=== PATIENT | male | born 1940 | race Caucasian/White ===

== ENCOUNTER 2017-01-19 21:08 | Inpatient (IN) | payer MEDICARE, BC ==
[~2017-01-19] VITALS: Ht 161.3 cm; Wt 76.7 kg
[~2017-01-19 21:08] MED LIST: ALLO300T PO; BISO1TAB4 PO; BUDE0.5A NEB; CLON0.1T PO; DOXA4TAB3 PO; FURO40TA4 PO; GLIM2TAB PO; METF500T4 PO; NIFE30TA17 PO; PANT40TA5 PO; PIOG15TA21 PO; POTA10TA12 PO; POTASSIUM CHLO10 MEQ PO; PROAIR HFA8.5 GM IH
[2017-01-19 21:44] LABS: BASO % 1 % (0-3); EOS % 2 % (0-3); HEMOGLOBIN 10.6 g/dL (13.0-17.5); LYMPH # 1.4 x10^3/uL (1.0-4.8); LYMPH % 16 % (24-48); MEAN CORPUSCULAR HEMOGLOBIN 26 pg (25-35); MEAN CORPUSCULAR HGB CONC 32 g/dL (31-37); MEAN CORPUSCULAR VOLUME 81 fL (79-100); MONO % 10 % (0-9); NEUT % 72 % (31-73); PLATELET COUNT 176 x10^3/uL (140-400); RED BLOOD COUNT 4.09 x10^6/uL (4.30-5.70); WHITE BLOOD COUNT 9.1 x10^3/uL (4.0-11.0)
[2017-01-19] MEDS ORDERED: ASPIRIN CHEWABLE 81 MG TABLET. PO ONE (21:45)
[2017-01-19] MEDS ORDERED: ACETAMINOPHEN 325 MG TABLET. PO ONE (21:45)
[2017-01-19] MEDS ORDERED: HEPARIN for IV BOLUS 10,000 UNIT/10 ML VIAL. IV ONE (21:45)
[2017-01-19] MEDS ORDERED: methylPREDNISolone SOD SUCC PF 125 MG/2 ML VIAL. IV ONE (21:45)
[2017-01-19] MEDS ORDERED: HEPARIN 25,000UTS/500ML PREMIX 500 ML IV PRN (21:45)
[2017-01-19] MEDS ORDERED: IPRATRPIUM/ALBUTEROL 0.5/2.5MG 3 ML NEBU. NEB ONE ×3 (21:45)
[2017-01-19] MEDS ORDERED: FUROSEMIDE 40 MG/4 ML VIAL. IVP ONE (21:45)
[2017-01-19] MEDS ORDERED: HEPARIN for IV BOLUS 10,000 UNIT/10 ML VIAL. IV PRN (21:45)
[2017-01-19 21:52] LABS: CALCIUM 8.6 mg/dL (8.5-10.1); CREATININE 1.4 mg/dL (0.7-1.3); GFR 49.1; POTASSIUM 3.9 mmol/L (3.5-5.1)
[2017-01-19 21:53] LABS: INR 1.2 (0.8-1.1); PROTHROMBIN TIME PATIENT 14.9 SEC (11.7-14.0)
[2017-01-19 22:07] LABS: ALBUMIN 2.7 g/dL (3.4-5.0); ALBUMIN/GLOBULIN RATIO 0.7 (1.0-1.7); TOTAL BILIRUBIN 0.8 mg/dL (0.2-1.0); TOTAL PROTEIN 6.6 g/dL (6.4-8.2)
[2017-01-19] MEDS ORDERED: MORPHINE SULFATE 2 MG/ML DISP.SYRIN. IV PRN (22:45)
[2017-01-19] MEDS ORDERED: ACETAMINOPHEN 325 MG TABLET. PO PRN (22:45)
[2017-01-19] MEDS ORDERED: ONDANSETRON PF 4 MG/2 ML VIAL. IV PRN (22:45)
[2017-01-19] MEDS ORDERED: NITROGLYCERIN SUBLINGUAL 0.4 MG BOTTLE OF 25. SL PRN (22:45)
[2017-01-19] MEDS ORDERED: AZITHRMYCN 500MG IVPB FOR OMNI 250 ML IV ONE (23:00)
[2017-01-19 23:24] LABS: BILIRUBIN,URINE NEGATIVE (NEG); GLUCOSE,URINE NEGATIVE (NEG); NITRITE,URINE NEGATIVE (NEG); PH,URINE 5.5; PROTEIN,URINE NEGATIVE (NEG-TRACE)
[2017-01-19 23:34] LABS: BACTERIA,URINE 0 /HPF (0-FEW); RBC,URINE 0 /HPF (0-2); SQUAMOUS EPITHELIAL CELL,UR OCC /LPF; WBC,URINE OCC /HPF (0-4)
[2017-01-20] VITALS (10 sets, daily range): BP systolic 114–154; BP diastolic 54–83
--- NOTE | 2017-01-20 01:40 | PHYS DOC ---
Past Medical History Past Medical History: Asthma, Diabetes-Type II Past Surgical History: No Surgical History Alcohol Use: None Drug Use: None Adult General Chief Complaint Chief Complaint: SHORTNESS OF BREATH HPI HPI Patient is a 76 year old gentleman with a history significant for hypertension diabetes and COPD presents to the ER today secondary to shortness of breath that started earlier this afternoon. Patient reports he uses oxygen as needed at home. When EMS arrived his pulse ox was 86% on room air. Patient reports he was extremity short of breath prior to EMS arrival. EMS gave him an albuterol in route and he reports that he feels somewhat improved after that. He reports he is now able cough up some sputum. Patient denies any history of atrial fibrillation or coronary artery disease in the past. Patient does not have any abdominal surgeries in the past. Patient is an ex-smoker no alcohol or drugs. Patient primary care physician is Dr. Coyle. Patient reports that he does not have a history of CHF although he has been treated with diuretics in the past for his lower extremity edema. Patient reports that he's had increased edema to his lower extremities over the last several days. Patient reports orthopnea and PND. Patient reports tactile fevers and a nonproductive cough as well. Patient reports sharp pleuritic chest pain. Patient's physical exam and the ER was significant for 1. Patient's heart rate was irregularly irregular and tachycardic to a heart rate of 115. Patient denies any history of atrial fibrillation on the monitor his rhythm appeared to be in rapid A. fib. 2. She had diffuse inspiratory and expiratory wheezing was tachypneic upon arrival to the ER. Patient's pulse ox upon arrival was 95% on 4 L nasal cannula. 3. Patient has 2-3+ bipedal edema. Patient has no JVD. No S3 or S4 was appreciable. 4. Patient was unable speak in full sentences. Patient appeared to be extremity dyspneic and hypoxic. Patient's ER hospital course was significant for an x-ray that revealed a right lower lobe pneumonia. Patient's BNP was elevated to 3000. Patient's troponin was normal. Patient's WBC count was normal. A/P 1 pneumonia with possible sepsis. Patient's lactic acid was normal. Patient's CBC Was unremarkable. Patient's chest x-ray did reveal right lower lobe infiltrate. Given the patient's recent cough patient had a fever 100.3 here in the ER we will go ahead and start the patient on Rocephin and Zithromax IV. 2. COPD exacerbation. Patient was given Solu-Medrol the ER as well as multiple Combivent's patient feels much improved prior to being sent to the floor. Patient be treated with IV steroids, albuterol/Atrovent and will be monitored in the hospital until he improves. 3. New onset A. fib. Etiology unclear. This is possibly related to his fever versus infection. Patient was started on heparin anticoagulates the patient. Patient was given aspirin. Patient is currently has a heart rate of 100 after Tylenol was given in the ER. Patient will be admitted to telemetry and cardiology will be consulted for further evaluation. 4. Pulmonary edema. Patient has a markedly elevated BNP with no exudate A. fib. Patient will be given Lasix IV. Critical care time of 35 minutes were utilizing a treatment and management of this patient's hypoxia, pulmonary edema, pneumonia, possible sepsis. This was exclusive of any procedures performed of the patient. Review of Systems Review of Systems Constitutional: Denies fever or chills [] Eyes: Denies change in visual acuity, redness, or eye pain [] HENT: Denies nasal congestion or sore throat [] All other review systems are negative except as documented in the history of present illness portion. Allergies Allergies Allergies Coded Allergies Type Severity Reaction Last Updated Verified No Known Drug Allergies 10/17/15 No Physical Exam Physical Exam Constitutional: Well developed, well nourished, no acute distress, non-toxic appearance. [] HENT: Normocephalic, atraumatic, bilateral external ears normal, oropharynx moist, no oral exudates, nose normal. [] Eyes: PERRLA, EOMI, conjunctiva normal, no discharge. [] Neck: Normal range of motion, no tenderness, supple, no stridor. [] Cardiovascular see above. Lungs & Thorax: See above. Abdomen: Bowel sounds normal, soft, no tenderness, no masses, no pulsatile masses. [] Skin: Warm, dry, no erythema, no rash. [] Back: No tenderness, no CVA tenderness. [] Extremities: 2+ edema Neurologic: Alert and oriented X 3, normal motor function, normal sensory function, no focal deficits noted. [] Psychologic: Affect normal, judgement normal, mood normal. [] Current Patient Data Vital Signs Vital Signs Date Time Temp Pulse Resp B/P (MAP) Pulse Ox O2 Delivery O2 Flow Rate FiO2 01/19/17 21:14 102 152/65 (94) 91 Nasal Cannula 2.0 01/19/17 21:13 99.0 26 99.0 Lab Values Laboratory Tests Test 01/19/17 21:30 White Blood Count 9.1 x10^3/uL (4.0-11.0) Red Blood Count 4.09 x10^6/uL (4.30-5.70) L Hemoglobin 10.6 g/dL (13.0-17.5) L Hematocrit 33.0 % (39.0-53.0) L Mean Corpuscular Volume 81 fL (79-100) Mean Corpuscular Hemoglobin 26 pg (25-35) Mean Corpuscular Hemoglobin Concent 32 g/dL (31-37) Red Cell Distribution Width 16.0 % (11.5-14.5) H Platelet Count 176 x10^3/uL (140-400) Neutrophils (%) (Auto) 72 % (31-73) Lymphocytes (%) (Auto) 16 % (24-48) L Monocytes (%) (Auto) 10 % (0-9) H Eosinophils (%) (Auto) 2 % (0-3) Basophils (%) (Auto) 1 % (0-3) Neutrophils # (Auto) 6.6 x10^3uL (1.8-7.7) Lymphocytes # (Auto) 1.4 x10^3/uL (1.0-4.8) Monocytes # (Auto) 0.9 x10^3/uL (0.0-1.1) Eosinophils # (Auto) 0.2 x10^3/uL (0.0-0.7) Basophils # (Auto) 0.0 x10^3/uL (0.0-0.2) Prothrombin Time 14.9 SEC (11.7-14.0) H Prothrombin Time INR 1.2 (0.8-1.1) H PTT 34 SEC (24-38) Sodium Level 143 mmol/L (136-145) Potassium Level 3.9 mmol/L (3.5-5.1) Chloride Level 104 mmol/L (98-107) Carbon Dioxide Level 29 mmol/L (21-32) Anion Gap 10 (6-14) Blood Urea Nitrogen 22 mg/dL (8-26) Creatinine 1.4 mg/dL (0.7-1.3) H Estimated GFR (Cockcroft-Gault) 49.1 BUN/Creatinine Ratio 16 (6-20) Glucose Level 89 mg/dL (70-99) Lactic Acid Level 1.5 mmol/L (0.4-2.0) Calcium Level 8.6 mg/dL (8.5-10.1) Total Bilirubin 0.8 mg/dL (0.2-1.0) Aspartate Amino Transferase (AST) 26 U/L (15-37) Alanine Aminotransferase (ALT) 23 U/L (16-63) Alkaline Phosphatase 75 U/L (46-116) Troponin I Quantitative 0.033 ng/mL (0.000-0.055) PQ-Jdt-S-Type Natriuretic Peptide 3920 pg/mL (0-449) H Total Protein 6.6 g/dL (6.4-8.2) Albumin 2.7 g/dL (3.4-5.0) L Albumin/Globulin Ratio 0.7 (1.0-1.7) L Laboratory Tests 01/19/17 21:30 Laboratory Tests 01/19/17 21:30 EKG EKG [] Radiology/Procedures Radiology/Procedures [] Course & Med Decision Making Course & Med Decision Making Pertinent Labs and Imaging studies reviewed. (See chart for details) [] Dragon Disclaimer Dragon Disclaimer This electronic medical record was generated, in whole or in part, using a voice recognition dictation system. Departure Departure Impression: Primary Impression: New onset atrial fibrillation Additional Impressions: Atrial fibrillation with RVR Pulmonary edema Pulmonary edema cardiac cause Pneumonia, community acquired Hypoxia Disposition: ADMITTED INPATIENT Admitting Physician: Gabriela Valera Condition: GUARDED Referrals: GABRIELA VALERA MD (PCP) Problem Qualifiers Additional Impressions: Pulmonary edema Chronicity: acute Qualified Codes: J81.0 - Acute pulmonary edema JULIA MORTON MD January 20, 2017 01:40
--- NOTE | 2017-01-20 02:08 | ACF ---
Admission Forms Criteria ATRIAL FIBRILLATION Clinical Indications for Admission to Inpatient Care (Place 'X' for any and all applicable criteria): Admission indicated for ANY ONE of the following(1)(2)(3)(4)(5) : [ ]I. Myocardial ischemia [X]II. Dyspnea or hypoxemia [ ]III. Hemodynamic instability [ ]IV. Heart failure (e.g., pulmonary edema) (7) [X]V. New-onset (less than 48 hours) atrial fibrillation with high risk for causing complications secondary to comorbidities (eg, symptomatic heart failure ) [ ]. Altered mental status [ ]VII. Syncope [ ]VIII. Patient has implantable cardioverter defibrillator that has fired more than once within past 24hr or needs immediate adjustment of settings that cannot be done other than in inpatient setting. (8) [ ]IX. Suspected accessory pathway (e.g., Wcytu-Mrvauremf-Ncssf syndrome) on ECG [ ]X. Recent systemic thromboembolism (eg, stroke) [ ]XI. Medication toxicity (e.g., digitalis) causing arrhythmia(9) [ ]XII. Underlying medical condition that necessitates inpatient care (e.g., thyrotoxicosis, pneumonia) (10) [ ]XIII. Continuous ECG monitoring is required for condition causing arrhythmia (e.g., severe hyperkalemia, hypokalemia, acid-base disturbance).(11)(12)(13) [ ]XIV. Initiation of antiarrhythmic drug therapy is needed in patient at high risk of adverse effects as indicated by ANY ONE of the following: [ ]a) Significant structural heart disease (e.g., reduced ejection fraction, congenital heart disease, valvular heart disease) [ ]b) Prolonged QT interval [ ]c) Underlying sinus node or atrioventricular conduction disturbances [ ]d) Need for treatment with antiarrhythmic drugs that have significant proarrhythmic potential (e.g., dofetilide, sotalol, procainamide) [ ]e) Patient whose sinus rhythm has never been observed on ECG [ ]XV. Intolerable symptoms despite optimal outpatient treatment [ ]XVI. Elective or urgent cardioversion that cannot be performed on outpatient basis or during observation care. [A] (Use also Atrial Fibrillation: Observation Care ) as appropriate.(14) [ ]XVII.Contraindications and/or Inappropriate clinical situations for Observational Care in patients with Atrial Fibrillation, when ANY ONE of the following is required: [ ]a) Patient with High risk of cardiac embolism (e.g, patients with previous cardiac embolism, LVEF < 40%, age >75 and patients with prosthetic valve) 18 [ ]b) Patient with Moderate risk including DM patient, CAD and patient aged 65-75 18 [ ]c) Patient with any change in cardiac biomarker especially troponin should be managed as high risk in an inpatient setting 19 [ ]d) Physician judgement irrespective of ECG and other diagnostic findings 20 [ ]XVIII.General contraindications and/or Inappropriate clinical situations for Observational Care in patients with Atrial Fibrillation, when ANY ONE of the following is required: [ ]a) Prediction of prolongation of LOS based on ANY ONE of the following may be considered as a contraindication for observational care 2, 3, 4, 5, 6, 7, 8, 9, 10, 11 [ ]i) Age > 65 yrs. [ ]ii) Patient arriving by ambulance [ ]iii) Patient with high acuity [ ]iv) Patient requiring vital sign monitoring [ ]v) Patient on IV medication [ ]b) Systolic blood pressures 180mmHg 3,12 [ ]c) Patient with altered mental status including delirium and other alteration of consciousness3 [ ]d) Patient whose discharge disposition will be to a snf home or rehabilitation home should not be managed in Emergency Department Observation Unit. CMS rule requires 3 days hospital stay before such placement.3,13 [ ]e) Patient with failure to thrive due to broad array of etiologies 3,16,17 [ ]f) Inability to ambulate 3,14 Extended stay beyond goal length of stay may be needed for (1)(25)(26): [ ]a) Unstable comorbidities [ ]b) Persistently uncontrolled atrial fibrillation or other arrhythmias [ ]c) Acute thromboembolic event (e.g., stroke, limb ischemia) [ ]d) Need for inpatient attainment of full anticoagulation The original [employer] content created by [employer] has been revised. The portions of the content which have been revised are identified through the use of italic text or in bold, and [employer] has neither reviewed nor approved the modified material. All other unmodified content is copyright [employer]. Please see references footnoted in the original [employer] edition 2016 Admission Criteria Met?: Yes JACLYN NAYLOR January 20, 2017 02:08
[2017-01-20 04:28] LABS: BASO % 0 % (0-3); EOS % 0 % (0-3); HEMATOCRIT 29.6 % (39.0-53.0); HEMOGLOBIN 9.8 g/dL (13.0-17.5); LYMPH # 0.2 x10^3/uL (1.0-4.8); LYMPH % 3 % (24-48); MEAN CORPUSCULAR HEMOGLOBIN 26 pg (25-35); MEAN CORPUSCULAR HGB CONC 33 g/dL (31-37); MEAN CORPUSCULAR VOLUME 79 fL (79-100); MONO % 2 % (0-9); NEUT % 95 % (31-73); PLATELET COUNT 160 x10^3/uL (140-400); RED BLOOD COUNT 3.73 x10^6/uL (4.30-5.70); RED CELL DISTRIBUTION WIDTH 15.7 % (11.5-14.5); WHITE BLOOD COUNT 6.9 x10^3/uL (4.0-11.0)
[2017-01-20 05:49] LABS: CALCIUM 8.4 mg/dL (8.5-10.1); CREATININE 1.5 mg/dL (0.7-1.3); GFR 45.4; POTASSIUM 3.5 mmol/L (3.5-5.1)
[2017-01-20 06:51] LABS: PLT ESTIMATE ADEQUATE (ADEQUATE)
--- NOTE | 2017-01-20 07:09 | RAD ---
Indication: Shortness of air. Time of exam 2138 hours. Comparison is made with prior chest from 10/19/2015. The heart size is stable. There has been development of patchy airspace infiltrate in the right lung base consistent with pneumonia. Left lung is fairly clear. No effusion or pneumothorax is seen. Impression: Right basilar pneumonia.
[2017-01-20] MEDS: IPRATRPIUM/ALBUTEROL 0.5/2.5MG 3 ML NEBU. NEB SCH ×4 (07:22→21:25)
--- NOTE | 2017-01-20 08:35 | PDOC ---
GENERAL General: ongoing avr with rvr. cardizem drip ordered. pulmonary and cardiology to see. see dictated H&P. Problems: VITAL SIGNS Vital Signs: Vital Signs Date Time Temp Pulse Resp B/P (MAP) Pulse Ox O2 Delivery O2 Flow Rate FiO2 01/20/17 07:57 97.7 92 25 142/83 (102) 94 Nasal Cannula 97.7 01/20/17 07:42 2.0 I & O I & O Intake and Output 01/20/17 07:00 Intake Total 475 ml Output Total 225 ml Balance 250 ml Intake Oral 50 ml IV Total 425 ml Output Urine Total 225 ml ALLERGIES Allergies: Allergies Coded Allergies Type Severity Reaction Last Updated Verified No Known Drug Allergies 10/17/15 No MEDS Medications: Current Medications Medications (Trade) Dose Ordered Sig/Lety Start Time Stop Time Status Last Admin Dose Admin Acetaminophen (Tylenol) 650 mg PRN Q4HRS PRN 01/19/17 22:45 01/20/17 22:44 Albuterol/ Ipratropium (Duoneb) 3 ml RTQID 01/20/17 08:00 01/21/17 07:59 01/20/17 07:22 3 ML Aspirin (Children'S Aspirin) 324 mg 1X ONCE 01/19/17 21:45 01/19/17 21:46 DC 01/19/17 22:00 324 MG Azithromycin 250 ml @ 250 mls/hr 1X ONCE 01/19/17 23:00 01/19/17 23:59 DC 01/19/17 23:12 250 MLS/HR Ceftriaxone Sodium 50 ml @ 100 mls/hr 1X ONCE 01/19/17 21:45 01/19/17 22:14 DC 01/19/17 22:01 100 MLS/HR Furosemide (Lasix) 40 mg 1X ONCE 01/19/17 21:45 01/19/17 21:46 DC 01/19/17 22:01 40 MG Heparin Sodium (Porcine) (Heparin Sodium) 1,900 unit PRN Q6HRS PRN 01/19/17 21:45 01/20/17 06:22 1,900 UNIT Heparin Sodium/ Dextrose 500 ml @ 0 mls/hr CONT PRN 01/19/17 21:45 01/19/17 22:16 0 MLS/HR Methylprednisolone Sodium Succinate (Solu-Medrol 125mg Vial) 125 mg 1X ONCE 01/19/17 21:45 01/19/17 21:46 DC 01/19/17 22:00 125 MG Morphine Sulfate 2 mg PRN Q2HR PRN 01/19/17 22:45 01/20/17 22:44 Nitroglycerin (Nitrostat) 0.4 mg PRN Q5MIN PRN 01/19/17 22:45 01/20/17 22:44 Ondansetron HCl (Zofran) 4 mg PRN Q8HRS PRN 01/19/17 22:45 01/20/17 22:44 LAB Lab: Laboratory Tests Test 01/19/17 21:30 01/19/17 23:10 01/20/17 04:15 01/20/17 04:30 White Blood Count 9.1 x10^3/uL (4.0-11.0) 6.9 x10^3/uL (4.0-11.0) Red Blood Count 4.09 x10^6/uL (4.30-5.70) 3.73 x10^6/uL (4.30-5.70) Hemoglobin 10.6 g/dL (13.0-17.5) 9.8 g/dL (13.0-17.5) Hematocrit 33.0 % (39.0-53.0) 29.6 % (39.0-53.0) Mean Corpuscular Volume 81 fL (79-100) 79 fL (79-100) Mean Corpuscular Hemoglobin 26 pg (25-35) 26 pg (25-35) Mean Corpuscular Hemoglobin Concent 32 g/dL (31-37) 33 g/dL (31-37) Red Cell Distribution Width 16.0 % (11.5-14.5) 15.7 % (11.5-14.5) Platelet Count 176 x10^3/uL (140-400) 160 x10^3/uL (140-400) Neutrophils (%) (Auto) 72 % (31-73) 95 % (31-73) Lymphocytes (%) (Auto) 16 % (24-48) 3 % (24-48) Monocytes (%) (Auto) 10 % (0-9) 2 % (0-9) Eosinophils (%) (Auto) 2 % (0-3) 0 % (0-3) Basophils (%) (Auto) 1 % (0-3) 0 % (0-3) Neutrophils # (Auto) 6.6 x10^3uL (1.8-7.7) 6.5 x10^3uL (1.8-7.7) Lymphocytes # (Auto) 1.4 x10^3/uL (1.0-4.8) 0.2 x10^3/uL (1.0-4.8) Monocytes # (Auto) 0.9 x10^3/uL (0.0-1.1) 0.1 x10^3/uL (0.0-1.1) Eosinophils # (Auto) 0.2 x10^3/uL (0.0-0.7) 0.0 x10^3/uL (0.0-0.7) Basophils # (Auto) 0.0 x10^3/uL (0.0-0.2) 0.0 x10^3/uL (0.0-0.2) Prothrombin Time 14.9 SEC (11.7-14.0) Prothromb Time International Ratio 1.2 (0.8-1.1) Activated Partial Thromboplast Time 34 SEC (24-38) Sodium Level 143 mmol/L (136-145) 141 mmol/L (136-145) Potassium Level 3.9 mmol/L (3.5-5.1) 3.5 mmol/L (3.5-5.1) Chloride Level 104 mmol/L (98-107) 103 mmol/L (98-107) Carbon Dioxide Level 29 mmol/L (21-32) 26 mmol/L (21-32) Anion Gap 10 (6-14) 12 (6-14) Blood Urea Nitrogen 22 mg/dL (8-26) 24 mg/dL (8-26) Creatinine 1.4 mg/dL (0.7-1.3) 1.5 mg/dL (0.7-1.3) Estimated GFR (Cockcroft-Gault) 49.1 45.4 BUN/Creatinine Ratio 16 (6-20) Glucose Level 89 mg/dL (70-99) 260 mg/dL (70-99) Lactic Acid Level 1.5 mmol/L (0.4-2.0) Calcium Level 8.6 mg/dL (8.5-10.1) 8.4 mg/dL (8.5-10.1) Total Bilirubin 0.8 mg/dL (0.2-1.0) Aspartate Amino Transf (AST/SGOT) 26 U/L (15-37) Alanine Aminotransferase (ALT/SGPT) 23 U/L (16-63) Alkaline Phosphatase 75 U/L (46-116) Troponin I Quantitative 0.033 ng/mL (0.000-0.055) < 0.017 ng/mL (0.000-0.055) PD-Hfu-S-Type Natriuretic Peptide 3920 pg/mL (0-449) Total Protein 6.6 g/dL (6.4-8.2) Albumin 2.7 g/dL (3.4-5.0) Albumin/Globulin Ratio 0.7 (1.0-1.7) Urine Collection Type Unknown Urine Color Yellow Urine Clarity Cloudy Urine pH 5.5 Urine Specific [place] 1.010 Urine Protein Negative mg/dL (NEG-TRACE) Urine Glucose (UA) Negative mg/dL (NEG) Urine Ketones (Stick) Negative mg/dL (NEG) Urine Blood Negative (NEG) Urine Nitrite Negative (NEG) Urine Bilirubin Negative (NEG) Urine Urobilinogen Dipstick 1.0 mg/dL (0.2 mg/dL) Urine Leukocyte Esterase Negative (NEG) Urine RBC 0 /HPF (0-2) Urine WBC Occ /HPF (0-4) Urine Squamous Epithelial Cells Occ /LPF Urine Bacteria 0 /HPF (0-FEW) Urine Mucus Mod /LPF Segmented Neutrophils % 97 % (35-66) Band Neutrophils % 1 % (0-9) Lymphocytes % 1 % (24-48) Monocytes % 1 % (0-10) Platelet Estimate Adequate (ADEQUATE) Heparin Anti-Xa Act, Unfractionated < 0.10 IU/mL (0.30-0.70) GABRIELA VALERA MD January 20, 2017 08:35
[2017-01-20] MEDS ORDERED: dilTIAZem IV PUSH 25 MG/5 ML VIAL IVP ONE (08:45)
--- NOTE | 2017-01-20 08:48 | EKG ---
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
[2017-01-20] MEDS ORDERED: POTASSIUM CHLORIDE 20 MEQ TABLET.ER. PO ONE (10:00)
--- NOTE | 2017-01-20 10:18 | PDOC2 ---
INDRIA DELATORRE RETAIL BUYER 01/20/17 1018: CARDIAC CONSULT DATE OF CONSULT Date of Consult DATE: 01/20/17 TIME: 10:18 REASON FOR CONSULT Reason for Consult: new onset atrial fibrillation, pulmonary edema, elevated BNP and pneumonia REFERRING PHYSICIAN Referring Physician: Dr. Cornelio Hayes SOURCE Source: Chart review, Patient HISTORY OF PRESENT ILLNESS HISTORY OF PRESENT ILLNESS 76 year old male admitted through the ER with dyspnea. Was found to be in atrial fibrillation with RVR and was started on diltiazem and heparin gtts. CXR demonstrates pneumonia and was febrile in the ER. Now admits to chest heaviness, dizziness and lightheadedness and possibly palpitations as well. EKG with atrial fib with RVR. Troponin levels not consistent with ACS and NT-proBNP ~ 3900. Reason for Visit: atrial fib RVR PAST MEDICAL HISTORY Cardiovascular: HTN Pulmonary: COPD (with nocturnal O2) CENTRAL NERVOUS SYSTEM: Other (denies) GI: No pertinent hx Heme/Onc: No pertinent hx Hepatobiliary: No pertinent hx Psych: No pertinent hx Musculoskeletal: Osteoarthritis Rheumatologic: No pertinent hx Infectious disease: No pertinent hx ENT: No pertinent hx Renal/: No pertinent hx Endocrine: No pertinent hx Dermatology: No pertinent hx PAST SURGICAL HISTORY Past Surgical History: Other (hydrocele repair) FAMILY HISTORY Family History: Family History Unknown SOCIAL HISTORY Social History chewing tobacco X 40+ years ALCOHOL: heavy (3 beers and 3 cocktails every ) Lives: with Family () CURRENT MEDICATIONS CURRENT MEDICATIONS Current Medications Medications (Trade) Dose Ordered Sig/Lety Route PRN Reason Start Time Stop Time Status Last Admin Dose Admin Albuterol/ Ipratropium (Duoneb) 3 ml 1X ONCE NEB 01/19/17 21:45 01/19/17 21:46 DC 01/19/17 21:45 Furosemide (Lasix) 40 mg 1X ONCE IVP 01/19/17 21:45 01/19/17 21:46 DC 01/19/17 22:01 Methylprednisolone Sodium Succinate (Solu-Medrol 125mg Vial) 125 mg 1X ONCE IV 01/19/17 21:45 01/19/17 21:46 DC 01/19/17 22:00 Aspirin (Children'S Aspirin) 324 mg 1X ONCE PO 01/19/17 21:45 01/19/17 21:46 DC 01/19/17 22:00 Heparin Sodium (Porcine) (Heparin Sodium) 4,000 unit 1X ONCE IV 01/19/17 21:45 01/19/17 21:46 DC 01/19/17 22:15 Heparin Sodium/ Dextrose 500 ml @ 0 mls/hr CONT PRN IV SEE I/O RECORD 01/19/17 21:45 01/19/17 22:16 Heparin Sodium (Porcine) (Heparin Sodium) 1,900 unit PRN Q6HRS PRN IV FOR UFH LEVEL LESS THAN 0.2 01/19/17 21:45 01/20/17 06:22 Ceftriaxone Sodium 50 ml @ 100 mls/hr 1X ONCE IV 01/19/17 21:45 01/19/17 22:14 DC 01/19/17 22:01 Azithromycin 250 ml @ 250 mls/hr 1X ONCE IV 01/19/17 23:00 01/19/17 23:59 DC 01/19/17 23:12 Albuterol/ Ipratropium (Duoneb) 3 ml 1X ONCE NEB 01/19/17 21:45 01/19/17 21:46 DC 01/19/17 21:45 Albuterol/ Ipratropium (Duoneb) 3 ml 1X ONCE NEB 01/19/17 21:45 01/19/17 21:46 DC 01/19/17 21:47 Albuterol/ Ipratropium (Duoneb) 3 ml RTQID NEB 01/20/17 08:00 01/21/17 07:59 01/20/17 07:22 Diltiazem HCl 125 mg/Dextrose 125 ml @ 0 mls/hr CONT PRN IV SEE I/O RECORD 01/20/17 09:00 01/20/17 09:02 Diltiazem HCl (Cardizem) 10 mg 1X ONCE IVP 01/20/17 08:45 01/20/17 08:46 DC 01/20/17 09:02 ALLERGIES ALLERGIES: Coded Allergies: No Known Drug Allergies (Unverified , 10/17/15) ROS General: No: Chills, Night Sweats, Fatigue, Malaise, Appetite, Other PSYCHOLOGICAL ROS: No: Anxiety, Behavioral Disorder, Concentration difficultie , Decreased libido, Depression, Disorientation, Hallucinations, Hostility, Irritablity, Memory difficulties, Mood Swings, Obsessive thoughts, Physical abuse, Sexual abuse, Sleep disturbances, Suicidal ideation, Other Eyes: No Blurry vision, No Decreased vision, No Double vision, No Dry eyes, No Excessive tearing, No Eye Pain, No Itchy Eyes, No Loss of vision, No Photophobia , No Scotomata, No Uses contacts, No Uses glasses, No Other HEENT: No: Heacaches, Visual Changes, Hearing change, Nasal congestion, Nasal discharge, Oral lesions, Sinus pain, Sore Throat, Epistaxis, Sneezing, Snoring, Tinnitus, Vertigo, Vocal changes, Other ALLERGY AND IMMUNOLOGY: No: Hives, Insect Bite Sensitivity, Itchy/Watery Eyes, Nasal Congestion, Post Nasal Drip, Seasonal Allergies, Other Hematological and Lymphatic: No: Bleeding Problems, Blood Clots, Blood Transfusions, Brusing, Night Sweats, Pallor, Swollen Lymph Nodes, Other Respiratory: YES: Cough, Shortness of breath, SOB with excertion, No: Hemoptysis, Orthopnea, Pleuritic Pain, Sputum Changes, Stridor, Tachypnea , Wheezing, Other Cardiovascular: yes Palpitations, No Chest Pain, No Orthopnea, No Paroxysmal Noc. Dyspnea, No Edema, No Lt Headedness, No Other Gastrointestinal: No Nausea, No Vomiting, No Abdominal Pain, No Diarrhea, No Constipation, No Melena, No Hematochezia, No Other Genitourinary: No Dysuria, No Frequency, No Incontinence, No Hematuria, No Retention, No Discharge, No Urgency, No Pain, No Flank Pain, No Other Musculoskeletal: Yes Gait Disturbance (walks with cane) Neurological: Yes Gait Disturbance, No Behavorial Changes, No Bowel/Bladder ControlChng, No Confusion, No Dizziness, No Headaches, No Impaired Coord/balance, No Memory Loss, No Numbness/ Tingling, No Seizures, No Speech Problems, No Tremors, No Visual Changes, No Weakness, No Other Skin: No Dry Skin, No Eczema, No Hair Changes, No Lumps, No Mole Changes, No Mottling, No Nail Changes, No Pruritus, No Rash, No Skin Lesion Changes, No Other, No Acne PHYSICAL EXAM General: Alert, Oriented X3, Cooperative, No acute distress HEENT: Atraumatic, PERRLA Lungs: Other (coarse with scattered wheezing & rhonchii) Heart: No murmurs, Other (IRRR; tele: atrial fib RVR) Abdomen: Normal bowel sounds, Soft Extremities: No edema Skin: No rashes Neuro: Normal speech Psych/Mental Status: Mental status NL, Mood NL MUSCULOSKELETAL: Osteoarthritic changes both hands VITALS VITALS Vital Signs Date Time Temp Pulse Resp B/P (MAP) Pulse Ox O2 Delivery O2 Flow Rate FiO2 01/20/17 09:02 122 142/83 01/20/17 07:57 97.7 25 94 Nasal Cannula 97.7 01/20/17 07:42 2.0 LABS Lab: Laboratory Tests Test 01/19/17 21:30 01/19/17 23:10 01/20/17 04:15 01/20/17 04:30 White Blood Count 9.1 x10^3/uL (4.0-11.0) 6.9 x10^3/uL (4.0-11.0) Red Blood Count 4.09 x10^6/uL (4.30-5.70) 3.73 x10^6/uL (4.30-5.70) Hemoglobin 10.6 g/dL (13.0-17.5) 9.8 g/dL (13.0-17.5) Hematocrit 33.0 % (39.0-53.0) 29.6 % (39.0-53.0) Mean Corpuscular Volume 81 fL (79-100) 79 fL (79-100) Mean Corpuscular Hemoglobin 26 pg (25-35) 26 pg (25-35) Mean Corpuscular Hemoglobin Concent 32 g/dL (31-37) 33 g/dL (31-37) Red Cell Distribution Width 16.0 % (11.5-14.5) 15.7 % (11.5-14.5) Platelet Count 176 x10^3/uL (140-400) 160 x10^3/uL (140-400) Neutrophils (%) (Auto) 72 % (31-73) 95 % (31-73) Lymphocytes (%) (Auto) 16 % (24-48) 3 % (24-48) Monocytes (%) (Auto) 10 % (0-9) 2 % (0-9) Eosinophils (%) (Auto) 2 % (0-3) 0 % (0-3) Basophils (%) (Auto) 1 % (0-3) 0 % (0-3) Neutrophils # (Auto) 6.6 x10^3uL (1.8-7.7) 6.5 x10^3uL (1.8-7.7) Lymphocytes # (Auto) 1.4 x10^3/uL (1.0-4.8) 0.2 x10^3/uL (1.0-4.8) Monocytes # (Auto) 0.9 x10^3/uL (0.0-1.1) 0.1 x10^3/uL (0.0-1.1) Eosinophils # (Auto) 0.2 x10^3/uL (0.0-0.7) 0.0 x10^3/uL (0.0-0.7) Basophils # (Auto) 0.0 x10^3/uL (0.0-0.2) 0.0 x10^3/uL (0.0-0.2) Prothrombin Time 14.9 SEC (11.7-14.0) Prothromb Time International Ratio 1.2 (0.8-1.1) Activated Partial Thromboplast Time 34 SEC (24-38) Sodium Level 143 mmol/L (136-145) 141 mmol/L (136-145) Potassium Level 3.9 mmol/L (3.5-5.1) 3.5 mmol/L (3.5-5.1) Chloride Level 104 mmol/L (98-107) 103 mmol/L (98-107) Carbon Dioxide Level 29 mmol/L (21-32) 26 mmol/L (21-32) Anion Gap 10 (6-14) 12 (6-14) Blood Urea Nitrogen 22 mg/dL (8-26) 24 mg/dL (8-26) Creatinine 1.4 mg/dL (0.7-1.3) 1.5 mg/dL (0.7-1.3) Estimated GFR (Cockcroft-Gault) 49.1 45.4 BUN/Creatinine Ratio 16 (6-20) Glucose Level 89 mg/dL (70-99) 260 mg/dL (70-99) Lactic Acid Level 1.5 mmol/L (0.4-2.0) Calcium Level 8.6 mg/dL (8.5-10.1) 8.4 mg/dL (8.5-10.1) Total Bilirubin 0.8 mg/dL (0.2-1.0) Aspartate Amino Transf (AST/SGOT) 26 U/L (15-37) Alanine Aminotransferase (ALT/SGPT) 23 U/L (16-63) Alkaline Phosphatase 75 U/L (46-116) Troponin I Quantitative 0.033 ng/mL (0.000-0.055) < 0.017 ng/mL (0.000-0.055) UQ-Bas-X-Type Natriuretic Peptide 3920 pg/mL (0-449) Total Protein 6.6 g/dL (6.4-8.2) Albumin 2.7 g/dL (3.4-5.0) Albumin/Globulin Ratio 0.7 (1.0-1.7) Urine Collection Type Unknown Urine Color Yellow Urine Clarity Cloudy Urine pH 5.5 Urine Specific [place] 1.010 Urine Protein Negative mg/dL (NEG-TRACE) Urine Glucose (UA) Negative mg/dL (NEG) Urine Ketones (Stick) Negative mg/dL (NEG) Urine Blood Negative (NEG) Urine Nitrite Negative (NEG) Urine Bilirubin Negative (NEG) Urine Urobilinogen Dipstick 1.0 mg/dL (0.2 mg/dL) Urine Leukocyte Esterase Negative (NEG) Urine RBC 0 /HPF (0-2) Urine WBC Occ /HPF (0-4) Urine Squamous Epithelial Cells Occ /LPF Urine Bacteria 0 /HPF (0-FEW) Urine Mucus Mod /LPF Segmented Neutrophils % 97 % (35-66) Band Neutrophils % 1 % (0-9) Lymphocytes % 1 % (24-48) Monocytes % 1 % (0-10) Platelet Estimate Adequate (ADEQUATE) Heparin Anti-Xa Act, Unfractionated < 0.10 IU/mL (0.30-0.70) IMAGES IMAGES CXR: Comparison is made with prior chest from 10/19/2015. The heart size is stable. There has been development of patchy airspace infiltrate in the right lung base consistent with pneumonia. Left lung is fairly clear. No effusion or pneumothorax is seen. Impression: Right basilar pneumonia. EKG EKG no acute changes; atrial fib RVR ASSESSMENT/PLAN ASSESSMENT/PLAN 1. atrial fib with RVR, new onset K = 4 on diltiazem gtt - increase to 7.5 mg /hr for rate control heparin gtt - currently subtherapeutic - for stroke prevention [id number] = 4 (CHF, age, sex, HTN) corresponding to about 4% risk per year of stroke consider use of DOAC (if non-valvular afib) rather than warfarin due to binge ETOH use; though concern with gait disturbance requiring cane echo to evaluate for valvular heart disease check Mg and replace if indicated check TSH chest heaviness - ? rate related vs potential ischemic disease; resolved - multiple risk factors - consider MPI as outpatient 2. acute CHF, presumed diastolic control BP echo to evaluate LV function and assess for LVH/DD dosed with IV furosemide late yesterday evening; hold for today and re- evaluate in a.m. 3. pneumonia/COPD abx per pulm 4. HTN currently controlled 5. hyperglycemia ? related to IV methylpred given in ER last night initial glucose level normal defer to primary service Problems: SEVERIANO MATTHEWS MD 01/20/17 1538: CARDIAC CONSULT ALLERGIES ALLERGIES: Coded Allergies: No Known Drug Allergies (Unverified , 10/17/15) ASSESSMENT/PLAN ASSESSMENT/PLAN Pt. seen and examined. Agree with above SLITTER SERVICE AND SETTER note. 76 y.o male with possible PNA and afib with RVR. Currently rate controlled. Will convert to oral regimen and start NOAC. Decreased breath sounds bilaterally Supportive care. Problems: INDIRA DELATORRE APRN January 20, 2017 10:18 SEVERIANO MATTHEWS MD January 20, 2017 15:38
--- NOTE | 2017-01-20 11:20 | PDOC ---
Provider Note Provider Note dictated MARÍA PATEL MD January 20, 2017 11:20
--- NOTE | 2017-01-20 11:43 | CONS ---
DATE OF CONSULTATION: 01/20/2017 ATTENDING PHYSICIAN: Dr. Ambrose. REASON FOR CONSULTATION: Cough and abnormal chest x-ray, pneumonia. HISTORY OF PRESENT ILLNESS: The patient is a 76-year-old male who has been chewing tobacco for 40 years. He was brought into the hospital after he was complaining of a persistent cough, which has been nonproductive. He had some shortness of breath which he attributes as chronic. He usually uses oxygen at night time and does not use it during the day. However, he was placed on 2 liters of oxygen on arrival. The patient denies any chest pains. No urinary symptoms. No headaches. His chest x-ray was reviewed by me, and it shows right lower lobe consolidation consistent with pneumonia. He was also noted to be tachycardic and was found to be in atrial fibrillation with rapid ventricular response. He is currently on Cardizem, and his heart rate is under control. Cardiology is also consulted. The patient received antibiotics in the ER. PAST MEDICAL HISTORY: Significant for history of suspected underlying COPD and history of diabetes type 2. PAST SURGICAL HISTORY: None. ALLERGIES: None. MEDICATIONS: Reviewed as listed in the [facility]. REVIEW OF SYSTEMS: Twelve-point systems obtained. Pertinent positives were discussed in my history of present illness, otherwise noncontributory. All systems that were negative were reviewed as well. SOCIAL HISTORY: Chewing tobacco for 40 years. PHYSICAL EXAMINATION: VITAL SIGNS: Blood pressure 152/65, T-max of 99, and pulse oximetry 93% on 2 liters. HEENT: Sclerae nonicteric. NECK: Supple. LUNGS: With diminished breath sounds bilaterally. CARDIOVASCULAR: Irregular rhythm. ABDOMEN: Soft, nontender. EXTREMITIES: With trace pitting edema. LABORATORY DATA: Reviewed. White cell count on admission 6.9, hemoglobin 10.9, platelets are 176, BUN 24, creatinine 1.5, and magnesium 1.5. IMPRESSION: 1. Dyspnea with acute hypoxic respiratory failure secondary to right lower lobe pneumonia and suspected chronic obstructive pulmonary disease exacerbation. 2. Atrial fibrillation with rapid ventricular response. 3. Ongoing history of chewing tobacco for 40 years. RECOMMENDATIONS: 1. Smoking cessation counseling provided, but he does not seem to be interested in quitting tobacco. 2. Continue DuoNebs. 3. Continue empiric antibiotics for community-acquired pneumonia. 4. Management of atrial fibrillation per Cardiology. 5. PFTs as an outpatient. 6. Repeat chest x-ray in 48 hours. 7. We will follow along with you. MARÍA PATEL MD DR: CARLEE/jewels JOB#: [id number] / [id number]
[2017-01-20] MEDS ORDERED: MAGNESIUM SULFATE 2GM 50 ML IV ONE (13:30)
--- NOTE | 2017-01-20 14:45 | CARD ---
APPROVED REPORT EXAM: Two-dimensional and M-mode echocardiogram with Doppler and color Doppler. Other Information Quality : Average Rhythm : Atrial Fibrillation INDICATION Atrial Fibrillation 2D DIMENSIONS RVDd3.1 (2.9-3.5cm)Left Atrium(2D)4.2 (1.6-4.0cm) IVSd1.2 (0.7-1.1cm)Aortic Root(2D)3.2 (2.0-3.7cm) LVDd4.8 (3.9-5.9cm)LVOT Diameter2.1 (1.8-2.4cm) PWd1.2 (0.7-1.1cm)LVDs3.8 (2.5-4.0cm) FS (%) 21.1 %SV46.0 ml LVEF(%)42.9 (>50%) Aortic Valve AoV Peak Cb.127.9cm/sAoV VTI24.5cm AO Peak GR.6.5mmHgLVOT VTI 22.54cm AO Mean GR.4mmHg Mitral Valve MV E Obhclbxn216.8cm/sMV E Peak Gr.6mmHg MV DECEL [id number] A Ddrzgopk951.2cm/s MV QEX32qeM/A Ratio1.1 MV A [id number] (PHT)5.00cm2 TDI Lateral E' P. V11.55cm/sMedial E' P. V7.70cm/s E/Lateral E'10.7E/Medial E'16.1 Tricuspid Valve TR P. Tmswrmut062gc/sRAP [id number] TR Peak Gr.02snAiYJOI48xhLc LEFT VENTRICLE The left ventricle is normal size. There is borderline concentric left ventricular hypertrophy. Left ventricle systolic function is mildly diminished. The Ejection Fraction is 45-50%. Mild mid to distal inferior wall and septal wall motion abnormality. The left ventricular diastolic function and fillin g is normal for age. RIGHT VENTRICLE The right ventricle is normal size. The right ventricular systolic function is normal. ATRIA The left atrium size is normal. The right atrium size is normal. The interatrial septum is intact wit h no evidence for an atrial septal defect or patent foramen ovale as noted on 2-D or Doppler imaging. AORTIC VALVE The aortic valve is not well visualized. Doppler and Color Flow revealed no significant aortic regurg itation. There is no significant aortic valvular stenosis. MITRAL VALVE Mitral annular calcification is mild. There is no mitral valve stenosis. Doppler and Color Flow revea led mild mitral regurgitation. TRICUSPID VALVE The tricuspid valve is normal in structure and function. Doppler and Color Flow revealed mild tricusp id regurgitation. The PA pressure was estimated at 45 mmHg. There is no tricuspid valve stenosis. PULMONIC VALVE The pulmonic valve is not well visualized. Doppler and Color Flow revealed no pulmonic valvular regur gitation. There is no pulmonic valvular stenosis. GREAT VESSELS The aortic root is normal in size. The IVC is normal in size and collapses <50% with inspiration. PERICARDIAL EFFUSION There is no evidence of significant pericardial effusion. Critical Notification Critical Value: No <Conclusion> Left ventricle systolic function is mildly diminished. The Ejection Fraction is 45-50%. Mild mid to distal inferior wall and septal wall motion abnormality. Doppler and Color Flow revealed mild tricuspid regurgitation. The PA pressure was estimated at 45 mmH g.
--- NOTE | 2017-01-20 16:09 | PDOC ---
Provider Note Provider Note see dictated H&P. APPL,GABRIELA Sarmiento MD January 20, 2017 16:09
[2017-01-20] MEDS ORDERED: ALBUTEROL SULFATE 2.5 MG/3 ML NEBU. NEB PRN (16:15)
[2017-01-20] MEDS: metFORMIN 500 MG TABLET PO SCH (18:05)
[2017-01-20] MEDS ORDERED: BUDESONIDE 0.5 MG/2 ML NEBU. NEB SCH (21:00)
[2017-01-20] MEDS: AZITHROMYCIN 250 MG in IV NORMAL SALINE 250ML 250 ML IV SCH (21:09)
[2017-01-20] MEDS: APIXABAN 5 MG TABLET. PO SCH (21:20)
[2017-01-20] MEDS ORDERED: DIGOXIN IV 500 MCG/2 ML AMPUL. IV ONE (23:00)
[2017-01-21] VITALS (9 sets, daily range): BP systolic 131–179; BP diastolic 45–80
[2017-01-21] MEDS ORDERED: DIGOXIN IV 500 MCG/2 ML AMPUL. IV ONE (01:00)
[2017-01-21] MEDS ORDERED: NITROGLYCERIN SUBLINGUAL 0.4 MG BOTTLE OF 25. SL ONE (01:43)
--- NOTE | 2017-01-21 04:56 | HP ---
ADMIT DATE: 01/19/2017 CHIEF COMPLAINT AND HISTORY OF PRESENT ILLNESS: This is a 76-year-old white male who is well known to me from followup in the office. The patient presented ____ shortness of breath the day prior. Got much worse on the day of admission, he was unable to find a comfortable position to sleep though. Because of it, presented to the Emergency Room where he was found to have a right lower lobe pneumonia as well as atrial fibrillation with rapid ventricular response, felt also had some acute congestive heart failure, likely diastolic with an elevated BNP and was admitted to the hospital for treatment of the same. PAST MEDICAL HISTORY: Remarkable for prior pneumonia. He has diabetes, hypertension, COPD, gout. [place] to have the asthmatic version of COPD, most likely. ALLERGIES: He has no known drug allergies. MEDICATIONS: At home include allopurinol 300 daily, budesonide and Brovana b.i.d., doxazosin 2 mg daily, Amaryl 3 mg daily, metformin 500 b.i.d., Protonix 40 daily, Actos 15 daily and potassium chloride 10 mEq daily. SOCIAL HISTORY: He is a long time chewer, rarely drinks, retired, lives at home with his . FAMILY HISTORY: Noncontributory. REVIEW OF SYSTEMS: As mentioned above. He specifically ____ a lot of cough associated with this, although the shortness of breath ____ as he is standing by the bed at the time of my examination, in atrial fibrillation with a rapid ventricular response. Last creatinine done in the office on the Lopez's was 1.06. PHYSICAL EXAMINATION: GENERAL: He is a well-developed, well-nourished white male, who appears uncomfortable. VITAL SIGNS: Remarkable for atrial fibrillation with a rapid ventricular response, anywhere from 120-160 while I am in the room, blood pressure is 140/80s, O2 sat is 93% on 2 liters. HEENT: Unremarkable. NECK: Supple without ____ thyromegaly. CHEST: Reveals decent breath sounds bilaterally. CARDIOVASCULAR: Irregularly irregular without S3, S4 or murmur. ABDOMEN: Soft, nontender, without hepatosplenomegaly or masses. EXTREMITIES: Without cyanosis, clubbing or significant edema. NEUROLOGICAL: He is intact. LABORATORY DATA: Chest x-ray shows right lower lobe pneumonia. White count is normal with a left shift, however, ____ confusing picture with the majority of his symptomatologies due to new onset atrial fibrillation with a rapid ventricular response and acute diastolic heart failure with possible superimposed right lower lobe pneumonia. PLAN: The patient has been admitted. I am starting a Cardizem drip currently. Cardiology and Pulmonary have been consulted and the patient will be monitored, managed and treated appropriately. GABRIELA VALERA MD DR: LEONARD/jewels JOB#: [id number] / [id number]
[2017-01-21 06:42] LABS: CHOLESTEROL/HDL RATIO 5.3
[2017-01-21] MEDS: ACETAMINOPHEN 325 MG TABLET. PO PRN ×2 (07:10→17:45)
[2017-01-21] MEDS ORDERED: ANTI-COAG MONITOR BY PHARMACY. MC PRN (07:30)
[2017-01-21] MEDS: PANTOPRAZOLE 40 MG TABLET.DR. PO SCH (08:12)
[2017-01-21] MEDS: PIOGLITAZONE 15 MG TABLET. PO SCH (08:13)
[2017-01-21] MEDS: APIXABAN 5 MG TABLET. PO SCH ×2 (08:14→21:35)
[2017-01-21] MEDS: metFORMIN 500 MG TABLET PO SCH ×2 (08:14→17:45)
[2017-01-21] MEDS: POTASSIUM CHLORIDE 10 MEQ TABLET.ER. PO SCH (08:15)
[2017-01-21] MEDS: DOXAZOSIN MESYLATE 4 MG TABLET. PO SCH (08:17)
[2017-01-21] MEDS: GLIMEPIRIDE 2 MG TABLET. PO SCH (08:20)
[2017-01-21] MEDS: ALLOPURINOL 300 MG TABLET. PO SCH (08:23)
--- NOTE | 2017-01-21 10:14 | PDOC ---
JUAN RAMONINDIRA Lilia HOOP ROLLS OPERATOR 01/21/17 1014: CARDIO Progress Notes Date and Time Date of Service 01/21/2017 Time of Evaluation 1014 Subjective Subjective: No Chest Pain, No Palpitations, No Dizziness Vitals Vitals Vital Signs Date Time Temp Pulse Resp B/P (MAP) Pulse Ox O2 Delivery O2 Flow Rate FiO2 01/21/17 08:17 81 133/63 01/21/17 07:42 98.0 20 95 Nasal Cannula 98.0 01/20/17 21:30 2.0 Weight Weight [ ] Input and Output Intake and Output Intake and Output 01/21/17 07:00 Intake Total 1000 ml Output Total 800 ml Balance 200 ml Intake Oral 1000 ml Output Urine Total 800 ml Laboratory Labs Laboratory Tests Test 01/20/17 11:50 01/21/17 06:00 Heparin Anti-Xa Act, Unfractionated 0.18 IU/mL (0.30-0.70) Triglycerides Level 117 mg/dL (0-150) Cholesterol Level 123 mg/dL (0-200) LDL Cholesterol, Calculated 77 mg/dL (0-100) VLDL Cholesterol, Calculated 23 mg/dL (0-40) Non-HDL Cholesterol Calculated 100 mg/dL (0-129) HDL Cholesterol 23 mg/dL (40-60) Cholesterol/HDL Ratio 5.3 Microbiology Micro Microbiology 01/19/17 Blood Culture - Preliminary, Resulted NO GROWTH AFTER 1 DAY Physical Exam HEENT: Neck Supple W Full Motion Chest: Symmetric LUNGS: Other (severely diminished posteriorly with scattered basilar crackles) Heart: S1S2, RRR, other (tele: SB with PACs) Abdomen: Soft N/T Extremities: Other (1+ bilateral lower extremity edema) Neurology: alert, oriented, follow commands Diagnostic Tests Echocardiogram: Other (LVEF 45-50% with mild mid to distal inferior wall and septal abnormalities; mild TR; PA = 45 mm Hg) Assessment Assessment 1. atrial fib with RVR, new onset rate fast during the night and dosed with IV digoxin converted to SR/SB\ stop diltiazem gtt and convert to oral diltiazem continue OAC with Eliquis plan event monitor at discharge to evaluate for atrial fib burden and then will determine duration of OAC 2. acute CHF, systolic and diastolic dose with IV furosemide 20 mg IV X 1 today control BP LVEF 45-50% with WMA mid to distal inferior wall and septal -- ? outpatient MPI when recovered from pneumonia recheck BMP and Mg in a.m. as has required supplementation 3. pneumonia/COPD abx per pulm 4. HTN currently controlled 5. DM, II continue meds SEVERIANO MATTHEWS MD 01/21/17 1346: CARDIO Progress Notes Plan Plan Pt. seen and examined. Agree with above HR RECEPTIONIST note. In SR on tele. Reports symptoms improved. Will plan for continued anticoagulation, reassess at 4 week outpt visit regarding intermediate manager therapy Continue oral diltiazem. Will plan for 2 week monitor to assess afib burden. Ok to dc in a.m. if stable. thanks INDIRA DELATORRE APRN January 21, 2017 10:14 SEVERIANO MATTHEWS MD January 21, 2017 13:46
--- NOTE | 2017-01-21 11:47 | PDOC ---
PULMONARY PROGRESS NOTES Subjective feels better Vitals Vital Signs Date Time Temp Pulse Resp B/P (MAP) Pulse Ox O2 Delivery O2 Flow Rate FiO2 01/21/17 10:57 97.8 74 22 179/72 (107) 91 Room Air 97.8 01/21/17 07:50 2.0 General: Alert, No acute distress Lungs: Clear Cardiovascular: S1 Abdomen: Soft Neuro Exam: Alert Extremities: No Edema Skin: Warm Labs Laboratory Tests Test 01/19/17 21:30 01/19/17 23:10 01/20/17 04:15 01/20/17 04:30 White Blood Count 9.1 x10^3/uL (4.0-11.0) 6.9 x10^3/uL (4.0-11.0) Red Blood Count 4.09 x10^6/uL (4.30-5.70) 3.73 x10^6/uL (4.30-5.70) Hemoglobin 10.6 g/dL (13.0-17.5) 9.8 g/dL (13.0-17.5) Hematocrit 33.0 % (39.0-53.0) 29.6 % (39.0-53.0) Mean Corpuscular Volume 81 fL (79-100) 79 fL (79-100) Mean Corpuscular Hemoglobin 26 pg (25-35) 26 pg (25-35) Mean Corpuscular Hemoglobin Concent 32 g/dL (31-37) 33 g/dL (31-37) Red Cell Distribution Width 16.0 % (11.5-14.5) 15.7 % (11.5-14.5) Platelet Count 176 x10^3/uL (140-400) 160 x10^3/uL (140-400) Neutrophils (%) (Auto) 72 % (31-73) 95 % (31-73) Lymphocytes (%) (Auto) 16 % (24-48) 3 % (24-48) Monocytes (%) (Auto) 10 % (0-9) 2 % (0-9) Eosinophils (%) (Auto) 2 % (0-3) 0 % (0-3) Basophils (%) (Auto) 1 % (0-3) 0 % (0-3) Neutrophils # (Auto) 6.6 x10^3uL (1.8-7.7) 6.5 x10^3uL (1.8-7.7) Lymphocytes # (Auto) 1.4 x10^3/uL (1.0-4.8) 0.2 x10^3/uL (1.0-4.8) Monocytes # (Auto) 0.9 x10^3/uL (0.0-1.1) 0.1 x10^3/uL (0.0-1.1) Eosinophils # (Auto) 0.2 x10^3/uL (0.0-0.7) 0.0 x10^3/uL (0.0-0.7) Basophils # (Auto) 0.0 x10^3/uL (0.0-0.2) 0.0 x10^3/uL (0.0-0.2) Prothrombin Time 14.9 SEC (11.7-14.0) Prothromb Time International Ratio 1.2 (0.8-1.1) Activated Partial Thromboplast Time 34 SEC (24-38) Sodium Level 143 mmol/L (136-145) 141 mmol/L (136-145) Potassium Level 3.9 mmol/L (3.5-5.1) 3.5 mmol/L (3.5-5.1) Chloride Level 104 mmol/L (98-107) 103 mmol/L (98-107) Carbon Dioxide Level 29 mmol/L (21-32) 26 mmol/L (21-32) Anion Gap 10 (6-14) 12 (6-14) Blood Urea Nitrogen 22 mg/dL (8-26) 24 mg/dL (8-26) Creatinine 1.4 mg/dL (0.7-1.3) 1.5 mg/dL (0.7-1.3) Estimated GFR (Cockcroft-Gault) 49.1 45.4 BUN/Creatinine Ratio 16 (6-20) Glucose Level 89 mg/dL (70-99) 260 mg/dL (70-99) Lactic Acid Level 1.5 mmol/L (0.4-2.0) Calcium Level 8.6 mg/dL (8.5-10.1) 8.4 mg/dL (8.5-10.1) Total Bilirubin 0.8 mg/dL (0.2-1.0) Aspartate Amino Transf (AST/SGOT) 26 U/L (15-37) Alanine Aminotransferase (ALT/SGPT) 23 U/L (16-63) Alkaline Phosphatase 75 U/L (46-116) Troponin I Quantitative 0.033 ng/mL (0.000-0.055) < 0.017 ng/mL (0.000-0.055) BJ-Njv-Y-Type Natriuretic Peptide 3920 pg/mL (0-449) Total Protein 6.6 g/dL (6.4-8.2) Albumin 2.7 g/dL (3.4-5.0) Albumin/Globulin Ratio 0.7 (1.0-1.7) Urine Collection Type Unknown Urine Color Yellow Urine Clarity Cloudy Urine pH 5.5 Urine Specific Gideon 1.010 Urine Protein Negative mg/dL (NEG-TRACE) Urine Glucose (UA) Negative mg/dL (NEG) Urine Ketones (Stick) Negative mg/dL (NEG) Urine Blood Negative (NEG) Urine Nitrite Negative (NEG) Urine Bilirubin Negative (NEG) Urine Urobilinogen Dipstick 1.0 mg/dL (0.2 mg/dL) Urine Leukocyte Esterase Negative (NEG) Urine RBC 0 /HPF (0-2) Urine WBC Occ /HPF (0-4) Urine Squamous Epithelial Cells Occ /LPF Urine Bacteria 0 /HPF (0-FEW) Urine Mucus Mod /LPF Segmented Neutrophils % 97 % (35-66) Band Neutrophils % 1 % (0-9) Lymphocytes % 1 % (24-48) Monocytes % 1 % (0-10) Platelet Estimate Adequate (ADEQUATE) Magnesium Level 1.5 mg/dL (1.8-2.4) Thyroid Stimulating Hormone (TSH) 0.326 uIU/mL (0.358-3.74) Heparin Anti-Xa Act, Unfractionated < 0.10 IU/mL (0.30-0.70) Test 01/20/17 10:05 01/20/17 11:50 01/21/17 06:00 Troponin I Quantitative < 0.017 ng/mL (0.000-0.055) Free Thyroxine 1.31 ng/dL (0.76-1.46) Total Triiodothyronine 81 ng/dL (71-180) Heparin Anti-Xa Act, Unfractionated 0.18 IU/mL (0.30-0.70) Triglycerides Level 117 mg/dL (0-150) Cholesterol Level 123 mg/dL (0-200) LDL Cholesterol, Calculated 77 mg/dL (0-100) VLDL Cholesterol, Calculated 23 mg/dL (0-40) Non-HDL Cholesterol Calculated 100 mg/dL (0-129) HDL Cholesterol 23 mg/dL (40-60) Cholesterol/HDL Ratio 5.3 Laboratory Tests Test 01/20/17 11:50 01/21/17 06:00 Heparin Anti-Xa Act, Unfractionated 0.18 IU/mL (0.30-0.70) Triglycerides Level 117 mg/dL (0-150) Cholesterol Level 123 mg/dL (0-200) LDL Cholesterol, Calculated 77 mg/dL (0-100) VLDL Cholesterol, Calculated 23 mg/dL (0-40) Non-HDL Cholesterol Calculated 100 mg/dL (0-129) HDL Cholesterol 23 mg/dL (40-60) Cholesterol/HDL Ratio 5.3 Medications Active Scripts Medications Dose Route/Sig Max Daily Dose Days Date Category Klor-Con M10 (Potassium Chloride) 10 Meq Tab.er.prt 10 Meq PO DAILYWBKFT 10/23/15 Rx Actos (Pioglitazone Hcl) 15 Mg Tablet 30 Mg PO DAILY 10/23/15 Rx Amaryl (Glimepiride) 2 Mg Tablet 3 Mg PO DAILY 30 10/23/15 Rx Budesonide 0.5 Mg/2 Ml Ampul.neb 1 Vial NEB QHS 10/17/15 Reported Proair Hfa Inhaler (Albuterol Sulfate) 8.5 Gm Hfa.aer.ad 2 Puff IH PRN Q4-6HRS PRN 10/17/15 Reported Metformin Hcl 500 Mg Tablet 1 Tab PO BID 10/17/15 Reported Pantoprazole Sodium 40 Mg Tablet.dr 1 Tab PO DAILY 10/17/15 Reported Doxazosin Mesylate 4 Mg Tablet 2 Mg PO DAILY 10/17/15 Reported Allopurinol 300 Mg Tablet 1 Tab PO DAILY 10/17/15 Reported Impression . 1. Dyspnea with acute hypoxic respiratory failure secondary to right lower lobe pneumonia and suspected chronic obstructive pulmonary disease exacerbation. 2. Atrial fibrillation with rapid ventricular response. 3. Ongoing history of chewing tobacco for 40 years. Plan . 1. Smoking cessation counseling provided, but he does not seem to be interested in quitting tobacco. 2. Continue DuoNebs. 3. Continue empiric antibiotics for community-acquired pneumonia. 4. Management of atrial fibrillation per Cardiology. 5. PFTs as an outpatient. 6. Repeat chest x-ray in am 7. We will follow along with you. MARÍA PATEL MD January 21, 2017 11:47
[2017-01-21] MEDS ORDERED: FUROSEMIDE 20 MG/2 ML VIAL. IVP ONE (13:45)
--- NOTE | 2017-01-21 16:19 | PDOC ---
GENERAL General: vss and afebrile. awake and alert. feeling much better. has converted to nsr this am. echo with lvef of 45-50%. ongoing antibiotics for pneumonia per pulmonary. chest essentially clear this am and heart regular. minimal edema. clinically chf is resolving. Problems: VITAL SIGNS Vital Signs: Vital Signs Date Time Temp Pulse Resp B/P (MAP) Pulse Ox O2 Delivery O2 Flow Rate FiO2 01/21/17 15:24 97.9 68 20 154/67 (96) 96 Nasal Cannula 97.9 01/21/17 07:50 2.0 I & O I & O Intake and Output 01/21/17 07:00 Intake Total 1000 ml Output Total 800 ml Balance 200 ml Intake Oral 1000 ml Output Urine Total 800 ml ALLERGIES Allergies: Allergies Coded Allergies Type Severity Reaction Last Updated Verified No Known Drug Allergies 10/17/15 No MEDS Medications: Current Medications Medications (Trade) Dose Ordered Sig/Lety Start Time Stop Time Status Last Admin Dose Admin Acetaminophen (Tylenol) 650 mg PRN Q4HRS PRN 01/21/17 07:15 01/21/17 07:10 650 MG Albuterol Sulfate (Ventolin Neb Soln) 2.5 mg PRN Q4HRS PRN 01/20/17 16:15 Albuterol/ Ipratropium (Duoneb) 3 ml RTQID 01/20/17 08:00 01/21/17 07:59 DC 01/20/17 21:25 3 ML Allopurinol (Zyloprim) 300 mg DAILY 01/21/17 09:00 Apixaban (Eliquis) 5 mg BID 01/20/17 21:00 01/21/17 08:14 5 MG Aspirin (Children'S Aspirin) 324 mg 1X ONCE 01/19/17 21:45 01/19/17 21:46 DC 01/19/17 22:00 324 MG Azithromycin 250 ml @ 250 mls/hr 1X ONCE 01/19/17 23:00 01/19/17 23:59 DC 01/19/17 23:12 250 MLS/HR Azithromycin 250 mg/Sodium Chloride 250 ml @ 250 mls/hr Q24H 01/20/17 21:00 01/20/17 21:09 250 MLS/HR Budesonide (Pulmicort) 0.25 mg QHS 01/20/17 21:00 01/21/17 13:33 DC 01/20/17 21:28 0.25 MG Ceftriaxone Sodium 1 gm/ Sodium Chloride 50 ml @ 100 mls/hr Q24H 01/20/17 21:00 01/20/17 21:10 100 MLS/HR Ceftriaxone Sodium 50 ml @ 100 mls/hr 1X ONCE 01/19/17 21:45 01/19/17 22:14 DC 01/19/17 22:01 100 MLS/HR Digoxin (Lanoxin) 250 mcg 1X ONCE 01/21/17 01:00 01/21/17 01:01 DC 01/21/17 01:07 250 MCG Diltiazem HCl (Cardizem 24hr Cd) 240 mg DAILY 01/21/17 10:30 01/21/17 10:27 240 MG Diltiazem HCl (Cardizem) 10 mg 1X ONCE 01/20/17 08:45 01/20/17 08:46 DC 01/20/17 09:02 10 MG Diltiazem HCl 125 mg/Dextrose 125 ml @ 0 mls/hr CONT PRN 01/20/17 09:00 01/21/17 12:00 DC 01/21/17 07:32 15 MLS/HR Doxazosin Mesylate (Cardura) 2 mg DAILY 01/21/17 09:00 01/21/17 08:17 2 MG Furosemide (Lasix) 20 mg 1X ONCE 01/21/17 13:45 01/21/17 13:46 DC 01/21/17 14:59 20 MG Glimepiride (Amaryl) 3 mg DAILY 01/21/17 09:00 01/21/17 08:20 3 MG Heparin Sodium (Porcine) (Heparin Sodium) 1,900 unit PRN Q6HRS PRN 01/19/17 21:45 01/20/17 14:13 DC 01/20/17 06:22 1,900 UNIT Heparin Sodium/ Dextrose 500 ml @ 0 mls/hr CONT PRN 01/19/17 21:45 01/20/17 14:13 DC 01/19/17 22:16 0 MLS/HR Info (Anti-Coagulation Monitoring By Pharmacy) 1 each PRN DAILY PRN 01/21/17 07:30 01/21/17 07:52 1 EACH Magnesium Sulfate/ Dextrose 50 ml @ 25 mls/hr 1X ONCE 01/20/17 13:30 01/20/17 15:29 DC 01/20/17 15:12 25 MLS/HR Metformin HCl (Glucophage) 500 mg BIDWMEALS 01/20/17 17:00 01/21/17 08:14 500 MG Methylprednisolone Sodium Succinate (Solu-Medrol 125mg Vial) 125 mg 1X ONCE 01/19/17 21:45 01/19/17 21:46 DC 01/19/17 22:00 125 MG Morphine Sulfate 2 mg PRN Q2HR PRN 01/19/17 22:45 01/20/17 22:44 DC Nitroglycerin (Nitrostat) 0.4 mg STK-MED ONCE 01/21/17 01:43 01/21/17 01:44 DC Ondansetron HCl (Zofran) 4 mg PRN Q8HRS PRN 01/19/17 22:45 01/20/17 22:44 DC Pantoprazole Sodium (Protonix) 40 mg DAILYAC 01/21/17 07:30 01/21/17 08:12 40 MG Pioglitazone HCl (Actos) 30 mg DAILY 01/21/17 09:00 01/21/17 08:13 30 MG Potassium Chloride (Klor-Con) 10 meq DAILYWBKFT 01/21/17 08:00 01/21/17 08:15 10 MEQ LAB Lab: Laboratory Tests Test 01/21/17 06:00 Triglycerides Level 117 mg/dL (0-150) Cholesterol Level 123 mg/dL (0-200) LDL Cholesterol, Calculated 77 mg/dL (0-100) VLDL Cholesterol, Calculated 23 mg/dL (0-40) Non-HDL Cholesterol Calculated 100 mg/dL (0-129) HDL Cholesterol 23 mg/dL (40-60) Cholesterol/HDL Ratio 5.3 Nutrition Consultation Dietary Evaluation: Comments: Continue nutrition care plan Rec. add the diabetic diet restriction Encourage diet compliance Pt declines any dietary education at this time Expected Outcomes/Goals: meet 75% estimated nutrition needs Malnutrition Findings: Malnutrition related to morbid: No Weight Status: Overweight Fluid Accumulation (N/A): N/A GABRIELA VALERA MD January 21, 2017 16:19
[2017-01-21] MEDS: AZITHROMYCIN 250 MG in IV NORMAL SALINE 250ML 250 ML IV SCH (22:47)
[2017-01-22 03:10] VITALS: BP 171/72
[2017-01-22] MEDS: BENZONATATE 100 MG CAPSULE. PO SCH ×5 (03:48→21:24)
[2017-01-22 07:45] VITALS: BP 160/69
[2017-01-22 08:18] LABS: CALCIUM 8.9 mg/dL (8.5-10.1); GFR 72.5; POTASSIUM 4.3 mmol/L (3.5-5.1)
--- NOTE | 2017-01-22 08:45 | PDOC ---
GENERAL General: vss and afebrile. awake and alert. very wheezy diffusely today. refusing breathing treatments as makes heart race. nsr with rate 70 this am. when up and around still feels like he gets palpitations. will add back steroids for wheezing and otherwise same. Problems: VITAL SIGNS Vital Signs: Vital Signs Date Time Temp Pulse Resp B/P (MAP) Pulse Ox O2 Delivery O2 Flow Rate FiO2 01/22/17 07:45 97.7 70 22 160/69 (99) 92 Room Air 97.7 01/22/17 03:10 2.0 I & O I & O Intake and Output 01/22/17 07:00 Intake Total 1200 ml Output Total 625 ml Balance 575 ml Intake Oral 1200 ml Output Urine Total 625 ml # Voids 3 ALLERGIES Allergies: Allergies Coded Allergies Type Severity Reaction Last Updated Verified No Known Drug Allergies 10/17/15 No MEDS Medications: Current Medications Medications (Trade) Dose Ordered Sig/Lety Start Time Stop Time Status Last Admin Dose Admin Acetaminophen (Tylenol) 650 mg PRN Q4HRS PRN 01/21/17 07:15 01/21/17 17:45 650 MG Albuterol Sulfate (Ventolin Neb Soln) 2.5 mg PRN Q4HRS PRN 01/20/17 16:15 Albuterol/ Ipratropium (Duoneb) 3 ml RTQID 01/20/17 08:00 01/21/17 07:59 DC 01/20/17 21:25 3 ML Allopurinol (Zyloprim) 300 mg DAILY 01/21/17 09:00 Apixaban (Eliquis) 5 mg BID 01/20/17 21:00 01/21/17 21:35 5 MG Aspirin (Children'S Aspirin) 324 mg 1X ONCE 01/19/17 21:45 01/19/17 21:46 DC 01/19/17 22:00 324 MG Azithromycin 250 ml @ 250 mls/hr 1X ONCE 01/19/17 23:00 01/19/17 23:59 DC 01/19/17 23:12 250 MLS/HR Azithromycin 250 mg/Sodium Chloride 250 ml @ 250 mls/hr Q24H 01/20/17 21:00 01/21/17 22:47 250 MLS/HR Benzonatate (Tessalon Perle) 100 mg [id number] 01/22/17 04:00 01/22/17 03:48 100 MG Budesonide (Pulmicort) 0.25 mg QHS 01/20/17 21:00 01/21/17 13:33 DC 01/20/17 21:28 0.25 MG Ceftriaxone Sodium 1 gm/ Sodium Chloride 50 ml @ 100 mls/hr Q24H 01/20/17 21:00 01/21/17 21:35 100 MLS/HR Ceftriaxone Sodium 50 ml @ 100 mls/hr 1X ONCE 01/19/17 21:45 01/19/17 22:14 DC 01/19/17 22:01 100 MLS/HR Digoxin (Lanoxin) 250 mcg 1X ONCE 01/21/17 01:00 01/21/17 01:01 DC 01/21/17 01:07 250 MCG Diltiazem HCl (Cardizem 24hr Cd) 240 mg DAILY 01/21/17 10:30 01/21/17 10:27 240 MG Diltiazem HCl (Cardizem) 10 mg 1X ONCE 01/20/17 08:45 01/20/17 08:46 DC 01/20/17 09:02 10 MG Diltiazem HCl 125 mg/Dextrose 125 ml @ 0 mls/hr CONT PRN 01/20/17 09:00 01/21/17 12:00 DC 01/21/17 07:32 15 MLS/HR Doxazosin Mesylate (Cardura) 2 mg DAILY 01/21/17 09:00 01/21/17 08:17 2 MG Furosemide (Lasix) 20 mg 1X ONCE 01/21/17 13:45 01/21/17 13:46 DC 01/21/17 14:59 20 MG Glimepiride (Amaryl) 3 mg DAILY 01/21/17 09:00 01/21/17 08:20 3 MG Heparin Sodium (Porcine) (Heparin Sodium) 1,900 unit PRN Q6HRS PRN 01/19/17 21:45 01/20/17 14:13 DC 01/20/17 06:22 1,900 UNIT Heparin Sodium/ Dextrose 500 ml @ 0 mls/hr CONT PRN 01/19/17 21:45 01/20/17 14:13 DC 01/19/17 22:16 0 MLS/HR Info (Anti-Coagulation Monitoring By Pharmacy) 1 each PRN DAILY PRN 01/21/17 07:30 01/21/17 07:52 1 EACH Magnesium Sulfate/ Dextrose 50 ml @ 25 mls/hr 1X ONCE 01/20/17 13:30 01/20/17 15:29 DC 01/20/17 15:12 25 MLS/HR Metformin HCl (Glucophage) 500 mg BIDWMEALS 01/20/17 17:00 01/21/17 17:45 500 MG Methylprednisolone Sodium Succinate (Solu-Medrol 125mg Vial) 125 mg 1X ONCE 01/19/17 21:45 01/19/17 21:46 DC 01/19/17 22:00 125 MG Morphine Sulfate 2 mg PRN Q2HR PRN 01/19/17 22:45 01/20/17 22:44 DC Nitroglycerin (Nitrostat) 0.4 mg STK-MED ONCE 01/21/17 01:43 01/21/17 01:44 DC Ondansetron HCl (Zofran) 4 mg PRN Q8HRS PRN 01/19/17 22:45 01/20/17 22:44 DC Pantoprazole Sodium (Protonix) 40 mg DAILYAC 01/21/17 07:30 01/21/17 08:12 40 MG Pioglitazone HCl (Actos) 30 mg DAILY 01/21/17 09:00 01/21/17 08:13 30 MG Potassium Chloride (Klor-Con) 10 meq DAILYWBKFT 01/21/17 08:00 01/21/17 08:15 10 MEQ LAB Lab: Laboratory Tests Test 01/22/17 07:50 Sodium Level 145 mmol/L (136-145) Potassium Level 4.3 mmol/L (3.5-5.1) Chloride Level 108 mmol/L (98-107) Carbon Dioxide Level 29 mmol/L (21-32) Anion Gap 8 (6-14) Blood Urea Nitrogen 21 mg/dL (8-26) Creatinine 1.0 mg/dL (0.7-1.3) Estimated GFR (Cockcroft-Gault) 72.5 Glucose Level 75 mg/dL (70-99) Calcium Level 8.9 mg/dL (8.5-10.1) Magnesium Level 2.0 mg/dL (1.8-2.4) Nutrition Consultation Dietary Evaluation: Comments: Continue nutrition care plan Rec. add the diabetic diet restriction Encourage diet compliance Pt declines any dietary education at this time Expected Outcomes/Goals: meet 75% estimated nutrition needs Malnutrition Findings: Malnutrition related to morbid: No Weight Status: Overweight Fluid Accumulation (N/A): N/A GABRIELA VALERA MD January 22, 2017 08:45
[2017-01-22] MEDS ORDERED: methylPREDNISolone SOD SUCC PF 40 MG/ML VIAL. IV SCH (09:00)
[2017-01-22] MEDS: ALLOPURINOL 300 MG TABLET. PO SCH (09:00)
[2017-01-22] MEDS: PIOGLITAZONE 15 MG TABLET. PO SCH (09:35)
[2017-01-22] MEDS: ACETAMINOPHEN 325 MG TABLET. PO PRN (09:35)
[2017-01-22] MEDS: POTASSIUM CHLORIDE 10 MEQ TABLET.ER. PO SCH (09:36)
[2017-01-22] MEDS: APIXABAN 5 MG TABLET. PO SCH ×2 (09:36→21:24)
[2017-01-22] MEDS: metFORMIN 500 MG TABLET PO SCH ×2 (09:36→17:45)
[2017-01-22] MEDS: GLIMEPIRIDE 2 MG TABLET. PO SCH (09:36)
[2017-01-22] MEDS: PANTOPRAZOLE 40 MG TABLET.DR. PO SCH (09:36)
[2017-01-22] MEDS: DOXAZOSIN MESYLATE 4 MG TABLET. PO SCH (09:37)
[2017-01-22] MEDS ORDERED: CLON0.1T PO ×2 (09:46→11:22)
--- NOTE | 2017-01-22 09:49 | RAD ---
Indication: Shortness of air. Time of exam 0657 hours. Correlation is made with prior study 01/19/2017. The heart is enlarged but stable. There is residual infiltrate or atelectasis in the right base. The left lung is clear. No effusion or pneumothorax is seen. Impression: Stable chest since exam 3 days earlier.
[2017-01-22] MEDS ORDERED: NIFE30TA17 PO (09:52)
[2017-01-22] MEDS ORDERED: BISO1TAB4 PO (09:52)
[2017-01-22] MEDS: LISINOPRIL 10 MG TABLET PO SCH (10:33)
[2017-01-22 11:24] VITALS: BP 179/78
--- NOTE | 2017-01-22 11:42 | PDOC ---
PULMONARY PROGRESS NOTES Subjective feels better Vitals Vital Signs Date Time Temp Pulse Resp B/P (MAP) Pulse Ox O2 Delivery O2 Flow Rate FiO2 01/22/17 11:24 98.0 81 20 179/78 (111) 95 Room Air 98.0 01/22/17 08:00 2.0 General: Alert, No acute distress Lungs: Clear Cardiovascular: S1 Abdomen: Soft Neuro Exam: Alert Extremities: No Edema Skin: Warm Labs Laboratory Tests Test 01/20/17 11:50 01/21/17 06:00 01/22/17 07:50 01/22/17 10:29 Heparin Anti-Xa Act, Unfractionated 0.18 IU/mL (0.30-0.70) Triglycerides Level 117 mg/dL (0-150) Cholesterol Level 123 mg/dL (0-200) LDL Cholesterol, Calculated 77 mg/dL (0-100) VLDL Cholesterol, Calculated 23 mg/dL (0-40) Non-HDL Cholesterol Calculated 100 mg/dL (0-129) HDL Cholesterol 23 mg/dL (40-60) Cholesterol/HDL Ratio 5.3 Sodium Level 145 mmol/L (136-145) Potassium Level 4.3 mmol/L (3.5-5.1) Chloride Level 108 mmol/L (98-107) Carbon Dioxide Level 29 mmol/L (21-32) Anion Gap 8 (6-14) Blood Urea Nitrogen 21 mg/dL (8-26) Creatinine 1.0 mg/dL (0.7-1.3) Estimated GFR (Cockcroft-Gault) 72.5 Glucose Level 75 mg/dL (70-99) Calcium Level 8.9 mg/dL (8.5-10.1) Magnesium Level 2.0 mg/dL (1.8-2.4) Glucose (Fingerstick) 107 mg/dL (70-99) Laboratory Tests Test 01/22/17 07:50 01/22/17 10:29 Sodium Level 145 mmol/L (136-145) Potassium Level 4.3 mmol/L (3.5-5.1) Chloride Level 108 mmol/L (98-107) Carbon Dioxide Level 29 mmol/L (21-32) Anion Gap 8 (6-14) Blood Urea Nitrogen 21 mg/dL (8-26) Creatinine 1.0 mg/dL (0.7-1.3) Estimated GFR (Cockcroft-Gault) 72.5 Glucose Level 75 mg/dL (70-99) Calcium Level 8.9 mg/dL (8.5-10.1) Magnesium Level 2.0 mg/dL (1.8-2.4) Glucose (Fingerstick) 107 mg/dL (70-99) Medications Active Scripts Medications Dose Route/Sig Max Daily Dose Days Date Category Klor-Con M10 (Potassium Chloride) 10 Meq Tab.er.prt 10 Meq PO DAILYWBKFT 10/23/15 Rx Actos (Pioglitazone Hcl) 15 Mg Tablet 30 Mg PO DAILY 10/23/15 Rx Amaryl (Glimepiride) 2 Mg Tablet 3 Mg PO DAILY 30 10/23/15 Rx Budesonide 0.5 Mg/2 Ml Ampul.neb 1 Vial NEB QHS 10/17/15 Reported Proair Hfa Inhaler (Albuterol Sulfate) 8.5 Gm Hfa.aer.ad 2 Puff IH PRN Q4-6HRS PRN 10/17/15 Reported Metformin Hcl 500 Mg Tablet 1 Tab PO BID 10/17/15 Reported Pantoprazole Sodium 40 Mg Tablet.dr 1 Tab PO DAILY 10/17/15 Reported Doxazosin Mesylate 4 Mg Tablet 2 Mg PO DAILY 10/17/15 Reported Allopurinol 300 Mg Tablet 1 Tab PO DAILY 10/17/15 Reported Impression . 1. Dyspnea with acute hypoxic respiratory failure secondary to right lower lobe pneumonia and suspected chronic obstructive pulmonary disease exacerbation. 2. Atrial fibrillation with rapid ventricular response. 3. Ongoing history of chewing tobacco for 40 years. 4. HTN Plan . 1. Smoking cessation counseling provided, but he does not seem to be interested in quitting tobacco. 2. Continue DuoNebs. 3. change to PO antibiotics 4. Management of atrial fibrillation per Cardiology. 5. PFTs as an outpatient. 6. Repeat chest x-ray with residual infiltrate 7. change to PO steroids MARÍA PATEL MD January 22, 2017 11:42
[2017-01-22] MEDS: cloNIDine HCL 0.1 MG TABLET PO SCH ×2 (13:03→21:26)
[2017-01-22] MEDS: ATENOLOL 50 MG TABLET. PO SCH (13:04)
[2017-01-22] MEDS: hydroCHLOROthiazide 25 MG TABLET PO SCH (13:04)
[2017-01-22 15:37] VITALS: BP 156/66
[2017-01-22] MEDS ORDERED: NON FORMULARY ITEM INH PRN (15:45)
[2017-01-22] MEDS: AZITHROMYCIN 250 MG TABLET. PO SCH (16:00)
[2017-01-22] MEDS: predniSONE 20 MG TABLET PO SCH (16:00)
[2017-01-22 19:51] VITALS: BP 139/61
[2017-01-22 22:59] VITALS: BP 148/59
[2017-01-23 03:30] VITALS: BP 139/55
[2017-01-23] MEDS: ACETAMINOPHEN 325 MG TABLET. PO PRN ×2 (07:14→12:23)
[2017-01-23] MEDS: PANTOPRAZOLE 40 MG TABLET.DR. PO SCH (07:14)
[2017-01-23 07:30] VITALS: BP 131/51
[2017-01-23] MEDS: cloNIDine HCL 0.1 MG TABLET PO SCH (08:55)
[2017-01-23] MEDS: ATENOLOL 50 MG TABLET. PO SCH (08:55)
[2017-01-23] MEDS: ALLOPURINOL 300 MG TABLET. PO SCH (08:56)
[2017-01-23] MEDS ORDERED: BISOPROLOL FUMARATE PO SCH (09:00)
[2017-01-23] MEDS: BENZONATATE 100 MG CAPSULE. PO SCH (09:00)
[2017-01-23] MEDS ORDERED: HCTZ PO SCH (09:00)
[2017-01-23] MEDS: metFORMIN 500 MG TABLET PO SCH (09:00)
[2017-01-23] MEDS: hydroCHLOROthiazide 25 MG TABLET PO SCH (09:01)
[2017-01-23] MEDS: PIOGLITAZONE 15 MG TABLET. PO SCH (09:01)
[2017-01-23] MEDS: LISINOPRIL 10 MG TABLET PO SCH (09:01)
[2017-01-23] MEDS: predniSONE 20 MG TABLET PO SCH (09:01)
[2017-01-23] MEDS: GLIMEPIRIDE 2 MG TABLET. PO SCH (09:01)
[2017-01-23] MEDS: AZITHROMYCIN 250 MG TABLET. PO SCH (09:01)
[2017-01-23] MEDS: APIXABAN 5 MG TABLET. PO SCH (09:01)
[2017-01-23] MEDS: POTASSIUM CHLORIDE 10 MEQ TABLET.ER. PO SCH (09:02)
--- NOTE | 2017-01-23 09:47 | PDOC ---
PULMONARY PROGRESS NOTES Subjective sob better, has cough, post nasal drip, no pain Vitals Vital Signs Date Time Temp Pulse Resp B/P (MAP) Pulse Ox O2 Delivery O2 Flow Rate FiO2 01/23/17 09:01 63 131/55 01/23/17 07:53 Room Air 01/23/17 07:30 97.9 20 97 97.9 01/22/17 22:59 3.0 ROS: No Nausea, No Chest Pain General: Alert, No acute distress HEENT: Other (nc at perrl, nose throat clear) Lungs: Clear Cardiovascular: S1, S2 Abdomen: Soft, Non-tender Neuro Exam: Alert, Oriented Extremities: No Edema Skin: Warm Labs Laboratory Tests Test 01/22/17 07:50 01/22/17 10:29 Sodium Level 145 mmol/L (136-145) Potassium Level 4.3 mmol/L (3.5-5.1) Chloride Level 108 mmol/L (98-107) Carbon Dioxide Level 29 mmol/L (21-32) Anion Gap 8 (6-14) Blood Urea Nitrogen 21 mg/dL (8-26) Creatinine 1.0 mg/dL (0.7-1.3) Estimated GFR (Cockcroft-Gault) 72.5 Glucose Level 75 mg/dL (70-99) Calcium Level 8.9 mg/dL (8.5-10.1) Magnesium Level 2.0 mg/dL (1.8-2.4) Glucose (Fingerstick) 107 mg/dL (70-99) Laboratory Tests Test 01/22/17 10:29 Glucose (Fingerstick) 107 mg/dL (70-99) Medications Active Scripts Medications Dose Route/Sig Max Daily Dose Days Date Category Klor-Con M10 (Potassium Chloride) 10 Meq Tab.er.prt 10 Meq PO DAILYWBKFT 10/23/15 Rx Actos (Pioglitazone Hcl) 15 Mg Tablet 30 Mg PO DAILY 10/23/15 Rx Amaryl (Glimepiride) 2 Mg Tablet 3 Mg PO DAILY 30 10/23/15 Rx Budesonide 0.5 Mg/2 Ml Ampul.neb 1 Vial NEB QHS 10/17/15 Reported Proair Hfa Inhaler (Albuterol Sulfate) 8.5 Gm Hfa.aer.ad 2 Puff IH PRN Q4-6HRS PRN 10/17/15 Reported Metformin Hcl 500 Mg Tablet 1 Tab PO BID 10/17/15 Reported Pantoprazole Sodium 40 Mg Tablet.dr 1 Tab PO DAILY 10/17/15 Reported Doxazosin Mesylate 4 Mg Tablet 2 Mg PO DAILY 10/17/15 Reported Allopurinol 300 Mg Tablet 1 Tab PO DAILY 10/17/15 Reported Impression . 1. Dyspnea with acute hypoxic respiratory failure secondary to right lower lobe pneumonia and suspected chronic obstructive pulmonary disease exacerbation. 2. Atrial fibrillation with rapid ventricular response. 3. Ongoing history of chewing tobacco for 40 years. 4. HTN 5. allergic rhinitis Plan . 1. Smoking cessation counseling provided, but he does not seem to be interested in quitting tobacco. 2. Continue DuoNebs. 3. antibiotics for total of 7 days 4. Management of atrial fibrillation per Cardiology. 5. PFTs as an outpatient. 6. Repeat chest x-ray with residual infiltrate 7. prednisone w taper by 10 mg q 3d 8. kumar coreas rn, pt BRYCE CORMIER MD January 23, 2017 09:47
[2017-01-23 10:51] VITALS: BP 153/70
[2017-01-23] MEDS ORDERED: DILT180C2 PO (11:19)
[2017-01-23] MEDS ORDERED: LISI10TA2 PO (11:19)
[2017-01-23] MEDS ORDERED: MONT10TA9 PO (11:19)
[2017-01-23] MEDS ORDERED: HYDR12.58 PO (11:20)
[2017-01-23] MEDS ORDERED: APIX5TAB PO (11:21)
--- NOTE | 2017-01-23 11:29 | PDOC ---
CARDIO Progress Notes Date and Time Date of Service 01/23/2017 Time of Evaluation 1128 Subjective Subjective: No Chest Pain, No Palpitations, No Dizziness, Other (cough) Vitals Vitals Vital Signs Date Time Temp Pulse Resp B/P (MAP) Pulse Ox O2 Delivery O2 Flow Rate FiO2 01/23/17 10:51 97.8 59 19 153/70 (97) 96 Room Air 97.8 01/22/17 22:59 3.0 Weight Weight [ ] Input and Output Intake and Output Intake and Output 01/23/17 06:59 Intake Total 1100 ml Output Total 900 ml Balance 200 ml Intake Oral 1100 ml Output Urine Total 900 ml # Voids 2 Microbiology Micro Microbiology 01/19/17 Blood Culture - Preliminary, Resulted NO GROWTH AFTER 3 DAYS Physical Exam HEENT: Neck Supple W Full Motion Chest: Symmetric LUNGS: Other (severely diminished posteriorly) Heart: S1S2, RRR, other (tele: SB with PACs) Abdomen: Soft N/T Extremities: Other (1+ bilateral lower extremity edema) Neurology: alert, oriented, follow commands Diagnostic Tests Echocardiogram: Other (LVEF 45-50% with mild mid to distal inferior wall and septal abnormalities; mild TR; PA = 45 mm Hg) Assessment Assessment 1. atrial fib with RVR, new onset bradycardic after resumption of BB and oral clonidine decrease diltiazem to 120 mg daily; stop BB and clonidine continue Eliquis BID for stroke prevention has home event monitor ordered 2. acute CHF, systolic and diastolic persistent basilar crackles LVEF 45-50% with WMA mid to distal inferior wall and septal -- ? outpatient MPI when recovered from pneumonia K and Mg normal 3. pneumonia/COPD abx per pulm oral steroids resumed yesterday 4. HTN currently controlled 5. DM, II continue meds agreeable with discharge [employer] [employer] January 23, 2017 11:29
--- NOTE | 2017-01-23 17:15 | PDOC ---
GENERAL General: see discharge summary. Problems: VITAL SIGNS Vital Signs: Vital Signs Date Time Temp Pulse Resp B/P (MAP) Pulse Ox O2 Delivery O2 Flow Rate FiO2 01/23/17 10:51 97.8 59 19 153/70 (97) 96 Room Air 97.8 01/22/17 22:59 3.0 I & O I & O Intake and Output 01/23/17 07:00 Intake Total 1100 ml Output Total 900 ml Balance 200 ml Intake Oral 1100 ml Output Urine Total 900 ml # Voids 2 ALLERGIES Allergies: Allergies Coded Allergies Type Severity Reaction Last Updated Verified No Known Drug Allergies 10/17/15 No MEDS Medications: Current Medications Medications (Trade) Dose Ordered Sig/Lety Start Time Stop Time Status Last Admin Dose Admin Acetaminophen (Tylenol) 650 mg PRN Q4HRS PRN 01/21/17 07:15 01/23/17 13:40 DC 01/23/17 12:23 650 MG Albuterol Sulfate (Ventolin Neb Soln) 2.5 mg PRN Q4HRS PRN 01/20/17 16:15 01/23/17 13:40 DC Albuterol/ Ipratropium (Duoneb) 3 ml RTQID 01/20/17 08:00 01/21/17 07:59 DC 01/20/17 21:25 3 ML Allopurinol (Zyloprim) 300 mg DAILY 01/21/17 09:00 01/23/17 13:40 DC Apixaban (Eliquis) 5 mg BID 01/20/17 21:00 01/23/17 13:40 DC 01/23/17 09:01 5 MG Aspirin (Children'S Aspirin) 324 mg 1X ONCE 01/19/17 21:45 01/19/17 21:46 DC 01/19/17 22:00 324 MG Atenolol (Tenormin) 50 mg DAILY 01/22/17 12:00 01/23/17 13:40 DC 01/22/17 13:04 50 MG Azithromycin (Zithromax) 250 mg DAILY 01/22/17 14:00 01/23/17 13:40 DC 01/23/17 09:01 250 MG Azithromycin 250 mg/Sodium Chloride 250 ml @ 250 mls/hr Q24H 01/20/17 21:00 01/22/17 12:50 DC 01/21/17 22:47 250 MLS/HR Benzonatate (Tessalon Perle) 100 mg [id number] 01/22/17 04:00 01/23/17 13:40 DC 01/23/17 09:00 100 MG Budesonide (Pulmicort) 0.25 mg QHS 01/20/17 21:00 01/21/17 13:33 DC 01/20/17 21:28 0.25 MG Ceftriaxone Sodium 1 gm/ Sodium Chloride 50 ml @ 100 mls/hr Q24H 01/20/17 21:00 01/22/17 12:50 DC 01/21/17 21:35 100 MLS/HR Ceftriaxone Sodium 50 ml @ 100 mls/hr 1X ONCE 01/19/17 21:45 01/19/17 22:14 DC 01/19/17 22:01 100 MLS/HR Clonidine HCl (Catapres) 0.1 mg BID 01/22/17 12:00 01/23/17 13:40 DC 01/22/17 21:26 0.1 MG Digoxin (Lanoxin) 250 mcg 1X ONCE 01/21/17 01:00 01/21/17 01:01 DC 01/21/17 01:07 250 MCG Diltiazem HCl (Cardizem 24hr Cd) 120 mg DAILY 01/23/17 10:00 01/23/17 13:40 DC 01/23/17 10:18 120 MG Diltiazem HCl (Cardizem) 10 mg 1X ONCE 01/20/17 08:45 01/20/17 08:46 DC 01/20/17 09:02 10 MG Diltiazem HCl 125 mg/Dextrose 125 ml @ 0 mls/hr CONT PRN 01/20/17 09:00 01/21/17 12:00 DC 01/21/17 07:32 15 MLS/HR Doxazosin Mesylate (Cardura) 2 mg HS 01/23/17 21:00 01/23/17 21:00 DC Furosemide (Lasix) 20 mg 1X ONCE 01/21/17 13:45 01/21/17 13:46 DC 01/21/17 14:59 20 MG Glimepiride (Amaryl) 3 mg DAILY 01/21/17 09:00 01/23/17 13:40 DC 01/23/17 09:01 3 MG Heparin Sodium (Porcine) (Heparin Sodium) 1,900 unit PRN Q6HRS PRN 01/19/17 21:45 01/20/17 14:13 DC 01/20/17 06:22 1,900 UNIT Heparin Sodium/ Dextrose 500 ml @ 0 mls/hr CONT PRN 01/19/17 21:45 01/20/17 14:13 DC 01/19/17 22:16 0 MLS/HR Hydrochlorothiazide (Hydrodiuril) 6.25 mg DAILY 01/22/17 12:00 01/23/17 13:40 DC 01/23/17 09:01 6.25 MG Info (Anti-Coagulation Monitoring By Pharmacy) 1 each PRN DAILY PRN 01/21/17 07:30 01/23/17 13:40 DC 01/21/17 07:52 1 EACH Lisinopril (Prinivil) 10 mg DAILY 01/22/17 10:30 01/23/17 13:40 DC 01/23/17 09:01 10 MG Magnesium Sulfate/ Dextrose 50 ml @ 25 mls/hr 1X ONCE 01/20/17 13:30 01/20/17 15:29 DC 01/20/17 15:12 25 MLS/HR Metformin HCl (Glucophage) 500 mg BIDWMEALS 01/20/17 17:00 01/23/17 13:40 DC 01/23/17 09:00 500 MG Methylprednisolone Sodium Succinate (Solu-Medrol 40mg Vial) 40 mg Q8HRS 01/22/17 09:00 01/22/17 12:50 DC 01/22/17 09:40 40 MG Methylprednisolone Sodium Succinate (Solu-Medrol 125mg Vial) 125 mg 1X ONCE 01/19/17 21:45 01/19/17 21:46 DC 01/19/17 22:00 125 MG Montelukast Sodium (Singulair) 10 mg QHS 01/23/17 21:00 01/23/17 21:00 DC Morphine Sulfate 2 mg PRN Q2HR PRN 01/19/17 22:45 01/20/17 22:44 DC Nitroglycerin (Nitrostat) 0.4 mg STK-MED ONCE 01/21/17 01:43 01/21/17 01:44 DC Non-Formulary Medication 1 ea PRN Q4HRS PRN 01/22/17 15:45 01/23/17 13:40 DC 01/22/17 15:59 1 EA Ondansetron HCl (Zofran) 4 mg PRN Q8HRS PRN 01/19/17 22:45 01/20/17 22:44 DC Pantoprazole Sodium (Protonix) 40 mg DAILYAC 01/21/17 07:30 01/23/17 13:40 DC 01/23/17 07:14 40 MG Pioglitazone HCl (Actos) 30 mg DAILY 01/21/17 09:00 01/23/17 13:40 DC 01/23/17 09:01 30 MG Potassium Chloride (Klor-Con) 10 meq [id number] 01/21/17 08:00 01/23/17 13:40 DC 01/23/17 09:02 10 MEQ Prednisone (Prednisone) 20 mg DAILY 01/22/17 14:00 01/23/17 13:40 DC 01/23/17 09:01 20 MG Nutrition Consultation Dietary Evaluation: Comments: Continue nutrition care plan Provided education handout on the cardiac diet and nutrition label reading. Discussed with pt and Expected Outcomes/Goals: meet 75% estimated nutrition needs identify two foods on the cardiac diet Malnutrition Findings: Malnutrition related to morbid: No Weight Status: Overweight Fluid Accumulation (N/A): N/A GABRIELA VALERA MD January 23, 2017 17:15
[2017-01-23] MEDS ORDERED: MONTELUKAST SODIUM 10 MG TABLET. PO SCH (21:00)
[2017-01-23] MEDS ORDERED: DOXAZOSIN MESYLATE 4 MG TABLET. PO SCH (21:00)
--- NOTE | 2017-01-24 04:48 | DS ---
DATE OF DISCHARGE: 01/23/2017 PRIMARY DIAGNOSES: Acute respiratory failure, likely multifactorial with atrial fibrillation with a rapid ventricular response and acute diastolic and systolic congestive heart failure and right lower lobe pneumonia. ADDITIONAL DIAGNOSES: Hypertension, diabetes, chronic obstructive pulmonary disease. CHIEF COMPLAINT AND HISTORY OF PRESENT ILLNESS: This is a 76-year-old white male presented to the Emergency Room with shortness of breath on the day of admission, was found to have a right lower lobe pneumonia as well as atrial fib with a rapid ventricular response and elevated BNP. SUMMARY OF STAY: The patient was admitted and placed on a Cardizem drip with eventual control of his heart rate. He became somewhat bradycardic when his home beta marty and clonidine were readded for blood pressure and the Cardizem was decreased to 120 daily at the time of discharge by Cardiology, was started on Eliquis 5 mg b.i.d. for stroke prevention and has a home event monitor ordered at the time of discharge. Pulmonary follow along for the pneumonia with steroids used for the wheezing and the shortness of breath as well as antibiotics and he will be dismissed on another 7 days of antibiotics if they are choosing at the time of discharge, he was felt ready for dismissal with close outpatient followup to ensue and this was accomplished. DISPOSITION: The patient is discharged home. DIET: ADA diet. ACTIVITY: As tolerated. FOLLOWUP: Office in 1 week. DISCHARGE MEDICATIONS: Listed on the med rec and have been addressed. GABRIELA VALERA MD DR: LEONARD/jewels JOB#: [id number] / [id number]
== END 2017-01-23 13:25 | disposition home or self-care (01) | DRG 291 ==
LOC: ER 21:08 → 2 NORTH 21:41
PROVIDERS: ADMIT Family Medicine; ATTEND Family Medicine
DX: I50.41 Acute combined systolic (congestive) and diastolic (congestive) heart failure (principal); J18.9 Pneumonia, unspecified organism; J96.01 Acute respiratory failure with hypoxia; J44.0 Chronic obstructive pulmonary disease with (acute) lower respiratory infection; J44.1 Chronic obstructive pulmonary disease with (acute) exacerbation; E11.65 Type 2 diabetes mellitus with hyperglycemia; I11.0 Hypertensive heart disease with heart failure; I48.91 Unspecified atrial fibrillation; M10.9 Gout, unspecified; Z87.01 Personal history of pneumonia (recurrent); Z87.891 Personal history of nicotine dependence; Z99.81 Dependence on supplemental oxygen; M19.90 Unspecified osteoarthritis, unspecified site
CPT/HCPCS: 36415; 71010; 80048; 80053; 80061; 81001; 82947; 83605; 83735; 83880; 84439; 84443; 84480; 84484; 85007; 85027; 85520; 85610; 85730; 87040; 93005; 93306; 94250; 94640; 94760; 96365; 96367; 96375; J0456; J0690; J0696; J1160; J1940; J2920; J2930; J3490; J7050; J7060; J7512; J7620; Q0144; 97530; 99291-25; J7030

== ENCOUNTER 2017-06-22 13:42 | Inpatient (IN) | payer MEDICARE, BC ==
[~2017-06-22] VITALS: Ht 160 cm; Wt 67.1 kg
[~2017-06-22 13:42] MED LIST changes: +APIX5TAB PO; +DILT180C2 PO; +HYDR12.58 PO; +LISI10TA2 PO; +MONT10TA9 PO; -PIOG15TA21 PO; +PIOG15TA42 PO
[2017-06-22] MEDS ORDERED: ASPIRIN 325 MG TABLET PO ONE (14:30)
[2017-06-22] MEDS ORDERED: methylPREDNISolone SOD SUCC PF 125 MG/2 ML VIAL. IV ONE (14:30)
[2017-06-22] MEDS ORDERED: IPRATRPIUM/ALBUTEROL 0.5/2.5MG 3 ML NEBU. NEB ONE (14:30)
--- NOTE | 2017-06-22 14:35 | EKG ---
[facility] [address] [place] [address] Test Date: 2017-06-22 Test Time: 14:31:17 Pat Name: CHAZ MCCLELLAND Department: Room: Gender: M Field Agent: : 1940 Requested By: SIMONE DIAL Order Number: [id number] Reading MD: Nahomy Freeman Measurements Intervals [place] Rate: 108 P: IA: QRS: -28 QRSD: 94 T: 65 QT: 348 QTc: 470 Interpretive Statements ATRIAL FIBRILLATION VENTRICULAR PREMATURE COMPLEX(ES) LEFTWARD AXIS ABNORMAL ECG Electronically Signed On 06-22-2017 19:09:26 CDT by Nahomy Freeman
[2017-06-22] MEDS ORDERED: dilTIAZem IV PUSH 25 MG/5 ML VIAL IVP ONE (14:45)
[2017-06-22 14:52] LABS: BASO % 1 % (0-3); EOS % 1 % (0-3); HEMATOCRIT 28.3 % (39.0-53.0); HEMOGLOBIN 8.9 g/dL (13.0-17.5); LYMPH # 0.7 x10^3/uL (1.0-4.8); LYMPH % 11 % (24-48); MEAN CORPUSCULAR HEMOGLOBIN 24 pg (25-35); MEAN CORPUSCULAR HGB CONC 31 g/dL (31-37); MEAN CORPUSCULAR VOLUME 76 fL (79-100); MONO % 8 % (0-9); NEUT % 80 % (31-73); PLATELET COUNT 143 x10^3/uL (140-400); RED BLOOD COUNT 3.71 x10^6/uL (4.30-5.70); RED CELL DISTRIBUTION WIDTH 16.2 % (11.5-14.5); WHITE BLOOD COUNT 6.1 x10^3/uL (4.0-11.0)
[2017-06-22 15:02] LABS: INR 3.7 (0.8-1.1); PROTHROMBIN TIME PATIENT 34.3 SEC (11.7-14.0)
--- NOTE | 2017-06-22 15:13 | RAD ---
Exam performed: Acute abdominal series. Clinical indication: Abdominal and chest pain with shortness of air for one week Date of Service: 06/22/17. Comparison: None available Findings: One view chest radiograph reveal a normal cardiomediastinal contour. Atheromatous calcification of the aortic knob Pulmonary vascularity is congested. There are patchy airspace opacities in both lung bases with small right pleural effusion The bowel pattern is unremarkable. No pathologic calcification or organomegaly is seen. Spondylotic changes Impression: 1. Central vascular congestion and by basilar airspace opacities and right pleural effusion. Findings may be related to CHF or infiltrates. Correlate clinically. 2. No acute abnormality seen in the KUB
[2017-06-22 15:15] LABS: CREATININE 1.4 mg/dL (0.7-1.3); GFR 49.1; POTASSIUM 4.8 mmol/L (3.5-5.1)
[2017-06-22 15:22] LABS: ALBUMIN/GLOBULIN RATIO 0.9 (1.0-1.7); MAGNESIUM 1.6 mg/dL (1.8-2.4); TOTAL BILIRUBIN 0.7 mg/dL (0.2-1.0); TOTAL PROTEIN 6.3 g/dL (6.4-8.2)
[2017-06-22] MEDS ORDERED: AZITHROMYCIN 500 MG in IV NORMAL SALINE 250ML 250 ML IV ONE (15:30)
[2017-06-22] MEDS ORDERED: AZITHRMYCN 500MG IVPB FOR OMNI 250 ML IV ONE (15:30)
[2017-06-22] MEDS ORDERED: FUROSEMIDE 40 MG/4 ML VIAL. IVP ONE ×3 (15:30→20:15)
[2017-06-22] MEDS ORDERED: ACETAMINOPHEN 325 MG TABLET. PO PRN (15:45)
[2017-06-22] MEDS ORDERED: MORPHINE SULFATE 2 MG/ML DISP.SYRIN. IV PRN (15:45)
[2017-06-22] MEDS ORDERED: NITROGLYCERIN SUBLINGUAL 0.4 MG BOTTLE OF 25. SL PRN (15:45)
[2017-06-22] MEDS ORDERED: ONDANSETRON PF 4 MG/2 ML VIAL. IV PRN (15:45)
--- NOTE | 2017-06-22 16:28 | PHYS DOC ---
Past Medical History Past Medical History: A-Fib, Asthma, CHF, Diabetes-Type II, Pneumonia, Other Additional Past Medical Histor: HOME O2 @ NIGHT Past Surgical History: No Surgical History Additional Information: CHEWS TOBACCO Alcohol Use: None Drug Use: None Adult General Chief Complaint Chief Complaint: SHORTNESS OF BREATH HPI HPI Patient is a 76 year old male who presents with shortness of breath. The patient reports 2-3 week history of progressive exertional dyspnea, dyspnea at rest, orthopnea. He reports increased bilateral lower extremity edema. Reports dry cough. Occasional abdominal pain after coughing. Denies fevers/ chills, chest pain, nausea, vomiting, diarrhea, extremity numbness/weakness, unilateral calf pain. He has history of CHF on lasix, afib on coumadin, asthma , type 2 diabetes, uses oxygen at night. PCP is Dr. Ambrose, newscast director is Dr. Oates. Review of Systems Review of Systems Constitutional: Denies fever or chills Eyes: Denies change in visual acuity HENT: Denies nasal congestion or sore throat Respiratory: Reports cough and shortness of breath Cardiovascular: Denies chest pain, reports edema GI: Denies abdominal pain, nausea, vomiting, bloody stools or diarrhea : Denies dysuria or hematuria Musculoskeletal: Denies back pain or joint pain Integument: Denies rash or skin lesions Neurologic: Denies headache, focal weakness or sensory changes Current Medications Current Medications Current Medications Medications (Trade) Dose Ordered Sig/Lety Start Time Stop Time Status Last Admin Dose Admin Albuterol/ Ipratropium (Duoneb) 3 ml 1X ONCE 06/22/17 14:30 06/22/17 14:31 DC 06/22/17 15:05 3 ML Aspirin (Sanjuana Aspirin) 325 mg 1X ONCE 06/22/17 14:30 06/22/17 14:31 DC 06/22/17 15:20 325 MG Diltiazem HCl (Cardizem) 10 mg 1X ONCE 06/22/17 14:45 06/22/17 14:46 DC 06/22/17 15:21 10 MG Methylprednisolone Sodium Succinate (SOLU-Medrol 125MG VIAL) 125 mg 1X ONCE 06/22/17 14:30 06/22/17 14:31 DC 06/22/17 15:20 125 MG Allergies Allergies Allergies Coded Allergies Type Severity Reaction Last Updated Verified No Known Drug Allergies 10/17/15 No Physical Exam Physical Exam Constitutional: Obese, no acute distress, non-toxic appearance. HENT: Normocephalic, atraumatic, bilateral external ears normal, oropharynx moist, nose normal. Eyes: conjunctiva normal, no discharge. Neck: supple, no stridor. Cardiovascular: Irregularly irregular, tachycardic, no murmurs, 2+ pitting edema to bilateral lower extremities. Lungs & Thorax: Crackles in bases bilaterally, no wheezing, breathing is slightly labored, able to speak in complete sentences, no respiratory distress. Abdomen: soft, nontender, nondistended. Skin: Warm, dry, no erythema, no rash. Back: No tenderness. Extremities: 2+ pitting edema to bilateral lower extremities without unilateral calf tenderness, distal pulses palpable Neurologic: Alert and oriented X 3, no focal deficits noted. Psychologic: Affect normal, judgement normal, mood normal. Current Patient Data Vital Signs Vital Signs Date Time Temp Pulse Resp B/P (MAP) Pulse Ox O2 Delivery O2 Flow Rate FiO2 06/22/17 15:21 110 126/67 06/22/17 15:05 92 Room Air 06/22/17 14:09 98.6 26 98.6 Lab Values Laboratory Tests Test 06/22/17 14:40 White Blood Count 6.1 x10^3/uL (4.0-11.0) Red Blood Count 3.71 x10^6/uL (4.30-5.70) L Hemoglobin 8.9 g/dL (13.0-17.5) L Hematocrit 28.3 % (39.0-53.0) L Mean Corpuscular Volume 76 fL (79-100) L Mean Corpuscular Hemoglobin 24 pg (25-35) L Mean Corpuscular Hemoglobin Concent 31 g/dL (31-37) Red Cell Distribution Width 16.2 % (11.5-14.5) H Platelet Count 143 x10^3/uL (140-400) Neutrophils (%) (Auto) 80 % (31-73) H Lymphocytes (%) (Auto) 11 % (24-48) L Monocytes (%) (Auto) 8 % (0-9) Eosinophils (%) (Auto) 1 % (0-3) Basophils (%) (Auto) 1 % (0-3) Neutrophils # (Auto) 4.9 x10^3uL (1.8-7.7) Lymphocytes # (Auto) 0.7 x10^3/uL (1.0-4.8) L Monocytes # (Auto) 0.5 x10^3/uL (0.0-1.1) Eosinophils # (Auto) 0.0 x10^3/uL (0.0-0.7) Basophils # (Auto) 0.0 x10^3/uL (0.0-0.2) Prothrombin Time 34.3 SEC (11.7-14.0) H Prothrombin Time INR 3.7 (0.8-1.1) H PTT 70 SEC (24-38) H Sodium Level 144 mmol/L (136-145) Potassium Level 4.8 mmol/L (3.5-5.1) Chloride Level 109 mmol/L (98-107) H Carbon Dioxide Level 28 mmol/L (21-32) Anion Gap 7 (6-14) Blood Urea Nitrogen 25 mg/dL (8-26) Creatinine 1.4 mg/dL (0.7-1.3) H Estimated GFR (Cockcroft-Gault) 49.1 BUN/Creatinine Ratio 18 (6-20) Glucose Level 154 mg/dL (70-99) H Calcium Level 9.0 mg/dL (8.5-10.1) Magnesium Level 1.6 mg/dL (1.8-2.4) L Total Bilirubin 0.7 mg/dL (0.2-1.0) Aspartate Amino Transferase (AST) 16 U/L (15-37) Alanine Aminotransferase (ALT) 20 U/L (16-63) Alkaline Phosphatase 83 U/L (46-116) Troponin I Quantitative 0.020 ng/mL (0.000-0.055) ML-Okp-F-Type Natriuretic Peptide 3595 pg/mL (0-449) H Total Protein 6.3 g/dL (6.4-8.2) L Albumin 3.0 g/dL (3.4-5.0) L Albumin/Globulin Ratio 0.9 (1.0-1.7) L Laboratory Tests 06/22/17 14:40 Laboratory Tests 06/22/17 14:40 EKG EKG []interpreted by me: Irregularly irregular afib tachycardic rate 108, no acute ST elevation, PVCs. Radiology/Procedures Radiology/Procedures PROCEDURE: ACUTE ABDOMEN SERIES Exam performed: Acute abdominal series. Clinical indication: Abdominal and chest pain with shortness of air for one week Date of Service: 06/22/17. Comparison: None available Findings: One view chest radiograph reveal a normal cardiomediastinal contour. Atheromatous calcification of the aortic knob Pulmonary vascularity is congested. There are patchy airspace opacities in both lung bases with small right pleural effusion The bowel pattern is unremarkable. No pathologic calcification or organomegaly is seen. Spondylotic changes Impression: 1. Central vascular congestion and by basilar airspace opacities and right pleural effusion. Findings may be related to CHF or infiltrates. Correlate clinically. 2. No acute abnormality seen in the KUB DICTATED and SIGNED BY: LORI CAM MD DATE: 06/22/17 1508[] Course & Med Decision Making Course & Med Decision Making Pertinent Labs and Imaging studies reviewed. (See chart for details) The patient presents with shortness of breath. he has crackles, pitting edema, pulmonary edema on CXR, elevated BNP. Administered duoneb. Gave cardizem bolus & drip for afib with rapid ventricular rate, INR is supratherapeutic so no need for additional anticoagulation at this time. Will give a dose of rocephin & azithromycin for possible concurrent pneumonia. Aspirin & lasix administered. Hemoglobin trending down from 9.8 in January to 8.9 today, will obtain hemoccult & repeat CBC in the AM. Recommend admission for further evaluation & treatment. Patient agrees with plan of care. Consulted with cardiology nurse practitioner & will place consult to Dr. Butler. Discussed with Dr. Ambrose who agrees to admit to inpatient status, to the ICU. The patient is admitted in stable condition. Critical care time: 35 minutes [] Dragon Disclaimer Dragon Disclaimer This electronic medical record was generated, in whole or in part, using a voice recognition dictation system. Departure Departure Impression: Primary Impression: Congestive heart failure Additional Impressions: Atrial fibrillation with RVR Community acquired pneumonia Chronic anemia Disposition: ADMITTED INPATIENT Admitting Physician: Charlie Ambrose Condition: STABLE Problem Qualifiers SIMONE DIAL MD Jun 22, 2017 16:28
[2017-06-22 17:44] VITALS: BP 105/57
[2017-06-22] MEDS: IPRATRPIUM/ALBUTEROL 0.5/2.5MG 3 ML NEBU. NEB SCH (19:25)
[2017-06-22 20:00] VITALS: BP 108/55
[2017-06-22] MEDS ORDERED: DEXTROSE 50% 25 GM / 50ML DISP.SYRIN. IV PRN ×2 (20:00→22:30)
[2017-06-22 21:00] VITALS: BP 125/50
[2017-06-22] MEDS: APIXABAN 5 MG TABLET. PO SCH (21:57)
[2017-06-22 22:00] VITALS: BP 105/44
[2017-06-22 23:00] VITALS: BP 98/51
[2017-06-22] MEDS: INSULIN ASPART 300 UNITS/3 ML INSULN.PEN SQ SCH (23:04)
[2017-06-23] VITALS (24 sets, daily range): BP systolic 89–136; BP diastolic 36–95
[2017-06-23 04:59] LABS: BASO % 0 % (0-3); EOS % 0 % (0-3); HEMATOCRIT 27.4 % (39.0-53.0); HEMOGLOBIN 8.7 g/dL (13.0-17.5); LYMPH # 0.3 x10^3/uL (1.0-4.8); LYMPH % 6 % (24-48); MEAN CORPUSCULAR HEMOGLOBIN 24 pg (25-35); MEAN CORPUSCULAR HGB CONC 32 g/dL (31-37); MEAN CORPUSCULAR VOLUME 76 fL (79-100); MONO % 2 % (0-9); NEUT % 93 % (31-73); PLATELET COUNT 132 x10^3/uL (140-400); RED BLOOD COUNT 3.61 x10^6/uL (4.30-5.70); RED CELL DISTRIBUTION WIDTH 16.4 % (11.5-14.5); WHITE BLOOD COUNT 4.6 x10^3/uL (4.0-11.0)
[2017-06-23 06:25] LABS: CALCIUM 8.4 mg/dL (8.5-10.1); CREATININE 1.9 mg/dL (0.7-1.3); GFR 34.5; POTASSIUM 4.7 mmol/L (3.5-5.1)
[2017-06-23] MEDS: INSULIN ASPART 300 UNITS/3 ML INSULN.PEN SQ SCH ×3 (08:00→17:41)
[2017-06-23] MEDS: IPRATRPIUM/ALBUTEROL 0.5/2.5MG 3 ML NEBU. NEB SCH ×3 (08:01→15:26)
--- NOTE | 2017-06-23 08:51 | PDOC ---
GENERAL General: see dictated H&P. Problems: VITAL SIGNS Vital Signs: Vital Signs Date Time Temp Pulse Resp B/P (MAP) Pulse Ox O2 Delivery O2 Flow Rate FiO2 06/23/17 08:02 98 Nasal Cannula 2.0 06/23/17 06:00 75 20 110/61 (77) 06/23/17 04:00 97.2 97.2 ALLERGIES Allergies: Allergies Coded Allergies Type Severity Reaction Last Updated Verified No Known Drug Allergies 10/17/15 No MEDS Medications: Current Medications Medications (Trade) Dose Ordered Sig/Lety Start Time Stop Time Status Last Admin Dose Admin Acetaminophen (Tylenol) 650 mg PRN Q4HRS PRN 06/22/17 15:45 06/23/17 15:44 Albuterol Sulfate (Ventolin Neb Soln) 2.5 mg PRN Q4HRS PRN 06/22/17 20:00 Albuterol/ Ipratropium (Duoneb) 3 ml RTQID 06/22/17 16:00 06/23/17 15:59 06/23/17 08:01 3 ML Apixaban (Eliquis) 5 mg BID 06/22/17 21:00 06/22/17 21:57 5 MG Aspirin (Sanjuana Aspirin) 325 mg 1X ONCE 06/22/17 14:30 06/22/17 14:31 DC 06/22/17 15:20 325 MG Azithromycin 250 ml @ 250 mls/hr 1X ONCE 06/22/17 15:30 06/22/17 16:29 DC 06/22/17 16:00 250 MLS/HR Azithromycin 500 mg/Sodium Chloride 250 ml @ 250 mls/hr 1X ONCE 06/22/17 15:30 06/22/17 16:29 UNV Ceftriaxone Sodium 50 ml @ 100 mls/hr 1X ONCE 06/22/17 16:00 06/22/17 16:29 DC 06/22/17 20:27 100 MLS/HR Dextrose (Dextrose 50%-Water Syringe) 12.5 gm PRN Q15MIN PRN 06/22/17 22:30 Diltiazem HCl (Cardizem) 10 mg 1X ONCE 06/22/17 14:45 06/22/17 14:46 DC 06/22/17 15:21 10 MG Diltiazem HCl 125 mg/Dextrose 125 ml @ 0 mls/hr CONT PRN 06/22/17 15:30 06/22/17 15:39 5 MLS/HR Furosemide (Lasix) 40 mg 1X ONCE 06/22/17 20:15 06/22/17 20:16 DC 06/22/17 21:57 40 MG Insulin Aspart (NovoLOG) 0-7 UNITS TIDWMEALS 06/22/17 21:00 06/23/17 08:00 6 UNITS Methylprednisolone Sodium Succinate (SOLU-Medrol 125MG VIAL) 125 mg 1X ONCE 06/22/17 14:30 06/22/17 14:31 DC 06/22/17 15:20 125 MG Morphine Sulfate 2 mg PRN Q2HR PRN 06/22/17 15:45 06/23/17 15:44 Nitroglycerin (Nitrostat) 0.4 mg PRN Q5MIN PRN 06/22/17 15:45 06/23/17 15:44 Ondansetron HCl (Zofran) 4 mg PRN Q8HRS PRN 06/22/17 15:45 06/23/17 15:44 LAB Lab: Laboratory Tests Test 06/22/17 14:40 06/22/17 21:30 06/22/17 21:56 06/23/17 03:20 White Blood Count 6.1 x10^3/uL (4.0-11.0) Red Blood Count 3.71 x10^6/uL (4.30-5.70) Hemoglobin 8.9 g/dL (13.0-17.5) Hematocrit 28.3 % (39.0-53.0) Mean Corpuscular Volume 76 fL (79-100) Mean Corpuscular Hemoglobin 24 pg (25-35) Mean Corpuscular Hemoglobin Concent 31 g/dL (31-37) Red Cell Distribution Width 16.2 % (11.5-14.5) Platelet Count 143 x10^3/uL (140-400) Neutrophils (%) (Auto) 80 % (31-73) Lymphocytes (%) (Auto) 11 % (24-48) Monocytes (%) (Auto) 8 % (0-9) Eosinophils (%) (Auto) 1 % (0-3) Basophils (%) (Auto) 1 % (0-3) Neutrophils # (Auto) 4.9 x10^3uL (1.8-7.7) Lymphocytes # (Auto) 0.7 x10^3/uL (1.0-4.8) Monocytes # (Auto) 0.5 x10^3/uL (0.0-1.1) Eosinophils # (Auto) 0.0 x10^3/uL (0.0-0.7) Basophils # (Auto) 0.0 x10^3/uL (0.0-0.2) Prothrombin Time 34.3 SEC (11.7-14.0) Prothromb Time International Ratio 3.7 (0.8-1.1) Activated Partial Thromboplast Time 70 SEC (24-38) Sodium Level 144 mmol/L (136-145) 142 mmol/L (136-145) Potassium Level 4.8 mmol/L (3.5-5.1) 4.7 mmol/L (3.5-5.1) Chloride Level 109 mmol/L (98-107) 107 mmol/L (98-107) Carbon Dioxide Level 28 mmol/L (21-32) 26 mmol/L (21-32) Anion Gap 7 (6-14) 9 (6-14) Blood Urea Nitrogen 25 mg/dL (8-26) 30 mg/dL (8-26) Creatinine 1.4 mg/dL (0.7-1.3) 1.9 mg/dL (0.7-1.3) Estimated GFR (Cockcroft-Gault) 49.1 34.5 BUN/Creatinine Ratio 18 (6-20) Glucose Level 154 mg/dL (70-99) 286 mg/dL (70-99) Calcium Level 9.0 mg/dL (8.5-10.1) 8.4 mg/dL (8.5-10.1) Magnesium Level 1.6 mg/dL (1.8-2.4) Total Bilirubin 0.7 mg/dL (0.2-1.0) Aspartate Amino Transf (AST/SGOT) 16 U/L (15-37) Alanine Aminotransferase (ALT/SGPT) 20 U/L (16-63) Alkaline Phosphatase 83 U/L (46-116) Troponin I Quantitative 0.020 ng/mL (0.000-0.055) 0.026 ng/mL (0.000-0.055) KU-Dex-P-Type Natriuretic Peptide 3595 pg/mL (0-449) Total Protein 6.3 g/dL (6.4-8.2) Albumin 3.0 g/dL (3.4-5.0) Albumin/Globulin Ratio 0.9 (1.0-1.7) Glucose (Fingerstick) 335 mg/dL (70-99) Test 06/23/17 03:40 06/23/17 07:28 White Blood Count 4.6 x10^3/uL (4.0-11.0) Red Blood Count 3.61 x10^6/uL (4.30-5.70) Hemoglobin 8.7 g/dL (13.0-17.5) Hematocrit 27.4 % (39.0-53.0) Mean Corpuscular Volume 76 fL (79-100) Mean Corpuscular Hemoglobin 24 pg (25-35) Mean Corpuscular Hemoglobin Concent 32 g/dL (31-37) Red Cell Distribution Width 16.4 % (11.5-14.5) Platelet Count 132 x10^3/uL (140-400) Neutrophils (%) (Auto) 93 % (31-73) Lymphocytes (%) (Auto) 6 % (24-48) Monocytes (%) (Auto) 2 % (0-9) Eosinophils (%) (Auto) 0 % (0-3) Basophils (%) (Auto) 0 % (0-3) Neutrophils # (Auto) 4.2 x10^3uL (1.8-7.7) Lymphocytes # (Auto) 0.3 x10^3/uL (1.0-4.8) Monocytes # (Auto) 0.1 x10^3/uL (0.0-1.1) Eosinophils # (Auto) 0.0 x10^3/uL (0.0-0.7) Basophils # (Auto) 0.0 x10^3/uL (0.0-0.2) Troponin I Quantitative 0.023 ng/mL (0.000-0.055) Thyroid Stimulating Hormone (TSH) 0.541 uIU/mL (0.358-3.74) Glucose (Fingerstick) 264 mg/dL (70-99) GABRIELA VALERA MD Jun 23, 2017 08:51
[2017-06-23] MEDS: APIXABAN 5 MG TABLET. PO SCH ×2 (09:22→20:31)
[2017-06-23 11:09] LABS: % EOS 1 % (0-5); PLT ESTIMATE DECREASED (ADEQUATE)
[2017-06-23 11:10] LABS: ANISOCYTOSIS PRESENT; MICROCYTOSIS PRESENT; POLYCHROMASIA PRESENT
[2017-06-23 11:11] LABS: OVALOCYTES PRESENT
--- NOTE | 2017-06-23 11:49 | PDOC2 ---
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 He has been HUSSEIN for 1.5 weeks now with increase leg swelling. Positive for nonproductive cough. Pt has been taking his cardizem and coumadin regularly. He has SIDNEY and he has been compliant every hs. Denies any CP nor sensation of palpitations. Denies any nausea or dizziness. Positive for orthopnea and PND. No fever or chills. PAST MEDICAL HISTORY Past Medical History Cardiovascular: HTN Pulmonary: COPD (with nocturnal O2), pneumonia CENTRAL NERVOUS SYSTEM: Other (denies) GI: No pertinent hx Heme/Onc: No pertinent hx Hepatobiliary: No pertinent hx Psych: No pertinent hx Musculoskeletal: Osteoarthritis Rheumatologic: No pertinent hx Infectious disease: No pertinent hx ENT: No pertinent hx Renal/: No pertinent hx Endocrine: No pertinent hx Dermatology: No pertinent hx PAST SURGICAL HISTORY Past Surgical History Other (hydrocele repair) FAMILY HISTORY Family History Family History Unknown SOCIAL HISTORY Social History Tobacco: chewing tobacco X 40+ years ALCOHOL: heavy (3 beers and 3 cocktails every ) Lives: with Family () CURRENT MEDICATIONS CURRENT MEDICATIONS Current Medications Medications (Trade) Dose Ordered Sig/Lety Route PRN Reason Start Time Stop Time Status Last Admin Dose Admin Aspirin (Sanjuana Aspirin) 325 mg 1X ONCE PO 06/22/17 14:30 06/22/17 14:31 DC 06/22/17 15:20 Albuterol/ Ipratropium (Duoneb) 3 ml 1X ONCE NEB 06/22/17 14:30 06/22/17 14:31 DC 06/22/17 15:05 Methylprednisolone Sodium Succinate (SOLU-Medrol 125MG VIAL) 125 mg 1X ONCE IV 06/22/17 14:30 06/22/17 14:31 DC 06/22/17 15:20 Diltiazem HCl (Cardizem) 10 mg 1X ONCE IVP 06/22/17 14:45 06/22/17 14:46 DC 06/22/17 15:21 Diltiazem HCl 125 mg/Dextrose 125 ml @ 0 mls/hr CONT PRN IV SEE I/O RECORD 06/22/17 15:30 06/22/17 15:39 Furosemide (Lasix) 40 mg 1X ONCE IVP 06/22/17 15:30 06/22/17 15:31 DC 06/22/17 15:58 Azithromycin 250 ml @ 250 mls/hr 1X ONCE IV 06/22/17 15:30 06/22/17 16:29 DC 06/22/17 16:00 Albuterol/ Ipratropium (Duoneb) 3 ml RTQID NEB 06/22/17 16:00 06/23/17 15:59 06/23/17 08:01 Ceftriaxone Sodium 50 ml @ 100 mls/hr 1X ONCE IV 06/22/17 16:00 06/22/17 16:29 DC 06/22/17 20:27 Apixaban (Eliquis) 5 mg BID PO 06/22/17 21:00 06/23/17 09:22 Furosemide (Lasix) 40 mg 1X ONCE IVP 06/22/17 20:15 06/22/17 20:16 DC 06/22/17 21:57 Insulin Aspart (NovoLOG) 0-7 UNITS TIDWMEALS SQ 06/22/17 21:00 06/23/17 08:00 ALLERGIES ALLERGIES: Coded Allergies: No Known Drug Allergies (Unverified , 10/17/15) ROS Review of System 14 point ROS evaluated with pertinent positives noted per HPI PHYSICAL EXAM General: Alert, Oriented X3, Cooperative, No acute distress HEENT: Atraumatic, Mucous membr. moist/pink Lungs: Other (diffuse wheeze, basilar crackles) Heart: Other (AFIB RVR) Abdomen: Soft, Other (abdominal distention) Extremities: No cyanosis, Other (2-3 + bilateral LE pitting edema) Skin: No breakdown, No significant lesion Neuro: Normal speech, Sensation intact Psych/Mental Status: Mental status NL, Mood NL MUSCULOSKELETAL: Osteoarthritic changes both hands VITALS VITALS Vital Signs Date Time Temp Pulse Resp B/P (MAP) Pulse Ox O2 Delivery O2 Flow Rate FiO2 06/23/17 11:00 98 26 110/56 (74) 94 Nasal Cannula 2.0 06/23/17 08:00 98.0 98.0 LABS Lab: Laboratory Tests Test 06/22/17 14:40 10/9/17 21:30 06/22/17 21:56 06/23/17 03:20 White Blood Count 6.1 x10^3/uL (4.0-11.0) Red Blood Count 3.71 x10^6/uL (4.30-5.70) Hemoglobin 8.9 g/dL (13.0-17.5) Hematocrit 28.3 % (39.0-53.0) Mean Corpuscular Volume 76 fL (79-100) Mean Corpuscular Hemoglobin 24 pg (25-35) Mean Corpuscular Hemoglobin Concent 31 g/dL (31-37) Red Cell Distribution Width 16.2 % (11.5-14.5) Platelet Count 143 x10^3/uL (140-400) Neutrophils (%) (Auto) 80 % (31-73) Lymphocytes (%) (Auto) 11 % (24-48) Monocytes (%) (Auto) 8 % (0-9) Eosinophils (%) (Auto) 1 % (0-3) Basophils (%) (Auto) 1 % (0-3) Neutrophils # (Auto) 4.9 x10^3uL (1.8-7.7) Lymphocytes # (Auto) 0.7 x10^3/uL (1.0-4.8) Monocytes # (Auto) 0.5 x10^3/uL (0.0-1.1) Eosinophils # (Auto) 0.0 x10^3/uL (0.0-0.7) Basophils # (Auto) 0.0 x10^3/uL (0.0-0.2) Prothrombin Time 34.3 SEC (11.7-14.0) Prothromb Time International Ratio 3.7 (0.8-1.1) Activated Partial Thromboplast Time 70 SEC (24-38) Sodium Level 144 mmol/L (136-145) 142 mmol/L (136-145) Potassium Level 4.8 mmol/L (3.5-5.1) 4.7 mmol/L (3.5-5.1) Chloride Level 109 mmol/L (98-107) 107 mmol/L (98-107) Carbon Dioxide Level 28 mmol/L (21-32) 26 mmol/L (21-32) Anion Gap 7 (6-14) 9 (6-14) Blood Urea Nitrogen 25 mg/dL (8-26) 30 mg/dL (8-26) Creatinine 1.4 mg/dL (0.7-1.3) 1.9 mg/dL (0.7-1.3) Estimated GFR (Cockcroft-Gault) 49.1 34.5 BUN/Creatinine Ratio 18 (6-20) Glucose Level 154 mg/dL (70-99) 286 mg/dL (70-99) Calcium Level 9.0 mg/dL (8.5-10.1) 8.4 mg/dL (8.5-10.1) Magnesium Level 1.6 mg/dL (1.8-2.4) Total Bilirubin 0.7 mg/dL (0.2-1.0) Aspartate Amino Transf (AST/SGOT) 16 U/L (15-37) Alanine Aminotransferase (ALT/SGPT) 20 U/L (16-63) Alkaline Phosphatase 83 U/L (46-116) Troponin I Quantitative 0.020 ng/mL (0.000-0.055) 0.026 ng/mL (0.000-0.055) DZ-Sww-T-Type Natriuretic Peptide 3595 pg/mL (0-449) Total Protein 6.3 g/dL (6.4-8.2) Albumin 3.0 g/dL (3.4-5.0) Albumin/Globulin Ratio 0.9 (1.0-1.7) Glucose (Fingerstick) 335 mg/dL (70-99) Test 06/23/17 03:40 06/23/17 07:28 White Blood Count 4.6 x10^3/uL (4.0-11.0) Red Blood Count 3.61 x10^6/uL (4.30-5.70) Hemoglobin 8.7 g/dL (13.0-17.5) Hematocrit 27.4 % (39.0-53.0) Mean Corpuscular Volume 76 fL (79-100) Mean Corpuscular Hemoglobin 24 pg (25-35) Mean Corpuscular Hemoglobin Concent 32 g/dL (31-37) Red Cell Distribution Width 16.4 % (11.5-14.5) Platelet Count 132 x10^3/uL (140-400) Neutrophils (%) (Auto) 93 % (31-73) Lymphocytes (%) (Auto) 6 % (24-48) Monocytes (%) (Auto) 2 % (0-9) Eosinophils (%) (Auto) 0 % (0-3) Basophils (%) (Auto) 0 % (0-3) Neutrophils # (Auto) 4.2 x10^3uL (1.8-7.7) Lymphocytes # (Auto) 0.3 x10^3/uL (1.0-4.8) Monocytes # (Auto) 0.1 x10^3/uL (0.0-1.1) Eosinophils # (Auto) 0.0 x10^3/uL (0.0-0.7) Basophils # (Auto) 0.0 x10^3/uL (0.0-0.2) Segmented Neutrophils % 89 % (35-66) Band Neutrophils % 5 % (0-9) Lymphocytes % 4 % (24-48) Monocytes % 1 % (0-10) Eosinophils % 1 % (0-5) Platelet Estimate Decreased (ADEQUATE) Polychromasia Present Anisocytosis Present Microcytosis Present Ovalocytes Present Troponin I Quantitative 0.023 ng/mL (0.000-0.055) Thyroid Stimulating Hormone (TSH) 0.541 uIU/mL (0.358-3.74) Glucose (Fingerstick) 264 mg/dL (70-99) ECHOCARDIOGRAM ECHOCARDIOGRAM <Conclusion> Left ventricle systolic function is mildly diminished. The Ejection Fraction is 45-50%. Mild mid to distal inferior wall and septal wall motion abnormality. Doppler and Color Flow revealed mild tricuspid regurgitation. The PA pressure was estimated at 45 mmHg. DATE: 01/20/17 1444 ASSESSMENT/PLAN ASSESSMENT/PLAN 1. Acute on chronic diastolic CHF 2. AECOPD: per PCP 3. AFIB RVR: possible inadequate med dose. Noncompliance. #2 contributing. 4. STERLING on CKD2: prerenal with above. 5. Microcytic hypochromic anemia: Hgb 8.7. INR 3.7 6. HTN 7. DM2 8. SIDNEY: CPAP compliant at home Recommendations 1. Hold actos and metformin. Cr 1.9 received 2 doses of IV lasix overnight. CXR today. 2. Cardizem bolus received in ED but no drip started. 3. Lopressor IV in increments of 2.5 mg given his pressure at low end. Dig IV x1 4. Will start cardizem CD at higher dose once HR is better and BP better. 5. Slow IV maintenance. Strict I & O. 6. INR, TTE. Will hold eliquis if INR is >2.0 Problems: SEVERIANO MATTHEWS MD 06/23/17 1447: CARDIAC CONSULT ALLERGIES ALLERGIES: Coded Allergies: No Known Drug Allergies (Unverified , 10/17/15) ASSESSMENT/PLAN ASSESSMENT/PLAN Pt. seen and examined. Agree with above [employer]GER note with following comments. Significant lower ext edema. Continue diuresis. Plan for metoprolol and dig for control if needed, avoid cardizem given his low BP. Will follow along. CC time 40 min Problems: PENNY PHILLIPS APRN Jun 23, 2017 11:49 SEVERIANO MATTHEWS MD Jun 23, 2017 14:47
[2017-06-23] MEDS ORDERED: IV NORMAL SALINE 1000ML BAG 1,000 ML IV ONE (12:30)
[2017-06-23] MEDS ORDERED: DIGOXIN IV 500 MCG/2 ML AMPUL. IV ONE (12:45)
[2017-06-23] MEDS ORDERED: METOPROLOL TARTRATE 5 MG/5 ML VIAL. IVP ONE (12:45)
[2017-06-23 13:10] LABS: INR 2.3 (0.8-1.1); PROTHROMBIN TIME PATIENT 23.9 SEC (11.7-14.0)
--- NOTE | 2017-06-23 13:17 | RAD ---
Indication difficulty breathing. A single view of the chest was obtained. Comparison is made to a study yesterday. Cardiomegaly is unchanged. Pulmonary vascular congestion seen previously has improved. Some right pleural fluid persists but it too appears improved. A new finding in the chest is not seen. IMPRESSION: Interval improvement. No new finding seen
--- NOTE | 2017-06-23 16:18 | CARD ---
APPROVED REPORT EXAM: Two-dimensional and M-mode echocardiogram with Doppler and color Doppler. Other Information Quality : Average Rhythm : Atrial Fibrillation INDICATION Atrial Fibrillation Pulmonary Hypertention Congestive Heart Failure 2D DIMENSIONS RVDd3.1 (2.9-3.5cm)Left Atrium(2D)3.8 (1.6-4.0cm) IVSd1.1 (0.7-1.1cm)Aortic Root(2D)2.6 (2.0-3.7cm) LVDd4.9 (3.9-5.9cm)LVOT Diameter2.1 (1.8-2.4cm) PWd1.1 (0.7-1.1cm)LVDs3.4 (2.5-4.0cm) FS (%) 23.5 %SV66.7 ml LVEF(%)50.7 (>50%) Aortic Valve AoV Peak Cb.123.4cm/sAoV VTI21.2cm AO Peak GR.6.1mmHgLVOT VTI 16.00cm AO Mean GR.4mmHgAVA (VTI)3.00cm2 Mitral Valve MV E Ucrcyvkw724.6cm/sMV E Peak Gr.72mmHg MV DECEL [id number] E Mean Gr.3mmHg TDI Lateral E' P. V3.75cm/sMedial E' P. V4.84cm/s E/Lateral E'41.0E/Medial E'31.7 Tricuspid Valve TR P. Mcvrsotw177mq/sRAP [id number] TR Peak Gr.15twCxZGKS97oeOj LEFT VENTRICLE The left ventricle is normal size. There is normal left ventricular wall thickness. Left ventricle sy stolic function is low normal. The Ejection Fraction is 45-50%. Mid to distal inferior hypokinesis. T issue Doppler imaging reveals moderate left ventricular diastolic dysfunction. RIGHT VENTRICLE The right ventricle is normal size. The right ventricular systolic function is normal. ATRIA The left atrium size is normal. The right atrium size is normal. The interatrial septum is intact wit h no evidence for an atrial septal defect or patent foramen ovale as noted on 2-D or Doppler imaging. AORTIC VALVE The aortic valve is not well visualized but appears to be trileaflet. Doppler and Color Flow revealed no significant aortic regurgitation. There is no significant aortic valvular stenosis. MITRAL VALVE The mitral valve is normal in structure and function. There is no mitral valve stenosis. Doppler and Color Flow revealed moderate to severe mitral regurgitation. TRICUSPID VALVE The tricuspid valve is normal in structure and function. Doppler and Color Flow revealed mild to mode rate tricuspid regurgitation. The PA pressure was estimated at 42 mmHg. There is no tricuspid valve s tenosis. PULMONIC VALVE The pulmonic valve is not well visualized. Doppler and Color Flow revealed no pulmonic valvular regur gitation. There is no pulmonic valvular stenosis. GREAT VESSELS The aortic root is normal in size. The ascending aorta is normal in size. Pulmonary veins not recorde d. The IVC is normal in size and collapses >50% with inspiration. PERICARDIAL EFFUSION There is no evidence of significant pericardial effusion. Critical Notification Critical Value: No <Conclusion> Left ventricle systolic function is low normal. The Ejection Fraction is 45-50%. Mid to distal inferior hypokinesis. Tissue Doppler imaging reveals moderate left ventricular diastolic dysfunction. Doppler and Color Flow revealed moderate to severe mitral regurgitation. Doppler and Color Flow revealed mild to moderate tricuspid regurgitation. The PA pressure was estimat ed at 42 mmHg.
[2017-06-23] MEDS: MORPHINE SULFATE 2 MG/ML DISP.SYRIN. IV PRN ×2 (16:35→16:39)
--- NOTE | 2017-06-23 17:06 | RAD ---
Exam performed: One view chest. History: Shortness of breath today. Date of service: 06/23/17 at 1556 hours. Comparison: Single view chest from earlier today at 1303. Single AP upright portable view chest findings: Stable Cardiomegaly. Slightly increased Central vascular congestion. Bibasilar hazy airspace opacities appear slightly increased. There is a a small right pleural effusion. No pneumothorax. Impression: Cardiomegaly with slight interval worsening CHF
--- NOTE | 2017-06-23 18:05 | HP ---
ADMIT DATE: 06/22/2017 CHIEF COMPLAINT AND HISTORY OF PRESENT ILLNESS: This 76-year-old white male is well known to me from followup in the office. The patient presented to the Emergency Room with a couple of weeks of increasing shortness of breath and edema, was found to be in atrial fibrillation with a faster response as well as congestive heart failure, and admitted for the same. PAST MEDICAL HISTORY: Remarkable for history of atrial fibrillation, he takes Eliquis for this, has a history of obstructive sleep apnea, congestive heart failure, chronic obstructive pulmonary disease, hypertension. PAST SURGICAL HISTORY: Remarkable for hydrocele repair. MEDICATIONS: Brought with the patient, listed on the computer and have been addressed. ALLERGIES: He has no known drug allergies. SOCIAL HISTORY: He is a chewer of tobacco for over 40 years, drinks on . Lives at home with his . He does not abuse drugs. He plays his video games. REVIEW OF SYSTEMS: As mentioned above. PHYSICAL EXAMINATION: GENERAL: He is a well-developed, well-nourished white male, in no acute distress at the time of my examination. VITAL SIGNS: Stable. He is afebrile. HEAD, EYES, EARS, NOSE, THROAT: Unremarkable. NECK: Supple, without any bruit or thyromegaly. CHEST: Reveals bibasilar crackles and diffuse wheezing. HEART: Atrial fibrillation with rapid ventricular response, and is irregular. ABDOMEN: Soft, nontender, without hepatosplenomegaly or masses. EXTREMITIES: Revealed 2+ edema. NEUROLOGIC: He is intact. LABORATORY DATA: Initial lab work is remarkable for an elevated brain natriuretic peptide. Creatinine is 1.4, which is slightly elevated, in looking back at his past records in the office a month or two ago it was 1.13 in the office. He had an echocardiogram done that showed an ejection fraction of 45-50%. IMPRESSION: 1. Acute on chronic diastolic congestive heart failure, atrial fibrillation with a rapid ventricular response, chronic kidney disease. 2. Anemia with hypochromia, hemoglobin of 8.7, hypertension, diabetes, obstructive sleep apnea. PLAN: The patient has been admitted. The Actos and metformin are on hold. He will be diuresed, rate will be controlled and the patient will be monitored, managed and treated appropriately. GABRIELA A. APPL, MD DR: LEONARD/jewels JOB#: [id number] / [id number]
[2017-06-24] VITALS (24 sets, daily range): BP systolic 14–155; BP diastolic 52–83
[2017-06-24] MEDS: ALBUTEROL SULFATE 2.5 MG/3 ML NEBU. NEB PRN ×3 (01:15→08:05)
[2017-06-24] MEDS: MORPHINE SULFATE 2 MG/ML DISP.SYRIN. IV PRN ×2 (04:44→08:41)
[2017-06-24] MEDS: INSULIN ASPART 300 UNITS/3 ML INSULN.PEN SQ SCH ×3 (08:00→17:54)
[2017-06-24] MEDS ORDERED: methylPREDNISolone SOD SUCC PF 125 MG/2 ML VIAL. IV ONE (08:15)
[2017-06-24] MEDS: APIXABAN 5 MG TABLET. PO SCH ×2 (08:47→21:27)
--- NOTE | 2017-06-24 08:48 | PDOC ---
GENERAL General: vss and afebrile. very sob this am. diffusely wheezy with decreased air movement. slightly tachycardic. will dose with solumedrol and ask for pulmonary opinion. edema without significant change. likely primary pulmonary source to sob. duonebs have fallen off and reordered. Problems: VITAL SIGNS Vital Signs: Vital Signs Date Time Temp Pulse Resp B/P (MAP) Pulse Ox O2 Delivery O2 Flow Rate FiO2 06/24/17 08:06 94 Nasal Cannula 3.0 06/24/17 06:00 92 15 117/55 (75) 06/24/17 04:00 97.9 97.9 ALLERGIES Allergies: Allergies Coded Allergies Type Severity Reaction Last Updated Verified No Known Drug Allergies 10/17/15 No MEDS Medications: Current Medications Medications (Trade) Dose Ordered Sig/Lety Start Time Stop Time Status Last Admin Dose Admin Acetaminophen (Tylenol) 650 mg PRN Q4HRS PRN 06/22/17 15:45 06/23/17 15:44 DC Albuterol Sulfate (Ventolin Neb Soln) 2.5 mg PRN Q4HRS PRN 06/22/17 20:00 06/24/17 08:05 2.5 MG Albuterol/ Ipratropium (Duoneb) 3 ml RTQID 06/22/17 16:00 06/23/17 15:59 DC 06/23/17 15:26 3 ML Apixaban (Eliquis) 5 mg BID 06/22/17 21:00 06/23/17 20:31 5 MG Aspirin (Sanjuana Aspirin) 325 mg 1X ONCE 06/22/17 14:30 06/22/17 14:31 DC 06/22/17 15:20 325 MG Azithromycin 250 ml @ 250 mls/hr 1X ONCE 06/22/17 15:30 06/22/17 16:29 DC 06/22/17 16:00 250 MLS/HR Azithromycin 500 mg/Sodium Chloride 250 ml @ 250 mls/hr 1X ONCE 06/22/17 15:30 06/22/17 16:29 UNV Ceftriaxone Sodium 50 ml @ 100 mls/hr 1X ONCE 06/22/17 16:00 06/22/17 16:29 DC 06/22/17 20:27 100 MLS/HR Dextrose (Dextrose 50%-Water Syringe) 12.5 gm PRN Q15MIN PRN 06/22/17 22:30 Digoxin (Lanoxin) 500 mcg 1X ONCE 06/23/17 12:45 06/23/17 12:46 DC 06/23/17 13:56 500 MCG Diltiazem HCl (Cardizem) 10 mg 1X ONCE 06/22/17 14:45 06/22/17 14:46 DC 06/22/17 15:21 10 MG Diltiazem HCl 125 mg/Dextrose 125 ml @ 0 mls/hr CONT PRN 06/23/17 16:15 06/24/17 01:07 10 MLS/HR Furosemide (Lasix) 40 mg 1X ONCE 06/22/17 20:15 06/22/17 20:16 DC 06/22/17 21:57 40 MG Insulin Aspart (NovoLOG) 0-7 UNITS TIDWMEALS 06/22/17 21:00 06/23/17 17:41 3 UNITS Methylprednisolone Sodium Succinate (SOLU-Medrol 125MG VIAL) 125 mg 1X ONCE 06/24/17 08:15 06/24/17 08:16 DC Metoprolol Tartrate (Lopressor) 5 mg 1X ONCE 06/23/17 12:45 06/23/17 12:46 DC 06/23/17 12:41 5 MG Morphine Sulfate 2 mg PRN Q4HRS PRN 06/23/17 16:30 06/24/17 04:44 2 MG Nitroglycerin (Nitrostat) 0.4 mg PRN Q5MIN PRN 06/22/17 15:45 06/23/17 15:44 DC Ondansetron HCl (Zofran) 4 mg PRN Q8HRS PRN 06/22/17 15:45 06/23/17 15:44 DC Sodium Chloride 1,000 ml @ 75 mls/hr 1X ONCE 06/23/17 12:30 06/24/17 01:49 DC 06/23/17 16:37 75 MLS/HR LAB Lab: Laboratory Tests Test 06/23/17 12:16 06/23/17 12:50 06/23/17 17:36 06/23/17 20:29 Glucose (Fingerstick) 225 mg/dL (70-99) 195 mg/dL (70-99) 94 mg/dL (70-99) Prothrombin Time 23.9 SEC (11.7-14.0) Prothromb Time International Ratio 2.3 (0.8-1.1) GABRIELA VALERA MD Jun 24, 2017 08:48
[2017-06-24] MEDS: IPRATRPIUM/ALBUTEROL 0.5/2.5MG 3 ML NEBU. NEB SCH ×4 (09:00→20:12)
--- NOTE | 2017-06-24 10:02 | PDOC ---
PULMONARY PROGRESS NOTES Vitals Vital Signs Date Time Temp Pulse Resp B/P (MAP) Pulse Ox O2 Delivery O2 Flow Rate FiO2 06/24/17 09:00 90 28 135/61 (85) 94 Nasal Cannula 2.0 06/24/17 08:00 97.9 97.9 HEENT: Other Lungs: Crackles Cardiovascular: S1, S2 Abdomen: Soft, Non-tender Neuro Exam: Alert Extremities: Other Skin: Warm, Dry Labs Laboratory Tests Test 06/22/17 14:40 06/22/17 19:00 06/22/17 21:30 06/22/17 21:56 White Blood Count 6.1 x10^3/uL (4.0-11.0) Red Blood Count 3.71 x10^6/uL (4.30-5.70) Hemoglobin 8.9 g/dL (13.0-17.5) Hematocrit 28.3 % (39.0-53.0) Mean Corpuscular Volume 76 fL (79-100) Mean Corpuscular Hemoglobin 24 pg (25-35) Mean Corpuscular Hemoglobin Concent 31 g/dL (31-37) Red Cell Distribution Width 16.2 % (11.5-14.5) Platelet Count 143 x10^3/uL (140-400) Neutrophils (%) (Auto) 80 % (31-73) Lymphocytes (%) (Auto) 11 % (24-48) Monocytes (%) (Auto) 8 % (0-9) Eosinophils (%) (Auto) 1 % (0-3) Basophils (%) (Auto) 1 % (0-3) Neutrophils # (Auto) 4.9 x10^3uL (1.8-7.7) Lymphocytes # (Auto) 0.7 x10^3/uL (1.0-4.8) Monocytes # (Auto) 0.5 x10^3/uL (0.0-1.1) Eosinophils # (Auto) 0.0 x10^3/uL (0.0-0.7) Basophils # (Auto) 0.0 x10^3/uL (0.0-0.2) Prothrombin Time 34.3 SEC (11.7-14.0) Prothromb Time International Ratio 3.7 (0.8-1.1) Activated Partial Thromboplast Time 70 SEC (24-38) Sodium Level 144 mmol/L (136-145) Potassium Level 4.8 mmol/L (3.5-5.1) Chloride Level 109 mmol/L (98-107) Carbon Dioxide Level 28 mmol/L (21-32) Anion Gap 7 (6-14) Blood Urea Nitrogen 25 mg/dL (8-26) Creatinine 1.4 mg/dL (0.7-1.3) Estimated GFR (Cockcroft-Gault) 49.1 BUN/Creatinine Ratio 18 (6-20) Glucose Level 154 mg/dL (70-99) Calcium Level 9.0 mg/dL (8.5-10.1) Magnesium Level 1.6 mg/dL (1.8-2.4) Total Bilirubin 0.7 mg/dL (0.2-1.0) Aspartate Amino Transf (AST/SGOT) 16 U/L (15-37) Alanine Aminotransferase (ALT/SGPT) 20 U/L (16-63) Alkaline Phosphatase 83 U/L (46-116) Troponin I Quantitative 0.020 ng/mL (0.000-0.055) 0.026 ng/mL (0.000-0.055) YL-Huf-Z-Type Natriuretic Peptide 3595 pg/mL (0-449) Total Protein 6.3 g/dL (6.4-8.2) Albumin 3.0 g/dL (3.4-5.0) Albumin/Globulin Ratio 0.9 (1.0-1.7) Nasal Screen MRSA (PCR) Negative (Negative) Glucose (Fingerstick) 335 mg/dL (70-99) Test 06/23/17 03:20 06/23/17 03:40 06/23/17 07:28 06/23/17 12:16 Sodium Level 142 mmol/L (136-145) Potassium Level 4.7 mmol/L (3.5-5.1) Chloride Level 107 mmol/L (98-107) Carbon Dioxide Level 26 mmol/L (21-32) Anion Gap 9 (6-14) Blood Urea Nitrogen 30 mg/dL (8-26) Creatinine 1.9 mg/dL (0.7-1.3) Estimated GFR (Cockcroft-Gault) 34.5 Glucose Level 286 mg/dL (70-99) Calcium Level 8.4 mg/dL (8.5-10.1) White Blood Count 4.6 x10^3/uL (4.0-11.0) Red Blood Count 3.61 x10^6/uL (4.30-5.70) Hemoglobin 8.7 g/dL (13.0-17.5) Hematocrit 27.4 % (39.0-53.0) Mean Corpuscular Volume 76 fL (79-100) Mean Corpuscular Hemoglobin 24 pg (25-35) Mean Corpuscular Hemoglobin Concent 32 g/dL (31-37) Red Cell Distribution Width 16.4 % (11.5-14.5) Platelet Count 132 x10^3/uL (140-400) Neutrophils (%) (Auto) 93 % (31-73) Lymphocytes (%) (Auto) 6 % (24-48) Monocytes (%) (Auto) 2 % (0-9) Eosinophils (%) (Auto) 0 % (0-3) Basophils (%) (Auto) 0 % (0-3) Neutrophils # (Auto) 4.2 x10^3uL (1.8-7.7) Lymphocytes # (Auto) 0.3 x10^3/uL (1.0-4.8) Monocytes # (Auto) 0.1 x10^3/uL (0.0-1.1) Eosinophils # (Auto) 0.0 x10^3/uL (0.0-0.7) Basophils # (Auto) 0.0 x10^3/uL (0.0-0.2) Segmented Neutrophils % 89 % (35-66) Band Neutrophils % 5 % (0-9) Lymphocytes % 4 % (24-48) Monocytes % 1 % (0-10) Eosinophils % 1 % (0-5) Platelet Estimate Decreased (ADEQUATE) Polychromasia Present Anisocytosis Present Microcytosis Present Ovalocytes Present Troponin I Quantitative 0.023 ng/mL (0.000-0.055) Thyroid Stimulating Hormone (TSH) 0.541 uIU/mL (0.358-3.74) Glucose (Fingerstick) 264 mg/dL (70-99) 225 mg/dL (70-99) Test 06/23/17 12:50 06/23/17 17:36 06/23/17 20:29 Prothrombin Time 23.9 SEC (11.7-14.0) Prothromb Time International Ratio 2.3 (0.8-1.1) Glucose (Fingerstick) 195 mg/dL (70-99) 94 mg/dL (70-99) Laboratory Tests Test 06/23/17 12:16 06/23/17 12:50 06/23/17 17:36 06/23/17 20:29 Glucose (Fingerstick) 225 mg/dL (70-99) 195 mg/dL (70-99) 94 mg/dL (70-99) Prothrombin Time 23.9 SEC (11.7-14.0) Prothromb Time International Ratio 2.3 (0.8-1.1) Medications Active Scripts Medications Dose Route/Sig Max Daily Dose Days Date Category Eliquis (Apixaban) 5 Mg Tablet 5 Mg PO BID 01/23/17 Reported Hydrochlorothiazide Tablet (Hydrochlorothiazide) 12.5 Mg Tablet 6.25 Mg PO DAILY 01/23/17 Reported Montelukast Sodium Tablet (Montelukast Sodium) 10 Mg Tablet 10 Mg PO HS 01/23/17 Reported Cardizem Cd (Diltiazem Hcl) 180 Mg Cap.er.24h 120 Mg PO DAILY 01/23/17 Reported Lisinopril 10 Mg Tablet 1 Tab PO DAILY 01/23/17 Reported Klor-Con M10 (Potassium Chloride) 10 Meq Tab.er.prt 10 Meq PO DAILYWBKFT 10/23/15 Rx Actos (Pioglitazone Hcl) 15 Mg Tablet 30 Mg PO DAILY 10/23/15 Rx Amaryl (Glimepiride) 2 Mg Tablet 3 Mg PO DAILY 30 10/23/15 Rx Budesonide 0.5 Mg/2 Ml Ampul.neb 1 Vial NEB QHS 10/17/15 Reported Proair Hfa Inhaler (Albuterol Sulfate) 8.5 Gm Hfa.aer.ad 2 Puff IH PRN Q4-6HRS PRN 10/17/15 Reported Metformin Hcl 500 Mg Tablet 1 Tab PO BID 10/17/15 Reported Pantoprazole Sodium 40 Mg Tablet.dr 1 Tab PO DAILY 10/17/15 Reported Doxazosin Mesylate 4 Mg Tablet 2 Mg PO DAILY 10/17/15 Reported Allopurinol 300 Mg Tablet 1 Tab PO DAILY 2/3/16 Reported Impression . FULL CONSULT DICTATED ACUTE RESP FAILURE ACUTE SYST HEART FAILURE AECOPD SIDNEY AGREE WITH CURRENT RX NO NEED FOR ANTIBX MARIELY GRANADO MD Jun 24, 2017 10:02
--- NOTE | 2017-06-24 12:03 | CONS ---
DATE OF CONSULTATION: 06/24/2017 ATTENDING PHYSICIAN: Charlie Ambrose MD. REASON FOR CONSULTATION: The patient is seen in pulmonary consultation at the request of Dr. Ambrose for acute respiratory failure. HISTORY OF PRESENT ILLNESS: The patient is a 76-year-old male with a history of chronic AFib, history of obstructive sleep apnea, congestive heart failure, presented with a 1 to 2 week history of increasing shortness of breath, "could not get his air," paroxysmal nocturnal dyspnea, pedal edema. Denies fever, chills. Cough, mostly nonproductive. He quit tobacco 30 years ago, has a strong history of tobacco at home and uses oxygen at bedtime, ProAir and nebulized treatments. Denies hemoptysis. He had a chest x-ray, which I personally reviewed, revealing bilateral pulmonary infiltrates compatible with CHF. In addition, he had an echocardiogram revealing an EF of 45, pulmonary artery pressure of 42. PAST MEDICAL HISTORY: Chronic AFib, COPD, obstructive sleep apnea, chronic nocturnal hypoxemia, congestive heart failure, hypertension. PAST SURGICAL HISTORY: Status post hydrocele repair. MEDICATIONS: List was reviewed. Please see the MRAD. ALLERGIES: No known drug allergies. SOCIAL HISTORY: He quit tobacco many years ago, mostly sits at home playing his video games. He states he was eating salty foods while playing the game without taking much notice. REVIEW OF SYSTEMS: As indicated above, otherwise a 10-point system was reviewed and negative. CURRENT MEDICATION: List was likewise reviewed. PHYSICAL EXAMINATION: VITAL SIGNS: Stable. O2 saturation was greater than 92%, currently on 2 liters of oxygen supplementation. HEENT: Eyes, the sclerae were nonicteric. NECK: Jugular venous distention was not elevated. No lymphadenopathy. CHEST: Full expansion. LUNGS: Crackles in the bases. No wheezes. CARDIOVASCULAR: Regular rate and rhythm, with S1, S2, no S3. ABDOMEN: Soft, obese. EXTREMITIES: 1+ edema. NEUROLOGIC: The patient was sitting up in the chair, awake, alert, following commands. A detailed neuro exam was not performed. LABORATORY DATA: White count was normal. Hemoglobin and hematocrit were noted chronically low. INR was 2.3. Electrolytes were noted. TSH was normal. BNP was elevated. Albumin was low. Creatinine initially was 1.4. IMPRESSION: 1. Acute respiratory failure. 2. Acute on chronic systolic heart failure. 3. Secondary pulmonary hypertension. 4. Obstructive sleep apnea. 5. Acute exacerbation of chronic obstructive pulmonary disease secondary to above. 6. Acute on chronic kidney disease. 7. Chronic anemia. 8. Hypertension. 9. Obstructive sleep apnea. 10. Morbid obesity. 11. Atrial fibrillation with rapid ventricular response. PLAN: 1. I agree with current Rx, continue to diurese. 2. Control heart rate with IV Cardizem. 3. No need for antibiotics. 4. The patient instructed on the importance of avoiding salty foods. 5. Oxygen supplementation. 6. A 6-minute walk. 7. Outpatient polysomnogram if one has not been performed. I do appreciate the privilege in sharing in the patient's care. Total cumulative critical care time 35 minutes. MARIELY SURESH MD DR: MARIEL/jewels JOB#: [id number] / [id number]
--- NOTE | 2017-06-24 13:28 | PDOC ---
PENNY PHILLIPS DIRECT CARE SPECIALIST 06/24/17 1328: CARDIO Progress Notes Date and Time Date of Service 06/24/2017 Time of Evaluation 1310 Subjective Subjective: No Chest Pain, No Palpitations, Other (mild SOA, beter while sitting up and presently eating lunch. ) Vitals Vitals Vital Signs Date Time Temp Pulse Resp B/P (MAP) Pulse Ox O2 Delivery O2 Flow Rate FiO2 06/24/17 12:00 97.7 92 28 130/52 (78) 94 Nasal Cannula 2.0 97.7 Weight Weight [ ] Input and Output Intake and Output Intake and Output 06/25/17 07:00 Intake Total 75 ml Output Total 200 ml Balance -125 ml Intake Oral 75 ml Output Urine Total 200 ml Laboratory Labs Laboratory Tests Test 06/23/17 17:36 06/23/17 20:29 06/24/17 11:26 Glucose (Fingerstick) 195 mg/dL (70-99) 94 mg/dL (70-99) 164 mg/dL (70-99) Physical Exam HEENT: Neck Supple W Full Motion Chest: Symmetric LUNGS: Other (basilar crackles with faint wheeze) Heart: S1S2, irregularly irregular (AFIB) Abdomen: Soft N/T Extremities: No Calf Tenderness, Other (2-3+ bilateral LE pitting edema) Neurology: alert, oriented, follow commands Assessment Assessment 1. Acute on chronic diastolic CHF 2. AECOPD 3. AFIB RVR: HR better 90-110 4. STERLING on CKD2 5. Microcytic hypochromic anemia 6. HTN: controlled 7. DM2 8. SIDNEY: CPAP compliant at home Recommendations 1. BMP/Mg today,replace K and Mg as warranted. 2. Will DC cardizem drip once IR PO is started. 3. Lasix IV. 4. Eliquis in place. 5. Pulmonary consult pending SEVERIANO MATTHEWS MD 06/24/17 2265: CARDIO Progress Notes Plan Plan Pt. seen and examined. Agree with above DIRECTOR DIGITAL CATALOGUE note. CXR unchanged. Sig rhonchi bilaterally. Will start lasix gtt. Monitor I/O's closely. Plan to start Metoprolol 25mg bid Will need MPI prior to DC when more stable from resp stand point. Will follow along. PENNY PHILLIPS DIRECT CARE SPECIALIST Jun 24, 2017 13:28 SEVERIANO MATTHEWS MD Jun 24, 2017 17:39
[2017-06-24] MEDS ORDERED: FUROSEMIDE 40 MG/4 ML VIAL. IVP SCH (14:00)
[2017-06-24 14:09] LABS: CALCIUM 8.4 mg/dL (8.5-10.1); CREATININE 1.5 mg/dL (0.7-1.3); GFR 45.4; MAGNESIUM 1.7 mg/dL (1.8-2.4); POTASSIUM 4.7 mmol/L (3.5-5.1)
--- NOTE | 2017-06-24 14:23 | RAD ---
Single view of the Chest 06/24/2017 3:25 PM Indication: Congestive heart failure Comparison: Chest radiograph, yesterday Findings: No pneumothorax is identified. There is central vascular congestion and interstitial thickening, similar to prior exam. Slight increase in bilateral basilar effusions in the interim, which remain small. The heart remains mildly enlarged. No acute osseous changes are seen. Impression: Persistent changes of congestive heart failure with interval increase in small bilateral pleural effusions
[2017-06-24] MEDS ORDERED: MAGNESIUM SULFATE 2GM 50 ML IV ONE (15:00)
[2017-06-24] MEDS: dilTIAZem HCL 30 MG TABLET PO SCH ×2 (15:06→21:27)
[2017-06-24] MEDS ORDERED: METOPROLOL TARTRATE 5 MG/5 ML VIAL. IVP PRN (17:00)
[2017-06-24] MEDS: FUROSEMIDE INJ 100 MG in IV NORMAL SALINE 100ML 100 ML IV PRN (18:11)
[2017-06-24] MEDS: METOPROLOL TART IMMED RELEASE 25 MG TABLET. PO SCH (18:30)
[2017-06-25] VITALS (15 sets, daily range): BP systolic 118–148; BP diastolic 50–77
[2017-06-25] MEDS: FUROSEMIDE INJ 100 MG in IV NORMAL SALINE 100ML 100 ML IV PRN (02:53)
[2017-06-25] MEDS: dilTIAZem HCL 30 MG TABLET PO SCH (06:17)
[2017-06-25] MEDS: IPRATRPIUM/ALBUTEROL 0.5/2.5MG 3 ML NEBU. NEB SCH ×4 (07:33→20:01)
[2017-06-25] MEDS: INSULIN ASPART 300 UNITS/3 ML INSULN.PEN SQ SCH ×3 (08:00→17:00)
[2017-06-25] MEDS: APIXABAN 5 MG TABLET. PO SCH ×2 (08:29→21:06)
[2017-06-25] MEDS: METOPROLOL TART IMMED RELEASE 25 MG TABLET. PO SCH (08:29)
--- NOTE | 2017-06-25 08:33 | PDOC ---
GENERAL General: vss and afebrile. awake and alert and breathing much better. chest essentially wheeze free this am and heart regular. edema some decreased. O>I. on lasix drip since yesterday pm but was already feeling some better before it started after steroids given in am. continue same. check lytes,renal function in am. Problems: VITAL SIGNS Vital Signs: Vital Signs Date Time Temp Pulse Resp B/P (MAP) Pulse Ox O2 Delivery O2 Flow Rate FiO2 06/25/17 07:00 97.8 94 25 145/73 (97) 99 Nasal Cannula 3.0 97.8 ALLERGIES Allergies: Allergies Coded Allergies Type Severity Reaction Last Updated Verified No Known Drug Allergies 10/17/15 No MEDS Medications: Current Medications Medications (Trade) Dose Ordered Sig/Lety Start Time Stop Time Status Last Admin Dose Admin Acetaminophen (Tylenol) 650 mg PRN Q4HRS PRN 06/22/17 15:45 06/23/17 15:44 DC Albuterol Sulfate (Ventolin Neb Soln) 2.5 mg PRN Q4HRS PRN 06/22/17 20:00 06/24/17 08:05 2.5 MG Albuterol/ Ipratropium (Duoneb) 3 ml RTQID 06/24/17 09:00 06/25/17 07:33 3 ML Apixaban (Eliquis) 5 mg BID 06/22/17 21:00 06/24/17 21:27 5 MG Aspirin (Sanjuana Aspirin) 325 mg 1X ONCE 06/22/17 14:30 06/22/17 14:31 DC 06/22/17 15:20 325 MG Azithromycin 250 ml @ 250 mls/hr 1X ONCE 06/22/17 15:30 06/22/17 16:29 DC 06/22/17 16:00 250 MLS/HR Azithromycin 500 mg/Sodium Chloride 250 ml @ 250 mls/hr 1X ONCE 06/22/17 15:30 06/22/17 16:29 UNV Ceftriaxone Sodium 50 ml @ 100 mls/hr 1X ONCE 06/22/17 16:00 06/22/17 16:29 DC 06/22/17 20:27 100 MLS/HR Dextrose (Dextrose 50%-Water Syringe) 12.5 gm PRN Q15MIN PRN 06/22/17 22:30 Digoxin (Lanoxin) 500 mcg 1X ONCE 06/23/17 12:45 06/23/17 12:46 DC 06/23/17 13:56 500 MCG Diltiazem HCl (Cardizem) 60 mg Q8HRS 06/24/17 14:00 06/25/17 06:17 60 MG Diltiazem HCl 125 mg/Dextrose 125 ml @ 0 mls/hr CONT PRN 06/23/17 16:15 06/24/17 01:07 10 MLS/HR Furosemide (Lasix) 40 mg DAILY 06/24/17 14:00 06/24/17 17:39 DC 06/24/17 15:05 40 MG Furosemide 100 mg/ Sodium Chloride 100 ml @ 0 mls/hr CONT PRN 06/24/17 17:45 06/25/17 02:53 10 MLS/HR Insulin Aspart (NovoLOG) 0-7 UNITS TIDWMEALS 06/22/17 21:00 06/24/17 17:54 6 UNITS Magnesium Sulfate/ Dextrose 50 ml @ 25 mls/hr 1X ONCE 06/24/17 15:00 06/24/17 16:59 DC 06/24/17 15:00 25 MLS/HR Methylprednisolone Sodium Succinate (SOLU-Medrol 125MG VIAL) 125 mg 1X ONCE 06/24/17 08:15 06/24/17 08:16 DC 06/24/17 08:41 125 MG Metoprolol Tartrate (Lopressor) 25 mg BID 06/24/17 18:30 Morphine Sulfate 2 mg PRN Q4HRS PRN 06/23/17 16:30 06/24/17 08:41 2 MG Nitroglycerin (Nitrostat) 0.4 mg PRN Q5MIN PRN 06/22/17 15:45 06/23/17 15:44 DC Ondansetron HCl (Zofran) 4 mg PRN Q8HRS PRN 06/22/17 15:45 06/23/17 15:44 DC Sodium Chloride 1,000 ml @ 75 mls/hr 1X ONCE 06/23/17 12:30 06/24/17 01:49 DC 06/23/17 16:37 75 MLS/HR LAB Lab: Laboratory Tests Test 06/24/17 11:26 06/24/17 13:30 06/24/17 17:51 Glucose (Fingerstick) 164 mg/dL (70-99) 267 mg/dL (70-99) Sodium Level 141 mmol/L (136-145) Potassium Level 4.7 mmol/L (3.5-5.1) Chloride Level 107 mmol/L (98-107) Carbon Dioxide Level 28 mmol/L (21-32) Anion Gap 6 (6-14) Blood Urea Nitrogen 29 mg/dL (8-26) Creatinine 1.5 mg/dL (0.7-1.3) Estimated GFR (Cockcroft-Gault) 45.4 Glucose Level 239 mg/dL (70-99) Calcium Level 8.4 mg/dL (8.5-10.1) Magnesium Level 1.7 mg/dL (1.8-2.4) GABRIELA VALERA MD Jun 25, 2017 08:33
--- NOTE | 2017-06-25 10:25 | PDOC ---
PENNY PHILLIPS VOICE NETWORK ENGINEER 06/25/17 1025: CARDIO Progress Notes Date and Time Date of Service 06/25/2017 Time of Evaluation 1010 Subjective Subjective: No Chest Pain, No Palpitations, Other (SOA much better, feels good today) Vitals Vitals Vital Signs Date Time Temp Pulse Resp B/P (MAP) Pulse Ox O2 Delivery O2 Flow Rate FiO2 06/25/17 10:00 72 35 95 Nasal Cannula 3.0 06/25/17 07:00 97.8 97.8 Weight Weight [ ] Input and Output Intake and Output Intake and Output 06/26/17 07:00 Intake Total 286.8 ml Output Total 600 ml Balance -313.2 ml Intake Oral 240 ml IV Total 46.8 ml Output Urine Total 600 ml Laboratory Labs Laboratory Tests Test 06/24/17 11:26 06/24/17 13:30 06/24/17 17:51 Glucose (Fingerstick) 164 mg/dL (70-99) 267 mg/dL (70-99) Sodium Level 141 mmol/L (136-145) Potassium Level 4.7 mmol/L (3.5-5.1) Chloride Level 107 mmol/L (98-107) Carbon Dioxide Level 28 mmol/L (21-32) Anion Gap 6 (6-14) Blood Urea Nitrogen 29 mg/dL (8-26) Creatinine 1.5 mg/dL (0.7-1.3) Estimated GFR (Cockcroft-Gault) 45.4 Glucose Level 239 mg/dL (70-99) Calcium Level 8.4 mg/dL (8.5-10.1) Magnesium Level 1.7 mg/dL (1.8-2.4) Physical Exam HEENT: Neck Supple W Full Motion Chest: Symmetric LUNGS: Other (absent wheeze, basilar crackles) Heart: S1S2, irregularly irregular (AFIB rate controlled) Abdomen: Soft N/T Extremities: No Calf Tenderness, Other (2-3+ bilateral LE pitting edema) Neurology: alert, oriented, follow commands Assessment Assessment 1. Acute on chronic diastolic CHF: much better today 2. AECOPD with SIDNEY 3. AFIB RVR: HR better controlled in the 70s 4. STERLING on CKD2 5. Microcytic hypochromic anemia 6. HTN: controlled 7. DM2 Recommendations 1. Switch to cardizem CD. Start on low dose toprol. Continue with eliquis 2. BMP,Mg. IV lasix. Will start on po tomorrow. 3. Follow pulmonary recommendations. SEVERIANO MATTHEWS MD 06/25/17 1330: CARDIO Progress Notes Plan Plan Pt. seen and examined. Agree with above CAN CLOSING MACHINE TENDER note. No acute events overnight. Diuresed nearly 2.5 liters. Feels better today. LE edema still present. Recs as noted above. Will follow. Cr stable today. PENNY PHILLIPS APRN Jun 25, 2017 10:25 SEVERIANO MATTHEWS MD Jun 25, 2017 13:30
[2017-06-25] MEDS ORDERED: FUROSEMIDE 40 MG/4 ML VIAL. IVP ONE (10:30)
[2017-06-25 10:36] LABS: CALCIUM 9.3 mg/dL (8.5-10.1); CREATININE 1.5 mg/dL (0.7-1.3); GFR 45.4
[2017-06-25] MEDS: METOPROLOL SUCC 24HR ER 25 MG TAB.ER.24H. PO SCH (11:00)
--- NOTE | 2017-06-25 14:22 | PDOC ---
PULMONARY PROGRESS NOTES Vitals Vital Signs Date Time Temp Pulse Resp B/P (MAP) Pulse Ox O2 Delivery O2 Flow Rate FiO2 06/25/17 12:00 97.6 90 20 127/65 (85) 93 Nasal Cannula 2.0 97.6 HEENT: Other Lungs: Crackles Cardiovascular: S1, S2 Abdomen: Soft, Non-tender Neuro Exam: Alert Extremities: Other Skin: Warm, Dry Labs Laboratory Tests Test 06/23/17 17:36 06/23/17 20:29 06/24/17 11:26 06/24/17 13:30 Glucose (Fingerstick) 195 mg/dL (70-99) 94 mg/dL (70-99) 164 mg/dL (70-99) Sodium Level 141 mmol/L (136-145) Potassium Level 4.7 mmol/L (3.5-5.1) Chloride Level 107 mmol/L (98-107) Carbon Dioxide Level 28 mmol/L (21-32) Anion Gap 6 (6-14) Blood Urea Nitrogen 29 mg/dL (8-26) Creatinine 1.5 mg/dL (0.7-1.3) Estimated GFR (Cockcroft-Gault) 45.4 Glucose Level 239 mg/dL (70-99) Calcium Level 8.4 mg/dL (8.5-10.1) Magnesium Level 1.7 mg/dL (1.8-2.4) Test 06/24/17 17:51 06/25/17 10:14 06/25/17 12:31 Glucose (Fingerstick) 267 mg/dL (70-99) 130 mg/dL (70-99) Sodium Level 142 mmol/L (136-145) Potassium Level 4.0 mmol/L (3.5-5.1) Chloride Level 102 mmol/L (98-107) Carbon Dioxide Level 34 mmol/L (21-32) Anion Gap 6 (6-14) Blood Urea Nitrogen 31 mg/dL (8-26) Creatinine 1.5 mg/dL (0.7-1.3) Estimated GFR (Cockcroft-Gault) 45.4 Glucose Level 217 mg/dL (70-99) Calcium Level 9.3 mg/dL (8.5-10.1) Magnesium Level 2.0 mg/dL (1.8-2.4) Laboratory Tests Test 06/24/17 17:51 06/25/17 10:14 06/25/17 12:31 Glucose (Fingerstick) 267 mg/dL (70-99) 130 mg/dL (70-99) Sodium Level 142 mmol/L (136-145) Potassium Level 4.0 mmol/L (3.5-5.1) Chloride Level 102 mmol/L (98-107) Carbon Dioxide Level 34 mmol/L (21-32) Anion Gap 6 (6-14) Blood Urea Nitrogen 31 mg/dL (8-26) Creatinine 1.5 mg/dL (0.7-1.3) Estimated GFR (Cockcroft-Gault) 45.4 Glucose Level 217 mg/dL (70-99) Calcium Level 9.3 mg/dL (8.5-10.1) Magnesium Level 2.0 mg/dL (1.8-2.4) Medications Active Scripts Medications Dose Route/Sig Max Daily Dose Days Date Category Eliquis (Apixaban) 5 Mg Tablet 5 Mg PO BID 01/23/17 Reported Hydrochlorothiazide Tablet (Hydrochlorothiazide) 12.5 Mg Tablet 6.25 Mg PO DAILY 01/23/17 Reported Montelukast Sodium Tablet (Montelukast Sodium) 10 Mg Tablet 10 Mg PO HS 01/23/17 Reported Cardizem Cd (Diltiazem Hcl) 180 Mg Cap.er.24h 120 Mg PO DAILY 01/23/17 Reported Lisinopril 10 Mg Tablet 1 Tab PO DAILY 01/23/17 Reported Klor-Con M10 (Potassium Chloride) 10 Meq Tab.er.prt 10 Meq PO DAILYWBKFT 10/23/15 Rx Actos (Pioglitazone Hcl) 15 Mg Tablet 30 Mg PO DAILY 10/23/15 Rx Amaryl (Glimepiride) 2 Mg Tablet 3 Mg PO DAILY 30 10/23/15 Rx Budesonide 0.5 Mg/2 Ml Ampul.neb 1 Vial NEB QHS 10/17/15 Reported Proair Hfa Inhaler (Albuterol Sulfate) 8.5 Gm Hfa.aer.ad 2 Puff IH PRN Q4-6HRS PRN 10/17/15 Reported Metformin Hcl 500 Mg Tablet 1 Tab PO BID 10/17/15 Reported Pantoprazole Sodium 40 Mg Tablet.dr 1 Tab PO DAILY 10/17/15 Reported Doxazosin Mesylate 4 Mg Tablet 2 Mg PO DAILY 10/17/15 Reported Allopurinol 300 Mg Tablet 1 Tab PO DAILY 10/17/15 Reported Impression . 1. Acute respiratory failure. 2. Acute on chronic systolic heart failure. 3. Secondary pulmonary hypertension. 4. Obstructive sleep apnea. 5. Acute exacerbation of chronic obstructive pulmonary disease secondary to above. 6. Acute on chronic kidney disease. 7. Chronic anemia. 8. Hypertension. 9. Obstructive sleep apnea. 10. Morbid obesity. 11. Atrial fibrillation with rapid ventricular response. Plan . PT DOING MUCH BETTER I THINK THIS IS RELATED TO INCREASE SALT INTAKE PT EATS PORK RINDS ALL DAY FOLLOW UP WITH ME AFTER D/C 6 MIN WALK 1. DIURESE 2. PO CARDIZEM 3. No need for antibiotics. 4. The patient instructed on the importance of avoiding salty foods. 5. Oxygen supplementation. 6. A 6-minute walk. 7. Outpatient polysomnogram if one has not been performed. MARIELY SURESH MD Jun 25, 2017 14:22
[2017-06-26 03:25] VITALS: BP 127/65
[2017-06-26 05:59] LABS: CALCIUM 8.5 mg/dL (8.5-10.1); CREATININE 1.4 mg/dL (0.7-1.3); GFR 49.1; POTASSIUM 3.7 mmol/L (3.5-5.1)
[2017-06-26 07:00] VITALS: BP 131/81
[2017-06-26] MEDS: INSULIN ASPART 300 UNITS/3 ML INSULN.PEN SQ SCH ×2 (08:00→12:00)
[2017-06-26] MEDS: IPRATRPIUM/ALBUTEROL 0.5/2.5MG 3 ML NEBU. NEB SCH ×2 (08:05→12:16)
[2017-06-26] MEDS: APIXABAN 5 MG TABLET. PO SCH (09:29)
[2017-06-26] MEDS: METOPROLOL SUCC 24HR ER 25 MG TAB.ER.24H. PO SCH (09:30)
--- NOTE | 2017-06-26 10:27 | PDOC ---
PENNY PHILLIPS COOKY MACHINE OPERATOR 06/26/17 1027: CARDIO Progress Notes Date and Time Date of Service 06/26/2017 Time of Evaluation 1010 Subjective Subjective: No Chest Pain, No shortness of breath, No Palpitations, No Dizziness Vitals Vitals Vital Signs Date Time Temp Pulse Resp B/P (MAP) Pulse Ox O2 Delivery O2 Flow Rate FiO2 06/26/17 09:30 86 131/81 06/26/17 08:08 91 Room Air 06/26/17 07:00 97.9 20 97.9 06/26/17 03:25 3.0 Weight Weight [ ] Input and Output Intake and Output Intake and Output 06/27/17 07:00 Intake Total 250 ml Balance 250 ml Intake Oral 250 ml Laboratory Labs Laboratory Tests Test 06/25/17 12:31 06/25/17 20:38 06/26/17 04:00 06/26/17 07:55 Glucose (Fingerstick) 130 mg/dL (70-99) 157 mg/dL (70-99) 121 mg/dL (70-99) Sodium Level 144 mmol/L (136-145) Potassium Level 3.7 mmol/L (3.5-5.1) Chloride Level 105 mmol/L (98-107) Carbon Dioxide Level 34 mmol/L (21-32) Anion Gap 5 (6-14) Blood Urea Nitrogen 33 mg/dL (8-26) Creatinine 1.4 mg/dL (0.7-1.3) Estimated GFR (Cockcroft-Gault) 49.1 Glucose Level 132 mg/dL (70-99) Calcium Level 8.5 mg/dL (8.5-10.1) Physical Exam HEENT: Neck Supple W Full Motion Chest: Symmetric LUNGS: Other (faint basilar crackles) Heart: S1S2, irregularly irregular (AFIB) Abdomen: Soft N/T Extremities: No Calf Tenderness, Other (2-3+ bilateral LE pitting edema) Neurology: alert, oriented, follow commands Assessment Assessment 1. Acute on chronic diastolic CHF: appears compensated but still with significant leg edema 2. AECOPD with SIDNEY: pulmonary following 3. Persistent AFIB RVR: HR in the 140-160s with activity otherwise HR 90s at rest 4. HTN: controlled Recommendations 1. Continue with Cardizem CD and eliquis. Increase toprol. 2. Continue with lasix. f/u CXR. 3. Compression stockings. lymphedema consult. 4. Anticipate DC this afternoon if HR is controlled. 5. Follow up in office in 4 weeks. SEVERIANO MATTHEWS MD 06/28/17 2323: CARDIO Progress Notes Plan Plan Pt. seen and examined. Late entry for 06/26 Agree with above FELT FINISHER note. Ok to DC with above med changes. Thanks for consult. PENNY PHILLIPS APRN Jun 26, 2017 10:27 SEVERIANO MATTHEWS MD Jun 28, 2017 23:23
[2017-06-26] MEDS ORDERED: METOPROLOL SUCC 24HR ER 25 MG TAB.ER.24H. PO ONE (10:30)
[2017-06-26] MEDS ORDERED: FUROSEMIDE 40 MG/4 ML VIAL. IVP ONE (10:30)
[2017-06-26 11:00] VITALS: BP 123/57
[2017-06-26] MEDS ORDERED: POTASSIUM CHLORIDE 10 MEQ TABLET.ER. PO SCH (11:00)
[2017-06-26] MEDS ORDERED: BUME1TAB PO ×2 (12:26→12:27)
[2017-06-26] MEDS ORDERED: METO-239 PO (12:28)
--- NOTE | 2017-06-26 14:35 | PDOC ---
PULMONARY PROGRESS NOTES Subjective has dry cough, no pain, no runny nose, feeling better. Vitals Vital Signs Date Time Temp Pulse Resp B/P (MAP) Pulse Ox O2 Delivery O2 Flow Rate FiO2 06/26/17 13:32 Nasal Cannula 3.0 06/26/17 12:21 94 06/26/17 11:00 86 131/81 06/26/17 11:00 97.8 20 97.8 ROS: No Nausea, No Chest Pain, No Abdominal Pain General: Alert, Oriented X4 (nc at perrl) HEENT: Other Lungs: Crackles Cardiovascular: S1, S2 Abdomen: Soft, Non-tender Neuro Exam: Alert Extremities: Other (edema) Skin: Warm, Dry Labs Laboratory Tests Test 06/24/17 17:51 06/25/17 07:33 06/25/17 10:14 06/25/17 12:31 Glucose (Fingerstick) 267 mg/dL (70-99) 150 mg/dL (70-99) 130 mg/dL (70-99) Sodium Level 142 mmol/L (136-145) Potassium Level 4.0 mmol/L (3.5-5.1) Chloride Level 102 mmol/L (98-107) Carbon Dioxide Level 34 mmol/L (21-32) Anion Gap 6 (6-14) Blood Urea Nitrogen 31 mg/dL (8-26) Creatinine 1.5 mg/dL (0.7-1.3) Estimated GFR (Cockcroft-Gault) 45.4 Glucose Level 217 mg/dL (70-99) Calcium Level 9.3 mg/dL (8.5-10.1) Magnesium Level 2.0 mg/dL (1.8-2.4) Test 06/25/17 20:38 06/26/17 04:00 06/26/17 07:55 06/26/17 10:14 Glucose (Fingerstick) 157 mg/dL (70-99) 121 mg/dL (70-99) 216 mg/dL (70-99) Sodium Level 144 mmol/L (136-145) Potassium Level 3.7 mmol/L (3.5-5.1) Chloride Level 105 mmol/L (98-107) Carbon Dioxide Level 34 mmol/L (21-32) Anion Gap 5 (6-14) Blood Urea Nitrogen 33 mg/dL (8-26) Creatinine 1.4 mg/dL (0.7-1.3) Estimated GFR (Cockcroft-Gault) 49.1 Glucose Level 132 mg/dL (70-99) Calcium Level 8.5 mg/dL (8.5-10.1) Laboratory Tests Test 06/25/17 20:38 06/26/17 04:00 06/26/17 07:55 06/26/17 10:14 Glucose (Fingerstick) 157 mg/dL (70-99) 121 mg/dL (70-99) 216 mg/dL (70-99) Sodium Level 144 mmol/L (136-145) Potassium Level 3.7 mmol/L (3.5-5.1) Chloride Level 105 mmol/L (98-107) Carbon Dioxide Level 34 mmol/L (21-32) Anion Gap 5 (6-14) Blood Urea Nitrogen 33 mg/dL (8-26) Creatinine 1.4 mg/dL (0.7-1.3) Estimated GFR (Cockcroft-Gault) 49.1 Glucose Level 132 mg/dL (70-99) Calcium Level 8.5 mg/dL (8.5-10.1) Medications Active Scripts Medications Dose Route/Sig Max Daily Dose Days Date Category Eliquis (Apixaban) 5 Mg Tablet 5 Mg PO BID 01/23/17 Reported Hydrochlorothiazide Tablet (Hydrochlorothiazide) 12.5 Mg Tablet 6.25 Mg PO DAILY 01/23/17 Reported Montelukast Sodium Tablet (Montelukast Sodium) 10 Mg Tablet 10 Mg PO HS 01/23/17 Reported Cardizem Cd (Diltiazem Hcl) 180 Mg Cap.er.24h 120 Mg PO DAILY 01/23/17 Reported Lisinopril 10 Mg Tablet 1 Tab PO DAILY 01/23/17 Reported Klor-Con M10 (Potassium Chloride) 10 Meq Tab.er.prt 10 Meq PO DAILYWBKFT 10/23/15 Rx Actos (Pioglitazone Hcl) 15 Mg Tablet 30 Mg PO DAILY 10/23/15 Rx Amaryl (Glimepiride) 2 Mg Tablet 3 Mg PO DAILY 30 10/23/15 Rx Budesonide 0.5 Mg/2 Ml Ampul.neb 1 Vial NEB QHS 10/17/15 Reported Proair Hfa Inhaler (Albuterol Sulfate) 8.5 Gm Hfa.aer.ad 2 Puff IH PRN Q4-6HRS PRN 10/17/15 Reported Metformin Hcl 500 Mg Tablet 1 Tab PO BID 10/17/15 Reported Pantoprazole Sodium 40 Mg Tablet.dr 1 Tab PO DAILY 10/17/15 Reported Doxazosin Mesylate 4 Mg Tablet 2 Mg PO DAILY 10/17/15 Reported Allopurinol 300 Mg Tablet 1 Tab PO DAILY 10/17/15 Reported Impression . 1. Acute respiratory failure. 2. Acute on chronic systolic heart failure. 3. Secondary pulmonary hypertension. 4. Obstructive sleep apnea. 5. Acute exacerbation of chronic obstructive pulmonary disease secondary to above. 6. Acute on chronic kidney disease. 7. Chronic anemia. 8. Hypertension. 9. Obstructive sleep apnea. 10. Morbid obesity. 11. Atrial fibrillation with rapid ventricular response. Plan . PT DOING MUCH BETTER I THINK THIS IS RELATED TO INCREASE SALT INTAKE PT EATS PORK RINDS ALL DAY FOLLOW UP WITH ME AFTER D/C 6 MIN WALK 1. DIURESE 2. PO CARDIZEM 3. No need for antibiotics. 4. The patient instructed on the importance of avoiding salty foods. 5. Oxygen supplementation. 6. A 6-minute walk. 7. Outpatient polysomnogram if one has not been performed. ok to BRYCE Lee MD Jun 26, 2017 14:35
[2017-06-26 15:00] VITALS: BP_SYST 117; BP_SYST 129; BP_DIAS 51; BP_DIAS 53
--- NOTE | 2017-06-26 15:55 | RAD ---
Portable chest, 06/26/2017: History: Congestive heart failure Comparison is made to a study from 06/24/2017. The patient positioning is lordotic. The heart is enlarged. The pulmonary vascularity is slightly better defined. Left basilar opacities have improved with better definition of the hemidiaphragm. There is an unchanged small right pleural effusion with mild underlying right basilar atelectasis/infiltrate. No new abnormality is detected. IMPRESSION: Slightly improved congestive heart failure.
--- NOTE | 2017-06-26 18:44 | DS ---
DATE OF DISCHARGE: 06/26/2017 PRIMARY DIAGNOSIS: Combined systolic and diastolic congestive heart failure. ADDITIONAL DIAGNOSES: Chronic obstructive pulmonary disease with exacerbation, respiratory failure, chronic kidney disease, edema, diabetes, moderate to severe mitral regurgitation, mild pulmonary hypertension, mild cardiomyopathy with an ejection fraction 45-50%. CHIEF COMPLAINT AND HISTORY OF PRESENT ILLNESS: This is a 76-year-old white male who was admitted through the Emergency Room with edema, shortness of breath and congestive heart failure. SUMMARY OF STAY: The patient was admitted, diuresed very little with IV push Lasix initially and then actually had some worsening of shortness of breath on the ICU in the first couple of days. He was then started on a Lasix drip and given Solu-Medrol with improvement and fairly brisk diuresis without any further impairment of renal function. His blood sugars were good throughout the stay. Echocardiogram showed that is mentioned above. Cardiology adjusted medicine throughout the stay and between Cardiology, Pulmonary myself felt he was ready for a home trial with decreased salt intake necessary at the time of discharge. He also had a 6-minute walk showing needs for 2 liters per nasal cannula at the time of discharge and this will be arranged. DISPOSITION: The patient is discharged to home. DIET: ADA, low sodium diet. ACTIVITY: As tolerated. DISCHARGE INSTRUCTIONS: Office myself in 1 week, O2 at 2 liters per nasal cannula. DISCHARGE MEDICATIONS: Listed on the med record and have been addressed. GABRIELA VALERA MD DR: LEONARD/jewels JOB#: [id number] / [id number]
[2017-06-27] MEDS ORDERED: METOPROLOL SUCC 24HR ER 25 MG TAB.ER.24H. PO SCH (09:00)
[2017-06-27] MEDS ORDERED: FUROSEMIDE 40 MG TABLET. PO SCH (09:00)
== END 2017-06-26 17:25 | disposition home or self-care (01) | DRG 682 ==
LOC: ER 13:42 → 1 WEST ICU 15:22 → 2 SOUTH 06-25 12:03
PROVIDERS: ADMIT Family Medicine; ATTEND Family Medicine
DX: N17.9 Acute kidney failure, unspecified (principal); I50.43 Acute on chronic combined systolic (congestive) and diastolic (congestive) heart failure; J96.00 Acute respiratory failure, unspecified whether with hypoxia or hypercapnia; J18.9 Pneumonia, unspecified organism; E11.22 Type 2 diabetes mellitus with diabetic chronic kidney disease; I27.29 Other secondary pulmonary hypertension; I48.1 Persistent atrial fibrillation; E66.01 Morbid (severe) obesity due to excess calories; I13.0 Hypertensive heart and chronic kidney disease with heart failure and stage 1 through stage 4 chronic kidney disease, or unspecified chronic kidney disease; J44.0 Chronic obstructive pulmonary disease with (acute) lower respiratory infection; J44.1 Chronic obstructive pulmonary disease with (acute) exacerbation; I48.2 Chronic atrial fibrillation; M19.90 Unspecified osteoarthritis, unspecified site; M79.89 Other specified soft tissue disorders; G47.33 Obstructive sleep apnea (adult) (pediatric); I48.91 Unspecified atrial fibrillation; N18.2 Chronic kidney disease, stage 2 (mild); D50.9 Iron deficiency anemia, unspecified; Z68.26 Body mass index [BMI] 26.0-26.9, adult; Z72.0 Tobacco use; Z79.01 Long term (current) use of anticoagulants; Z91.19 Patient's noncompliance with other medical treatment and regimen; Z99.81 Dependence on supplemental oxygen
CPT/HCPCS: 36415; 71010; 74022; 80048; 80053; 82962; 83735; 83880; 84443; 84484; 85007; 85025; 85610; 85730; 87641; 93005; 93306; 94250; 94620; 94640; 94760; 96365; 96366; 96368; 96375; J0456; J0690; J1160; J1815; J1940; J2270; J2930; J3490; J7030; J7060; J7613; J7620; 97530; 99285-25

== ENCOUNTER → 2017-09-25 | Day surgery (SDC) | payer MEDICARE, BC ==
[~2017-09-25] MED LIST changes: -ALLO300T PO; -APIX5TAB PO; -BISO1TAB4 PO; -BUDE0.5A NEB; -CLON0.1T PO; -DILT180C2 PO; -DOXA4TAB3 PO; -FURO40TA4 PO; -GLIM2TAB PO; -HYDR12.58 PO; +HYDROmorphone 2 MG/ML VIAL IV; +LIDOCAINE 1% PF 2 ML VIAL. ID; +LIDOCAINE 2% PF Vial for OR 5 ML VIAL.; -LISI10TA2 PO; -METF500T4 PO; -MONT10TA9 PO; +MORPHINE SULFATE 2 MG/ML DISP.SYRIN. IV; -NIFE30TA17 PO; +ONDANSETRON PF 4 MG/2 ML VIAL. IV; -PANT40TA5 PO; -PIOG15TA42 PO; -POTA10TA12 PO; -POTASSIUM CHLO10 MEQ PO; -PROAIR HFA8.5 GM IH; +PROCHLORPERAZINE 10 MG/2 ML VIAL. IV; +PROPOFOL 40 ML IV; +fentaNYL PF VIAL 100 MCG/2 ML VIAL IV
[2017-09-25] MEDS: IV RINGERS,LACTATED 1000ML 1,000 ML IV (09:34)
== END | disposition home or self-care (01) ==
LOC: ENDOS 08:47
DX: D12.5 Benign neoplasm of sigmoid colon (principal); K57.30 Diverticulosis of large intestine without perforation or abscess without bleeding; K64.0 First degree hemorrhoids; K29.50 Unspecified chronic gastritis without bleeding; I11.0 Hypertensive heart disease with heart failure; I50.9 Heart failure, unspecified; I48.91 Unspecified atrial fibrillation; J45.909 Unspecified asthma, uncomplicated; E66.9 Obesity, unspecified; F17.200 Nicotine dependence, unspecified, uncomplicated; E11.9 Type 2 diabetes mellitus without complications; Z86.39 Personal history of other endocrine, nutritional and metabolic disease; Z87.01 Personal history of pneumonia (recurrent); Z72.0 Tobacco use
CPT/HCPCS: 43235; 88305; J2704

== ENCOUNTER 2017-12-11 14:43 | Inpatient (IN) | payer MEDICARE, BC ==
[2017-12-11 15:33] LABS: ADD MAN DIFF? NO
[2017-12-11 15:39] LABS: BASO % 1 % (0-3); EOS # 0.1 x10^3/uL (0.0-0.7); EOS % 2 % (0-3); HEMATOCRIT 26.6 % (39.0-53.0); HEMOGLOBIN 8.2 g/dL (13.0-17.5); LYMPH # 0.7 x10^3/uL (1.0-4.8); LYMPH % 14 % (24-48); MEAN CORPUSCULAR HEMOGLOBIN 24 pg (25-35); MEAN CORPUSCULAR HGB CONC 31 g/dL (31-37); MEAN CORPUSCULAR VOLUME 76 fL (79-100); MONO # 0.4 x10^3/uL (0.0-1.1); MONO % 8 % (0-9); NEUT # 3.8 x10^3uL (1.8-7.7); NEUT % 75 % (31-73); PLATELET COUNT 134 x10^3/uL (140-400)
[2017-12-11 15:54] LABS: PARTIAL THROMBOPLASTIN TIME 43 SEC (24-38)
[2017-12-11 15:55] LABS: PROTHROMBIN TIME PATIENT 22.4 SEC (11.7-14.0)
[2017-12-11 15:56] LABS: ANION GAP 9 (6-14); BLOOD UREA NITROGEN 26 mg/dL (8-26); BUN/CREATININE RATIO 14 (6-20); CALCIUM 8.5 mg/dL (8.5-10.1); CARBON DIOXIDE 27 mmol/L (21-32); CHLORIDE 110 mmol/L (98-107); CREATININE 1.8 mg/dL (0.7-1.3); GFR 36.7; GLUCOSE 128 mg/dL (70-99); POTASSIUM 4.2 mmol/L (3.5-5.1); SODIUM 146 mmol/L (136-145)
[2017-12-11 16:00] LABS: TROPONINI < 0.017 ng/mL (0.000-0.055)
[2017-12-11 16:01] LABS: ALBUMIN 3.1 g/dL (3.4-5.0); ALK PHOS 76 U/L (46-116); ALT (SGPT) 19 U/L (16-63); AST (SGOT) 15 U/L (15-37); LIPASE 168 U/L (73-393); TOTAL BILIRUBIN 0.7 mg/dL (0.2-1.0); TOTAL PROTEIN 6.3 g/dL (6.4-8.2)
[2017-12-11 16:02] LABS: NT-PRO BNP 9393 pg/mL (0-449)
[2017-12-11] MEDS: FUROSEMIDE 100 MG/10 ML VIAL. IVP (17:05)
[2017-12-11] MEDS: IPRATRPIUM/ALBUTEROL 0.5/2.5MG 3 ML NEBU. NEB ×2 (17:40→23:29)
[2017-12-11] MEDS: DIGOXIN IV 500 MCG/2 ML AMPUL. IV (17:45)
[2017-12-11] MEDS ORDERED: ONDANSETRON PF 4 MG/2 ML VIAL. IV (18:00)
[2017-12-11] MEDS ORDERED: ACETAMINOPHEN 325 MG TABLET. PO (18:00)
[2017-12-11] MEDS ORDERED: NITROGLYCERIN SUBLINGUAL 0.4 MG BOTTLE OF 25. SL (18:00)
[2017-12-11 22:47] LABS: TROPONINI < 0.017 ng/mL (0.000-0.055)
[2017-12-12 00:13] LABS: TROPONINI < 0.017 ng/mL (0.000-0.055)
[2017-12-12 04:58] LABS: ADD MAN DIFF? NO
[2017-12-12 05:06] LABS: BASO % 1 % (0-3); EOS # 0.1 x10^3/uL (0.0-0.7); EOS % 2 % (0-3); HEMATOCRIT 27.6 % (39.0-53.0); HEMOGLOBIN 8.3 g/dL (13.0-17.5); LYMPH # 0.9 x10^3/uL (1.0-4.8); LYMPH % 17 % (24-48); MEAN CORPUSCULAR HEMOGLOBIN 23 pg (25-35); MEAN CORPUSCULAR HGB CONC 30 g/dL (31-37); MEAN CORPUSCULAR VOLUME 77 fL (79-100); MONO # 0.4 x10^3/uL (0.0-1.1); MONO % 6 % (0-9); NEUT # 4.2 x10^3uL (1.8-7.7); NEUT % 75 % (31-73); PLATELET COUNT 134 x10^3/uL (140-400); RED BLOOD COUNT 3.58 x10^6/uL (4.30-5.70); RED CELL DISTRIBUTION WIDTH 20.5 % (11.5-14.5); WHITE BLOOD COUNT 5.6 x10^3/uL (4.0-11.0)
[2017-12-12 05:32] LABS: ANION GAP 10 (6-14); BLOOD UREA NITROGEN 28 mg/dL (8-26); CARBON DIOXIDE 28 mmol/L (21-32); CHLORIDE 109 mmol/L (98-107); CREATININE 1.7 mg/dL (0.7-1.3); GFR 39.2; GLUCOSE 76 mg/dL (70-99); POTASSIUM 4.1 mmol/L (3.5-5.1); SODIUM 147 mmol/L (136-145)
[2017-12-12] MEDS: IPRATRPIUM/ALBUTEROL 0.5/2.5MG 3 ML NEBU. NEB ×3 (11:58→20:32)
[2017-12-12] MEDS: ALLOPURINOL 300 MG TABLET. PO ×2 (12:00→12:34)
[2017-12-12] MEDS: RIVAROXABAN 10 MG TABLET. PO (12:32)
[2017-12-12] MEDS: LISINOPRIL 10 MG TABLET PO (12:33)
[2017-12-12] MEDS: POTASSIUM CHLORIDE 10 MEQ TABLET.ER. PO (12:33)
[2017-12-12] MEDS: PANTOPRAZOLE 40 MG TABLET.DR. PO (12:33)
[2017-12-12] MEDS: DOXAZOSIN MESYLATE 4 MG TABLET. PO (12:34)
[2017-12-12] MEDS: GLIMEPIRIDE 2 MG TABLET. PO (12:34)
[2017-12-12] MEDS: FUROSEMIDE 40 MG/4 ML VIAL. IVP (14:16)
[2017-12-12] MEDS: ANTI-COAG MONITOR BY PHARMACY. MC (14:28)
[2017-12-12] MEDS: metFORMIN 500 MG TABLET PO (16:46)
[2017-12-12] MEDS: BUDESONIDE 0.5 MG/2 ML NEBU. NEB (20:34)
[2017-12-12] MEDS: MONTELUKAST SODIUM 10 MG TABLET. PO (20:48)
[2017-12-13 04:56] LABS: ANION GAP 10 (6-14); BLOOD UREA NITROGEN 25 mg/dL (8-26); CALCIUM 8.6 mg/dL (8.5-10.1); CARBON DIOXIDE 28 mmol/L (21-32); CHLORIDE 107 mmol/L (98-107); CREATININE 1.4 mg/dL (0.7-1.3); GLUCOSE 97 mg/dL (70-99); POTASSIUM 3.8 mmol/L (3.5-5.1); SODIUM 145 mmol/L (136-145)
[2017-12-13] MEDS: DOXAZOSIN MESYLATE 4 MG TABLET. PO (07:44)
[2017-12-13] MEDS: metFORMIN 500 MG TABLET PO ×2 (07:44→16:55)
[2017-12-13] MEDS: POTASSIUM CHLORIDE 10 MEQ TABLET.ER. PO (07:44)
[2017-12-13] MEDS: PANTOPRAZOLE 40 MG TABLET.DR. PO (07:44)
[2017-12-13] MEDS: GLIMEPIRIDE 2 MG TABLET. PO (07:45)
[2017-12-13] MEDS: FUROSEMIDE 40 MG/4 ML VIAL. IVP ×2 (07:45→13:55)
[2017-12-13] MEDS: LISINOPRIL 10 MG TABLET PO (07:45)
[2017-12-13] MEDS: RIVAROXABAN 10 MG TABLET. PO (07:45)
[2017-12-13] MEDS: ALLOPURINOL 300 MG TABLET. PO (07:45)
[2017-12-13] MEDS: ANTI-COAG MONITOR BY PHARMACY. MC (07:55)
[2017-12-13] MEDS: IPRATRPIUM/ALBUTEROL 0.5/2.5MG 3 ML NEBU. NEB ×4 (08:00→20:05)
[2017-12-13] MEDS: metOLazone 2.5 MG TABLET PO (11:26)
[2017-12-13] MEDS: BUDESONIDE 0.5 MG/2 ML NEBU. NEB (20:05)
[2017-12-13] MEDS: MONTELUKAST SODIUM 10 MG TABLET. PO (21:22)
[2017-12-14 05:03] LABS: ADD MAN DIFF? NO
[2017-12-14 05:19] LABS: BASO % 0 % (0-3); EOS # 0.1 x10^3/uL (0.0-0.7); EOS % 2 % (0-3); HEMATOCRIT 25.2 % (39.0-53.0); HEMOGLOBIN 7.9 g/dL (13.0-17.5); LYMPH # 0.6 x10^3/uL (1.0-4.8); LYMPH % 14 % (24-48); MEAN CORPUSCULAR HEMOGLOBIN 24 pg (25-35); MEAN CORPUSCULAR HGB CONC 31 g/dL (31-37); MEAN CORPUSCULAR VOLUME 75 fL (79-100); MONO # 0.4 x10^3/uL (0.0-1.1); MONO % 9 % (0-9); NEUT # 3.4 x10^3uL (1.8-7.7); NEUT % 76 % (31-73); PLATELET COUNT 107 x10^3/uL (140-400); RED BLOOD COUNT 3.34 x10^6/uL (4.30-5.70); WHITE BLOOD COUNT 4.5 x10^3/uL (4.0-11.0)
[2017-12-14 05:40] LABS: % SAT IRON 5 % (15-34); IRON,SERUM 15 ug/dL (65-175)
[2017-12-14 05:41] LABS: ANION GAP 7 (6-14); BLOOD UREA NITROGEN 28 mg/dL (8-26); CALCIUM 8.6 mg/dL (8.5-10.1); CARBON DIOXIDE 29 mmol/L (21-32); CHLORIDE 107 mmol/L (98-107); CREATININE 1.6 mg/dL (0.7-1.3); GLUCOSE 120 mg/dL (70-99); POTASSIUM 4.1 mmol/L (3.5-5.1); SODIUM 143 mmol/L (136-145)
[2017-12-14] MEDS: PANTOPRAZOLE 40 MG TABLET.DR. PO (05:49)
[2017-12-14] MEDS: IPRATRPIUM/ALBUTEROL 0.5/2.5MG 3 ML NEBU. NEB ×4 (07:21→20:25)
[2017-12-14] MEDS: ALLOPURINOL 300 MG TABLET. PO (08:21)
[2017-12-14] MEDS: DOXAZOSIN MESYLATE 4 MG TABLET. PO (08:22)
[2017-12-14] MEDS: metFORMIN 500 MG TABLET PO ×2 (08:22→17:17)
[2017-12-14] MEDS: LISINOPRIL 10 MG TABLET PO (08:22)
[2017-12-14] MEDS: RIVAROXABAN 10 MG TABLET. PO (08:22)
[2017-12-14] MEDS: POTASSIUM CHLORIDE 10 MEQ TABLET.ER. PO (08:23)
[2017-12-14] MEDS: FUROSEMIDE 40 MG/4 ML VIAL. IVP ×2 (08:23→14:17)
[2017-12-14] MEDS: GLIMEPIRIDE 2 MG TABLET. PO (08:23)
[2017-12-14] MEDS ORDERED: IRON SUCROSE COMPLEX 200 MG in IV NORMAL SALINE 100ML 100 ML IV (14:45)
[2017-12-14] MEDS: BUDESONIDE 0.5 MG/2 ML NEBU. NEB (16:58)
[2017-12-14] MEDS: metOLazone 2.5 MG TABLET PO (17:17)
[2017-12-14] MEDS: DIGOXIN 250 MCG TABLET. PO ×2 (17:17→22:22)
[2017-12-14] MEDS: IRON SUCROSE COMPLEX 200 MG in TOTAL VOLUME SYRINGE 0 ML IV (17:18)
[2017-12-14] MEDS: MONTELUKAST SODIUM 10 MG TABLET. PO (20:38)
[2017-12-15] MEDS: IPRATRPIUM/ALBUTEROL 0.5/2.5MG 3 ML NEBU. NEB ×6 (00:05→20:32)
[2017-12-15 04:03] LABS: ANION GAP 8 (6-14); BLOOD UREA NITROGEN 32 mg/dL (8-26); CALCIUM 8.6 mg/dL (8.5-10.1); CARBON DIOXIDE 29 mmol/L (21-32); CHLORIDE 107 mmol/L (98-107); CREATININE 1.6 mg/dL (0.7-1.3); GLUCOSE 113 mg/dL (70-99); POTASSIUM 4.2 mmol/L (3.5-5.1); SODIUM 144 mmol/L (136-145)
[2017-12-15] MEDS: PANTOPRAZOLE 40 MG TABLET.DR. PO ×2 (06:28→08:47)
[2017-12-15] MEDS: metFORMIN 500 MG TABLET PO ×2 (08:45→17:13)
[2017-12-15] MEDS: POTASSIUM CHLORIDE 10 MEQ TABLET.ER. PO (08:45)
[2017-12-15] MEDS: GLIMEPIRIDE 2 MG TABLET. PO (08:45)
[2017-12-15] MEDS: FUROSEMIDE 40 MG/4 ML VIAL. IVP ×2 (08:45→17:13)
[2017-12-15] MEDS: RIVAROXABAN 10 MG TABLET. PO (08:46)
[2017-12-15] MEDS: ALLOPURINOL 300 MG TABLET. PO (08:46)
[2017-12-15] MEDS: LISINOPRIL 10 MG TABLET PO (09:00)
[2017-12-15] MEDS: DOXAZOSIN MESYLATE 4 MG TABLET. PO (09:00)
[2017-12-15] MEDS: BUDESONIDE 0.5 MG/2 ML NEBU. NEB (20:32)
[2017-12-15] MEDS: MONTELUKAST SODIUM 10 MG TABLET. PO (22:14)
[2017-12-15] MEDS: valACYclovir 500 MG TABLET. PO (22:14)
[2017-12-15] MEDS: IRON SUCROSE COMPLEX 500 MG in IV NORMAL SALINE 250ML 250 ML IV (22:15)
[2017-12-16] MEDS: IPRATRPIUM/ALBUTEROL 0.5/2.5MG 3 ML NEBU. NEB ×6 (00:35→20:20)
[2017-12-16 04:33] LABS: ADD MAN DIFF? NO
[2017-12-16 04:42] LABS: BASO % 1 % (0-3); EOS # 0.1 x10^3/uL (0.0-0.7); EOS % 2 % (0-3); HEMATOCRIT 24.2 % (39.0-53.0); HEMOGLOBIN 7.7 g/dL (13.0-17.5); LYMPH # 0.9 x10^3/uL (1.0-4.8); LYMPH % 16 % (24-48); MEAN CORPUSCULAR HEMOGLOBIN 24 pg (25-35); MEAN CORPUSCULAR HGB CONC 32 g/dL (31-37); MEAN CORPUSCULAR VOLUME 75 fL (79-100); MONO # 0.5 x10^3/uL (0.0-1.1); MONO % 9 % (0-9); NEUT # 4.4 x10^3uL (1.8-7.7); NEUT % 73 % (31-73); PLATELET COUNT 118 x10^3/uL (140-400); RED BLOOD COUNT 3.24 x10^6/uL (4.30-5.70); RED CELL DISTRIBUTION WIDTH 18.8 % (11.5-14.5); WHITE BLOOD COUNT 6.1 x10^3/uL (4.0-11.0)
[2017-12-16 05:05] LABS: ANION GAP 9 (6-14); BLOOD UREA NITROGEN 32 mg/dL (8-26); CALCIUM 8.2 mg/dL (8.5-10.1); CARBON DIOXIDE 29 mmol/L (21-32); CHLORIDE 106 mmol/L (98-107); CREATININE 1.6 mg/dL (0.7-1.3); GLUCOSE 44 mg/dL (70-99); POTASSIUM 4.1 mmol/L (3.5-5.1); SODIUM 144 mmol/L (136-145)
[2017-12-16] MEDS: GLIMEPIRIDE 2 MG TABLET. PO (08:00)
[2017-12-16] MEDS: metFORMIN 500 MG TABLET PO ×2 (08:00→17:00)
[2017-12-16 08:46] LABS: POC GLUCOSE 58 mg/dL (70-99)
[2017-12-16] MEDS: ALLOPURINOL 300 MG TABLET. PO (09:00)
[2017-12-16] MEDS: FUROSEMIDE 40 MG/4 ML VIAL. IVP ×2 (09:12→14:06)
[2017-12-16] MEDS: RIVAROXABAN 10 MG TABLET. PO (09:12)
[2017-12-16] MEDS: valACYclovir 500 MG TABLET. PO ×3 (09:13→21:33)
[2017-12-16] MEDS: TERBINAFINE 250 MG TABLET. PO (09:14)
[2017-12-16] MEDS: LISINOPRIL 10 MG TABLET PO (09:14)
[2017-12-16] MEDS: DOXAZOSIN MESYLATE 4 MG TABLET. PO (09:15)
[2017-12-16] MEDS: DIGOXIN 125 MCG TABLET. PO (09:15)
[2017-12-16] MEDS: POTASSIUM CHLORIDE 10 MEQ TABLET.ER. PO (09:15)
[2017-12-16] MEDS: ANTI-COAG MONITOR BY PHARMACY. MC (10:11)
[2017-12-16] MEDS ORDERED: METOPROLOL TARTRATE 5 MG/5 ML VIAL. IVP (13:30)
[2017-12-16] MEDS: LISINOPRIL 5 MG TABLET. PO (13:51)
[2017-12-16 15:13] LABS: INR 2.6 (0.8-1.1)
[2017-12-16] MEDS: ONDANSETRON PF 4 MG/2 ML VIAL. IV (18:27)
[2017-12-16] MEDS: MENTHOL/CAMPHOR 0.5%/0.5% LOTION 222ML BOTTLE. TP (18:27)
[2017-12-16] MEDS: BUDESONIDE 0.5 MG/2 ML NEBU. NEB (20:22)
[2017-12-16 20:57] LABS: POC GLUCOSE 131 mg/dL (70-99)
[2017-12-16] MEDS: MONTELUKAST SODIUM 10 MG TABLET. PO (21:33)
[2017-12-16] MEDS: LOPERAMIDE 2 MG CAPSULE PO (21:33)
[2017-12-17] MEDS: IPRATRPIUM/ALBUTEROL 0.5/2.5MG 3 ML NEBU. NEB ×6 (00:18→19:37)
[2017-12-17] MEDS: metFORMIN 500 MG TABLET PO ×2 (08:00→17:00)
[2017-12-17] MEDS: GLIMEPIRIDE 2 MG TABLET. PO (08:00)
[2017-12-17 08:14] LABS: POC GLUCOSE 81 mg/dL (70-99)
[2017-12-17] MEDS: LISINOPRIL 5 MG TABLET. PO (09:00)
[2017-12-17] MEDS: valACYclovir 500 MG TABLET. PO ×3 (09:21→21:14)
[2017-12-17] MEDS: POTASSIUM CHLORIDE 10 MEQ TABLET.ER. PO (09:21)
[2017-12-17] MEDS: FUROSEMIDE 40 MG/4 ML VIAL. IVP ×2 (09:21→14:29)
[2017-12-17] MEDS: TERBINAFINE 250 MG TABLET. PO (09:22)
[2017-12-17] MEDS: DOXAZOSIN MESYLATE 4 MG TABLET. PO (09:22)
[2017-12-17] MEDS: RIVAROXABAN 10 MG TABLET. PO (09:22)
[2017-12-17] MEDS: DIGOXIN 125 MCG TABLET. PO (09:23)
[2017-12-17] MEDS: PANTOPRAZOLE 40 MG TABLET.DR. PO (09:23)
[2017-12-17 11:46] LABS: POC GLUCOSE 144 mg/dL (70-99)
[2017-12-17 17:32] LABS: POC GLUCOSE 126 mg/dL (70-99)
[2017-12-17] MEDS: metOLazone 2.5 MG TABLET PO (18:00)
[2017-12-17] MEDS: BUMETANIDE 1 MG/4 ML VIAL. IV ×2 (18:46→21:14)
[2017-12-17] MEDS: BUDESONIDE 0.5 MG/2 ML NEBU. NEB (19:37)
[2017-12-17 20:21] LABS: POC GLUCOSE 123 mg/dL (70-99)
[2017-12-17] MEDS: MONTELUKAST SODIUM 10 MG TABLET. PO (21:14)
[2017-12-18] MEDS: IPRATRPIUM/ALBUTEROL 0.5/2.5MG 3 ML NEBU. NEB ×6 (04:00→20:01)
[2017-12-18 04:58] LABS: ADD MAN DIFF? NO
[2017-12-18 05:37] LABS: ALBUMIN 2.9 g/dL (3.4-5.0); ALK PHOS 87 U/L (46-116); ALT (SGPT) 28 U/L (16-63); ANION GAP 9 (6-14); AST (SGOT) 18 U/L (15-37); BASO % 1 % (0-3); BLOOD UREA NITROGEN 46 mg/dL (8-26); BUN/CREATININE RATIO 21 (6-20); CALCIUM 8.2 mg/dL (8.5-10.1); CARBON DIOXIDE 28 mmol/L (21-32); CHLORIDE 103 mmol/L (98-107); CREATININE 2.2 mg/dL (0.7-1.3); EOS # 0.1 x10^3/uL (0.0-0.7); EOS % 2 % (0-3); GFR 29.1; GLUCOSE 144 mg/dL (70-99); HEMATOCRIT 24.2 % (39.0-53.0); HEMOGLOBIN 7.6 g/dL (13.0-17.5); LYMPH # 0.8 x10^3/uL (1.0-4.8); LYMPH % 15 % (24-48); MEAN CORPUSCULAR HEMOGLOBIN 24 pg (25-35); MEAN CORPUSCULAR HGB CONC 31 g/dL (31-37); MEAN CORPUSCULAR VOLUME 76 fL (79-100); MONO # 0.5 x10^3/uL (0.0-1.1); MONO % 9 % (0-9); NEUT % 73 % (31-73); PLATELET COUNT 114 x10^3/uL (140-400); POTASSIUM 4.2 mmol/L (3.5-5.1); RED BLOOD COUNT 3.21 x10^6/uL (4.30-5.70); RED CELL DISTRIBUTION WIDTH 18.7 % (11.5-14.5); SODIUM 140 mmol/L (136-145); TOTAL BILIRUBIN 0.6 mg/dL (0.2-1.0); TOTAL PROTEIN 5.9 g/dL (6.4-8.2); WHITE BLOOD COUNT 5.5 x10^3/uL (4.0-11.0)
[2017-12-18 08:38] LABS: POC GLUCOSE 144 mg/dL (70-99)
[2017-12-18] MEDS: GLIMEPIRIDE 2 MG TABLET. PO (09:07)
[2017-12-18] MEDS: FUROSEMIDE 40 MG/4 ML VIAL. IVP (09:07)
[2017-12-18] MEDS: LISINOPRIL 5 MG TABLET. PO (09:08)
[2017-12-18] MEDS: PANTOPRAZOLE 40 MG TABLET.DR. PO (09:09)
[2017-12-18] MEDS: metFORMIN 500 MG TABLET PO (09:09)
[2017-12-18] MEDS: POTASSIUM CHLORIDE 10 MEQ TABLET.ER. PO (09:09)
[2017-12-18] MEDS: TERBINAFINE 250 MG TABLET. PO (09:10)
[2017-12-18] MEDS: DIGOXIN 125 MCG TABLET. PO (09:10)
[2017-12-18] MEDS: DOXAZOSIN MESYLATE 4 MG TABLET. PO (09:10)
[2017-12-18] MEDS: RIVAROXABAN 10 MG TABLET. PO (09:11)
[2017-12-18] MEDS: valACYclovir 500 MG TABLET. PO ×3 (09:11→22:04)
[2017-12-18 11:58] LABS: POC GLUCOSE 140 mg/dL (70-99)
[2017-12-18] MEDS: BUMETANIDE 1 MG/4 ML VIAL. IV ×2 (17:32→20:12)
[2017-12-18 17:33] LABS: POC GLUCOSE 90 mg/dL (70-99)
[2017-12-18] MEDS: BUDESONIDE 0.5 MG/2 ML NEBU. NEB (20:01)
[2017-12-18 20:21] LABS: POC GLUCOSE 75 mg/dL (70-99)
[2017-12-18] MEDS: MONTELUKAST SODIUM 10 MG TABLET. PO (22:03)
[2017-12-19] MEDS: IPRATRPIUM/ALBUTEROL 0.5/2.5MG 3 ML NEBU. NEB ×7 (00:06→23:33)
[2017-12-19] MEDS: PANTOPRAZOLE 40 MG TABLET.DR. PO (05:49)
[2017-12-19 08:17] LABS: POC GLUCOSE 85 mg/dL (70-99)
[2017-12-19] MEDS: DOXAZOSIN MESYLATE 4 MG TABLET. PO (09:04)
[2017-12-19] MEDS: TERBINAFINE 250 MG TABLET. PO (09:04)
[2017-12-19] MEDS: RIVAROXABAN 10 MG TABLET. PO (09:04)
[2017-12-19] MEDS: GLIMEPIRIDE 2 MG TABLET. PO (09:05)
[2017-12-19] MEDS: POTASSIUM CHLORIDE 10 MEQ TABLET.ER. PO (09:05)
[2017-12-19] MEDS: valACYclovir 500 MG TABLET. PO ×3 (09:05→20:17)
[2017-12-19] MEDS: DIGOXIN 125 MCG TABLET. PO (09:06)
[2017-12-19] MEDS: BUMETANIDE 1 MG TABLET. PO ×2 (14:06→16:00)
[2017-12-19 16:46] LABS: POC GLUCOSE 144 mg/dL (70-99)
[2017-12-19] MEDS ORDERED: BUMETANIDE 1 MG/4 ML VIAL. IV (19:00)
[2017-12-19] MEDS: BUDESONIDE 0.5 MG/2 ML NEBU. NEB (19:14)
[2017-12-19] MEDS: MONTELUKAST SODIUM 10 MG TABLET. PO (20:17)
[2017-12-19 20:53] LABS: POC GLUCOSE 125 mg/dL (70-99)
[2017-12-20] MEDS: IPRATRPIUM/ALBUTEROL 0.5/2.5MG 3 ML NEBU. NEB ×4 (03:37→14:52)
[2017-12-20 07:49] LABS: POC GLUCOSE 80 mg/dL (70-99)
[2017-12-20] MEDS: BUMETANIDE 1 MG TABLET. PO (08:55)
[2017-12-20] MEDS: GLIMEPIRIDE 2 MG TABLET. PO (08:55)
[2017-12-20] MEDS: valACYclovir 500 MG TABLET. PO (08:56)
[2017-12-20] MEDS: TERBINAFINE 250 MG TABLET. PO (08:56)
[2017-12-20] MEDS: PANTOPRAZOLE 40 MG TABLET.DR. PO (08:56)
[2017-12-20] MEDS: DIGOXIN 125 MCG TABLET. PO (08:56)
[2017-12-20] MEDS: RIVAROXABAN 10 MG TABLET. PO (08:56)
[2017-12-20] MEDS: DOXAZOSIN MESYLATE 4 MG TABLET. PO (08:57)
[2017-12-20 10:38] LABS: HEMATOCRIT 26.2 % (39.0-53.0); HEMOGLOBIN 8.1 g/dL (13.0-17.5); MEAN CORPUSCULAR HEMOGLOBIN 24 pg (25-35); MEAN CORPUSCULAR HGB CONC 31 g/dL (31-37); MEAN CORPUSCULAR VOLUME 76 fL (79-100); PLATELET COUNT 138 x10^3/uL (140-400); RED BLOOD COUNT 3.43 x10^6/uL (4.30-5.70); RED CELL DISTRIBUTION WIDTH 18.3 % (11.5-14.5); WHITE BLOOD COUNT 5.4 x10^3/uL (4.0-11.0)
[2017-12-20 10:51] LABS: MAGNESIUM 1.9 mg/dL (1.8-2.4)
[2017-12-20 10:57] LABS: DIG 1.9 ng/mL (0.9-2.0)
[2017-12-20 11:00] LABS: ALBUMIN 3.1 g/dL (3.4-5.0); ALK PHOS 88 U/L (46-116); ALT (SGPT) 26 U/L (16-63); ANION GAP 7 (6-14); AST (SGOT) 20 U/L (15-37); BLOOD UREA NITROGEN 31 mg/dL (8-26); BUN/CREATININE RATIO 19 (6-20); CALCIUM 8.7 mg/dL (8.5-10.1); CARBON DIOXIDE 33 mmol/L (21-32); CHLORIDE 104 mmol/L (98-107); CREATININE 1.6 mg/dL (0.7-1.3); GLUCOSE 119 mg/dL (70-99); SODIUM 144 mmol/L (136-145); TOTAL BILIRUBIN 0.6 mg/dL (0.2-1.0); TOTAL PROTEIN 6.1 g/dL (6.4-8.2)
[2017-12-20 11:30] LABS: POC GLUCOSE 139 mg/dL (70-99)
[2017-12-23 13:41] LABS: MISC TEST LC SEE SEPARATE REPORT
== END 2017-12-20 15:44 | disposition home or self-care (01) | DRG 291 ==
LOC: 2 SOUTH 12-19 14:48 → ER 14:43 → 2 NORTH 16:29
DX: I13.0 Hypertensive heart and chronic kidney disease with heart failure and stage 1 through stage 4 chronic kidney disease, or unspecified chronic kidney disease (principal); I50.43 Acute on chronic combined systolic (congestive) and diastolic (congestive) heart failure; N17.9 Acute kidney failure, unspecified; I48.1 Persistent atrial fibrillation; E11.22 Type 2 diabetes mellitus with diabetic chronic kidney disease; B02.9 Zoster without complications; Z99.81 Dependence on supplemental oxygen; B35.4 Tinea corporis; D63.1 Anemia in chronic kidney disease; N18.3 Chronic kidney disease, stage 3 (moderate); D50.9 Iron deficiency anemia, unspecified; J44.9 Chronic obstructive pulmonary disease, unspecified; E78.5 Hyperlipidemia, unspecified; M19.90 Unspecified osteoarthritis, unspecified site; T50.2X5A Adverse effect of carbonic-anhydrase inhibitors, benzothiadiazides and other diuretics, initial encounter; Z87.01 Personal history of pneumonia (recurrent); Y92.89 Other specified places as the place of occurrence of the external cause; Z91.11 Patient's noncompliance with dietary regimen
CPT/HCPCS: 36415; 71045; 71046; 80048; 80053; 80162; 82962; 83540; 83550; 83690; 83735; 83880; 84484; 85025; 85027; 85610; 85730; 87101; 93005; 94640; 94760; 96374; 96375; 97161-GP; 99285; 99285-25; J1160; J1756; J1940; J2405; J3490; J7050; J7620; J7626

== ENCOUNTER 2018-07-05 11:05 | Emergency (ER) | payer MEDICARE, BC ==
[~2018-07-05] VITALS: Ht 162.6 cm; Wt 68.0 kg
[~2018-07-05 11:05] MED LIST changes: +ALLO300T PO; +APIX5TAB PO; +BISO1TAB4 PO; +BUDE0.25 NEB; +BUDE0.5A NEB; +BUME1TAB PO; +CLON0.1T PO; +DIGO125T PO; +DILT120C71 PO; +DILT180C2 PO; +DOXA4TAB3 PO; +FURO-68 PO; +FURO40TA4 PO; +GARL10002 PO; +GLIM2TAB PO; +GLIM4TAB2 PO; +HYDR12.58 PO; -HYDROmorphone 2 MG/ML VIAL IV; +IPRA3AMP29 NEB; -LIDOCAINE 1% PF 2 ML VIAL. ID; -LIDOCAINE 2% PF Vial for OR 5 ML VIAL.; +LISI10TA2 PO; +LOPE2TAB56 PO; +METF500T16 PO; +METO-239 PO; +MONT10TA9 PO; -MORPHINE SULFATE 2 MG/ML DISP.SYRIN. IV; +NIFE30TA17 PO; +OMEG1CAP6 PO; -ONDANSETRON PF 4 MG/2 ML VIAL. IV; +PANT40TA5 PO; +PIOG15TA42 PO; +POTA10TA12 PO; +PROAIR HFA8.5 GM IH; -PROCHLORPERAZINE 10 MG/2 ML VIAL. IV; -PROPOFOL 40 ML IV; +RIVA10TA PO; -fentaNYL PF VIAL 100 MCG/2 ML VIAL IV
[2018-07-05] MEDS ORDERED: HYDROcodone/APAP 5/325MG 1 TAB TABLET PO ONE (11:45)
[2018-07-05 12:25] LABS: BASO # 0.1 x10^3/uL (0.0-0.2); BASO % 2 % (0-3); EOS # 0.1 x10^3/uL (0.0-0.7); EOS % 2 % (0-3); HEMATOCRIT 30.6 % (39.0-53.0); LYMPH # 0.9 x10^3/uL (1.0-4.8); LYMPH % 15 % (24-48); MEAN CORPUSCULAR HEMOGLOBIN 26 pg (25-35); MEAN CORPUSCULAR HGB CONC 33 g/dL (31-37); MEAN CORPUSCULAR VOLUME 81 fL (79-100); MONO # 0.3 x10^3/uL (0.0-1.1); MONO % 5 % (0-9); NEUT # 4.7 x10^3uL (1.8-7.7); NEUT % 77 % (31-73); PLATELET COUNT 179 x10^3/uL (140-400); RED BLOOD COUNT 3.78 x10^6/uL (4.30-5.70); RED CELL DISTRIBUTION WIDTH 18.2 % (11.5-14.5); WHITE BLOOD COUNT 6.1 x10^3/uL (4.0-11.0)
[2018-07-05 12:46] LABS: ALBUMIN 3.3 g/dL (3.4-5.0); ALBUMIN/GLOBULIN RATIO 0.8 (1.0-1.7); CALCIUM 9.4 mg/dL (8.5-10.1); CREATININE 1.7 mg/dL (0.7-1.3); GFR 39.2; POTASSIUM 3.6 mmol/L (3.5-5.1); TOTAL BILIRUBIN 0.5 mg/dL (0.2-1.0); TOTAL PROTEIN 7.2 g/dL (6.4-8.2)
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
[2018-07-05 14:15] VITALS: BP 121/69
[2018-07-14] MEDS ORDERED: ATOR20TA58 PO (08:30)
[2018-07-14] MEDS ORDERED: DILT180C29 PO (08:30)
[2018-07-14] MEDS ORDERED: HYDR-2758 PO (08:30)
[2018-07-14] MEDS ORDERED: ASPI-612 PO (08:30)
== END 2018-07-05 15:12 | disposition home or self-care (01) ==
LOC: ER 11:05
DX: S80.02XA Contusion of left knee, initial encounter (principal); S80.01XA Contusion of right knee, initial encounter; M79.604 Pain in right leg; M79.605 Pain in left leg; I48.91 Unspecified atrial fibrillation; J45.909 Unspecified asthma, uncomplicated; I50.9 Heart failure, unspecified; E11.9 Type 2 diabetes mellitus without complications; V47.9XXA Unspecified car occupant injured in collision with fixed or stationary object in traffic accident, initial encounter; Y93.89 Activity, other specified; Y92.410 Unspecified street and highway as the place of occurrence of the external cause; Y99.8 Other external cause status
CPT/HCPCS: 36415; 73562; 73590; 73630; 80053; 82962; 85025; 99285

== ENCOUNTER 2018-07-06 21:24 | Inpatient (IN) | payer MEDICARE, BC ==
[~2018-07-06] VITALS: Ht 160 cm; Wt 73.1 kg
[2018-07-06] MEDS ORDERED: IV NORMAL SALINE 500ML BAG 500 ML IV ONE (22:00)
[2018-07-06 22:09] LABS: BASO # 0.1 x10^3/uL (0.0-0.2); BASO % 1 % (0-3); EOS # 0.1 x10^3/uL (0.0-0.7); EOS % 2 % (0-3); HEMATOCRIT 30.9 % (39.0-53.0); HEMOGLOBIN 10.1 g/dL (13.0-17.5); LYMPH # 0.6 x10^3/uL (1.0-4.8); LYMPH % 10 % (24-48); MEAN CORPUSCULAR HEMOGLOBIN 27 pg (25-35); MEAN CORPUSCULAR HGB CONC 33 g/dL (31-37); MEAN CORPUSCULAR VOLUME 81 fL (79-100); MONO # 0.2 x10^3/uL (0.0-1.1); MONO % 4 % (0-9); NEUT # 5.4 x10^3uL (1.8-7.7); NEUT % 84 % (31-73); PLATELET COUNT 163 x10^3/uL (140-400); RED CELL DISTRIBUTION WIDTH 18.5 % (11.5-14.5); WHITE BLOOD COUNT 6.4 x10^3/uL (4.0-11.0)
[2018-07-06 22:16] LABS: PROTHROMBIN TIME PATIENT 19.9 SEC (11.7-14.0)
[2018-07-06 22:19] LABS: CALCIUM 9.3 mg/dL (8.5-10.1); CREATININE 1.8 mg/dL (0.7-1.3); GFR 36.7; POTASSIUM 3.7 mmol/L (3.5-5.1)
[2018-07-06 22:25] LABS: ALBUMIN 3.4 g/dL (3.4-5.0); ALBUMIN/GLOBULIN RATIO 0.9 (1.0-1.7); MAGNESIUM 1.9 mg/dL (1.8-2.4); TOTAL BILIRUBIN 0.5 mg/dL (0.2-1.0); TOTAL PROTEIN 7.3 g/dL (6.4-8.2)
[2018-07-06] MEDS ORDERED: fentaNYL PF VIAL 100 MCG/2 ML VIAL IV ONE (22:45)
[2018-07-06] MEDS ORDERED: IOHEXOL 300 MG/ML 100ML VIAL. IV ONE (22:45)
[2018-07-06] MEDS ORDERED: CONTRAST GIVEN. MC PRN (22:45)
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
[2018-07-07] VITALS (7 sets, daily range): BP systolic 117–147; BP diastolic 53–71
--- NOTE | 2018-07-07 00:02 | RAD ---
Indication: Bilateral leg swelling. TECHNIQUE: Grayscale, color Doppler and spectral waveform images of the bilateral lower extremity arteries COMPARISON: None FINDINGS: Right side: Triphasic waveforms seen in the TEXTILE MACHINE OPERATOR with velocity of 124 cm/s. Triphasic waveform seen in the profunda femoris artery with velocity 100 cm/s. Triphasic waveform is seen in the proximal SFA with velocity of 102 cm/s. Biphasic waveform is seen in the mid SFA with velocity of 83 cm/s. Biphasic waveforms seen in the distal SFA with velocity of 124 cm/s. Biphasic waveforms seen in the popliteal artery with velocity of 52 cm/s. Biphasic waveforms seen in the anterior tibial artery with velocity of 43 cm/s. Biphasic waveforms seen in the proximal posterior tibial artery with velocity of 39 cm/s. Biphasic waveforms seen in the distal posterior tibial artery with velocity of 26 cm/s. Triphasic waveform seen in the peroneal artery with velocity of 65 cm/s. Triphasic waveform seen in the dorsalis pedis artery with velocity of 54 cm/s. Left side: Biphasic waveforms seen in the TEXTILE MACHINE OPERATOR with velocity of 102 cm/s. Biphasic waveform seen in the profunda femoris artery with velocity 56 cm/s. Biphasic waveform is seen in the proximal SFA with velocity of 76 cm/s. Biphasic waveform is seen in the mid SFA with velocity of 83 cm/s. Biphasic waveforms seen in the distal SFA with velocity of 134 cm/s. Biphasic waveforms seen in the popliteal artery with velocity of 46 cm/s. Biphasic waveforms seen in the anterior tibial artery with velocity of 86 cm/s. Monophasic waveforms seen in the proximal posterior tibial artery with velocity of 40 cm/s. Biphasic waveform seen in the peroneal artery with velocity of 77 cm/s. Biphasic waveform seen in the dorsalis pedis artery with velocity of 45 cm/s. IMPRESSION: Diffuse moderate bilateral lower extremity arterial disease with patency preserved. Electronically signed by: Angus Willis DO (07/06/2018 11:59 PM) [facility]
--- NOTE | 2018-07-07 00:05 | RAD ---
Indication:Short of breath, swollen legs TECHNIQUE:Portable AP chest X-ray COMPARISON:12/18/2017 FINDINGS: Heart is moderately enlarged in size. Diffuse interstitial opacities are seen. No focal consolidation. No pneumothorax or pleural effusion. Visualized bony thorax within normal limits. IMPRESSION: Acute CHF with interstitial pulmonary edema. Electronically signed by: Angus Willis DO (07/07/2018 12:02 AM) [facility]
[2018-07-07] MEDS ORDERED: BUME1TAB PO (00:43)
--- NOTE | 2018-07-07 01:54 | RAD ---
INDICATION: chest/abd pain; ;Omni 300, 75ml COMPARISON: CT chest January 2005 TECHNIQUE: Axial CT images obtained through the chest, abdomen and pelvis with contrast. One or more of the following individualized dose reduction techniques were utilized for this examination: 1. Automated exposure control; 2. Adjustment of the mA and/or kV according to patient size; 3. Use of iterative reconstruction technique. FINDINGS: Mild interstitial thickening. Cystic changes within the bilateral lungs. Suspected subpleural nodule left upper lung anteriorly measuring about 5 mm. There are additional sub-5 mm left lung nodules. Small right greater than left pleural effusion. Mild right basilar airspace consolidation. Sub-4 mm right lung nodule. Linear opacity right lung base anteriorly. The heart is enlarged. Severe calcific atherosclerosis of coronary arteries. Scattered prominent lymph nodes within the mediastinum. For example in the pretracheal region measuring up to about 11 mm short axis. Degenerative changes right shoulder. Degenerative changes of spine with osteophyte formation. Abdomen and pelvis: Severe calcific atherosclerosis. Fat-containing right greater than left inguinal hernia. Gallstone. Gallbladder is partially distended at time of exam. Mild periportal edema is suspected. Small amount of subcapsular fluid at the liver measuring up to about 12 mm in thickness. Haziness of the fat adjacent to the pancreas without drainable fluid collection. Fat-containing anterior abdominal wall hernia to the right midline. Splenic calcified granulomas. Spleen mildly prominent in size. No left-sided hydronephrosis. Urinary bladder has minimal urine within it at time of exam. Prostate is enlarged. No right-sided hydronephrosis. Colonic diverticulosis. No definite periappendiceal inflammation. No dilated loops of bowel to suggest obstruction. There is some edema and small fluid in the abdomen. Degenerative changes the spine with osteophyte formation and multilevel central canal and neural foraminal stenosis. IMPRESSION: 1. Mild interstitial thickening within the lungs with right greater and left pleural effusion. Would correlate for possible causes such as volume overload. 2. Mild indistinctness the fat adjacent to the pancreas. Would correlate with symptoms to ensure that this is not from a pathologic cause such as pancreatitis. There is edema seen elsewhere within the soft tissues therefore it is also possible that this is secondary to a diffuse edematous process. 3. Small amount of subcapsular fluid at right lobe of liver. 4. Mild periportal edema. Can be seen with causes such as volume overload but hepatic inflammation is not excluded. 5. Gallstones. 6. sclerotic region at the T11 vertebral body .. Could be from causes such as bone island but if the patient has any history or risk factors for neoplasm a follow-up MRI or bone scan could BE obtained to ensure there is not a neoplastic cause. 7. The prostate is enlarged. Electronically signed by: Jose Gracia MD (07/07/2018 1:51 AM) [facility]
[2018-07-07 04:43] LABS: BASO # 0.1 x10^3/uL (0.0-0.2); BASO % 1 % (0-3); EOS # 0.1 x10^3/uL (0.0-0.7); EOS % 1 % (0-3); HEMATOCRIT 29.6 % (39.0-53.0); HEMOGLOBIN 9.6 g/dL (13.0-17.5); LYMPH # 0.6 x10^3/uL (1.0-4.8); LYMPH % 11 % (24-48); MEAN CORPUSCULAR HEMOGLOBIN 27 pg (25-35); MEAN CORPUSCULAR HGB CONC 33 g/dL (31-37); MEAN CORPUSCULAR VOLUME 82 fL (79-100); MONO # 0.2 x10^3/uL (0.0-1.1); MONO % 4 % (0-9); NEUT # 4.3 x10^3uL (1.8-7.7); NEUT % 82 % (31-73); PLATELET COUNT 165 x10^3/uL (140-400); RED BLOOD COUNT 3.64 x10^6/uL (4.30-5.70); RED CELL DISTRIBUTION WIDTH 18.3 % (11.5-14.5); WHITE BLOOD COUNT 5.3 x10^3/uL (4.0-11.0)
[2018-07-07 05:00] LABS: CALCIUM 9.2 mg/dL (8.5-10.1); CREATININE 1.7 mg/dL (0.7-1.3); GFR 39.2
[2018-07-07 05:14] LABS: POTASSIUM 4.6 mmol/L (3.5-5.1)
[2018-07-07] MEDS: fentaNYL PF VIAL 100 MCG/2 ML VIAL IV PRN ×4 (05:37→19:07)
--- NOTE | 2018-07-07 06:17 | EKG ---
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
[2018-07-07] MEDS ORDERED: FUROSEMIDE 40 MG/4 ML VIAL. IVP ONE (07:45)
[2018-07-07 08:16] LABS: CHOLESTEROL/HDL RATIO 3.3
[2018-07-07] MEDS ORDERED: LOPERAMIDE 2 MG CAPSULE PO PRN (08:30)
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
[2018-07-07] MEDS: FUROSEMIDE 40 MG/4 ML VIAL. IVP SCH ×2 (09:00→16:17)
[2018-07-07] MEDS: IPRATRPIUM/ALBUTEROL 0.5/2.5MG 3 ML NEBU. NEB SCH ×5 (09:00→19:39)
[2018-07-07] MEDS: GLIMEPIRIDE 2 MG TABLET. PO SCH ×2 (09:00→16:17)
[2018-07-07] MEDS ORDERED: BUMETANIDE 1 MG TABLET. PO SCH (09:00)
[2018-07-07] MEDS: DIGOXIN 125 MCG TABLET. PO SCH (10:04)
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
[2018-07-07] MEDS ORDERED: METOPROLOL TARTRATE 5 MG/5 ML VIAL. IVP ONE (10:30)
--- NOTE | 2018-07-07 10:34 | EKG ---
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
[2018-07-07] MEDS: ANTI-COAG MONITOR BY PHARMACY. MC PRN (10:40)
[2018-07-07 10:43] LABS: DIG 1.4 ng/mL (0.9-2.0)
[2018-07-07] MEDS: dilTIAZem HCL 30 MG TABLET PO SCH ×2 (16:17→19:51)
[2018-07-07] MEDS: PANTOPRAZOLE 40 MG TABLET.DR. PO SCH (16:17)
[2018-07-07] MEDS: ALLOPURINOL 300 MG TABLET. PO SCH (16:17)
--- NOTE | 2018-07-07 16:37 | CARD ---
MR#: [id number] Date of Study: 07/07/2018 Ordering Physician: PENNY PHILLIPS, Referring Physician: GABRIELA VALERA, Tech: Dasia Sin APPROVED REPORT EXAM: Two-dimensional and M-mode echocardiogram with Doppler and color Doppler. Other Information Quality : AverageHR: 98bpm INDICATION Congestive Heart Failure 2D DIMENSIONS RVDd3.3 (2.9-3.5cm)Left Atrium(2D)4.4 (1.6-4.0cm) IVSd1.3 (0.7-1.1cm)Aortic Root(2D)3.1 (2.0-3.7cm) LVDd5.4 (3.9-5.9cm)LVOT Diameter2.1 (1.8-2.4cm) PWd1.0 (0.7-1.1cm)LVDs4.4 (2.5-4.0cm) FS (%) 19.6 %SV57.1 ml LVEF(%)39.9 (>50%) Aortic Valve AoV Peak Cb.133.6cm/sAoV VTI23.5cm AO Peak GR.7.1mmHgLVOT Peak Cb.84.2cm/s AO Mean GR.4mmHgAVA (VMAX)2.21cm2 Pulmonary Valve PV Peak Ynemzrva37.5cm/s Tricuspid Valve TR P. Dhgxyloj081um/sRAP NFSOPNNH60zxMu TR Peak Gr.01rcRwLVYF67rqWc LEFT VENTRICLE The left ventricle is normal size. There is borderline to mild concentric left ventricular hypertroph y. Left ventricular systolic function is moderately diminished. Base to mid inferior wall severely hy pokinetic. The Ejection Fraction is 35-40%. Tissue Doppler imaging reveals moderate left ventricular diastolic dysfunction. RIGHT VENTRICLE The right ventricle is borderline dilated. There is normal right ventricular wall thickness. Systolic function is mildly reduced. ATRIA The left atrium is mildly dilated. The right atrium is mildly dilated. The interatrial septum is inta ct with no evidence for an atrial septal defect or patent foramen ovale as noted on 2-D or Doppler im aging. AORTIC VALVE The aortic valve is calcified but opens well. Doppler and Color Flow revealed trace aortic regurgitat ion. There is no significant aortic valvular stenosis. MITRAL VALVE The mitral valve is thickened but opens well. Doppler and Color-flow revealed moderate mitral regurgi tation. TRICUSPID VALVE The tricuspid valve is normal in structure and function. Doppler and Color Flow revealed mild to mode rate tricuspid regurgitation. There is no tricuspid valve stenosis. PULMONIC VALVE The pulmonic valve is not well visualized. Doppler and Color Flow revealed trace pulmonic valvular re gurgitation. GREAT VESSELS The aortic root is normal in size. The IVC is dilated and collapses <50% with inspiration. PERICARDIAL EFFUSION There is no evidence of significant pericardial effusion. Critical Notification Critical Value: No <Conclusion> Left ventricular systolic function is moderately diminished. Base to mid inferior wall severely hypokinetic. The Ejection Fraction is 35-40%. The left atrium is mildly dilated. Tissue Doppler imaging reveals moderate left ventricular diastolic dysfunction. Moderate mitral regurgitation. Mild to moderate tricuspid regurgitation. There is no evidence of significant pericardial effusion. Signed by : Ab Armstrong, Electronically Approved : 07/07/2018 16:37:04
[2018-07-07] MEDS ORDERED: HYDROcodone/APAP 5/325MG 1 TAB TABLET PO PRN (18:15)
[2018-07-07] MEDS: RIVAROXABAN 15 MG TABLET. PO SCH (19:06)
[2018-07-07] MEDS: ASPIRIN ENTERIC COATED 81 MG TABLET.DR. PO SCH (19:07)
[2018-07-07] MEDS: HYDROcodone/APAP 5/325MG 1 TAB TABLET PO PRN (19:08)
[2018-07-07] MEDS: MONTELUKAST SODIUM 10 MG TABLET. PO SCH (19:50)
[2018-07-07] MEDS: DOXAZOSIN MESYLATE 4 MG TABLET. PO SCH (19:51)
[2018-07-08 03:22] VITALS: BP 133/60
[2018-07-08] MEDS: HYDROcodone/APAP 5/325MG 1 TAB TABLET PO PRN ×3 (03:26→17:57)
[2018-07-08] MEDS: IPRATRPIUM/ALBUTEROL 0.5/2.5MG 3 ML NEBU. NEB SCH ×7 (04:00→23:46)
[2018-07-08 06:53] LABS: CALCIUM 9.1 mg/dL (8.5-10.1); CREATININE 2.1 mg/dL (0.7-1.3); GFR 30.7; POTASSIUM 4.1 mmol/L (3.5-5.1)
[2018-07-08 07:00] VITALS: BP 124/62
[2018-07-08] MEDS: dilTIAZem HCL 30 MG TABLET PO SCH (07:09)
[2018-07-08] MEDS ORDERED: DEXTROSE 50% 25 GM / 50ML DISP.SYRIN. IV PRN (08:30)
[2018-07-08] MEDS: ALLOPURINOL 300 MG TABLET. PO SCH (08:31)
[2018-07-08] MEDS: ASPIRIN ENTERIC COATED 81 MG TABLET.DR. PO SCH (08:31)
[2018-07-08] MEDS: POTASSIUM CHLORIDE 10 MEQ TABLET.ER. PO SCH (08:31)
[2018-07-08] MEDS: FUROSEMIDE 40 MG/4 ML VIAL. IVP SCH ×2 (08:32→13:59)
[2018-07-08] MEDS: PANTOPRAZOLE 40 MG TABLET.DR. PO SCH (08:32)
[2018-07-08] MEDS: DIGOXIN 125 MCG TABLET. PO SCH (08:32)
[2018-07-08 11:00] VITALS: BP 121/58
--- NOTE | 2018-07-08 11:08 | RAD ---
Portable chest, 07/08/2018: HISTORY: Congestive heart failure Comparison is made to a study from 07/06/2018. The heart is enlarged. There are mildly prominent interstitial markings in the lungs again suggesting low-grade interstitial edema. A small to moderate amount of right-sided pleural fluid is now evident. A density in the medial right lower chest may be due to extension of pleural fluid or underlying atelectasis. The left pleural effusion seen on the recent CT study is not visible radiographically. IMPRESSION: 1. Persistent interstitial prominence suggesting low-grade interstitial edema due to congestive heart failure. 2. Increasing small to moderate sized right pleural effusion. Electronically signed by: Willie Perkins MD (07/08/2018 11:05 AM) [facility]
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
[2018-07-08] MEDS ORDERED: methylPREDNISolone SOD SUCC PF 125 MG/2 ML VIAL. IV ONE (13:15)
[2018-07-08 15:00] VITALS: BP 116/56
[2018-07-08] MEDS: RIVAROXABAN 15 MG TABLET. PO SCH (17:55)
[2018-07-08] MEDS: diphenhydrAMINE HCL 25 MG CAPSULE PO PRN (17:56)
[2018-07-08 19:50] VITALS: BP 114/56
[2018-07-08] MEDS: MONTELUKAST SODIUM 10 MG TABLET. PO SCH (20:54)
[2018-07-08] MEDS: DOXAZOSIN MESYLATE 4 MG TABLET. PO SCH (20:54)
[2018-07-08] MEDS: ATORVASTATIN CALCIUM 20 MG TABLET PO SCH (20:55)
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
[2018-07-08 22:47] VITALS: BP 119/62
[2018-07-09 03:31] VITALS: BP 128/63
[2018-07-09] MEDS: IPRATRPIUM/ALBUTEROL 0.5/2.5MG 3 ML NEBU. NEB SCH ×6 (03:47→23:55)
[2018-07-09] MEDS: HYDROcodone/APAP 5/325MG 1 TAB TABLET PO PRN ×3 (05:10→18:13)
[2018-07-09 07:00] VITALS: BP 126/58
[2018-07-09 07:22] LABS: CALCIUM 8.7 mg/dL (8.5-10.1); CREATININE 2.6 mg/dL (0.7-1.3); POTASSIUM 4.9 mmol/L (3.5-5.1)
[2018-07-09] MEDS: ANTI-COAG MONITOR BY PHARMACY. MC PRN (08:28)
[2018-07-09] MEDS ORDERED: metOLazone 2.5 MG TABLET PO ONE (08:30)
[2018-07-09 08:45] LABS: BILIRUBIN,URINE MODERATE (NEG); CLARITY,URINE CLEAR; COLOR,URINE AMBER; NITRITE,URINE NEGATIVE (NEG); PROTEIN,URINE NEGATIVE (NEG-TRACE)
[2018-07-09 08:53] LABS: BACTERIA,URINE 0 /HPF (0-FEW); HYALINE CASTS, URINE FEW /HPF; RBC,URINE 0 /HPF (0-2); SQUAMOUS EPITHELIAL CELL,UR FEW /LPF; WBC,URINE 0 /HPF (0-4)
[2018-07-09] MEDS: PANTOPRAZOLE 40 MG TABLET.DR. PO SCH (09:46)
[2018-07-09] MEDS: DIGOXIN 125 MCG TABLET. PO SCH (09:46)
[2018-07-09] MEDS: ASPIRIN ENTERIC COATED 81 MG TABLET.DR. PO SCH (09:46)
[2018-07-09] MEDS: FUROSEMIDE 40 MG/4 ML VIAL. IVP SCH (09:47)
[2018-07-09] MEDS: POTASSIUM CHLORIDE 10 MEQ TABLET.ER. PO SCH (09:47)
[2018-07-09] MEDS: GLIMEPIRIDE 2 MG TABLET. PO SCH (09:47)
[2018-07-09] MEDS: ALLOPURINOL 300 MG TABLET. PO SCH (09:47)
[2018-07-09 11:00] VITALS: BP 114/54
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
[2018-07-09 15:17] VITALS: BP 131/59
--- NOTE | 2018-07-09 15:36 | RAD ---
Portable chest, 07/09/2018: HISTORY: Congestive heart failure Comparison is made to a study from 07/08/2018. The heart is enlarged. The pulmonary vascularity is within normal limits. The small right pleural effusion has increased slightly while a small amount of left-sided pleural fluid is now evident. Interstitial opacities in the lung bases have improved. There is slight residual prominence of the minor fissure. No new pulmonary abnormality is seen. IMPRESSION: 1. Resolving mild interstitial edema. 2. Small bilateral pleural effusions have increased slightly. Electronically signed by: Willie Perkins MD (07/09/2018 3:33 PM) [facility]
[2018-07-09] MEDS: RIVAROXABAN 15 MG TABLET. PO SCH (18:12)
[2018-07-09 19:41] VITALS: BP 106/55
[2018-07-09] MEDS: DOXAZOSIN MESYLATE 4 MG TABLET. PO SCH (20:37)
[2018-07-09] MEDS: MONTELUKAST SODIUM 10 MG TABLET. PO SCH (20:37)
[2018-07-09] MEDS: ATORVASTATIN CALCIUM 20 MG TABLET PO SCH (20:37)
[2018-07-09] MEDS: diphenhydrAMINE HCL 25 MG CAPSULE PO PRN (21:59)
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
[2018-07-09 23:27] VITALS: BP 117/71
[2018-07-10 03:00] VITALS: BP 143/59
[2018-07-10] MEDS: IPRATRPIUM/ALBUTEROL 0.5/2.5MG 3 ML NEBU. NEB SCH ×6 (04:12→23:43)
[2018-07-10 07:00] VITALS: BP 107/66
[2018-07-10 07:20] LABS: CREATININE 2.9 mg/dL (0.7-1.3); GFR 21.2; POTASSIUM 4.6 mmol/L (3.5-5.1)
[2018-07-10] MEDS: GLIMEPIRIDE 2 MG TABLET. PO SCH (07:42)
[2018-07-10] MEDS: PANTOPRAZOLE 40 MG TABLET.DR. PO SCH (07:42)
[2018-07-10] MEDS: ASPIRIN ENTERIC COATED 81 MG TABLET.DR. PO SCH (07:42)
[2018-07-10] MEDS: ALLOPURINOL 300 MG TABLET. PO SCH (07:42)
[2018-07-10] MEDS: DIGOXIN 125 MCG TABLET. PO SCH (07:43)
[2018-07-10] MEDS: POTASSIUM CHLORIDE 10 MEQ TABLET.ER. PO SCH (07:43)
[2018-07-10] MEDS: FUROSEMIDE 40 MG TABLET. PO SCH (08:01)
[2018-07-10] MEDS: HYDROcodone/APAP 5/325MG 1 TAB TABLET PO PRN ×2 (08:02→14:32)
[2018-07-10] MEDS ORDERED: FUROSEMIDE 40 MG/4 ML VIAL. IVP SCH (09:00)
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
--- NOTE | 2018-07-10 10:48 | PDOC ---
Provider Note Provider Note [id number] RHODA CURIEL MD Jul 10, 2018 10:48
[2018-07-10 11:00] VITALS: BP 132/63
[2018-07-10 11:00] LABS: HEMATOCRIT 28.7 % (39.0-53.0); HEMOGLOBIN 9.2 g/dL (13.0-17.5); RED BLOOD COUNT 3.51 x10^6/uL (4.30-5.70); RED CELL DISTRIBUTION WIDTH 18.5 % (11.5-14.5); WHITE BLOOD COUNT 11.2 x10^3/uL (4.0-11.0)
[2018-07-10] MEDS: diphenhydrAMINE HCL 25 MG CAPSULE PO PRN ×2 (14:31→22:58)
[2018-07-10] MEDS: ANTI-COAG MONITOR BY PHARMACY. MC PRN (14:41)
[2018-07-10 15:00] VITALS: BP 110/56
[2018-07-10] MEDS: RIVAROXABAN 15 MG TABLET. PO SCH (17:35)
[2018-07-10 19:56] VITALS: BP 132/59
[2018-07-10] MEDS: BUDESONIDE 0.5 MG/2 ML NEBU. NEB SCH (20:29)
[2018-07-10] MEDS: ATORVASTATIN CALCIUM 20 MG TABLET PO SCH (20:45)
[2018-07-10] MEDS: MONTELUKAST SODIUM 10 MG TABLET. PO SCH (20:45)
[2018-07-10] MEDS: DOXAZOSIN MESYLATE 4 MG TABLET. PO SCH (20:45)
[2018-07-10 23:02] VITALS: BP 119/58
[2018-07-11] VITALS (7 sets, daily range): BP systolic 110–136; BP diastolic 54–65
--- NOTE | 2018-07-11 02:02 | PN ---
DATE: 07/10/2018 SUBJECTIVE: The patient is lying supine with gurgling expiratory wheezing, but in no real distress. His heart rate is mildly irregular, consistent with known atrial fibrillation. He does have 2+-3+ pretibial edema despite diuresis efforts. He appears very cyanotic, but his oxygen saturations are actually good and he is mildly anemic. Chest x-ray just shows significant cardiomegaly, but the echo shows an EF of 35% and no pericardial effusion. It sounds like he would benefit from steroids for what appears to be COPD component, but we will hold on that given his cardiomyopathy and we will add Pulmicort per nebulizer and check his TSH. Renal function is declining with diuresis as noted. RHODA CURIEL MD DR: AMANDA/jewels JOB#: [id number] / [id number]
[2018-07-11] MEDS: IPRATRPIUM/ALBUTEROL 0.5/2.5MG 3 ML NEBU. NEB SCH ×6 (03:46→23:18)
[2018-07-11] MEDS: BUDESONIDE 0.5 MG/2 ML NEBU. NEB SCH ×2 (07:33→19:32)
[2018-07-11] MEDS: ALLOPURINOL 300 MG TABLET. PO SCH (08:25)
[2018-07-11] MEDS: DIGOXIN 125 MCG TABLET. PO SCH (08:25)
[2018-07-11] MEDS: PANTOPRAZOLE 40 MG TABLET.DR. PO SCH (08:26)
[2018-07-11] MEDS: GLIMEPIRIDE 2 MG TABLET. PO SCH (08:26)
[2018-07-11] MEDS: POTASSIUM CHLORIDE 10 MEQ TABLET.ER. PO SCH (08:26)
[2018-07-11] MEDS: ASPIRIN ENTERIC COATED 81 MG TABLET.DR. PO SCH (08:26)
[2018-07-11] MEDS: FUROSEMIDE 40 MG TABLET. PO SCH (08:26)
--- NOTE | 2018-07-11 10:55 | PDOC ---
Provider Note Provider Note [id number] RHODA CURIEL MD Jul 11, 2018 10:55
[2018-07-11] MEDS: diphenhydrAMINE HCL 25 MG CAPSULE PO PRN (13:23)
[2018-07-11] MEDS: HYDROcodone/APAP 5/325MG 1 TAB TABLET PO PRN ×2 (13:24→18:13)
[2018-07-11] MEDS: ANTI-COAG MONITOR BY PHARMACY. MC PRN (14:52)
--- NOTE | 2018-07-11 15:13 | RAD ---
Examination: PORTABLE CHEST 1V History: CHF Comparison/Correlation: 06/29/2018 AP view of the chest Findings: Portable upright frontal view chest was obtained. Cardiomegaly is present. Pulmonary vasculature is slightly congested. Small bilateral pleural effusions are present. Left basilar opacification which may represent underlying consolidation or atelectasis is noted. Impression: Left basilar consolidation/atelectasis and pleural effusions are new in the interval. Slight CHF. Electronically signed by: Marty Sanchez MD (07/11/2018 3:10 PM) [facility]
[2018-07-11] MEDS: RIVAROXABAN 15 MG TABLET. PO SCH (17:28)
[2018-07-11] MEDS: MONTELUKAST SODIUM 10 MG TABLET. PO SCH (20:59)
[2018-07-11] MEDS: ATORVASTATIN CALCIUM 20 MG TABLET PO SCH (20:59)
[2018-07-11] MEDS: DOXAZOSIN MESYLATE 4 MG TABLET. PO SCH (21:00)
--- NOTE | 2018-07-11 22:23 | PN ---
DATE: 07/11/2018 The patient remains clinically about the same, still wheezing and mildly dyspneic with no change in physical exam. Hemoglobin is a little lower today at 9.2 with ferritin normal at 112. The patient notably is on aspirin and now Xarelto and certainly if he has an ongoing GI blood loss, so this will progress to further worsening anemia. We will order a daily hemogram and rest of the meds remain the same and follow clinically. He is now on Pulmicort for his respiratory wheezing, but we will hold off on oral steroids for now. RHODA CURIEL MD DR: AMANDA/jewels JOB#: [id number] / [id number]
[2018-07-12 03:20] VITALS: BP 126/61
[2018-07-12] MEDS: IPRATRPIUM/ALBUTEROL 0.5/2.5MG 3 ML NEBU. NEB SCH ×6 (04:00→23:45)
[2018-07-12 04:04] LABS: HEMATOCRIT 25.9 % (39.0-53.0); HEMOGLOBIN 8.7 g/dL (13.0-17.5); RED BLOOD COUNT 3.22 x10^6/uL (4.30-5.70); RED CELL DISTRIBUTION WIDTH 18.2 % (11.5-14.5); WHITE BLOOD COUNT 6.3 x10^3/uL (4.0-11.0)
[2018-07-12 04:17] LABS: CALCIUM 8.8 mg/dL (8.5-10.1); CREATININE 2.2 mg/dL (0.7-1.3); GFR 29.1; POTASSIUM 4.2 mmol/L (3.5-5.1)
[2018-07-12] MEDS: BUDESONIDE 0.5 MG/2 ML NEBU. NEB SCH ×2 (07:32→19:15)
[2018-07-12 07:40] VITALS: BP 126/55
[2018-07-12] MEDS: ASPIRIN ENTERIC COATED 81 MG TABLET.DR. PO SCH (09:54)
[2018-07-12] MEDS: GLIMEPIRIDE 2 MG TABLET. PO SCH (09:54)
[2018-07-12] MEDS: FUROSEMIDE 40 MG TABLET. PO SCH (09:54)
[2018-07-12] MEDS: ALLOPURINOL 300 MG TABLET. PO SCH (09:54)
[2018-07-12] MEDS: PANTOPRAZOLE 40 MG TABLET.DR. PO SCH (09:55)
[2018-07-12] MEDS: POTASSIUM CHLORIDE 10 MEQ TABLET.ER. PO SCH (09:55)
[2018-07-12] MEDS: DIGOXIN 125 MCG TABLET. PO SCH (09:55)
[2018-07-12] MEDS: ANTI-COAG MONITOR BY PHARMACY. MC PRN (10:21)
[2018-07-12 11:22] VITALS: BP 123/59
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
[2018-07-12] MEDS: HYDROcodone/APAP 5/325MG 1 TAB TABLET PO PRN ×2 (13:59→18:21)
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
[2018-07-12 14:59] VITALS: BP 136/93
--- NOTE | 2018-07-12 16:32 | PDOC ---
ROBERT ARNOLD OPERATIONAL INTELLIGENCE ANALYST 07/12/18 1631: CARDIO Progress Notes Date and Time Date of Service 07/12/18 Time of Evaluation 1345 Subjective Subjective: No Chest Pain, No Palpitations, Other (breathing improved. c/o pain in bilateral LE- tenderness upon palpation) Vitals Vitals Vital Signs Date Time Temp Pulse Resp B/P (MAP) Pulse Ox O2 Delivery O2 Flow Rate FiO2 07/12/18 15:41 94 Nasal Cannula 2.0 07/12/18 14:59 97.9 86 16 136/93 (107) 97.9 Weight Weight [ ] Input and Output Intake and Output Intake and Output 07/12/18 07:00 Intake Total 1234 ml Output Total 850 ml Balance 384 ml Intake Oral 1234 ml Output Urine Total 850 ml # Voids 8 # Bowel Movements 1 Laboratory Labs Laboratory Tests Test 07/11/18 16:32 07/11/18 20:36 07/12/18 03:15 07/12/18 04:40 Glucose (Fingerstick) 72 mg/dL (70-99) 73 mg/dL (70-99) 177 mg/dL (70-99) White Blood Count 6.3 x10^3/uL (4.0-11.0) Red Blood Count 3.22 x10^6/uL (4.30-5.70) Hemoglobin 8.7 g/dL (13.0-17.5) Hematocrit 25.9 % (39.0-53.0) Mean Corpuscular Volume 80 fL (79-100) Mean Corpuscular Hemoglobin 27 pg (25-35) Mean Corpuscular Hemoglobin Concent 34 g/dL (31-37) Red Cell Distribution Width 18.2 % (11.5-14.5) Platelet Count 145 x10^3/uL (140-400) Sodium Level 141 mmol/L (136-145) Potassium Level 4.2 mmol/L (3.5-5.1) Chloride Level 104 mmol/L (98-107) Carbon Dioxide Level 31 mmol/L (21-32) Anion Gap 6 (6-14) Blood Urea Nitrogen 53 mg/dL (8-26) Creatinine 2.2 mg/dL (0.7-1.3) Estimated GFR (Cockcroft-Gault) 29.1 Glucose Level 37 mg/dL (70-99) Calcium Level 8.8 mg/dL (8.5-10.1) Test 07/12/18 07:54 07/12/18 11:48 Glucose (Fingerstick) 170 mg/dL (70-99) 154 mg/dL (70-99) Physical Exam HEENT: Neck Supple W Full Motion Chest: Symmetric LUNGS: Other (diminished; coarse uppper) Heart: irregularly irregular (AFIB rate controlled) Abdomen: Soft N/T Extremities: Other (2+ bilateral LE pitting edema) Neurology: alert, oriented, follow commands Assessment Assessment 1. Acute on chronic diastolic/systolic CHF with cardiomyopathy; better compensated. CXR 07/11 with mild vascular congestion 2. Chronic AFIB: rate controlled 3. 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 stable 4. Hypertension 5. Dyslipidemia 6. Diabetes;II with significant hypoglycemia this am 7. Chronic kidney disease 8. PAD 9. Anemia; hgb 8.7 Recommendations Cardizem for rate control Xarelto for stroke prevention; monitor hgb Will give extra dose of lasix this afternoon Supportive care SEVERIANO MATTHEWS MD 07/12/18 1837: CARDIO Progress Notes Plan Plan Patient seen and examined. Agree with above nurse practitioner note. [place] to have 3+ pitting edema of the lower extremities but refuses to wear compression socks, ultimately he agree on Gee wrap therapy. Agree with Dr. Hudson regarding increase in diuretic therapy with close monitoring of renal function. Should he have any worsening renal sufficiency could then at that time consider a right heart catheter. Ok to discharge to [facility] from CV standpoint. Continue dilt/dig/lasix. He is on diltiazem due to need to avoid b-blockers due to COPD. ROBERT ARNOLD APRN Jul 12, 2018 16:31 SEVERIANO MATTHEWS MD Jul 12, 2018 18:37
[2018-07-12] MEDS ORDERED: FUROSEMIDE 40 MG TABLET. PO ONE (16:45)
[2018-07-12] MEDS: RIVAROXABAN 15 MG TABLET. PO SCH (17:30)
[2018-07-12 19:00] VITALS: BP 137/63
[2018-07-12] MEDS: ATORVASTATIN CALCIUM 20 MG TABLET PO SCH (21:06)
[2018-07-12] MEDS: DOXAZOSIN MESYLATE 4 MG TABLET. PO SCH (21:06)
[2018-07-12] MEDS: MONTELUKAST SODIUM 10 MG TABLET. PO SCH (21:06)
[2018-07-12 23:05] VITALS: BP 106/48
[2018-07-13 03:10] VITALS: BP 130/61
[2018-07-13] MEDS: IPRATRPIUM/ALBUTEROL 0.5/2.5MG 3 ML NEBU. NEB SCH ×6 (03:55→23:15)
[2018-07-13] MEDS: HYDROcodone/APAP 5/325MG 1 TAB TABLET PO PRN ×4 (04:09→18:03)
[2018-07-13 05:58] LABS: HEMATOCRIT 26.8 % (39.0-53.0); HEMOGLOBIN 8.7 g/dL (13.0-17.5); RED BLOOD COUNT 3.34 x10^6/uL (4.30-5.70); RED CELL DISTRIBUTION WIDTH 18.2 % (11.5-14.5); WHITE BLOOD COUNT 5.8 x10^3/uL (4.0-11.0)
[2018-07-13 07:00] VITALS: BP 127/56
[2018-07-13] MEDS: BUDESONIDE 0.5 MG/2 ML NEBU. NEB SCH ×2 (07:22→20:28)
[2018-07-13] MEDS: ALLOPURINOL 300 MG TABLET. PO SCH (08:39)
[2018-07-13] MEDS: GLIMEPIRIDE 2 MG TABLET. PO SCH (08:39)
[2018-07-13] MEDS: ASPIRIN ENTERIC COATED 81 MG TABLET.DR. PO SCH (08:39)
[2018-07-13] MEDS: PANTOPRAZOLE 40 MG TABLET.DR. PO SCH (08:39)
[2018-07-13] MEDS: FUROSEMIDE 40 MG TABLET. PO SCH (08:39)
[2018-07-13] MEDS: DIGOXIN 125 MCG TABLET. PO SCH (08:39)
[2018-07-13] MEDS: POTASSIUM CHLORIDE 10 MEQ TABLET.ER. PO SCH (08:43)
--- NOTE | 2018-07-13 10:43 | DISCH ---
DISCHARGE DISCHARGE INFORMATION: FINAL DIAGNOSIS Problems Medical Problems: (1) Bilateral leg pain Status: Acute (2) Elevated troponin Status: Acute (3) Generalized weakness Status: Acute (4) Shortness of breath Status: Acute CONDITION ON DISCHARGE: Stable CODE STATUS: Code Status: Full GROUP HOME: SNF STAY <30 DAYS: Yes POST DISCHARGE ORDERS: ACTIVITY ORDERS: Activity as tolerated, Progressive ambulation WEIGHT BEARING STATUS: No restrictions DIET AFTER DISCHARGE: Low Sodium 2 gm CHECKS AFTER DISCHARGE: CHECKS AFTER DISCHARGE: Check blood press - daily, Check blood sugar, ac/hs, Weigh Yourself Daily TREATMENT/EQUIPMENT ORDERS: RESPIRATORY EQUIPMENT NEEDED: Oxygen Physical Therapy For: Evalulation/Treatment Occupational Therapy For: Evaluation/Treatment DISCHARGE MEDICATIONS: Home Meds Active Scripts Diltiazem Hcl (DILTIAZEM 24HR CD) 180 Mg Cap.er.24h, 180 MG PO DAILY for 90 Days , #90 CAP.SR Prov:GABRIELA VALERA MD 07/14/18 Hydrocodone Bit/Acetaminophen (HYDROCODONE-APAP 5-325 ) 1 Each Tablet, 2 TAB PO PRN Q4HRS PRN for SEVERE PAIN for 60 Days, TAB Prov:GABRIELA VALERA MD 07/14/18 Hydrocodone Bit/Acetaminophen (HYDROCODONE-APAP 5-325 ) 1 Each Tablet, 1 TAB PO PRN Q4HRS PRN for MODERATE PAIN for 60 Days, TAB Prov:GABRIELA VALERA MD 07/14/18 Atorvastatin Calcium (ATORVASTATIN CALCIUM) 20 Mg Tablet, 20 MG PO QHS for 90 Days, #90 TAB Prov:GABRIELA VALERA MD 07/14/18 Aspirin (ASPIRIN EC) 81 Mg Tablet.dr, 81 MG PO DAILYWBKFT, #90 TAB.SR Prov:GABRIELA VALERA MD 07/14/18 Digoxin (DIGOXIN) 125 Mcg Tablet, 125 MCG PO DAILY for 30 Days, #30 TAB 1 Refill Prov:MIMI OLSON MD 12/20/17 Ipratropium/Albuterol Sulfate (DUONEB 0.5-3(2.5) MG/3 ML) 3 Ml Ampul.neb, 3 ML NEB Q4HRS for 30 Days, #180 EACH 3 Refills Prov:MIMI OLSON MD 12/20/17 Budesonide (BUDESONIDE) 0.5 Mg/2 Ml Ampul.neb, 1 VIAL NEB QHS for 30 Days, #120 ML 3 Refills Prov:MIMI OLSON MD 12/20/17 Potassium Chloride (KLOR-CON M10) 10 Meq Tab.er.prt, 10 MEQ PO DAILYWBKFT, #30 / 2 Refills Prov:GABRIELA VALERA MD 10/23/15 Reported Medications Garlic (GARLIC) 1,000 Mg Capsule, 1000 MG PO DAILY, CAP 09/25/17 Montelukast Sodium (MONTELUKAST SODIUM TABLET) 10 Mg Tablet, 1 TAB PO HS, #30 TAB 5 Refills 09/25/17 Doxazosin Mesylate (DOXAZOSIN MESYLATE) 4 Mg Tablet, 1 TAB PO HS, #30 TAB 5 Refills 09/25/17 Diltiazem Hcl (CARTIA XT) 120 Mg Cap.er.24h, 120 MG PO DAILY, CAP.SR 09/25/17 Loperamide Hcl (ANTI-DIARRHEA) 2 Mg Tablet, 2 MG PO DAILY, TAB 09/25/17 Rivaroxaban (XARELTO) 10 Mg Tablet, 1 TAB PO DAILY, #10 TAB 09/25/17 Diltiazem Hcl (CARDIZEM CD) 180 Mg Cap.er.24h, 120 MG PO DAILY for FOR HYPERTENSION, #30 CAP 0 Refills 01/23/17 Albuterol Sulfate (PROAIR HFA INHALER) 8.5 Gm Hfa.aer.ad, 2 PUFF IH PRN Q4-6HRS PRN for SHORTNESS OF BREATH, #1 INHALER 10/17/15 Pantoprazole Sodium (PANTOPRAZOLE SODIUM) 40 Mg Tablet.dr, 1 TAB PO DAILY, #30 TAB 3 Refills 10/17/15 Allopurinol (ALLOPURINOL) 300 Mg Tablet, 1 TAB PO DAILY, #30 TAB 5 Refills 10/17/15 Discontinued Reported Medications Bumetanide (BUMETANIDE) 1 Mg Tablet, 1 TAB PO DAILY, #90 TAB 1 Refill 07/07/18 [place]-3 Fatty Acids/Fish Oil (FISH OIL 1,000 MG CAPSULE) 1 Each Capsule, 1 EACH PO DAILY, CAP 09/25/17 Glimepiride (GLIMEPIRIDE) 4 Mg Tablet, 4 MG PO DAILY, TAB 09/25/17 GABRIELA VALERA MD Jul 13, 2018 10:43
[2018-07-13 11:22] VITALS: BP 129/57
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
[2018-07-13 15:00] VITALS: BP 125/63
[2018-07-13] MEDS: ANTI-COAG MONITOR BY PHARMACY. MC PRN (16:24)
[2018-07-13] MEDS: RIVAROXABAN 15 MG TABLET. PO SCH (17:59)
--- NOTE | 2018-07-13 18:27 | PDOC ---
CARDIO Progress Notes Date and Time Date of Service 07/13/2018 Time of Evaluation 1650 Subjective Subjective: No Chest Pain, No shortness of breath, No Palpitations, Other ( eating ice cream doing better, waiting to e transferred to SNU) Vitals Vitals Vital Signs Date Time Temp Pulse Resp B/P (MAP) Pulse Ox O2 Delivery O2 Flow Rate FiO2 07/13/18 18:03 18 Nasal Cannula 2.0 07/13/18 15:00 97.5 83 125/63 (83) 95 97.5 Weight Weight [ ] Input and Output Intake and Output Intake and Output 07/13/18 07:00 Intake Total 1180 ml Output Total 1500 ml Balance -320 ml Intake Oral 1180 ml Output Urine Total 1500 ml Laboratory Labs Laboratory Tests Test 07/12/18 21:29 07/13/18 05:20 07/13/18 07:33 07/13/18 11:36 Glucose (Fingerstick) 120 mg/dL (70-99) 131 mg/dL (70-99) 170 mg/dL (70-99) White Blood Count 5.8 x10^3/uL (4.0-11.0) Red Blood Count 3.34 x10^6/uL (4.30-5.70) Hemoglobin 8.7 g/dL (13.0-17.5) Hematocrit 26.8 % (39.0-53.0) Mean Corpuscular Volume 80 fL (79-100) Mean Corpuscular Hemoglobin 26 pg (25-35) Mean Corpuscular Hemoglobin Concent 32 g/dL (31-37) Red Cell Distribution Width 18.2 % (11.5-14.5) Platelet Count 137 x10^3/uL (140-400) Test 07/13/18 17:44 Glucose (Fingerstick) 181 mg/dL (70-99) Physical Exam HEENT: Neck Supple W Full Motion Chest: Symmetric LUNGS: Other (basilar crackles) Heart: irregularly irregular (AFIB rate controlled) Abdomen: Soft N/T Extremities: Other (2-3+ bilateral LE pitting edema) Neurology: alert, oriented, follow commands Assessment Assessment 1. 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 Chronic AFIB: rate controlled 3. 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 stable 4. Hypertension: controlled 5. Dyslipidemia 6. Diabetes;II with significant hypoglycemia this am 7. Chronic kidney disease 8. PAD 9. Anemia; hgb 8.7 Recommendations 1. Lasix therapy. Cardizem for rate control. Dig in place. Unable to place on BB due to significant COPD/bronchospasm. Xarelto for stroke prevention 2. Anticipating DC to SNU PP. Follow up in office as scheduled in 3-4 weeks. 3. Continue with secondary prevention measures. 4. If remains inpt tomorrow then will obtain dig level. Continue with lasix therapy and leg wraps. 5. Will consider outpt stress test for further risk stratification. PENNY PHILLIPS [employer] Jul 13, 2018 18:27
[2018-07-13 19:36] VITALS: BP 132/61
[2018-07-13] MEDS: ATORVASTATIN CALCIUM 20 MG TABLET PO SCH (21:46)
[2018-07-13] MEDS: MONTELUKAST SODIUM 10 MG TABLET. PO SCH (21:46)
[2018-07-13] MEDS: DOXAZOSIN MESYLATE 4 MG TABLET. PO SCH (21:46)
[2018-07-13 22:45] VITALS: BP 107/53
[2018-07-14] MEDS: IPRATRPIUM/ALBUTEROL 0.5/2.5MG 3 ML NEBU. NEB SCH ×3 (03:28→11:54)
[2018-07-14 03:31] VITALS: BP 120/64
[2018-07-14] MEDS: HYDROcodone/APAP 5/325MG 1 TAB TABLET PO PRN ×3 (03:33→13:26)
[2018-07-14 05:46] LABS: HEMATOCRIT 27.6 % (39.0-53.0); HEMOGLOBIN 8.9 g/dL (13.0-17.5); RED BLOOD COUNT 3.4 x10^6/uL (4.30-5.70); RED CELL DISTRIBUTION WIDTH 18.6 % (11.5-14.5); WHITE BLOOD COUNT 5.6 x10^3/uL (4.0-11.0)
[2018-07-14 07:20] VITALS: BP 132/60
[2018-07-14] MEDS: BUDESONIDE 0.5 MG/2 ML NEBU. NEB SCH (07:51)
[2018-07-14 08:03] LABS: DIG 1.3 ng/mL (0.9-2.0)
[2018-07-14] MEDS: ASPIRIN ENTERIC COATED 81 MG TABLET.DR. PO SCH (08:03)
[2018-07-14] MEDS: PANTOPRAZOLE 40 MG TABLET.DR. PO SCH (08:03)
[2018-07-14] MEDS: POTASSIUM CHLORIDE 10 MEQ TABLET.ER. PO SCH (08:03)
[2018-07-14] MEDS ORDERED: HYDR-2758 PO (08:30)
[2018-07-14] MEDS: GLIMEPIRIDE 2 MG TABLET. PO SCH (08:30)
[2018-07-14] MEDS: DIGOXIN 125 MCG TABLET. PO SCH (08:30)
[2018-07-14] MEDS: FUROSEMIDE 40 MG TABLET. PO SCH (08:30)
[2018-07-14] MEDS ORDERED: ATOR20TA58 PO (08:30)
[2018-07-14] MEDS ORDERED: DILT180C29 PO (08:30)
[2018-07-14] MEDS ORDERED: ASPI-612 PO (08:30)
[2018-07-14] MEDS: ALLOPURINOL 300 MG TABLET. PO SCH (08:30)
--- NOTE | 2018-07-14 08:46 | PDOC ---
GENERAL General: yesterday's discharge summary accurate for today. exam stable. anticipate dc today. VITAL SIGNS Vital Signs: Vital Signs Date Time Temp Pulse Resp B/P (MAP) Pulse Ox O2 Delivery O2 Flow Rate FiO2 07/14/18 08:30 76 132/60 07/14/18 08:07 92 Nasal Cannula 2.0 07/14/18 07:20 97.5 18 97.5 I & O I & O Intake and Output 07/14/18 07:00 Intake Total 480 ml Output Total 1850 ml Balance -1370 ml Intake Oral 480 ml Output Urine Total 1850 ml ALLERGIES Allergies: Allergies Coded Allergies Type Severity Reaction Last Updated Verified No Known Drug Allergies 10/17/15 No MEDS Medications: Current Medications Medications (Trade) Dose Ordered Sig/Lety Start Time Stop Time Status Last Admin Dose Admin Acetaminophen/ Hydrocodone Bitart (Lortab 5/325) 2 tab PRN Q4HRS PRN 07/07/18 18:15 07/14/18 08:07 2 TAB Albuterol/ Ipratropium (Duoneb) 3 ml Q4HRS 07/07/18 09:00 07/14/18 07:51 3 ML Allopurinol (Zyloprim) 300 mg DAILY 07/07/18 09:00 07/14/18 08:30 300 MG Aspirin (Ecotrin) 81 mg DAILYWBKFT 07/07/18 11:00 07/14/18 08:03 81 MG Atorvastatin Calcium (Lipitor) 20 mg QHS 07/08/18 21:00 07/13/18 21:46 20 MG Budesonide (Pulmicort) 0.5 mg RTBID 07/10/18 20:00 07/14/18 07:51 0.5 MG Bumetanide (Bumex) 1 mg DAILY 07/07/18 09:00 UNV Dextrose (Dextrose 50%-Water Syringe) 12.5 gm PRN Q15MIN PRN 07/08/18 08:30 07/12/18 04:26 25 GM Digoxin (Lanoxin) 125 mcg DAILY 07/07/18 09:00 07/14/18 08:30 125 MCG Diltiazem HCl (Cardizem 24hr Cd) 180 mg 1X ONCE 07/08/18 13:15 07/08/18 13:16 DC 07/08/18 13:58 180 MG Diltiazem HCl (Cardizem) 60 mg Q8HRS 07/07/18 14:00 07/08/18 12:08 DC 07/08/18 07:09 60 MG Diphenhydramine HCl (Benadryl) 25 mg PRN Q6HRS PRN 07/08/18 16:45 07/11/18 13:23 25 MG Doxazosin Mesylate (Cardura) 4 mg HS 07/07/18 21:00 07/13/18 21:46 4 MG Fentanyl Citrate (Fentanyl 2ml Vial) 50 mcg PRN Q3HRS PRN 07/06/18 23:30 07/07/18 23:29 DC 07/07/18 19:07 50 MCG Furosemide (Lasix) 40 mg 1X ONCE 07/12/18 16:45 07/12/18 16:46 DC 07/12/18 17:30 40 MG Glimepiride (Amaryl) 2 mg DAILY 07/12/18 09:00 07/14/18 08:30 2 MG Info (Anti-Coagulation Monitoring By Pharmacy) 1 each PRN DAILY PRN 07/07/18 08:45 07/13/18 16:24 1 EACH Info (CONTRAST GIVEN -- Rx MONITORING) 1 each PRN DAILY PRN 07/06/18 22:45 07/08/18 22:44 DC Iohexol (Omnipaque 300 Mg/ml) 60 ml 1X ONCE 07/06/18 22:45 07/06/18 22:46 DC 07/06/18 22:45 60 ML Loperamide HCl (Imodium) 2 mg PRN Q15MIN PRN 07/07/18 08:30 Methylprednisolone Sodium Succinate (SOLU-Medrol 125MG VIAL) 125 mg 1X ONCE 07/08/18 13:15 07/08/18 13:19 DC 07/08/18 13:55 125 MG Metolazone (Zaroxolyn) 5 mg 1X ONCE 07/09/18 08:30 07/09/18 08:31 DC 07/09/18 10:05 5 MG Metoprolol Tartrate (Lopressor Vial) 5 mg 1X ONCE 07/07/18 10:30 07/07/18 10:30 DC Montelukast Sodium (Singulair) 10 mg QHS 07/07/18 21:00 07/13/18 21:46 10 MG Pantoprazole Sodium (Protonix) 40 mg DAILYAC 07/07/18 09:00 07/14/18 08:03 40 MG Potassium Chloride (Klor-Con) 10 meq DAILYWBKFT 07/08/18 08:00 07/14/18 08:03 10 MEQ Rivaroxaban (Xarelto) 15 mg DAILYWSUP 07/07/18 17:00 07/13/18 17:59 15 MG Sodium Chloride 500 ml @ 500 mls/hr 1X ONCE 07/06/18 22:00 07/06/18 22:59 DC 07/06/18 22:12 500 MLS/HR LAB Lab: Laboratory Tests Test 07/13/18 11:36 07/13/18 17:44 07/13/18 20:37 07/14/18 05:00 Glucose (Fingerstick) 170 mg/dL (70-99) 181 mg/dL (70-99) 114 mg/dL (70-99) White Blood Count 5.6 x10^3/uL (4.0-11.0) Red Blood Count 3.40 x10^6/uL (4.30-5.70) Hemoglobin 8.9 g/dL (13.0-17.5) Hematocrit 27.6 % (39.0-53.0) Mean Corpuscular Volume 81 fL (79-100) Mean Corpuscular Hemoglobin 26 pg (25-35) Mean Corpuscular Hemoglobin Concent 32 g/dL (31-37) Red Cell Distribution Width 18.6 % (11.5-14.5) Platelet Count 176 x10^3/uL (140-400) Digoxin Level 1.3 ng/mL (0.9-2.0) Digoxin Last Dose Date 07/13/18 Digoxin Last Dose Time 0839 GABRIELA VALERA MD Jul 14, 2018 08:46
[2018-07-14 11:06] VITALS: BP 131/55
== END 2018-07-14 13:30 | DRG 280 ==
LOC: ER 21:24 → 2 NORTH 22:40
PROVIDERS: ADMIT Family Medicine; ATTEND Family Medicine
DX: I21.4 Non-ST elevation (NSTEMI) myocardial infarction (principal); I50.43 Acute on chronic combined systolic (congestive) and diastolic (congestive) heart failure; J44.1 Chronic obstructive pulmonary disease with (acute) exacerbation; I13.0 Hypertensive heart and chronic kidney disease with heart failure and stage 1 through stage 4 chronic kidney disease, or unspecified chronic kidney disease; I42.9 Cardiomyopathy, unspecified; I48.2 Chronic atrial fibrillation; E11.649 Type 2 diabetes mellitus with hypoglycemia without coma; E78.5 Hyperlipidemia, unspecified; M19.90 Unspecified osteoarthritis, unspecified site; N18.3 Chronic kidney disease, stage 3 (moderate); I48.0 Paroxysmal atrial fibrillation; D64.9 Anemia, unspecified; E11.51 Type 2 diabetes mellitus with diabetic peripheral angiopathy without gangrene; E11.22 Type 2 diabetes mellitus with diabetic chronic kidney disease; S80.01XA Contusion of right knee, initial encounter; S80.02XA Contusion of left knee, initial encounter; I49.3 Ventricular premature depolarization; S80.12XA Contusion of left lower leg, initial encounter; Z99.81 Dependence on supplemental oxygen; V49.88XA Car occupant (driver) (passenger) injured in other specified transport accidents, initial encounter; Y93.89 Activity, other specified; Y92.89 Other specified places as the place of occurrence of the external cause; Y99.8 Other external cause status; Z87.01 Personal history of pneumonia (recurrent)
CPT/HCPCS: 36415; 71045; 71260; 73562; 73590; 73630; 74177; 80048; 80053; 80061; 80162; 81001; 82728; 82962; 83690; 83735; 83880; 84443; 84484; 84550; 85025; 85027; 85610; 85730; 93005; 93306; 93925; 93970; 94640; 94760; 96361; 96374; J1940; J2930; J3010; J7040; J7042; J7620; J7626; Q0163; Q9967; 97116; 97530; 97535; 99285-25

== ENCOUNTER 2019-06-14 14:16 | Inpatient (IN) | payer MEDICARE, BC ==
[~2019-06-14] VITALS: Ht 160 cm; Wt 76.4 kg
[~2019-06-14 14:16] MED LIST changes: +ALBU2.5V8 IH; +ASPI-612 PO; +ATOR20TA58 PO; -BUME1TAB PO; +BUME1TAB3 PO; +DILT180C29 PO; -GLIM4TAB2 PO; +GLIM4TAB4 PO; +HYDR-2761 PO; +MONT10TA49 PO; -MONT10TA9 PO; -PANT40TA5 PO; +PANT40TA77 PO; +PIOG30TA41 PO; -PROAIR HFA8.5 GM IH; +RIVA15TA PO
[2019-06-14] MEDS ORDERED: IPRATRPIUM/ALBUTEROL 0.5/2.5MG 3 ML NEBU. NEB ONE (15:00)
[2019-06-14] MEDS ORDERED: methylPREDNISolone SOD SUCC PF 125 MG/2 ML VIAL. IV ONE (15:00)
--- NOTE | 2019-06-14 15:17 | RAD ---
EXAM: Chest, single view. HISTORY: Shortness of breath. COMPARISON: 05/30/2019 FINDINGS: A frontal view of the chest obtained. There has been no significant change in a moderate right pleural effusion with lower lobe and middle lobe atelectasis or infiltrate. There has been minimal interval decrease in diffuse interstitial infiltrate suggesting resolving congestion. There is stable cardiomegaly. There is no pneumothorax. IMPRESSION: 1. Stable moderate right pleural effusion with right middle and lower lobe atelectasis or infiltrate. 2. Slight interval decrease in suspected pulmonary congestion. 3. Stable cardiomegaly. Electronically signed by: Lily Walker MD (06/14/2019 3:15 PM) [id number]
[2019-06-14 15:30] LABS: BASO # 0.1 x10^3/uL (0.0-0.2); BASO % 1 % (0-3); EOS % 1 % (0-3); HEMATOCRIT 32.1 % (39.0-53.0); HEMOGLOBIN 10.4 g/dL (13.0-17.5); LYMPH # 0.6 x10^3/uL (1.0-4.8); LYMPH % 9 % (24-48); MEAN CORPUSCULAR HEMOGLOBIN 27 pg (25-35); MEAN CORPUSCULAR HGB CONC 32 g/dL (31-37); MEAN CORPUSCULAR VOLUME 83 fL (79-100); MONO # 0.4 x10^3/uL (0.0-1.1); MONO % 6 % (0-9); NEUT # 6.2 x10^3/uL (1.8-7.7); NEUT % 84 % (31-73); PLATELET COUNT 94 x10^3/uL (140-400); RED BLOOD COUNT 3.85 x10^6/uL (4.30-5.70); RED CELL DISTRIBUTION WIDTH 18.3 % (11.5-14.5); WHITE BLOOD COUNT 7.3 x10^3/uL (4.0-11.0)
--- NOTE | 2019-06-14 15:43 | PHYS DOC ---
Past Medical History Past Medical History: A-Fib, Asthma, CHF, Diabetes-Type II, Pneumonia, Other Additional Past Medical Histor: HOME O2 @ NIGHT Past Surgical History: Other Additional Past Surgical Histo: hydrocele surgery Alcohol Use: None Drug Use: None Adult General Chief Complaint Chief Complaint: SHORTNESS OF BREATH [facility] HPI Patient is a 78 year old male patient with history of asthma and CHF on home oxygen who presents with feeling of shortness of breath. Patient states he has had shortness of breath for a long time that gradually getting worse today. Patient obtaining of increasing of chronic bilateral lower extremity edema and dry coughs without chest pain, fever and chills, nausea and vomiting, urinary symptoms, diarrhea and constipation. Patient complaining of generalized weakness. Patient had recent hospitalization with the same problem. Review of Systems Review of Systems Constitutional: Denies fever or chills [] Eyes: Denies change in visual acuity, redness, or eye pain [] HENT: Denies nasal congestion or sore throat [] Respiratory: Reports cough and shortness of breath Cardiovascular: No additional information not addressed in HPI [] GI: Denies abdominal pain, nausea, vomiting, bloody stools or diarrhea [] : Denies dysuria or hematuria [] Musculoskeletal: Denies back pain or joint pain [] Integument: Denies rash or skin lesions [] Neurologic: Denies headache, focal weakness or sensory changes [] Endocrine: Denies polyuria or polydipsia [] All other systems were reviewed and found to be within normal limits, except as documented in this note. Current Medications Current Medications Current Medications Medications (Trade) Dose Ordered Sig/Lety Start Time Stop Time Status Last Admin Dose Admin Albuterol/ Ipratropium (Duoneb) 3 ml 1X ONCE 06/14/19 15:00 06/14/19 15:01 DC 06/14/19 15:01 3 ML Methylprednisolone Sodium Succinate (SOLU-Medrol 125MG VIAL) 125 mg 1X ONCE 06/14/19 15:00 06/14/19 15:01 DC 06/14/19 15:00 125 MG Allergies Allergies Allergies Coded Allergies Type Severity Reaction Last Updated Verified No Known Drug Allergies 10/17/15 No Physical Exam Physical Exam Constitutional: Well developed, well nourished, mild distress, non-toxic appearance. [] HENT: Normocephalic, atraumatic. Eyes: PERRLA, EOMI, conjunctiva normal, no discharge. [] Neck: Normal range of motion, no tenderness, supple, no stridor. [] Cardiovascular: Irregularly regular rhythm, no murmur [] Lungs & Thorax: Marked respiratory distress with decrease of air movement bilat erally Abdomen: Bowel sounds normal, soft, distended abdomen, no tenderness, no masses, no pulsatile masses. [] Skin: Warm, dry, no erythema, no rash. [] Back: No tenderness, no CVA tenderness. [] Extremities: No tenderness, no cyanosis, no clubbing, ROM intact, bilateral lower extremity 3+ edema edema. [] Neurologic: Alert and oriented X 3, no focal deficits noted. [] Psychologic: Affect normal, judgement normal, mood normal. [] Current Patient Data Vital Signs Vital Signs Date Time Temp Pulse Resp B/P (MAP) Pulse Ox O2 Delivery O2 Flow Rate FiO2 06/14/19 15:02 94 Nasal Cannula 06/14/19 14:33 98.2 93 16 112/57 (75) 2.0 98.2 Lab Values Laboratory Tests Test 06/14/19 15:21 White Blood Count 7.3 x10^3/uL (4.0-11.0) Red Blood Count 3.85 x10^6/uL (4.30-5.70) L Hemoglobin 10.4 g/dL (13.0-17.5) L Hematocrit 32.1 % (39.0-53.0) L Mean Corpuscular Volume 83 fL (79-100) Mean Corpuscular Hemoglobin 27 pg (25-35) Mean Corpuscular Hemoglobin Concent 32 g/dL (31-37) Red Cell Distribution Width 18.3 % (11.5-14.5) H Platelet Count 94 x10^3/uL (140-400) L Neutrophils (%) (Auto) 84 % (31-73) H Lymphocytes (%) (Auto) 9 % (24-48) L Monocytes (%) (Auto) 6 % (0-9) Eosinophils (%) (Auto) 1 % (0-3) Basophils (%) (Auto) 1 % (0-3) Neutrophils # (Auto) 6.2 x10^3/uL (1.8-7.7) Lymphocytes # (Auto) 0.6 x10^3/uL (1.0-4.8) L Monocytes # (Auto) 0.4 x10^3/uL (0.0-1.1) Eosinophils # (Auto) 0.0 x10^3/uL (0.0-0.7) Basophils # (Auto) 0.1 x10^3/uL (0.0-0.2) D-Dimer (Holly) 3.80 ug/mlFEU (0.00-0.50) H Sodium Level 144 mmol/L (136-145) Potassium Level 4.1 mmol/L (3.5-5.1) Chloride Level 104 mmol/L (98-107) Carbon Dioxide Level 32 mmol/L (21-32) Anion Gap 8 (6-14) Blood Urea Nitrogen 30 mg/dL (8-26) H Creatinine 1.7 mg/dL (0.7-1.3) H Estimated GFR (Cockcroft-Gault) 39.1 BUN/Creatinine Ratio 18 (6-20) Glucose Level 116 mg/dL (70-99) H Lactic Acid Level 1.2 mmol/L (0.4-2.0) Calcium Level 8.7 mg/dL (8.5-10.1) Total Bilirubin 1.6 mg/dL (0.2-1.0) H Aspartate Amino Transferase (AST) 18 U/L (15-37) Alanine Aminotransferase (ALT) 27 U/L (16-63) Alkaline Phosphatase 102 U/L (46-116) Creatine Kinase 72 U/L (39-308) Troponin I Quantitative 0.071 ng/mL (0.000-0.055) PG-Nnh-A-Type Natriuretic Peptide 62501 pg/mL (0-449) H Total Protein 5.6 g/dL (6.4-8.2) L Albumin 3.0 g/dL (3.4-5.0) L Albumin/Globulin Ratio 1.2 (1.0-1.7) Laboratory Tests 06/14/19 15:21 Laboratory Tests 06/14/19 15:21 EKG EKG EKG interpreted by me. EKG at 1714 showed atrial fibrillation at rate of 82, abnormal left axis deviation, LVH, poor R-wave progress in anterior leads, no acute ST and T-wave elevation. Radiology/Procedures Radiology/Procedures [][facility] [address] [place] [address] IMAGING REPORT Signed PATIENT: CHAZ MCCLELLAND ACCOUNT: [id number] : 1940 LOCATION: ER AGE: 78 SEX: M EXAM STATUS: REG ER ORD. PHYSICIAN: SIMBA THURSTON MD REASON: shortness of breath PROCEDURE: PORTABLE CHEST 1V EXAM: Chest, single view. HISTORY: Shortness of breath. COMPARISON: 05/30/2019 FINDINGS: A frontal view of the chest obtained. There has been no significant change in a moderate right pleural effusion with lower lobe and middle lobe atelectasis or infiltrate. There has been minimal interval decrease in diffuse interstitial infiltrate suggesting resolving congestion. There is stable cardiomegaly. There is no pneumothorax. IMPRESSION: 1. Stable moderate right pleural effusion with right middle and lower lobe atelectasis or infiltrate. 2. Slight interval decrease in suspected pulmonary congestion. 3. Stable cardiomegaly. Electronically signed by: Lily Cutler MD (06/14/2019 3:15 PM) [facility] DICTATED and SIGNED BY: LILY CUTLER MD DATE: 06/14/19 1515 Course & Med Decision Making Course & Med Decision Making Pertinent Labs and Imaging studies reviewed. (See chart for details) Evaluation of patient in ER showed 78-year-old male patient with history of CHF and chronic lung disease on home oxygen and frequent hospitalization presented to ER with increasing lower extremity edema shortness of breath and cough. Patient had blood pressure of 120s and Lasix was not given. Labs showed BNP of 19,000. The same as previous hospitalization. [facility]. Patient had also had mild elevation of troponin as a chronic problem. Dragon Disclaimer Dragon Disclaimer This electronic medical record was generated, in whole or in part, using a voice recognition dictation system. Departure Departure Impression: Primary Impression: Acute exacerbation of CHF (congestive heart failure) Additional Impressions: Elevated troponin Generalized weakness Shortness of breath CKD (chronic kidney disease) Elevated d-dimer Disposition: ADMITTED INPATIENT Admitting Physician: Sundar Gracia (at 1803) Condition: IMPROVED Referrals: GABRIELA VALERA MD (PCP) Problem Qualifiers Primary Impression: Acute exacerbation of CHF (congestive heart failure) Heart failure type: unspecified Qualified Codes: I50.9 - Heart failure, unspecified Additional Impressions: CKD (chronic kidney disease) Chronic kidney disease stage: unspecified stage Qualified Codes: N18.9 - Chronic kidney disease, unspecified SIMBA THURSTON MD Jun 14, 2019 15:43
[2019-06-14 15:55] LABS: CALCIUM 8.7 mg/dL (8.5-10.1); CREATININE 1.7 mg/dL (0.7-1.3); GFR 39.1; POTASSIUM 4.1 mmol/L (3.5-5.1)
[2019-06-14 16:09] LABS: ALBUMIN/GLOBULIN RATIO 1.2 (1.0-1.7); TOTAL BILIRUBIN 1.6 mg/dL (0.2-1.0); TOTAL PROTEIN 5.6 g/dL (6.4-8.2)
[2019-06-14 17:25] VITALS: BP 102/57
--- NOTE | 2019-06-14 18:10 | EKG ---
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
[2019-06-14 19:50] VITALS: BP 117/66
[2019-06-14] MEDS ORDERED: FUROSEMIDE 40 MG/4 ML VIAL. IVP ONE (20:00)
[2019-06-14] MEDS ORDERED: OMEG1CAP6 PO (20:06)
[2019-06-14] MEDS ORDERED: FERR325T14 PO (20:06)
[2019-06-14] MEDS ORDERED: ARFO15VI NEB (20:06)
[2019-06-14] MEDS: FUROSEMIDE INJ 100 MG in IV NORMAL SALINE 100ML 100 ML IV PRN (20:22)
[2019-06-14] MEDS: DOXAZOSIN MESYLATE 4 MG TABLET. PO SCH (20:23)
[2019-06-14 21:00] VITALS: BP 111/49
[2019-06-14] MEDS ORDERED: BUDESONIDE 0.5 MG/2 ML NEBU. NEB SCH (21:00)
[2019-06-14 22:00] VITALS: BP 117/72
--- NOTE | 2019-06-14 22:15 | NUR ---
New orders to insert a marshall catheter and patient refusing placement of marshall catheter and educated patient on the reasons for the marshall catheter and continues to refuse.
[2019-06-14] MEDS: BUDESONIDE 0.5 MG/2 ML NEBU. NEB SCH (22:41)
[2019-06-14 23:05] VITALS: BP 117/72
[2019-06-15 03:05] VITALS: BP 125/64
[2019-06-15] MEDS: ALBUTEROL SULFATE 2.5 MG/3 ML NEBU. NEB PRN (05:05)
[2019-06-15] MEDS: FUROSEMIDE INJ 100 MG in IV NORMAL SALINE 100ML 100 ML IV PRN ×2 (05:20→17:25)
[2019-06-15 07:00] VITALS: BP 111/58
[2019-06-15] MEDS ORDERED: POTASSIUM CHLORIDE 10 MEQ TABLET.ER. PO SCH (08:00)
--- NOTE | 2019-06-15 08:27 | RAD ---
Lung scan 06/15/2019 CLINICAL HISTORY: Shortness of breath. Elevated d-dimer. TECHNIQUE: After the administration of 9 mCi of xenon-133 gas, ventilation images of both lungs were obtained using the gamma camera. After the intravenous administration of 5.5 mCi of Technetium 99m MAA, perfusion images of both lungs were obtained using the gamma camera. FINDINGS: Comparison is made to a portable chest radiograph dated 06/14/2019. This demonstrates mild to moderate cardiomegaly with small to moderate-sized right pleural effusion and right lower lobe atelectasis and/or infiltrate. Slightly heterogeneous ventilation and perfusion of both lungs is seen. No unmatched perfusion defect is noted. These findings are consistent with a low probability study for pulmonary embolism. IMPRESSION: Low probability study. Electronically signed by: Nirav Courtney MD (06/15/2019 8:24 AM) [facility]
[2019-06-15] MEDS ORDERED: NON FORMULARY ITEM (Garlic 1,000 MG) PO SCH (09:00)
[2019-06-15] MEDS ORDERED: FLU VAX QS 2019-20 (36MOS+)/PF 0.5 ML SYRINGE. VAX IM ONE (09:00)
[2019-06-15] MEDS: FERROUS SULFATE 325 MG TABLET. PO SCH (09:17)
[2019-06-15] MEDS: ALLOPURINOL 300 MG TABLET. PO SCH (09:17)
[2019-06-15] MEDS: PANTOPRAZOLE 40 MG TABLET.DR. PO SCH (09:17)
[2019-06-15] MEDS: DIGOXIN 125 MCG TABLET. PO SCH (09:18)
[2019-06-15] MEDS: ASPIRIN ENTERIC COATED 81 MG TABLET.DR. PO SCH (09:19)
--- NOTE | 2019-06-15 09:21 | PDOC ---
Provider Note Provider Note [id number] RHODA CURIEL MD Jun 15, 2019 09:20
[2019-06-15] MEDS: POTASSIUM CHLORIDE 10 MEQ TABLET.ER. PO SCH ×3 (09:22→17:30)
[2019-06-15] MEDS: LISINOPRIL 5 MG TABLET. PO SCH (09:26)
--- NOTE | 2019-06-15 09:41 | HP ---
ADMIT DATE: CHIEF COMPLAINT: Shortness of breath. HISTORY OF PRESENT ILLNESS: A 78-year-old white male, a patient of Dr. Arango, with a history of systolic cardiomyopathy, ejection fraction about 35% per echo about 2 weeks ago. He is not known to have any valvular disease and is not sure if he has any coronary artery disease, but has chronic atrial fibrillation of unknown etiology. TSH done a year ago was normal and he is not known to be a drinker. He has been on Lasix infusion in my direction overnight and is feeling better with good diuresis so far and no anginal type symptoms. PAST MEDICAL HISTORY: Meds listed per the chart. He takes Actos and glimepiride for diabetes. A1c is not available. He has never had any cardiovascular surgery that he is aware of or any significant surgery. No drug allergies. He denies using lisinopril or beta-blockers, but does take Xarelto for chronic atrial fibrillation. SOCIAL HISTORY: . Denies alcohol and tobacco use. FAMILY HISTORY: Unremarkable. REVIEW OF SYSTEMS: No other complaints. OBJECTIVE: ENT: Aside from poor dentition all within normal limits. NECK: No masses, nodes or thyroid enlargement. LUNGS: Decreased breath sounds in the right chest consistent with known pleural effusion. No wheezing. CARDIOVASCULAR: Irregular rate consistent with atrial fibrillation, reasonably good rate control. ABDOMEN: Soft, benign and nontender. EXTREMITIES: He has 3+ pitting pretibial edema all the way up to the knees bilaterally, cannot really palpate pedal pulses. NEUROLOGIC: Physiologic, alert, appropriate, responsive. ASSESSMENT: Agfwv-kq-hbqqcvk systolic congestive heart failure, ejection fraction 35%. Also, is noted to have mildly decreased platelet count, raising the question of prior alcohol abuse. Type 2 diabetes, control unknown, but pioglitazone could be contributing to his fluid retention. PLAN: Continue Lasix infusion. We will add oral potassium and low-dose lisinopril. Check his TSH and hemoglobin A1c. Cardiovascular consultation to consider heart catheterization if it has not been done in the past in regards to possibility of coronary artery disease. RHODA CURIEL MD DR: AMANDA/jewels JOB#: [id number] / [id number]
[2019-06-15 11:00] VITALS: BP 110/51
[2019-06-15 11:36] LABS: CALCIUM 8.6 mg/dL (8.5-10.1); CREATININE 1.9 mg/dL (0.7-1.3); GFR 34.4; POTASSIUM 3.6 mmol/L (3.5-5.1)
--- NOTE | 2019-06-15 11:38 | PDOC2 ---
PENNY PHILLIPS EQUAL OPPORTUNITY DIRECTOR 06/15/19 1138: CARDIAC CONSULT DATE OF CONSULT Date of Consult DATE: 06/15/19 TIME: 0840 REASON FOR CONSULT Reason for Consult: CHF REFERRING PHYSICIAN Referring Physician: Basil SOURCE Source: Chart review, Patient HISTORY OF PRESENT ILLNESS HISTORY OF PRESENT ILLNESS This is a pleasant 78 yo male admitted for complains of shortness of breath and leg swelling. Reported that he has been SOA for a while now. In the last week his symptoms have been getting worse and yesterday he had a hard time breathing despite his oxygen supplement. Positive for PND, orthopnea and significant leg swelling. Also has been having insomnia, feeling bloating. No chest pain or palpitations. No frequent dizziness or passing out. No recent fever or chills. He has been compliant with his medications. PAST MEDICAL HISTORY Past Medical History Cardiovascular: AFIB, CHF, HTN Pulmonary: Asthma, COPD, Pneumonia, SIDNEY but CPAP intolerant CENTRAL NERVOUS SYSTEM: Other GI: No pertinent hx Heme/Onc: No pertinent hx Hepatobiliary: No pertinent hx Psych: No pertinent hx Rheumatologic: No pertinent hx Infectious disease: Herpes zoster Renal/: Chronic renal insuff Endocrine: No pertinent hx, Diabetes PAST SURGICAL HISTORY Past Surgical History Cataract Removal, Tonsillectomy, Other (hydrocele repair) FAMILY HISTORY Family History noncontributory SOCIAL HISTORY Social History Smoke: Quit, chews tobacco ALCOHOL: occasional, used to be a heavy drinker Drugs: None Lives: with Family CURRENT MEDICATIONS CURRENT MEDICATIONS Current Medications Medications (Trade) Dose Ordered Sig/Lety Route PRN Reason Start Time Stop Time Status Last Admin Dose Admin Albuterol/ Ipratropium (Duoneb) 3 ml 1X ONCE NEB 06/14/19 15:00 06/14/19 15:01 DC 06/14/19 15:01 Methylprednisolone Sodium Succinate (SOLU-Medrol 125MG VIAL) 125 mg 1X ONCE IV 06/14/19 15:00 06/14/19 15:01 DC 06/14/19 15:00 Furosemide (Lasix) 40 mg 1X ONCE IVP 06/14/19 20:00 06/14/19 20:01 DC 06/14/19 20:22 Furosemide 100 mg/ Sodium Chloride 100 ml @ 10 mls/hr CONT PRN IV SEE I/O RECORD 06/14/19 19:30 06/15/19 05:20 Allopurinol (Zyloprim) 300 mg DAILY PO 06/15/19 09:00 06/15/19 09:17 Digoxin (Lanoxin) 125 mcg DAILY PO 06/15/19 09:00 06/15/19 09:18 Doxazosin Mesylate (Cardura) 2 mg HS PO 06/14/19 21:00 06/14/19 20:23 Pantoprazole Sodium (Protonix) 40 mg DAILYAC PO 06/15/19 07:30 06/15/19 09:17 Potassium Chloride (Klor-Con) 10 meq DAILYWBKFT PO 06/15/19 08:00 06/15/19 09:17 Budesonide (Pulmicort) 0.5 mg QHS NEB 06/14/19 23:00 06/14/19 22:41 Albuterol Sulfate (Ventolin Neb Soln) 2.5 mg PRN Q4HRS PRN NEB SHORTNESS OF BREATH 06/15/19 05:15 06/15/19 05:05 Aspirin (Ecotrin) 81 mg DAILYWBKFT PO 06/15/19 10:00 06/15/19 09:19 Ferrous Sulfate (Feosol) 325 mg DAILY10 PO 06/15/19 10:00 06/15/19 09:17 Lisinopril (Prinivil) 5 mg DAILY PO 06/15/19 09:30 06/15/19 09:26 Potassium Chloride (Klor-Con) 10 meq TIDWMEALS PO 06/15/19 09:20 06/15/19 09:22 ALLERGIES ALLERGIES: Coded Allergies: No Known Drug Allergies (Unverified , 10/17/15) ROS Review of System 14 point ROS evaluated with pertinent positives noted per HPI PHYSICAL EXAM General: Alert, Oriented X3, Cooperative, mild distress HEENT: Atraumatic, Mucous membr. moist/pink Lungs: Other (basialr crackles) Heart: Other (AFIB rate controlled) Abdomen: Soft, No tenderness Extremities: No cyanosis, Other (3-4+ bilateral LE pitting edema) Skin: No breakdown, No significant lesion Neuro: Normal speech, Sensation intact Psych/Mental Status: Mental status NL, Mood NL MUSCULOSKELETAL: Osteoarthritic changes both hands VITALS/I&O VITALS/I&O: Vital Signs Date Time Temp Pulse Resp B/P (MAP) Pulse Ox O2 Delivery O2 Flow Rate FiO2 06/15/19 09:26 91 111/58 06/15/19 07:00 97.4 8 96 Room Air 2.0 97.4 I & O 06/14/19 06/14/19 06/15/19 14:59 22:59 06:59 Intake Total 300 ml Output Total 300 ml 700 ml Balance -300 ml -400 ml LABS Lab: Laboratory Tests Test 06/14/19 15:21 06/15/19 09:40 White Blood Count 7.3 x10^3/uL (4.0-11.0) Red Blood Count 3.85 x10^6/uL (4.30-5.70) L Hemoglobin 10.4 g/dL (13.0-17.5) L Hematocrit 32.1 % (39.0-53.0) L Mean Corpuscular Volume 83 fL (79-100) Mean Corpuscular Hemoglobin 27 pg (25-35) Mean Corpuscular Hemoglobin Concent 32 g/dL (31-37) Red Cell Distribution Width 18.3 % (11.5-14.5) H Platelet Count 94 x10^3/uL (140-400) L Neutrophils (%) (Auto) 84 % (31-73) H Lymphocytes (%) (Auto) 9 % (24-48) L Monocytes (%) (Auto) 6 % (0-9) Eosinophils (%) (Auto) 1 % (0-3) Basophils (%) (Auto) 1 % (0-3) Neutrophils # (Auto) 6.2 x10^3/uL (1.8-7.7) Lymphocytes # (Auto) 0.6 x10^3/uL (1.0-4.8) L Monocytes # (Auto) 0.4 x10^3/uL (0.0-1.1) Eosinophils # (Auto) 0.0 x10^3/uL (0.0-0.7) Basophils # (Auto) 0.1 x10^3/uL (0.0-0.2) D-Dimer (Holly) 3.80 ug/mlFEU (0.00-0.50) H Sodium Level 144 mmol/L (136-145) Potassium Level 4.1 mmol/L (3.5-5.1) Chloride Level 104 mmol/L (98-107) Carbon Dioxide Level 32 mmol/L (21-32) Anion Gap 8 (6-14) Blood Urea Nitrogen 30 mg/dL (8-26) H Creatinine 1.7 mg/dL (0.7-1.3) H Estimated GFR (Cockcroft-Gault) 39.1 BUN/Creatinine Ratio 18 (6-20) Glucose Level 116 mg/dL (70-99) H Lactic Acid Level 1.2 mmol/L (0.4-2.0) Calcium Level 8.7 mg/dL (8.5-10.1) Total Bilirubin 1.6 mg/dL (0.2-1.0) H Aspartate Amino Transferase (AST) 18 U/L (15-37) Alanine Aminotransferase (ALT) 27 U/L (16-63) Alkaline Phosphatase 102 U/L (46-116) Creatine Kinase 72 U/L (39-308) Troponin I Quantitative 0.071 ng/mL (0.000-0.055) TL-Eth-U-Type Natriuretic Peptide 47523 pg/mL (0-449) H Total Protein 5.6 g/dL (6.4-8.2) L Albumin 3.0 g/dL (3.4-5.0) L Albumin/Globulin Ratio 1.2 (1.0-1.7) Iron Level 21 ug/dL (65-175) L Total Iron Binding Capacity 290 ug/dL (250-450) Iron Saturation 7 % (15-34) L Ferritin 131 ng/mL (26-388) Vitamin B12 Level 357 pg/mL (247-911) Thyroid Stimulating Hormone (TSH) 0.668 uIU/mL (0.358-3.74) Laboratory Tests 06/14/19 15:21 Laboratory Tests 06/14/19 15:21 ECHOCARDIOGRAM ECHOCARDIOGRAM <Conclusion> The left ventricular systolic function is moderately impaired. The Ejection Fraction is 30%. Tissue Doppler imaging reveals moderate left ventricular diastolic dysfunction. Trace mitral regurgitation. Trace tricuspid regurgitation with an estimated PAP of 48 mmHg. There is a trace pericardial effusion. DATE: 05/27/19 8116 ASSESSMENT/PLAN ASSESSMENT/PLAN 1. 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 Chronic AFIB: rate controlled 3. 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 HTN: controlled 5. HLP 6. DM2: per PCP 7. CKD3: baseline appears to be Cr at 1.7 to 1.9 8. Hx of LE PAD: no wounds but has been complaining of leg pain, neuropathic vs significant arterial insufficiency. 9. Anemia of chronic disease: Hgb 10.4 stable Recommendations 1. Continue lasix drip. Hold xarelto for cath tomorrow. 2. CHF is refractory with no prior ischemia workup, mainly due to failed follow ups. R/LHC in AM, risks and benefits discussed and agreeable to proceed. 3. 2Gm Na dietary restriction and daily weights. 4. DC home actos. Continue with digoxin. Will start on low dose toprol. Continue with lisinopril. 5. ASA, statin 6. Will also obtain arterial duplex tomorrow once edema is improved. 7. lipids, INR, BMP and Mg today. Check Dig level. 8. Pt does not check his BG, encourage to do daily checks. SEVERIANO MATTHEWS MD 06/15/19 9851: CARDIAC CONSULT ASSESSMENT/PLAN ASSESSMENT/PLAN Pt. seen and examined. 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 He has had recurrent HF. Needs evaluation of hemodynamics and LHC etc. Will plan for this in the morning. Discussed with him and his . Supportive care and continue lasix gtt. Thanks PENNY PHILLIPS APRN Jun 15, 2019 11:38 SEVERIANO MATTHEWS MD Jun 15, 2019 17:52
[2019-06-15 11:40] LABS: PROTHROMBIN TIME PATIENT 14.7 SEC (11.7-14.0)
[2019-06-15 11:58] LABS: CHOLESTEROL/HDL RATIO 2.4
[2019-06-15] MEDS ORDERED: POTASSIUM CHLORIDE 20 MEQ TABLET.ER. PO ONE (12:00)
[2019-06-15] MEDS: ANTI-COAG MONITOR BY PHARMACY. MC PRN (13:44)
--- NOTE | 2019-06-15 13:46 | NUR ---
SS following for discharge planning. SS reviewed pt chart. Pt is from home with spouse and is currently requiring oxygen. No discharge needs noted at this time. SS will continue to follow for discharge planning.
[2019-06-15] MEDS: METOPROLOL SUCC 24HR ER 25 MG TAB.ER.24H. PO SCH (14:19)
[2019-06-15 15:00] VITALS: BP 103/54
[2019-06-15] MEDS: IPRATRPIUM/ALBUTEROL 0.5/2.5MG 3 ML NEBU. NEB SCH ×3 (15:07→20:01)
[2019-06-15 16:33] LABS: DIG 0.9 ng/mL (0.9-2.0)
[2019-06-15] MEDS ORDERED: RIVAROXABAN 15 MG TABLET. PO SCH (17:00)
[2019-06-15 19:00] VITALS: BP 90/49
[2019-06-15] MEDS: BUDESONIDE 0.5 MG/2 ML NEBU. NEB SCH (20:01)
[2019-06-15] MEDS: DOXAZOSIN MESYLATE 4 MG TABLET. PO SCH (21:00)
[2019-06-15 23:00] VITALS: BP 94/44
[2019-06-15 23:07] LABS: HEMOGLOBIN A1C 5.8 % (4.8-5.6)
[2019-06-16] VITALS (17 sets, daily range): BP systolic 79–98; BP diastolic 37–57
[2019-06-16] MEDS: IPRATRPIUM/ALBUTEROL 0.5/2.5MG 3 ML NEBU. NEB SCH ×6 (03:47→19:39)
[2019-06-16 06:09] LABS: CALCIUM 8.8 mg/dL (8.5-10.1); CREATININE 1.9 mg/dL (0.7-1.3); GFR 34.4; POTASSIUM 4.1 mmol/L (3.5-5.1)
[2019-06-16] MEDS: FUROSEMIDE INJ 100 MG in IV NORMAL SALINE 100ML 100 ML IV PRN ×2 (06:57→15:19)
[2019-06-16] MEDS ORDERED: LIDOCAINE 1% Multi-Dose 20 ML VIAL. ONE (08:58)
[2019-06-16] MEDS: METOPROLOL SUCC 24HR ER 25 MG TAB.ER.24H. PO SCH (09:00)
[2019-06-16] MEDS: LISINOPRIL 5 MG TABLET. PO SCH (09:00)
--- NOTE | 2019-06-16 09:07 | PDOC ---
Provider Note Provider Note good diuresis on drip- bmp same, a1c low 5.8 on actos/glimep, both stopped- for cath today- sleeping now- will follow lower platelets re ? etiology, poss etoh RHODA CURIEL MD Jun 16, 2019 09:07
[2019-06-16] MEDS ORDERED: fentaNYL PF VIAL 100 MCG/2 ML VIAL ONE (09:18)
[2019-06-16] MEDS ORDERED: NITROGLYCERIN 200 MCG/2 ML SYRINGE FOR CATH/VASC LAB. ONE (09:19)
[2019-06-16] MEDS ORDERED: MIDAZOLAM HCL/PF 2 MG/2 ML VIAL. ONE (09:19)
[2019-06-16] MEDS ORDERED: HEPARIN for IV BOLUS 10,000 UNIT/10 ML VIAL. ONE (09:19)
[2019-06-16] MEDS ORDERED: VERAPAMIL 5 MG/2 ML VIAL. ONE (09:19)
[2019-06-16] MEDS ORDERED: IODIXANOL 320 MG/ML 100 ML VIAL. ONE (09:26)
[2019-06-16] MEDS ORDERED: fentaNYL PF VIAL 100 MCG/2 ML VIAL IV ONE (10:00)
[2019-06-16] MEDS ORDERED: NITROGLYCERIN 200 MCG/2 ML SYRINGE FOR CATH/VASC LAB. IART ONE (10:00)
[2019-06-16] MEDS ORDERED: MIDAZOLAM HCL/PF 2 MG/2 ML VIAL. IV ONE (10:00)
[2019-06-16] MEDS ORDERED: IODIXANOL 320 MG/ML 100 ML VIAL. IART ONE (10:00)
[2019-06-16] MEDS ORDERED: VERAPAMIL 5 MG/2 ML VIAL. IART ONE (10:00)
[2019-06-16] MEDS ORDERED: LIDOCAINE 1% Multi-Dose 20 ML VIAL. INJ ONE (10:00)
[2019-06-16] MEDS ORDERED: HEPARIN for IV BOLUS 10,000 UNIT/10 ML VIAL. IART ONE (10:00)
[2019-06-16] MEDS: ALLOPURINOL 300 MG TABLET. PO SCH (10:55)
[2019-06-16] MEDS: FERROUS SULFATE 325 MG TABLET. PO SCH (10:55)
[2019-06-16] MEDS: ASPIRIN ENTERIC COATED 81 MG TABLET.DR. PO SCH (10:55)
[2019-06-16] MEDS: PANTOPRAZOLE 40 MG TABLET.DR. PO SCH (10:55)
[2019-06-16] MEDS: DIGOXIN 125 MCG TABLET. PO SCH (10:56)
[2019-06-16] MEDS: POTASSIUM CHLORIDE 10 MEQ TABLET.ER. PO SCH ×3 (10:56→18:10)
--- NOTE | 2019-06-16 12:07 | CARD ---
MR#: [id number] Date of Study: 06/16/2019 Ordering Physician: PENNY PHILLIPS, Referring Physician: PENNY PHILLIPS, Tech: RT Paige (R) APPROVED REPORT Technologist: Margy Correa RT (R) Nurse: Lisa Spivey R.N. Procedure(s) performed: Fluoro time: 4.8 min Dose: 62 gy/cm2 Contrast: 67cc Moderate sedation: 45 mins RHC, LHC, Coronary angiography, Abdominal aortography. HISTORY The patient is a 78 year-old male with a history of : coronary artery disease, hypertension, dyslipid emia. INDICATION The indication(s) include : non-STEMI , CKD. [facility] Clinical Frailty Scale [facility] Clinical Frailty Scale: Severely Frail Heart Failure Heart Failure: Yes If Yes, Newly Diagnosed: No If Yes, HF Type: Diastolic Systolic If Yes, NYHA Class: Class III PROCEDURE NARRATIVE The patient was brought electively to the cardiac catheterization lab. A timeout was performed confi rming the patient's name, date of , procedure, and site of procedure. All necessary personnel w ere wearing the appropriate protective equipment and radiation monitor devices. After explaining the risks and benefits of the procedure and alternatives, informed consent was obtained. (See nursing no karina for medications administered). ACCESS: The right neck was sterilely prepped and draped in the usual fashion. The right neck was infiltrated with 10 mL of 2% lidocaine for subcutaneous anesthesia. A 5F sheath was inserted into the right IJ without difficulty under ultrasound guidance. Next, a 6Fr sheath was inserted in the right radial art paul under 2% lidocaine local anesthesia. PROCEDURE DETAILS: A PA catheter was then advanced through the right heart chambers, pressures and saturations were obta ined. Subsequently, right and left coronary angiography was performed using a TIG catheter. Left camilo tricular end diastolic pressure was obtained with a pigtail catheter and pullback was performed. HEMODYNAMICS: LVEDP 25 mm Hg AO: 130/80 *No gradient on LV to aortic pullback. PCWP:29 PA: 54/26/38 RV: 57/10/16 RA: 15 mm Hg Ernesto: 5.4 L/min PA saturation: 65% Radial artery saturation: 95% LEFT VENTRICULOGRAM: Deferred due to known EF of 30%. CORONARY ANGIOGRAPHY: LM is a large caliber vessel with mild luminal irregularities LAD is a has a diffuse proximal to mid calcified 70% stenosis. D1/D2 are small caliber vessels with normal angiographic apeparance. LCx is a moderate caliber non-dominant vessel with mild luminal irregularities. OM1 is a small caliber vessel with normal angiographic appearance. OM2 is a moderate caliber branching vessel with a subtotal occlusion of the larger superior branch. RCA is a moderate caliber heavily diseased vessel with a long proximal to distal 90% stenosis. RPDA is a small caliber vessel with mild luminal irregularities. RPL is ostially occluded small caliber vessels that is seen to fill via left to right collaterals. ABDOMINAL AORTOGRAPHY: Performed to evaluate for access vessels in the event LV support would be needed for PCI of the multi vessel disease. The bilateral iliac vessels and RCFA are grossly unremarkable. LCFA likely has a distal 70% stenosis. Conclusion 1. Biventricular pressure overload. 2. Mild pulmonary HTN due to left sided heart disease. 3. Normal cardiac output. 4. Severe three vessel coronary disease. Recommendations Plan for aggressive diuresis. Consider high risk Impella supported PCI for severe LV dysfunction and recurrent HF after evaluation of viability. Signed by : Grant Butler, Electronically Approved : 06/16/2019 12:07:34
[2019-06-16] MEDS: ACETAMINOPHEN 325 MG TABLET. PO PRN (12:48)
[2019-06-16] MEDS: RIVAROXABAN 15 MG TABLET. PO SCH (18:10)
[2019-06-16] MEDS: BUDESONIDE 0.5 MG/2 ML NEBU. NEB SCH (19:39)
[2019-06-16] MEDS: DOXAZOSIN MESYLATE 4 MG TABLET. PO SCH (21:00)
[2019-06-17] MEDS: IPRATRPIUM/ALBUTEROL 0.5/2.5MG 3 ML NEBU. NEB SCH ×8 (00:17→19:25)
[2019-06-17 03:10] VITALS: BP 109/50
[2019-06-17] MEDS: FUROSEMIDE INJ 100 MG in IV NORMAL SALINE 100ML 100 ML IV PRN (04:56)
[2019-06-17 06:00] LABS: BASO % 1 % (0-3); EOS % 1 % (0-3); HEMATOCRIT 30.3 % (39.0-53.0); HEMOGLOBIN 9.8 g/dL (13.0-17.5); LYMPH # 0.5 x10^3/uL (1.0-4.8); LYMPH % 8 % (24-48); MEAN CORPUSCULAR HEMOGLOBIN 27 pg (25-35); MEAN CORPUSCULAR HGB CONC 32 g/dL (31-37); MEAN CORPUSCULAR VOLUME 84 fL (79-100); MONO # 0.4 x10^3/uL (0.0-1.1); MONO % 5 % (0-9); NEUT # 5.7 x10^3/uL (1.8-7.7); NEUT % 85 % (31-73); PLATELET COUNT 82 x10^3/uL (140-400); RED BLOOD COUNT 3.63 x10^6/uL (4.30-5.70); RED CELL DISTRIBUTION WIDTH 18.9 % (11.5-14.5); WHITE BLOOD COUNT 6.7 x10^3/uL (4.0-11.0)
[2019-06-17 07:00] VITALS: BP 102/55
[2019-06-17 07:19] LABS: % EOS 1 % (0-5); % LYMPHS 4 % (24-48); % MONOS 6 % (0-10); % SEGS 89 % (35-66); PLT ESTIMATE DECREASED (ADEQUATE)
[2019-06-17 07:20] LABS: ANISOCYTOSIS SLIGHT; OVALOCYTES PRESENT; POIKILOCYTOSIS PRESENT; SCHISTOCYTES OCC
[2019-06-17 07:53] LABS: CALCIUM 8.3 mg/dL (8.5-10.1); GFR 32.4; MAGNESIUM 2.1 mg/dL (1.8-2.4); POTASSIUM 4.2 mmol/L (3.5-5.1)
[2019-06-17] MEDS: ALLOPURINOL 300 MG TABLET. PO SCH (08:55)
[2019-06-17] MEDS: METOPROLOL SUCC 24HR ER 25 MG TAB.ER.24H. PO SCH (08:55)
[2019-06-17] MEDS: ASPIRIN ENTERIC COATED 81 MG TABLET.DR. PO SCH (08:55)
[2019-06-17] MEDS: POTASSIUM CHLORIDE 10 MEQ TABLET.ER. PO SCH ×3 (08:56→17:53)
[2019-06-17] MEDS: DIGOXIN 125 MCG TABLET. PO SCH (08:56)
[2019-06-17] MEDS: FERROUS SULFATE 325 MG TABLET. PO SCH (08:57)
[2019-06-17] MEDS: PANTOPRAZOLE 40 MG TABLET.DR. PO SCH (08:57)
--- NOTE | 2019-06-17 09:25 | PDOC ---
Provider Note Provider Note good diuresis, bp low, will go to iv lasix bid in plce of drip- follow shawn, RHODA Thrasher MD Jun 17, 2019 09:25
[2019-06-17 11:00] VITALS: BP 98/49
[2019-06-17] MEDS: LISINOPRIL 5 MG TABLET. PO SCH (11:59)
[2019-06-17] MEDS: FUROSEMIDE 40 MG/4 ML VIAL. IVP SCH ×2 (11:59→15:53)
[2019-06-17] MEDS: ANTI-COAG MONITOR BY PHARMACY. MC PRN (13:31)
--- NOTE | 2019-06-17 14:47 | PDOC ---
PENNY PHILLIPS [employer] 06/17/19 1447: CARDIO Progress Notes Date and Time Date of Service 06/17/2019 Time of Evaluation 1400 Subjective Subjective: No Chest Pain, No Palpitations, Other (SOA better) Vitals Vitals Vital Signs Date Time Temp Pulse Resp B/P (MAP) Pulse Ox O2 Delivery O2 Flow Rate FiO2 06/17/19 11:59 110 102/55 06/17/19 11:48 Nasal Cannula 2.0 06/17/19 11:00 97.9 22 98 97.9 Weight Weight [ ] Input and Output Intake and Output Intake and Output 06/17/19 07:00 Intake Total 1398.74 ml Output Total 2725 ml Balance -1326.26 ml Intake Oral 880 ml IV Total 518.74 ml Output Urine Total 2725 ml # Voids 1 # Bowel Movements 1 Laboratory Labs Laboratory Tests Test 06/17/19 04:24 White Blood Count 6.7 x10^3/uL (4.0-11.0) Red Blood Count 3.63 x10^6/uL (4.30-5.70) Hemoglobin 9.8 g/dL (13.0-17.5) Hematocrit 30.3 % (39.0-53.0) Mean Corpuscular Volume 84 fL (79-100) Mean Corpuscular Hemoglobin 27 pg (25-35) Mean Corpuscular Hemoglobin Concent 32 g/dL (31-37) Red Cell Distribution Width 18.9 % (11.5-14.5) Platelet Count 82 x10^3/uL (140-400) Neutrophils (%) (Auto) 85 % (31-73) Lymphocytes (%) (Auto) 8 % (24-48) Monocytes (%) (Auto) 5 % (0-9) Eosinophils (%) (Auto) 1 % (0-3) Basophils (%) (Auto) 1 % (0-3) Neutrophils # (Auto) 5.7 x10^3/uL (1.8-7.7) Lymphocytes # (Auto) 0.5 x10^3/uL (1.0-4.8) Monocytes # (Auto) 0.4 x10^3/uL (0.0-1.1) Eosinophils # (Auto) 0.0 x10^3/uL (0.0-0.7) Basophils # (Auto) 0.0 x10^3/uL (0.0-0.2) Segmented Neutrophils % 89 % (35-66) Lymphocytes % 4 % (24-48) Monocytes % 6 % (0-10) Eosinophils % 1 % (0-5) Platelet Estimate Decreased (ADEQUATE) Poikilocytosis Present Anisocytosis Slight Ovalocytes Present Schistocytes Occ Sodium Level 142 mmol/L (136-145) Potassium Level 4.2 mmol/L (3.5-5.1) Chloride Level 105 mmol/L (98-107) Carbon Dioxide Level 30 mmol/L (21-32) Anion Gap 7 (6-14) Blood Urea Nitrogen 48 mg/dL (8-26) Creatinine 2.0 mg/dL (0.7-1.3) Estimated GFR (Cockcroft-Gault) 32.4 Glucose Level 90 mg/dL (70-99) Calcium Level 8.3 mg/dL (8.5-10.1) Magnesium Level 2.1 mg/dL (1.8-2.4) Physical Exam HEENT: Neck Supple W Full Motion Chest: Symmetric LUNGS: Other (basilar crackles with diffuse faint expiratory wheeze) Heart: irregularly irregular (AFIB rate controlled) Abdomen: Soft N/T Extremities: Other (3+ bilateral Le pitting edema) Neurology: alert, oriented, follow commands Assessment Assessment 1. 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 Chronic AFIB: rate controlled 3. 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 HTN: controlled 5. HLP 6. DM2: per PCP 7. CKD3: baseline appears to be Cr at 1.7 to 1.9 8. Hx of LE PAD: no wounds but has been complaining of leg pain, neuropathic vs significant arterial insufficiency. 9. Anemia of chronic disease: Hgb 10.4 stable 10. Severe 3V CAD: per [facility] Recommendations 1. Improving. good UOP, Continue lasix therapy, decrease dosing. Continue xarelto. Monitor renal function 2. CHF is refractory with no prior ischemia workup, mainly due to failed follow ups. R/LHC in AM, risks and benefits discussed and agreeable to proceed. 3. 2Gm Na dietary restriction and daily weights. 4. Continue toprol, lisinopril, ASA, statin, digoxin 5. Will also obtain arterial duplex tomorrow once edema is improved. 6. Pt does not check his BG, encourage to do daily checks. 7. High risk Impella supported PCI for severe LV dysfunction and recurrent CHF after evaluation of viability (Thursday) SEVERIANO MATTHEWS MD 06/17/19 1514: CARDIO Progress Notes Plan Plan Patient seen and examined. Agree with above nurse practitioner note. He has been doing well after diuresis. Heart catheterization with multivessel coronary disease. Await viability assessment on Thursday and consider high risk PCI versus transfer for coronary artery bypass grafting in the near future. Supportive care PENNY PHILLIPS APRN Jun 17, 2019 14:47 SEVERIANO MATTHEWS MD Jun 17, 2019 15:14
[2019-06-17 15:00] VITALS: BP 93/42
[2019-06-17] MEDS: RIVAROXABAN 15 MG TABLET. PO SCH (17:53)
[2019-06-17] MEDS: BUDESONIDE 0.5 MG/2 ML NEBU. NEB SCH (19:25)
[2019-06-17 19:37] VITALS: BP 95/48
[2019-06-17] MEDS: ATORVASTATIN CALCIUM 20 MG TABLET PO SCH (20:26)
[2019-06-17 22:50] VITALS: BP 100/52
[2019-06-18] MEDS: IPRATRPIUM/ALBUTEROL 0.5/2.5MG 3 ML NEBU. NEB SCH ×5 (00:38→20:25)
[2019-06-18 03:00] VITALS: BP 91/47
[2019-06-18 04:59] LABS: CALCIUM 8.6 mg/dL (8.5-10.1); CREATININE 1.9 mg/dL (0.7-1.3); GFR 34.4; POTASSIUM 4.2 mmol/L (3.5-5.1)
[2019-06-18 07:26] VITALS: BP 93/44
[2019-06-18] MEDS: FUROSEMIDE 40 MG/4 ML VIAL. IVP SCH ×2 (09:11→15:24)
[2019-06-18] MEDS: FERROUS SULFATE 325 MG TABLET. PO SCH (09:12)
[2019-06-18] MEDS: PANTOPRAZOLE 40 MG TABLET.DR. PO SCH (09:12)
[2019-06-18] MEDS: METOPROLOL SUCC 24HR ER 25 MG TAB.ER.24H. PO SCH (09:12)
[2019-06-18] MEDS: ASPIRIN ENTERIC COATED 81 MG TABLET.DR. PO SCH (09:12)
[2019-06-18] MEDS: POTASSIUM CHLORIDE 10 MEQ TABLET.ER. PO SCH ×3 (09:12→17:05)
[2019-06-18] MEDS: LISINOPRIL 5 MG TABLET. PO SCH ×2 (09:13→12:00)
[2019-06-18] MEDS: DIGOXIN 125 MCG TABLET. PO SCH (09:13)
[2019-06-18] MEDS: ALLOPURINOL 300 MG TABLET. PO SCH (09:19)
[2019-06-18] MEDS: ACETAMINOPHEN 325 MG TABLET. PO PRN (09:25)
[2019-06-18] MEDS: ANTI-COAG MONITOR BY PHARMACY. MC PRN (10:14)
[2019-06-18 11:00] VITALS: BP 93/42
--- NOTE | 2019-06-18 11:44 | PDOC ---
Provider Note Provider Note bp still low, good diuresis, renal slightly better- will reduce lisin dose re bp, rest same- note low platelts- plan same re cad, glucose fine off meds RHODA CURIEL MD Jun 18, 2019 11:44
[2019-06-18 15:00] VITALS: BP 94/46
--- NOTE | 2019-06-18 15:11 | PDOC ---
PROGRESS NOTES Subjective Subjective Patient seen and examined Objective Objective Vital Signs Date Time Temp Pulse Resp B/P (MAP) Pulse Ox O2 Delivery O2 Flow Rate FiO2 06/18/19 11:38 95 Nasal Cannula 2.0 06/18/19 11:00 98.1 85 18 93/42 (59) 98.1 Intake and Output 06/18/19 07:00 Intake Total 1530 ml Output Total 1600 ml Balance -70 ml Intake Oral 1530 ml Output Urine Total 1600 ml Physical Exam Abdomen: Normal bowel sounds Heart: Regular rate General: No acute distress Lungs: Other (mildly decreased breath sounds) Assessment Assessment Problems Medical Problems: (1) Acute exacerbation of CHF (congestive heart failure) Status: Acute (2) CKD (chronic kidney disease) Status: Chronic (3) Elevated d-dimer Status: Acute (4) Elevated troponin Status: Acute (5) Generalized weakness Status: Acute (6) Shortness of breath Status: Acute Assessment 1. Acute on diastolic/systolic CHF with cardiomyopathy: EF 30%. Reasonably c ompensated. 2. Chronic AFIB: rate controlled 3. 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 HTN: controlled 5. HLP 6. DM2: per PCP 7. CKD3: baseline appears to be Cr at 1.7 to 1.9 8. Hx of LE PAD: no wounds but has been complaining of leg pain, neuropathic vs significant arterial insufficiency. 9. Anemia of chronic disease: Hgb 10.4 stable 10. Severe 3V CAD: per [facility]. Continue present medications. Viability study Thursday. Comment Review of Relevant I have reviewed the following items pepper (where applicable) has been applied. Labs Laboratory Tests Test 06/17/19 04:24 06/18/19 03:50 White Blood Count 6.7 x10^3/uL (4.0-11.0) Red Blood Count 3.63 x10^6/uL (4.30-5.70) Hemoglobin 9.8 g/dL (13.0-17.5) Hematocrit 30.3 % (39.0-53.0) Mean Corpuscular Volume 84 fL (79-100) Mean Corpuscular Hemoglobin 27 pg (25-35) Mean Corpuscular Hemoglobin Concent 32 g/dL (31-37) Red Cell Distribution Width 18.9 % (11.5-14.5) Platelet Count 82 x10^3/uL (140-400) 78 x10^3/uL (140-400) Neutrophils (%) (Auto) 85 % (31-73) Lymphocytes (%) (Auto) 8 % (24-48) Monocytes (%) (Auto) 5 % (0-9) Eosinophils (%) (Auto) 1 % (0-3) Basophils (%) (Auto) 1 % (0-3) Neutrophils # (Auto) 5.7 x10^3/uL (1.8-7.7) Lymphocytes # (Auto) 0.5 x10^3/uL (1.0-4.8) Monocytes # (Auto) 0.4 x10^3/uL (0.0-1.1) Eosinophils # (Auto) 0.0 x10^3/uL (0.0-0.7) Basophils # (Auto) 0.0 x10^3/uL (0.0-0.2) Segmented Neutrophils % 89 % (35-66) Lymphocytes % 4 % (24-48) Monocytes % 6 % (0-10) Eosinophils % 1 % (0-5) Platelet Estimate Decreased (ADEQUATE) Poikilocytosis Present Anisocytosis Slight Ovalocytes Present Schistocytes Occ Sodium Level 142 mmol/L (136-145) 143 mmol/L (136-145) Potassium Level 4.2 mmol/L (3.5-5.1) 4.2 mmol/L (3.5-5.1) Chloride Level 105 mmol/L (98-107) 104 mmol/L (98-107) Carbon Dioxide Level 30 mmol/L (21-32) 32 mmol/L (21-32) Anion Gap 7 (6-14) 7 (6-14) Blood Urea Nitrogen 48 mg/dL (8-26) 46 mg/dL (8-26) Creatinine 2.0 mg/dL (0.7-1.3) 1.9 mg/dL (0.7-1.3) Estimated GFR (Cockcroft-Gault) 32.4 34.4 Glucose Level 90 mg/dL (70-99) 101 mg/dL (70-99) Calcium Level 8.3 mg/dL (8.5-10.1) 8.6 mg/dL (8.5-10.1) Magnesium Level 2.1 mg/dL (1.8-2.4) Laboratory Tests Test 06/18/19 03:50 Platelet Count 78 x10^3/uL (140-400) Sodium Level 143 mmol/L (136-145) Potassium Level 4.2 mmol/L (3.5-5.1) Chloride Level 104 mmol/L (98-107) Carbon Dioxide Level 32 mmol/L (21-32) Anion Gap 7 (6-14) Blood Urea Nitrogen 46 mg/dL (8-26) Creatinine 1.9 mg/dL (0.7-1.3) Estimated GFR (Cockcroft-Gault) 34.4 Glucose Level 101 mg/dL (70-99) Calcium Level 8.6 mg/dL (8.5-10.1) Medications Current Medications Albuterol/ Ipratropium (Duoneb) 3 ml 1X ONCE NEB Last administered on 06/14/19at 15:01; Start 06/14/19 at 15:00; Stop 06/14/19 at 15:01; Status DC Methylprednisolone Sodium Succinate (SOLU-Medrol 125MG VIAL) 125 mg 1X ONCE IV Last administered on 06/14/19at 15:00; Start 06/14/19 at 15:00; Stop 06/14/19 at 15:01; Status DC Furosemide (Lasix) 40 mg 1X ONCE IVP Last administered on 06/14/19at 20:22; Start 06/14/19 at 20:00; Stop 06/14/19 at 20:01; Status DC Furosemide 100 mg/ Sodium Chloride 100 ml @ 10 mls/hr CONT PRN IV SEE I/O RECORD Last administered on 06/17/19at 04:56; Start 06/14/19 at 19:30; Stop 06/17/19 at 09:24; Status DC Influenza Virus Vaccine Quadrival (Afluria Quad 2019-20 (3yr Up) Syringe) 0.5 ml ONCE ONCE VAX IM Last administered on 06/15/19at 17:30; Start 06/15/19 at 09:00; Stop 06/15/19 at 09:01; Status DC Allopurinol (Zyloprim) 300 mg DAILY PO Last administered on 06/18/19at 09:19; Start 06/15/19 at 09:00 Budesonide (Pulmicort) 0.25 mg QHS NEB ; Start 06/14/19 at 21:00; Stop 06/14/19 at 22:31; Status DC Digoxin (Lanoxin) 125 mcg DAILY PO Last administered on 06/18/19 09:13; Start 06/15/19 at 09:00 Doxazosin Mesylate (Cardura) 2 mg HS PO Last administered on 06/14/19 20:23; Start 06/14/19 at 21:00; Stop 06/17/19 at 09:24; Status DC Pantoprazole Sodium (Protonix) 40 mg DAILYAC PO Last administered on 06/18/19 09:12; Start 06/15/19 at 07:30 Potassium Chloride (Klor-Con) 10 meq DAILYWBKFT PO Last administered on 06/15/19 09:17; Start 06/15/19 at 08:00; Stop 06/15/19 at 12:00; Status DC Rivaroxaban (Xarelto) 15 mg DAILYWSUP PO ; Start 06/15/19 at 17:00; Stop 06/15 at 11:18; Status DC Non-Formulary Medication (Garlic ) 1,000 mg DAILY PO ; Start 06/15/19 at 09:00; Status UNV Budesonide (Pulmicort) 0.5 mg QHS NEB Last administered on 06/17/19 19:25; Start 06/14/19 at 23:00 Albuterol Sulfate (Ventolin Neb Soln) 2.5 mg PRN Q4HRS PRN NEB SHORTNESS OF BREATH Last administered on 06/15/19 05:05; Start 06/15/19 at 05:15 Info (Anti-Coagulation Monitoring By Pharmacy) 1 each PRN DAILY PRN MC SEE COMMENTS Last administered on 06/18/19 10:14; Start 06/15/19 at 08:00 Aspirin (Ecotrin) 81 mg DAILYWBKFT PO Last administered on 06/18/19 09:12; Start 06/15/19 at 10:00 Ferrous Sulfate (Feosol) 325 mg DAILY10 PO Last administered on 06/18/19 09:12; Start 06/15/19 at 10:00 Albuterol/ Ipratropium (Duoneb) 3 ml Q4HRS NEB Last administered on 06/17/19 08:06; Start 06/15/19 at 09:15; Stop 06/17/19 at 09:24; Status DC Lisinopril (Prinivil) 5 mg DAILY PO Last administered on 06/18/19at 09:13; Start 06/15/19 at 09:30; Stop 06/18/19 at 11:42; Status DC Potassium Chloride (Klor-Con) 10 meq TIDWMEALS PO Last administered on 06/18/19at 12:37; Start 06/15/19 at 09:20 Rivaroxaban (Xarelto) 15 mg DAILYWSUP PO Last administered on 06/17/19at 17:53; Start 06/16/19 at 17:00 Metoprolol Succinate (Toprol Xl) 25 mg DAILY PO Last administered on 06/18/19at 09:12; Start 06/15/19 at 13:00 Potassium Chloride (Klor-Con) 20 meq 1X ONCE PO Last administered on 06/15/19at 14:15; Start 06/15/19 at 12:00; Stop 06/15/19 at 12:01; Status DC Heparin Sodium/ Sodium Chloride 500 ml @ As Directed STK-MED ONCE .ROUTE ; Start 06/16/19 at 08:57; Stop 06/16/19 at 08:57; Status DC Lidocaine HCl (Lidocaine 1% 20ml Vial) 20 ml STK-MED ONCE .ROUTE ; Start 06/16/19 at 08:58; Stop 06/16/19 at 08:59; Status DC Fentanyl Citrate (Fentanyl 2ml Vial) 100 mcg STK-MED ONCE .ROUTE ; Start 06/16/19 at 09:18; Stop 06/16/19 at 09:18; Status DC Midazolam HCl (Versed) 2 mg STK-MED ONCE .ROUTE ; Start 06/16/19 at 09:19; Stop 06/16/19 at 09:19; Status DC Heparin Sodium (Porcine) (Heparin Sodium) 10,000 unit STK-MED ONCE .ROUTE ; Start 06/16/19 at 09:19; Stop 06/16/19 at 09:19; Status DC Verapamil HCl (Verapamil) 5 mg STK-MED ONCE .ROUTE ; Start 06/16/19 at 09:19; Stop 06/16/19 at 09:19; Status DC Nitroglycerin (Nitroglycerin) 200 mcg STK-MED ONCE .ROUTE ; Start 06/16/19 at 09 :19; Stop 06/16/19 at 09:20; Status DC Iodixanol (Visipaque 320) 100 ml STK-MED ONCE .ROUTE ; Start 06/16/19 at 09:26; Stop 06/16/19 at 09:27; Status DC Heparin Sodium/ Sodium Chloride 500 ml @ As Directed STK-MED ONCE .ROUTE ; Start 06/16/19 at 09:31; Stop 06/16/19 at 09:31; Status DC Nitroglycerin (Nitroglycerin) 200 mcg 1X ONCE IART Last administered on 06/16/19at 10:14; Start 06/16/19 at 10:00; Stop 06/16/19 at 10:07; Status DC Verapamil HCl (Verapamil) 2.5 mg 1X ONCE IART Last administered on 06/16/19at 10:15; Start 06/16/19 at 10:00; Stop 06/16/19 at 10:07; Status DC Heparin Sodium (Porcine) (Heparin Sodium) 2,500 unit 1X ONCE IART Last administered on 06/16/19at 10:17; Start 06/16/19 at 10:00; Stop 06/16/19 at 10:07; Status DC Heparin Sodium/ Sodium Chloride (HEPARIN for ARTERIAL LINE FLUSH) 1,000 unit 1X ONCE IART Last administered on 06/16/19at 10:13; Start 06/16/19 at 10:00; Stop 06/16/19 at 10:07; Status DC Heparin Sodium/ Sodium Chloride (HEPARIN for ARTERIAL LINE FLUSH) 1,000 unit 1X ONCE IART Last administered on 06/16/19at 10:13; Start 06/16/19 at 10:00; Stop 06/16/19 at 10:07; Status DC Midazolam HCl (Versed) 1 mg 1X ONCE IV Last administered on 06/16/19at 10:15; Start 06/16/19 at 10:00; Stop 06/16/19 at 10:07; Status DC Fentanyl Citrate (Fentanyl 2ml Vial) 50 mcg 1X ONCE IV Last administered on 06/16/19at 10:15; Start 06/16/19 at 10:00; Stop 06/16/19 at 10:07; Status DC Iodixanol (Visipaque 320) 100 ml 1X ONCE IART Last administered on 06/16/19at 10:13; Start 06/16/19 at 10:00; Stop 06/16/19 at 10:07; Status DC Lidocaine HCl (Lidocaine 1% 20ml Vial) 7 ml 1X ONCE INJ Last administered on 06/16/19at 10:14; Start 06/16/19 at 10:00; Stop 06/16/19 at 10:07; Status DC Acetaminophen (Tylenol) 325 mg PRN TID PRN PO MILD PAIN / TEMP Last administered on 06/18/19at 09:25; Start 06/16/19 at 12:45 Albuterol/ Ipratropium (Duoneb) 3 ml RTQID NEB Last administered on 06/18/19at 11:37; Start 06/17/19 at 09:30 Furosemide (Lasix) 40 mg BID92 IVP Last administered on 06/18/19at 09:11; Start 06/17/19 at 12:00 Alprazolam (Xanax) 0.25 mg PRN Q8HRS PRN PO ANXIETY / AGITATION; Start 06/17/19 at 09:30 Atorvastatin Calcium (Lipitor) 20 mg QHS PO Last administered on 06/17/19at 20:26; Start 06/17/19 at 21:00 Lisinopril (Prinivil) 2.5 mg DAILY PO ; Start 06/18/19 at 12:00 Active Scripts Active Aspirin Ec (Aspirin) 81 Mg Tablet.dr 81 Mg PO DAILYWBKFT Digoxin 125 Mcg Tablet 125 Mcg PO DAILY 30 Days Duoneb 0.5-3(2.5) Mg/3 Ml (Albuterol/Ipratropium) 3 Ml Ampul.neb 3 Ml NEB Q4HRS 30 Days Budesonide 0.5 Mg/2 Ml Ampul.neb 1 Vial NEB QHS 30 Days Klor-Con M10 (Potassium Chloride) 10 Meq Tab.er.prt 10 Meq PO DAILYWBKFT Reported Brovana (Arformoterol Tartrate) 15 Mcg/2 Ml Vial.neb 1 Vial NEB BID PRN Ferrous Sulfate 325 Mg Tablet 65 Mg PO DAILY10 Fish Oil 1,000 Mg Capsule ([place]-3 Fatty Acids/Fish Oil) 1 Each Capsule 1 Each PO DAILY16 Xarelto (Rivaroxaban) 10 Mg Tablet 1 Tab PO DAILY Furosemide 40 Mg Tablet 1 Tab PO DAILY Actos (Pioglitazone Hcl) 30 Mg Tablet 1 Tab PO DAILY Glimepiride 4 Mg Tablet 2 Mg PO DAILY Garlic 1,000 Mg Capsule 1,000 Mg PO DAILY Doxazosin Mesylate 4 Mg Tablet 1 Tab PO HS Anti-Diarrhea (Loperamide Hcl) 2 Mg Tablet 2 Mg PO DAILY Proair Hfa Inhaler (Albuterol Sulfate) 8.5 Gm Hfa.aer.ad 2 Puff IH PRN Q4-6HRS PRN Pantoprazole Sodium (Pantoprazole Sodium) 40 Mg Tablet.dr 1 Tab PO DAILY Allopurinol 300 Mg Tablet 1 Tab PO DAILY Vitals/I & O Vital Sign - Last 24 Hours 06/17/19 06/17/19 06/17/19 06/17/19 15:33 19:27 19:37 20:00 Temp 97.8 97.8 Pulse 91 Resp 16 B/P (MAP) 95/48 (64) Pulse Ox 95 98 O2 Delivery Nasal Cannula Nasal Cannula Nasal Cannula Nasal Cannula O2 Flow Rate 2.0 2.0 2.0 2.0 06/17/19 06/18/19 06/18/19 06/18/19 22:50 00:38 03:00 07:26 Temp 97.8 98.3 98.2 97.8 98.3 98.2 Pulse 87 90 84 Resp 16 18 20 B/P (MAP) 100/52 (68) 91/47 (62) 93/44 (60) Pulse Ox 92 96 97 O2 Delivery Nasal Cannula Nasal Cannula Nasal Cannula Nasal Cannula O2 Flow Rate 2.0 2.0 2.0 2.0 06/18/19 06/18/19 06/18/19 06/18/19 08:00 08:11 09:12 09:13 Pulse 84 84 B/P (MAP) 93/44 93/44 Pulse Ox 96 O2 Delivery Nasal Cannula Nasal Cannula O2 Flow Rate 2.0 2.0 06/18/19 06/18/19 06/18/19 09:13 11:00 11:38 Temp 98.1 98.1 Pulse 84 85 Resp 18 B/P (MAP) 93/44 93/42 (59) Pulse Ox 96 95 O2 Delivery Nasal Cannula Nasal Cannula O2 Flow Rate 2.0 2.0 Intake and Output 06/17/19 06/17/19 06/18/19 15:00 23:00 07:00 Intake Total 300 ml 180 ml 1050 ml Output Total 450 ml 550 ml 600 ml Balance -150 ml -370 ml 450 ml JOEL BISHOP MD Jun 18, 2019 15:11
[2019-06-18] MEDS ORDERED: NYST100054 PO (16:07)
[2019-06-18] MEDS ORDERED: [UNRECOGNIZED DRUG - OTHER] (16:07)
[2019-06-18] MEDS: RIVAROXABAN 15 MG TABLET. PO SCH (17:06)
[2019-06-18] MEDS: NYSTATIN 100,000 UNITS/ML 5 ML ORAL.SUSP. PO PRN (17:07)
[2019-06-18 19:00] VITALS: BP 97/52
[2019-06-18] MEDS: BUDESONIDE 0.5 MG/2 ML NEBU. NEB SCH (20:25)
[2019-06-18] MEDS: ATORVASTATIN CALCIUM 20 MG TABLET PO SCH (20:30)
[2019-06-18 23:00] VITALS: BP 102/56
[2019-06-19] MEDS: ALBUTEROL SULFATE 2.5 MG/3 ML NEBU. NEB PRN (00:35)
[2019-06-19 03:00] VITALS: BP 96/47
[2019-06-19] MEDS: ACETAMINOPHEN 325 MG TABLET. PO PRN (04:39)
[2019-06-19 07:00] VITALS: BP 106/40
[2019-06-19] MEDS: IPRATRPIUM/ALBUTEROL 0.5/2.5MG 3 ML NEBU. NEB SCH ×4 (08:26→19:57)
[2019-06-19] MEDS: BUDESONIDE 0.5 MG/2 ML NEBU. NEB SCH ×2 (08:26→19:57)
[2019-06-19] MEDS: LISINOPRIL 5 MG TABLET. PO SCH (08:46)
[2019-06-19] MEDS: FERROUS SULFATE 325 MG TABLET. PO SCH (08:46)
[2019-06-19] MEDS: PANTOPRAZOLE 40 MG TABLET.DR. PO SCH (08:46)
[2019-06-19] MEDS: ALLOPURINOL 300 MG TABLET. PO SCH (08:46)
[2019-06-19] MEDS: ASPIRIN ENTERIC COATED 81 MG TABLET.DR. PO SCH (08:46)
[2019-06-19] MEDS: POTASSIUM CHLORIDE 10 MEQ TABLET.ER. PO SCH ×3 (08:46→17:10)
[2019-06-19] MEDS: NYSTATIN 100,000 UNITS/ML 5 ML ORAL.SUSP. PO PRN (08:47)
[2019-06-19] MEDS: DIGOXIN 125 MCG TABLET. PO SCH (08:47)
[2019-06-19] MEDS: METOPROLOL SUCC 24HR ER 25 MG TAB.ER.24H. PO SCH (08:47)
[2019-06-19] MEDS: FUROSEMIDE 40 MG/4 ML VIAL. IVP SCH ×2 (08:47→13:34)
--- NOTE | 2019-06-19 10:06 | PDOC ---
GENERAL General: vss and afebrile. blood pressures on low side. awake and alert and ready for an ything to feel better. still sob. chest with decreased breath sounds, heart irregular, abdomen benign, 3+ edema. O>I. creatinine 1.9. platelet 78K. VQ negative. heart cath with severe 3 vessel CAD and EF of 30%. plans for viability study tomorrow with possible high risk intervention. VITAL SIGNS/I&O Vital Signs/I&O: Vital Signs Date Time Temp Pulse Resp B/P (MAP) Pulse Ox O2 Delivery O2 Flow Rate FiO2 06/19/19 08:47 87 96/47 06/19/19 08:28 Nasal Cannula 2.0 06/19/19 07:00 97.8 20 97 97.8 I & O 06/18/19 06/18/19 06/19/19 15:00 23:00 07:00 Intake Total 660 ml 800 ml 0 ml Output Total 400 ml 900 ml 400 ml Balance 260 ml -100 ml -400 ml ALLERGIES Allergies: Allergies Coded Allergies Type Severity Reaction Last Updated Verified No Known Drug Allergies 10/17/15 No MEDS Medications: Current Medications Medications (Trade) Dose Ordered Sig/Lety Route PRN Reason Start Time Stop Time Status Last Admin Dose Admin Lisinopril (Prinivil) 2.5 mg DAILY PO 06/18/19 12:00 06/19/19 08:46 Nystatin (Nystatin Oral Susp) 5 ml PRN QID PRN PO TONGUE PAIN 06/18/19 16:15 06/19/19 08:47 GABRIELA VALERA MD Jun 19, 2019 10:06
[2019-06-19 11:00] VITALS: BP 99/46
[2019-06-19] MEDS: ANTI-COAG MONITOR BY PHARMACY. MC PRN (12:26)
[2019-06-19 15:00] VITALS: BP 105/41
[2019-06-19] MEDS: RIVAROXABAN 15 MG TABLET. PO SCH (17:10)
[2019-06-19 19:30] VITALS: BP 101/51
[2019-06-19] MEDS: ATORVASTATIN CALCIUM 20 MG TABLET PO SCH (20:03)
[2019-06-19 22:18] VITALS: BP 134/50
[2019-06-20] MEDS: ALPRAZolam 0.25 MG TABLET PO PRN (02:17)
[2019-06-20 02:44] VITALS: BP 103/50
--- NOTE | 2019-06-20 05:34 | NUR ---
Pt refused morning labs.
[2019-06-20 07:00] VITALS: BP 104/49
[2019-06-20] MEDS: IPRATRPIUM/ALBUTEROL 0.5/2.5MG 3 ML NEBU. NEB SCH ×4 (07:11→20:02)
--- NOTE | 2019-06-20 08:10 | PDOC ---
GENERAL General: vss and afebrile. awake and alert and not happy about breathing and way he is f eeling overall. rest MPI for this am with cardiology plans to follow. chest little less wheezy, heart same, abdomen benign, 3+ edema persists despite O>I. recheck labs am. otherwise same. VITAL SIGNS/I&O Vital Signs/I&O: Vital Signs Date Time Temp Pulse Resp B/P (MAP) Pulse Ox O2 Delivery O2 Flow Rate FiO2 06/20/19 07:11 96 Nasal Cannula 2.0 06/20/19 07:00 98.2 80 20 104/49 (67) 98.2 I & O 06/19/19 06/19/19 06/20/19 15:00 23:00 07:00 Intake Total 200 ml 300 ml 0 ml Output Total 550 ml 400 ml 200 ml Balance -350 ml -100 ml -200 ml ALLERGIES Allergies: Allergies Coded Allergies Type Severity Reaction Last Updated Verified No Known Drug Allergies 10/17/15 No GABRIELA VALERA MD Jun 20, 2019 08:10
[2019-06-20] MEDS: NYSTATIN 100,000 UNITS/ML 5 ML ORAL.SUSP. PO SCH ×4 (09:24→20:58)
[2019-06-20] MEDS: FERROUS SULFATE 325 MG TABLET. PO SCH (09:24)
[2019-06-20] MEDS: ALLOPURINOL 300 MG TABLET. PO SCH (09:24)
[2019-06-20] MEDS: ASPIRIN ENTERIC COATED 81 MG TABLET.DR. PO SCH (09:24)
[2019-06-20] MEDS: LISINOPRIL 5 MG TABLET. PO SCH (09:25)
[2019-06-20] MEDS: PANTOPRAZOLE 40 MG TABLET.DR. PO SCH (09:26)
[2019-06-20] MEDS: POTASSIUM CHLORIDE 10 MEQ TABLET.ER. PO SCH ×3 (09:26→17:49)
[2019-06-20] MEDS: METOPROLOL SUCC 24HR ER 25 MG TAB.ER.24H. PO SCH (09:27)
[2019-06-20] MEDS: FUROSEMIDE 40 MG/4 ML VIAL. IVP SCH ×2 (09:28→14:20)
[2019-06-20] MEDS: DIGOXIN 125 MCG TABLET. PO SCH (09:28)
[2019-06-20 11:00] VITALS: BP 96/45
--- NOTE | 2019-06-20 14:25 | RAD ---
MR#: [id number] Date of Study: 06/20/2019 Ordering Physician: SEVERIANO MATTHEWS, Referring Physician: CHATO GARG Tech: CAMELIA Chacon, ARRT (R) (N) APPROVED REPORT Imaging Protocol IMAGE PROTOCOL: Viability only Rest: Stress: Viability: Radiopharm.Thallium [id number] Img Date 06/20/2019 Rest Admin Site:IV - Right WristAdministrator:CAMELIA Chacon ARRT (R)(N) Viability without Stress The patient was injected with 3mCi of Thallium 201 in the IV - Right Wrist by PHILLIP Chacon at 06/20/2019, 0800 Date/Time. Initial Imaging was performed by PHILLIP Chacon at 06/20/2019, 0845 Date/Time. The patient was injected with 1mCi of Thallium 201 in the IV - Right Wrist by PHILLIP Chacon at 06/20/2019, 0915 Date/Time. Delayed Images were acquired by PHILLIP Chacon at 06/20/2019, 1315 Date/Time. LV Perfusion Myocardial viability study performed at immediate and 4 hour delayed imaging reveals no evidence of h ibernating or infarcted cardiac muscle with near normal viability in all segments of the heart. LV Perf. Quant 17 Seg. SSS1.00 17 Seg. SRS0.00 17 Seg. SDS1.00 Stress Defect Extent (% LAD)0.00Rest Defect Extent (% LAD)0.00Rev. Defect Extent (% LAD)0.00 Stress Defect Extent (% LCX) 0.00Rest Defect Extent (% LCX)0.00Rev. Defect Extent (% LCX)0.00 Stress Defect Extent (% RCA)0.00Rest Defect Extent (% RCA)0.00Rev. Defect Extent (% RCA)0.00 Stress Defect Extent (% LAEX)0.00Rest Defect Extent (% ALEX)0.00Rev. Defect Extent (% ALEX)0.00 Other Information Quality:Good Conclusion 1. Normal myocardial viability at 4 hour delayed images. 2. No clear evidence of previous infarct. Signed by : Severiano Matthews, Electronically Approved : 06/20/2019 14:25:26
[2019-06-20] MEDS: ANTI-COAG MONITOR BY PHARMACY. MC PRN (14:52)
[2019-06-20] MEDS: RIVAROXABAN 15 MG TABLET. PO SCH (17:49)
[2019-06-20] MEDS: ACETAMINOPHEN 325 MG TABLET. PO PRN (17:52)
[2019-06-20 19:55] VITALS: BP 101/51
[2019-06-20] MEDS: BUDESONIDE 0.5 MG/2 ML NEBU. NEB SCH (20:02)
[2019-06-20] MEDS: ATORVASTATIN CALCIUM 20 MG TABLET PO SCH (20:58)
[2019-06-20 22:43] VITALS: BP 92/47
[2019-06-21] MEDS: ALPRAZolam 0.25 MG TABLET PO PRN (01:47)
[2019-06-21 02:21] VITALS: BP 101/52
[2019-06-21 07:00] VITALS: BP 94/47
[2019-06-21] MEDS: IPRATRPIUM/ALBUTEROL 0.5/2.5MG 3 ML NEBU. NEB SCH ×4 (07:54→20:25)
[2019-06-21] MEDS: ALLOPURINOL 300 MG TABLET. PO SCH (09:08)
[2019-06-21] MEDS: NYSTATIN 100,000 UNITS/ML 5 ML ORAL.SUSP. PO SCH ×4 (09:08→21:26)
[2019-06-21] MEDS: POTASSIUM CHLORIDE 10 MEQ TABLET.ER. PO SCH ×3 (09:10→17:42)
[2019-06-21] MEDS: PANTOPRAZOLE 40 MG TABLET.DR. PO SCH (09:10)
[2019-06-21] MEDS: FERROUS SULFATE 325 MG TABLET. PO SCH (09:10)
[2019-06-21] MEDS: ASPIRIN ENTERIC COATED 81 MG TABLET.DR. PO SCH (09:10)
[2019-06-21] MEDS: FUROSEMIDE 40 MG/4 ML VIAL. IVP SCH ×2 (09:11→13:59)
[2019-06-21] MEDS: DIGOXIN 125 MCG TABLET. PO SCH (09:12)
[2019-06-21] MEDS: LISINOPRIL 5 MG TABLET. PO SCH (09:12)
[2019-06-21] MEDS: ACETAMINOPHEN 325 MG TABLET. PO PRN (09:16)
[2019-06-21] MEDS: METOPROLOL SUCC 24HR ER 25 MG TAB.ER.24H. PO SCH (10:53)
[2019-06-21 11:00] VITALS: BP 100/45
--- NOTE | 2019-06-21 11:40 | PN ---
DATE: 06/21/2019 LOCATION: Room 254. SUBJECTIVE: The patient is awake, alert, sitting in chair. States like he is having some problems with breathing off and on, but overall albeit he is little bit better. OBJECTIVE: VITAL SIGNS: Stable. He is afebrile. Output continues greater than intake. Myocardial viability study yesterday shows viable myocardium throughout the heart. CHEST: Reveals less wheezing. HEART: Irregular. ABDOMEN: Benign. EXTREMITIES: Still reveal 2.5-3+ edema and are tender to touch. IMPRESSION: 1. Congestive heart failure. 2. Chronic obstructive pulmonary disease. 3. Edema. 4. Diabetes. 5. Three-vessel coronary artery disease, likely causing a lot of his symptomatology. PLAN: Await Cardiology plans with intervention as they seem necessary. Otherwise, we will continue diuresis at this point. GABRIELA VALERA MD DR: LEONARD/jewels JOB#: [id number] / [id number]
--- NOTE | 2019-06-21 14:25 | NUR ---
SS following up with discharge planning. Pt is currently requiring oxygen. No discharge needs noted at this time. Pt scheduled for cardiac intervention on 06/23/2019. SS will continue to follow for discharge planning.
[2019-06-21 15:20] VITALS: BP 94/50
--- NOTE | 2019-06-21 18:01 | PDOC ---
Provider Note Provider Note No acute events overnight. Continue diuresis as tolerated. We will plan for PCI on (needs to be off anticoagulation for 2 days). Xarelto held today and tomorrow and will plan for PCI on . I discussed with high risk nature of the procedure again with the patient and he understands and wishes to proceed. Thanks SEVERIANO MATTHEWS MD Jun 21, 2019 18:01
[2019-06-21 19:00] VITALS: BP 94/41
[2019-06-21] MEDS: BUDESONIDE 0.5 MG/2 ML NEBU. NEB SCH (20:25)
[2019-06-21] MEDS: ATORVASTATIN CALCIUM 20 MG TABLET PO SCH (21:25)
[2019-06-21 23:00] VITALS: BP 125/46
[2019-06-22 03:00] VITALS: BP 102/34
[2019-06-22] MEDS: PANTOPRAZOLE 40 MG TABLET.DR. PO SCH (06:08)
[2019-06-22 07:00] VITALS: BP 98/46
[2019-06-22] MEDS: IPRATRPIUM/ALBUTEROL 0.5/2.5MG 3 ML NEBU. NEB SCH ×4 (07:29→20:11)
[2019-06-22] MEDS: POTASSIUM CHLORIDE 10 MEQ TABLET.ER. PO SCH ×3 (08:54→17:00)
[2019-06-22] MEDS: ALLOPURINOL 300 MG TABLET. PO SCH (08:55)
[2019-06-22] MEDS: FERROUS SULFATE 325 MG TABLET. PO SCH (08:56)
[2019-06-22] MEDS: ASPIRIN ENTERIC COATED 81 MG TABLET.DR. PO SCH (08:56)
[2019-06-22] MEDS: METOPROLOL SUCC 24HR ER 25 MG TAB.ER.24H. PO SCH (08:57)
[2019-06-22] MEDS: DIGOXIN 125 MCG TABLET. PO SCH (08:57)
[2019-06-22] MEDS: LISINOPRIL 5 MG TABLET. PO SCH (08:58)
[2019-06-22] MEDS: FUROSEMIDE 40 MG/4 ML VIAL. IVP SCH ×2 (08:59→15:17)
[2019-06-22] MEDS: NYSTATIN 100,000 UNITS/ML 5 ML ORAL.SUSP. PO SCH ×4 (10:05→20:31)
[2019-06-22 10:39] VITALS: BP 94/55
--- NOTE | 2019-06-22 10:52 | PN ---
DATE: 06/22/2019 LOCATION: He is in room 254. SUBJECTIVE: The patient is awake, alert. Feels bad all over and very frustrated about having to wait to get the stenting done as every day in the room feels like a year to him at least. He is not particularly short of breath this morning, but with movement becomes more so. OBJECTIVE: VITAL SIGNS: Stable. He is afebrile. CHEST: Clear. HEART: Irregular. ABDOMEN: Benign. Output remains greater than intake. Cardiology is planning for a high-risk PCI on with his triple-vessel disease found on heart cath. IMPRESSION: 1. Congestive heart failure. 2. Chronic obstructive pulmonary disease. 3. ____. 4. Diabetes. 5. Triple-vessel coronary artery disease. PLAN: Continue to hold blood thinners with complex PCI to happen tomorrow; otherwise same. We will recheck labs in the morning. GABRIELA VALERA MD DR: LEONARD/jewels JOB#: [id number] / [id number]
--- NOTE | 2019-06-22 13:33 | PDOC ---
CARDIO Progress Notes Date and Time Date of Service 06/22/2019 Time of Evaluation 1320 Subjective Subjective: No Chest Pain, No shortness of breath, No Palpitations Vitals Vitals Vital Signs Date Time Temp Pulse Resp B/P (MAP) Pulse Ox O2 Delivery O2 Flow Rate FiO2 06/22/19 11:15 Nasal Cannula 2.0 06/22/19 10:39 98.0 84 20 94/55 (68) 94 98.0 Weight Weight [ ] Input and Output Intake and Output Intake and Output 06/22/19 06:59 Intake Total 240 ml Output Total 650 ml Balance -410 ml Intake Oral 240 ml Output Urine Total 650 ml # Voids 3 Physical Exam HEENT: Neck Supple W Full Motion Chest: Symmetric LUNGS: Other (basilar crackles with diffuse faint expiratory wheeze) Heart: irregularly irregular (AFIB rate controlled) Abdomen: Soft N/T Extremities: Other (3+ bilateral Le pitting edema) Neurology: alert, oriented, follow commands Assessment Assessment 1. 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 Chronic AFIB: rate controlled 3. 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 HTN: controlled 5. HLP 6. DM2: per PCP 7. CKD3: baseline appears to be Cr at 1.7 to 1.9 8. Hx of LE PAD: no wounds but has been complaining of leg pain, neuropathic vs significant arterial insufficiency. 9. Anemia of chronic disease: Hgb 10.4 stable 10. Severe 3V CAD: per [facility] 11. Thrombocytopenia: PLT 80 Recommendations 1. Lasix therapy. Holding xarelto for complex PCI tomorrow. Viability study reviewed 2. 2Gm Na dietary restriction and daily weights 4. Continue toprol, lisinopril, ASA, statin, digoxin 5. Will also obtain arterial duplex once edema is improved. 6. Obtain CBC, BMP, Mg PENNY PHILLIPS GERIATRIC ASSISTANT Jun 22, 2019 13:33
[2019-06-22 13:58] LABS: HEMATOCRIT 31.5 % (39.0-53.0); HEMOGLOBIN 9.9 g/dL (13.0-17.5); RED BLOOD COUNT 3.72 x10^6/uL (4.30-5.70); RED CELL DISTRIBUTION WIDTH 18.8 % (11.5-14.5); WHITE BLOOD COUNT 4.3 x10^3/uL (4.0-11.0)
[2019-06-22 14:05] LABS: CALCIUM 8.7 mg/dL (8.5-10.1); CREATININE 1.8 mg/dL (0.7-1.3); GFR 36.6; POTASSIUM 5.1 mmol/L (3.5-5.1)
[2019-06-22 15:00] VITALS: BP 102/45
[2019-06-22 19:47] VITALS: BP 97/51
[2019-06-22] MEDS: BUDESONIDE 0.5 MG/2 ML NEBU. NEB SCH (20:09)
[2019-06-22] MEDS: ATORVASTATIN CALCIUM 20 MG TABLET PO SCH (20:31)
[2019-06-22 22:25] VITALS: BP 109/57
[2019-06-23] VITALS (27 sets, daily range): BP systolic 85–119; BP diastolic 45–63
[2019-06-23 06:06] LABS: BASO % 1 % (0-3); EOS # 0.1 x10^3/uL (0.0-0.7); EOS % 2 % (0-3); HEMATOCRIT 31.9 % (39.0-53.0); LYMPH # 0.6 x10^3/uL (1.0-4.8); LYMPH % 14 % (24-48); MEAN CORPUSCULAR HEMOGLOBIN 27 pg (25-35); MEAN CORPUSCULAR HGB CONC 31 g/dL (31-37); MEAN CORPUSCULAR VOLUME 86 fL (79-100); MONO # 0.3 x10^3/uL (0.0-1.1); MONO % 6 % (0-9); NEUT # 3.6 x10^3/uL (1.8-7.7); NEUT % 77 % (31-73); PLATELET COUNT 72 x10^3/uL (140-400); RED BLOOD COUNT 3.73 x10^6/uL (4.30-5.70); RED CELL DISTRIBUTION WIDTH 19.2 % (11.5-14.5); WHITE BLOOD COUNT 4.7 x10^3/uL (4.0-11.0)
[2019-06-23 06:22] LABS: ALBUMIN 2.9 g/dL (3.4-5.0); ALBUMIN/GLOBULIN RATIO 1.1 (1.0-1.7); CALCIUM 8.9 mg/dL (8.5-10.1); CREATININE 1.6 mg/dL (0.7-1.3); GFR 41.9; POTASSIUM 5.3 mmol/L (3.5-5.1); TOTAL BILIRUBIN 0.9 mg/dL (0.2-1.0); TOTAL PROTEIN 5.5 g/dL (6.4-8.2)
[2019-06-23] MEDS: PANTOPRAZOLE 40 MG TABLET.DR. PO SCH (07:30)
[2019-06-23] MEDS: IPRATRPIUM/ALBUTEROL 0.5/2.5MG 3 ML NEBU. NEB SCH ×4 (08:00→19:27)
[2019-06-23] MEDS: BUDESONIDE 0.5 MG/2 ML NEBU. NEB SCH (08:36)
[2019-06-23] MEDS: FUROSEMIDE 40 MG/4 ML VIAL. IVP SCH ×2 (09:00→14:00)
[2019-06-23] MEDS: ALLOPURINOL 300 MG TABLET. PO SCH (09:00)
[2019-06-23] MEDS: ALPRAZolam 0.25 MG TABLET PO PRN ×2 (09:02→16:46)
[2019-06-23] MEDS: ASPIRIN ENTERIC COATED 81 MG TABLET.DR. PO SCH (09:02)
[2019-06-23] MEDS: DIGOXIN 125 MCG TABLET. PO SCH (09:02)
[2019-06-23] MEDS: METOPROLOL SUCC 24HR ER 25 MG TAB.ER.24H. PO SCH (09:02)
[2019-06-23] MEDS: LISINOPRIL 5 MG TABLET. PO SCH (09:05)
[2019-06-23] MEDS: POTASSIUM CHLORIDE 10 MEQ TABLET.ER. PO SCH ×3 (09:06→16:52)
[2019-06-23] MEDS: NYSTATIN 100,000 UNITS/ML 5 ML ORAL.SUSP. PO SCH ×4 (09:06→21:19)
--- NOTE | 2019-06-23 09:33 | PN ---
DATE: 06/23/2019 DAILY PROGRESS NOTE LOCATION: He is in room 254. SUBJECTIVE: The patient is awake, alert, taking breathing treatments for today's cardiac intervention with hopefully feeling better on the other and ready to get home at some point. Symptoms are stable. OBJECTIVE: VITAL SIGNS: Stable. He is afebrile. Output is greater than intake. LABORATORY DATA: Hemoglobin is 10. Chemistry shows stable renal function with BUN of 36, creatinine of 1.6, which is actually slightly improved. Potassium is 5.3 this morning. IMPRESSION: 1. Acute systolic heart failure, clinically with mild improvement. 2. Three-vessel coronary artery disease with intervention today planned for the circumflex and right coronary artery per Dr. Butler. 3. Chronic obstructive pulmonary disease. 4. Diabetes. PLAN: Agree with a complex intervention today. Hopefully, this will improve things on the other hand. GABRIELA VALERA MD DR: LEONARD/jewels JOB#: [id number] / [id number]
[2019-06-23] MEDS: FERROUS SULFATE 325 MG TABLET. PO SCH (10:00)
[2019-06-23] MEDS ORDERED: CLOPIDOGREL BISULFATE 75 MG TABLET PO ONE (10:30)
[2019-06-23] MEDS ORDERED: IODIXANOL 320 MG/ML 100 ML VIAL. ONE ×2 (12:02→13:07)
[2019-06-23] MEDS ORDERED: LIDOCAINE 1% Multi-Dose 20 ML VIAL. ONE (12:02)
[2019-06-23] MEDS ORDERED: fentaNYL PF VIAL 250 MCG/5 ML VIAL ONE (12:19)
[2019-06-23] MEDS ORDERED: MIDAZOLAM HCL/PF 5 MG/5 ML VIAL. ONE (12:20)
[2019-06-23] MEDS ORDERED: TIROFIBAN 12.5MG -0.9% NS 0 ML IV ONE (12:20)
[2019-06-23] MEDS ORDERED: HEPARIN for IV BOLUS 10,000 UNIT/10 ML VIAL. ONE (12:45)
[2019-06-23] MEDS ORDERED: ONDANSETRON PF 4 MG/2 ML VIAL. ONE (13:07)
[2019-06-23] MEDS ORDERED: METOPROLOL TARTRATE 5 MG/5 ML VIAL. IVP ONE ×2 (13:37→14:00)
[2019-06-23] MEDS ORDERED: LIDOCAINE 1% Multi-Dose 20 ML VIAL. INJ ONE (14:00)
[2019-06-23] MEDS ORDERED: fentaNYL PF VIAL 250 MCG/5 ML VIAL IV ONE (14:00)
[2019-06-23] MEDS ORDERED: HEPARIN for IV BOLUS 10,000 UNIT/10 ML VIAL. IV ONE (14:00)
[2019-06-23] MEDS ORDERED: MIDAZOLAM HCL/PF 5 MG/5 ML VIAL. IV ONE (14:00)
[2019-06-23] MEDS ORDERED: NITROGLYCERIN 200 MCG/2 ML SYRINGE FOR CATH/VASC LAB. IART ONE (14:00)
[2019-06-23] MEDS ORDERED: IODIXANOL 320 MG/ML 100 ML VIAL. IART ONE (14:00)
[2019-06-23] MEDS ORDERED: fentaNYL PF VIAL 100 MCG/2 ML VIAL IVP ONE (15:45)
[2019-06-23] MEDS: ACETAMINOPHEN 325 MG TABLET. PO PRN (16:46)
[2019-06-23] MEDS: ATORVASTATIN CALCIUM 20 MG TABLET PO SCH (21:00)
[2019-06-23] MEDS ORDERED: HYDROcodone/APAP 5/325MG 1 TAB TABLET PO PRN ×2 (22:45)
[2019-06-23] MEDS: CYCLOBENZAPRINE 10 MG TABLET. PO PRN (22:49)
[2019-06-24] VITALS (11 sets, daily range): BP systolic 82–119; BP diastolic 43–69
[2019-06-24] MEDS: ALPRAZolam 0.25 MG TABLET PO PRN (00:34)
[2019-06-24] MEDS: ALBUTEROL SULFATE 2.5 MG/3 ML NEBU. NEB PRN (03:22)
--- NOTE | 2019-06-24 03:29 | NUR ---
Patient increasingly agitated, complaining of pain. Received orders for Ativan, family refusing all pain Meds and Ativan at this time. Patient heart rate elevated. Will continue to monitor patient.
--- NOTE | 2019-06-24 04:40 | NUR ---
Pt SPO2 in the 80s on 4L n/c. RT paged. Received call back from RT Jodi. Jodi stated to place pt on 50% venti mask at this time. Pt placed on venti mask, tolerating well so far. SPO2 currently 96% on 50% (15L). Pts family at bedside and call light within reach.
[2019-06-24 05:22] LABS: DIG 1.5 ng/mL (0.9-2.0)
[2019-06-24] MEDS: POTASSIUM CHLORIDE 10 MEQ TABLET.ER. PO SCH (08:00)
[2019-06-24] MEDS: IPRATRPIUM/ALBUTEROL 0.5/2.5MG 3 ML NEBU. NEB SCH ×4 (08:00→20:07)
--- NOTE | 2019-06-24 08:30 | PN ---
DATE: 06/24/2019 LOCATION: Room 254. SUBJECTIVE: The patient is awake, alert, not quite at his usual status after a rough night with a lot of agitation and confusion. Grandson is present. OBJECTIVE: VITAL SIGNS: Stable. He is afebrile. He has been somewhat tachycardic during the night and he has the underlying AFib. Clotting studies are within normal limits. The patient has had some oozing from the right groin at the site of the heart cath and intervention yesterday that has oozed all night, but has finally stopped. He is wanting to move around in bed at this point in time and hopefully we can get him up this morning and help improve. CHEST: Reveals some scattered bilateral wheezes. HEART: Irregularly irregular consistent with his AFib. ABDOMEN: Benign. Edema has decreased at least 50% from yesterday and is likely from lying down overnight after the heart cath. Output is greater than intake the last 24 hours. IMPRESSION: 1. Acute systolic heart failure clinically with some mild improvement. 2. Three-vessel coronary artery disease with intervention yesterday. 3. Diabetes. 4. Chronic obstructive pulmonary disease. 5. Bleeding from groin, possibly exacerbated by his platelet count of 72,000, although I would not think this would cause too big of a problem. PLAN: Continue present care. We will get him up and around today. Hopefully, mentally he clears, which I would guess he would and we will see how the patient feels with more blood flow to his heart. GABRIELA VALERA MD DR: LEONARD/jewels JOB#: [id number] / [id number]
[2019-06-24] MEDS ORDERED: RIVAROXABAN 10 MG TABLET. PO SCH (09:00)
[2019-06-24] MEDS: NYSTATIN 100,000 UNITS/ML 5 ML ORAL.SUSP. PO SCH ×4 (09:00→20:58)
[2019-06-24] MEDS: FUROSEMIDE 40 MG/4 ML VIAL. IVP SCH ×2 (14:18→17:51)
[2019-06-24] MEDS: DIGOXIN 125 MCG TABLET. PO SCH (14:19)
[2019-06-24] MEDS: ASPIRIN ENTERIC COATED 81 MG TABLET.DR. PO SCH (14:19)
[2019-06-24] MEDS: CLOPIDOGREL BISULFATE 75 MG TABLET PO SCH (14:19)
[2019-06-24] MEDS: ALLOPURINOL 300 MG TABLET. PO SCH (14:19)
[2019-06-24] MEDS: PANTOPRAZOLE 40 MG TABLET.DR. PO SCH (14:19)
[2019-06-24] MEDS: LISINOPRIL 5 MG TABLET. PO SCH (14:28)
[2019-06-24] MEDS: METOPROLOL SUCC 24HR ER 25 MG TAB.ER.24H. PO SCH (14:30)
[2019-06-24] MEDS: FERROUS SULFATE 325 MG TABLET. PO SCH (14:32)
--- NOTE | 2019-06-24 16:40 | PDOC ---
CARDIOLOGY PROGRESS NOTE SUBJECTIVE: Feels tired today. Denies any chest pain. Groin pain is improved. OBJECTIVE: Vital Signs/I&O: Vital Signs Date Time Temp Pulse Resp B/P (MAP) Pulse Ox O2 Delivery O2 Flow Rate FiO2 06/24/19 15:22 95 Nasal Cannula 3.0 06/24/19 15:00 97.9 76 22 110/53 (72) 97.9 I & O 06/23/19 06/23/19 06/24/19 15:00 23:00 07:00 Intake Total 120 ml Output Total 400 ml Balance 120 ml -400 ml Objective: a/o x 3. NAD CVS: irr irr. no m/r/g lungs with decreased breath sounds at the bases soft abd Trace edema CURRENT MEDICATIONS: Current Medications Medications (Trade) Dose Ordered Sig/Lety Route PRN Reason Start Time Stop Time Status Last Admin Dose Admin Clopidogrel Bisulfate (Plavix) 75 mg DAILYWBKFT PO 06/24/19 08:00 06/24/19 14:19 Rivaroxaban (Xarelto) 2.5 mg BID PO 06/24/19 09:00 06/24/19 14:21 Cyclobenzaprine HCl (Flexeril) 10 mg PRN BID PRN PO MUSCLE SPASMS 06/23/19 22:45 06/23/19 22:49 Acetaminophen/ Hydrocodone Bitart (Lortab 5/325) 1 tab PRN Q4HRS PRN PO MODERATE PAIN 4-6 06/23/19 22:45 06/23/19 22:49 Acetaminophen/ Hydrocodone Bitart (Lortab 5/325) 2 tab PRN Q4HRS PRN PO SEVERE PAIN 7-10 06/23/19 22:45 06/24/19 04:29 DIAGNOSTIC TESTING: Labs: Laboratory Tests Test 06/24/19 04:30 Digoxin Level 1.5 ng/mL (0.9-2.0) Digoxin Last Dose Date 06/23/19 Digoxin Last Dose Time 1000 ASSESSMENT: 1. Acute on chronic systolic HF 2. Ischemic CMP 3. CKD 4. Permanent afib. PLAN: 1. continue toprol XL, lisinopril, digoxin, xarelto 15mg daily, plavix 75mg daily. 2. Consider oral lasix and spironolactone tomorrow. Supportive care. Rehab versus home. Defer to SEVERIANO Arroyo MD Jun 24, 2019 16:40
[2019-06-24] MEDS: RIVAROXABAN 15 MG TABLET. PO SCH (17:44)
[2019-06-24] MEDS: BUDESONIDE 0.5 MG/2 ML NEBU. NEB SCH (20:08)
[2019-06-24] MEDS: ATORVASTATIN CALCIUM 20 MG TABLET PO SCH (20:58)
--- NOTE | 2019-06-25 02:47 | NUR ---
During report at shift changed this nurse was informed by off going nurse that was staying over d/t Patient low blood pressure and being asymptomatic, dayshift nurse informed this nurse that primary care physician and cardiology consults are both aware, and for this nurse to not administer PRN pain medication and anti-sedative for it will drop Patient's blood pressure even lower, Patient was given IV Lasix, Push and will be restarted on PO Lasix, at discharge, he has CHF and is not a candidate for IVF's. At this he pulled his IV out and his BP is low again, house mover supervisor was by, charge nurse and house mover supervisor very concern, food preparation supervisor, restarted a new IV site and had this nurse called both Primary care physician Dr. Ambrose and Dr. Butler, both doctors replied the same, " He have been low the whole time off and on, I am aware off it, he has been asymptomatic, he is on IV Lasix! He has CHF! Please pass it on!"
[2019-06-25 03:00] VITALS: BP 78/45
[2019-06-25] MEDS: ALBUTEROL SULFATE 2.5 MG/3 ML NEBU. NEB PRN (03:58)
[2019-06-25 07:00] VITALS: BP 99/51
[2019-06-25] MEDS: IPRATRPIUM/ALBUTEROL 0.5/2.5MG 3 ML NEBU. NEB SCH ×4 (08:26→19:15)
[2019-06-25] MEDS: LISINOPRIL 5 MG TABLET. PO SCH (08:53)
[2019-06-25] MEDS: CLOPIDOGREL BISULFATE 75 MG TABLET PO SCH (08:53)
[2019-06-25] MEDS: ALLOPURINOL 300 MG TABLET. PO SCH (08:53)
[2019-06-25] MEDS: FUROSEMIDE 40 MG/4 ML VIAL. IVP SCH (08:53)
[2019-06-25] MEDS: PANTOPRAZOLE 40 MG TABLET.DR. PO SCH (08:53)
[2019-06-25] MEDS: DIGOXIN 125 MCG TABLET. PO SCH (08:54)
[2019-06-25] MEDS: FERROUS SULFATE 325 MG TABLET. PO SCH (08:54)
[2019-06-25] MEDS: NYSTATIN 100,000 UNITS/ML 5 ML ORAL.SUSP. PO SCH ×4 (09:00→20:13)
[2019-06-25 11:00] VITALS: BP 106/51
[2019-06-25] MEDS: SPIRONOLACTONE 25 MG TABLET PO SCH (12:07)
[2019-06-25] MEDS: METOPROLOL SUCC 24HR ER 25 MG TAB.ER.24H. PO SCH (12:07)
--- NOTE | 2019-06-25 12:28 | PDOC ---
Provider Note Provider Note vss but bp low- creat better but K+ up 5.3 , prior to aldactone and off kcl- gwyn hold lisinopril re K+/bp and follow RHODA CURIEL MD Jun 25, 2019 12:28
[2019-06-25 15:00] VITALS: BP 97/52
[2019-06-25] MEDS: FUROSEMIDE 40 MG TABLET. PO SCH (17:27)
[2019-06-25] MEDS: RIVAROXABAN 15 MG TABLET. PO SCH (17:27)
[2019-06-25] MEDS: BUDESONIDE 0.5 MG/2 ML NEBU. NEB SCH (19:15)
[2019-06-25 19:30] VITALS: BP 95/40
[2019-06-25] MEDS: ATORVASTATIN CALCIUM 20 MG TABLET PO SCH (20:13)
--- NOTE | 2019-06-25 23:44 | PDOC ---
CARDIOLOGY PROGRESS NOTE SUBJECTIVE: Feels tired but wants to go home. Denies any chest pain. OBJECTIVE: Vital Signs/I&O: Vital Signs Date Time Temp Pulse Resp B/P (MAP) Pulse Ox O2 Delivery O2 Flow Rate FiO2 06/25/19 20:00 Nasal Cannula 4.5 06/25/19 19:30 98.0 81 26 95/40 (58) 98 98.0 I & O 06/24/19 06/24/19 06/25/19 14:59 22:59 06:59 Intake Total 120 ml 100 ml Output Total 250 ml 400 ml 200 ml Balance -250 ml -280 ml -100 ml Objective: He is a/o x 3. NAD Lungs are clear. He has 2+ pitting edema still. Irregular but controlled heart rate CURRENT MEDICATIONS: Current Medications Medications (Trade) Dose Ordered Sig/Lety Route PRN Reason Start Time Stop Time Status Last Admin Dose Admin Furosemide (Lasix) 40 mg BID94 PO 06/25/19 16:00 06/25/19 17:27 Spironolactone (Aldactone) 25 mg DAILY PO 06/25/19 12:00 06/25/19 12:07 DIAGNOSTIC TESTING: No new labs. ASSESSMENT: 1. Acute on chronic systolic and diastolic HF 2. CKD 3. CAD s/p PCI PLAN: 1. Will repeat labs in a.m. and continue present meds. Lasix changed to oral therapy and spironolactone added. 2. His BP will not allow high doses of faheem-inh or hydral/imdur therapy, consider on an outpt basis. Will refer to [facility] on an outpt basis for HF mgmt. SEVERIANO MATTHEWS MD Jun 25, 2019 23:44
[2019-06-25 23:48] VITALS: BP 108/47
[2019-06-26] MEDS: ALBUTEROL SULFATE 2.5 MG/3 ML NEBU. NEB PRN (01:45)
[2019-06-26 03:00] VITALS: BP 99/51
[2019-06-26 07:32] VITALS: BP 103/46
[2019-06-26] MEDS: IPRATRPIUM/ALBUTEROL 0.5/2.5MG 3 ML NEBU. NEB SCH ×4 (07:49→20:23)
[2019-06-26] MEDS: NYSTATIN 100,000 UNITS/ML 5 ML ORAL.SUSP. PO SCH ×4 (08:53→20:56)
[2019-06-26] MEDS: SPIRONOLACTONE 25 MG TABLET PO SCH (08:54)
[2019-06-26] MEDS: CLOPIDOGREL BISULFATE 75 MG TABLET PO SCH (08:54)
[2019-06-26] MEDS: ALLOPURINOL 300 MG TABLET. PO SCH (08:54)
[2019-06-26] MEDS: PANTOPRAZOLE 40 MG TABLET.DR. PO SCH (08:54)
[2019-06-26] MEDS: FUROSEMIDE 40 MG TABLET. PO SCH ×2 (08:54→15:57)
[2019-06-26] MEDS: METOPROLOL SUCC 24HR ER 25 MG TAB.ER.24H. PO SCH (08:55)
[2019-06-26] MEDS: DIGOXIN 125 MCG TABLET. PO SCH (08:55)
[2019-06-26] MEDS: FERROUS SULFATE 325 MG TABLET. PO SCH (08:55)
[2019-06-26 10:26] VITALS: BP 94/45
--- NOTE | 2019-06-26 10:29 | PDOC ---
Provider Note Provider Note bp still low 100 off acei 24 hrs- repeat K+ pending- continue same meds for now RHODA CURIEL MD Jun 26, 2019 10:29
--- NOTE | 2019-06-26 12:40 | PDOC ---
Provider Note Provider Note No new events overnight. Still has significant LE edema despite aggressive diuresis. Resp status is stable. HR is well controlled. Current meds: lasix 40mg p.o bid Spironolactone 25mg daily Xarelto 15mg daily plavix 75mg daily atrovastatin 20mg daily Toprol Xl 25mg daily Dig 0.125mg daily Lisinopril (held) due to CKD and hyperkalemia. 1. Acute on chronic systolic/diastolic HF/Ischemic CMP 2. CKD Plan 1. Ok to DC later today if K, Mg and CBC stable. 2. Will need close f/u in the office in 1 week. 3. DC on above meds. Will consider outpt initiation of Entresto. Thanks SEVERIANO MATTHEWS MD Jun 26, 2019 12:40
[2019-06-26] MEDS ORDERED: FUROSEMIDE 40 MG/4 ML VIAL. IVP ONE (13:00)
[2019-06-26 14:24] VITALS: BP 102/45
[2019-06-26] MEDS: ACETAMINOPHEN 325 MG TABLET. PO PRN (15:57)
[2019-06-26] MEDS: RIVAROXABAN 15 MG TABLET. PO SCH (17:51)
[2019-06-26 19:55] VITALS: BP 97/50
[2019-06-26] MEDS: BUDESONIDE 0.5 MG/2 ML NEBU. NEB SCH (20:23)
[2019-06-26] MEDS: ATORVASTATIN CALCIUM 20 MG TABLET PO SCH (20:56)
[2019-06-26 21:37] LABS: CALCIUM 8.4 mg/dL (8.5-10.1); GFR 32.4; POTASSIUM 4.7 mmol/L (3.5-5.1)
[2019-06-26 22:47] VITALS: BP 104/44
[2019-06-27 03:27] VITALS: BP 98/52
[2019-06-27] MEDS: IPRATRPIUM/ALBUTEROL 0.5/2.5MG 3 ML NEBU. NEB SCH ×2 (05:39→11:14)
[2019-06-27 07:00] VITALS: BP 111/55
[2019-06-27] MEDS: FUROSEMIDE 40 MG TABLET. PO SCH ×2 (08:47→16:16)
[2019-06-27] MEDS: NYSTATIN 100,000 UNITS/ML 5 ML ORAL.SUSP. PO SCH ×2 (08:47→16:16)
[2019-06-27] MEDS: CLOPIDOGREL BISULFATE 75 MG TABLET PO SCH (08:47)
[2019-06-27] MEDS: PANTOPRAZOLE 40 MG TABLET.DR. PO SCH (08:47)
[2019-06-27] MEDS: CYCLOBENZAPRINE 10 MG TABLET. PO PRN (08:47)
[2019-06-27] MEDS: METOPROLOL SUCC 24HR ER 25 MG TAB.ER.24H. PO SCH (08:48)
[2019-06-27] MEDS: ALLOPURINOL 300 MG TABLET. PO SCH (08:48)
[2019-06-27] MEDS: DIGOXIN 125 MCG TABLET. PO SCH (08:48)
[2019-06-27] MEDS: SPIRONOLACTONE 25 MG TABLET PO SCH (08:48)
[2019-06-27] MEDS: FERROUS SULFATE 325 MG TABLET. PO SCH (10:47)
[2019-06-27 11:02] VITALS: BP 102/51
--- NOTE | 2019-06-27 11:24 | CARD ---
MR#: [id number] Date of Study: 06/23/2019 Ordering Physician: SEVERIANO BUTLER, Referring Physician: SEVERIANO BUTLER, Tech: NUNU JAIN RTR APPROVED REPORT Technologist: NUNU JAIN RTR Nurse: TAWANDA ESQUIVEL RN Procedure(s) performed: MODERATE SEDATION TIME: 80 MIN FLUORO TIME: 21.6 MIN DOSE:352 GYCM2 CONTRAST:158 LHC PTCA of the LCx. PCI and atherectomy of the RCA HISTORY The patient is a 78 year-old male with a history of : coronary artery disease, tobacco history() , hy pertension, dyslipidemia. INDICATION The indication(s) include : non-STEMI , dyspnea. CS Clinical Frailty Scale [facility] Clinical Frailty Scale: Severely Frail Heart Failure Heart Failure: Yes If Yes, Newly Diagnosed: No If Yes, HF Type: Diastolic Systolic If Yes, NYHA Class: Class II PROCEDURE NARRATIVE After appropriate informed consent the patient was brought to the specialist employee labor relations and the groins were preppe d and draped in usual sterile fashion. Under 1% lidocaine local anesthesia a 6Fr sheath was inserted in the RCFA and RCFV via the modified s eldinger technique. Next, a 6Fr pacer was placed in the RV apex and appropriate thresholds were obtained. LIMITED DIAGNOSTIC ANGIOGRAPHY: LM: Distal 20% stenosis. LCX: No significant disease with distal AV groove cx providing collaterals to the RPL system. OM1: Has a very early take-off not noted on prior angiogram with diffuse 90% stenosis. Possible dual LCx system. RCA is a moderate caliber vessel with severe diffuse disease of up to 90% INTERVENTIONAL TECHNIQUE: PTCA of the LCx. Heparin was used for anticoagulation. The patient was loaded with Plavix. Through a 6Fr EBU 3.5 guide catheter, a 0.014'' Prowater wire was advanced with significant difficulty due to tortuousity. Next, balloon angioplasty was performed with a Trek 2.0/12 mm balloon at 12 steffi. The distal OM1 was bifurc ating with the overall caliber of the vessel being approximately 2 mm and therefore, further interven tion was deferred. INTERVENTIONAL TECHNIQUE: ATHERECTOMY AND PCI OF THE RCA Through a JR4 guide catheter, a 0.012'' Viper wire was advanced to the distal RCA with the aid of a F ine cross catheter, orbital atherectomy was performed with a CSI device. Balloon angioplasty and sten ting was performed with a 2.0/12 mm balloon and overlapping Resolute 2.5/38 and 3.0/22 ABDELRAHMAN. The proxi mal half of the stent was post-dilated with a Trek 3.5 mm NC balloon at 16 steffi. Final angiography dem onstrated excellent stent expansion with ANDREA 3 flow in the RPDA. This case was complex due to significant calcification, patient's hemodynamic status requiring presso r support. No acute complications noted. The right femoral and venous sheaths were removed via manual compression. ANDREA Flow ANDREA Flow (Pre-Intervention): ANDREA-2 ANDREA Flow (Post-Intervention): ANDREA-3 ANDREA Flow ANDREA Flow (Pre-Intervention): ANDREA-2 ANDREA Flow (Post-Intervention): ANDREA-3 Conclusion 1. Three vessel coronary disease with acute on chronic systolic and diastolic HF. 2. Successful atherectomy and PCI of the RCA with implantation of overlapping Resolute 2.5/38 and 3.0 /22 ABDELRAHMAN. 3. Successful PTCA of the small caliber LCx. Recommendations 1. ASA 81mg 2. Plavix 75mg daily 3. Will consider Xarelto and Plavix at discharge for afib. 4. Continue diuresis and aggressive HF regimen. Signed by : Severiano Butler, Electronically Approved : 06/24/2019 10:23:09
[2019-06-27 13:01] LABS: BASO % 1 % (0-3); EOS # 0.1 x10^3/uL (0.0-0.7); EOS % 3 % (0-3); HEMATOCRIT 28.9 % (39.0-53.0); HEMOGLOBIN 9.2 g/dL (13.0-17.5); LYMPH # 0.6 x10^3/uL (1.0-4.8); LYMPH % 14 % (24-48); MEAN CORPUSCULAR HEMOGLOBIN 27 pg (25-35); MEAN CORPUSCULAR HGB CONC 32 g/dL (31-37); MEAN CORPUSCULAR VOLUME 84 fL (79-100); MONO # 0.3 x10^3/uL (0.0-1.1); MONO % 8 % (0-9); NEUT % 74 % (31-73); PLATELET COUNT 126 x10^3/uL (140-400); RED BLOOD COUNT 3.44 x10^6/uL (4.30-5.70); RED CELL DISTRIBUTION WIDTH 18.5 % (11.5-14.5)
[2019-06-27 13:30] LABS: ALBUMIN 2.8 g/dL (3.4-5.0); CALCIUM 8.6 mg/dL (8.5-10.1); TOTAL PROTEIN 5.7 g/dL (6.4-8.2)
[2019-06-27 13:31] LABS: CREATININE 1.9 mg/dL (0.7-1.3); GFR 34.4; MAGNESIUM 2.1 mg/dL (1.8-2.4); POTASSIUM 4.4 mmol/L (3.5-5.1); TOTAL BILIRUBIN 0.7 mg/dL (0.2-1.0)
[2019-06-27] MEDS ORDERED: RIVA15TA PO (14:01)
[2019-06-27] MEDS ORDERED: ATOR20TA58 PO (14:01)
[2019-06-27] MEDS ORDERED: SPIR25TA PO (14:01)
[2019-06-27] MEDS ORDERED: METO-239 PO (14:01)
[2019-06-27] MEDS ORDERED: CLOP75TA PO (14:01)
--- NOTE | 2019-06-27 14:02 | PDOC ---
ROBERT ARNOLD SUPERVISOR FINISHING 06/27/19 1402: CARDIO Progress Notes Date and Time Date of Service 06/27/19 Time of Evaluation 1210 Subjective Subjective: No Chest Pain, No shortness of breath, No Palpitations Vitals Vitals Vital Signs Date Time Temp Pulse Resp B/P (MAP) Pulse Ox O2 Delivery O2 Flow Rate FiO2 06/27/19 11:14 92 Nasal Cannula 3.0 06/27/19 11:02 97.6 82 20 102/51 (68) 97.6 Weight Weight [ ] Input and Output Intake and Output Intake and Output 06/27/19 06:59 Intake Total 1780 ml Output Total 1475 ml Balance 305 ml Intake Oral 1780 ml Output Urine Total 1475 ml Laboratory Labs Laboratory Tests Test 06/26/19 21:10 06/27/19 12:25 Sodium Level 143 mmol/L (136-145) 144 mmol/L (136-145) Potassium Level 4.7 mmol/L (3.5-5.1) 4.4 mmol/L (3.5-5.1) Chloride Level 106 mmol/L (98-107) 105 mmol/L (98-107) Carbon Dioxide Level 34 mmol/L (21-32) 34 mmol/L (21-32) Anion Gap 3 (6-14) 5 (6-14) Blood Urea Nitrogen 50 mg/dL (8-26) 45 mg/dL (8-26) Creatinine 2.0 mg/dL (0.7-1.3) 1.9 mg/dL (0.7-1.3) Estimated GFR (Cockcroft-Gault) 32.4 34.4 Glucose Level 126 mg/dL (70-99) 120 mg/dL (70-99) Calcium Level 8.4 mg/dL (8.5-10.1) 8.6 mg/dL (8.5-10.1) White Blood Count 4.0 x10^3/uL (4.0-11.0) Red Blood Count 3.44 x10^6/uL (4.30-5.70) Hemoglobin 9.2 g/dL (13.0-17.5) Hematocrit 28.9 % (39.0-53.0) Mean Corpuscular Volume 84 fL (79-100) Mean Corpuscular Hemoglobin 27 pg (25-35) Mean Corpuscular Hemoglobin Concent 32 g/dL (31-37) Red Cell Distribution Width 18.5 % (11.5-14.5) Platelet Count 126 x10^3/uL (140-400) Neutrophils (%) (Auto) 74 % (31-73) Lymphocytes (%) (Auto) 14 % (24-48) Monocytes (%) (Auto) 8 % (0-9) Eosinophils (%) (Auto) 3 % (0-3) Basophils (%) (Auto) 1 % (0-3) Neutrophils # (Auto) 3.0 x10^3/uL (1.8-7.7) Lymphocytes # (Auto) 0.6 x10^3/uL (1.0-4.8) Monocytes # (Auto) 0.3 x10^3/uL (0.0-1.1) Eosinophils # (Auto) 0.1 x10^3/uL (0.0-0.7) Basophils # (Auto) 0.0 x10^3/uL (0.0-0.2) BUN/Creatinine Ratio 24 (6-20) Magnesium Level 2.1 mg/dL (1.8-2.4) Total Bilirubin 0.7 mg/dL (0.2-1.0) Aspartate Amino Transf (AST/SGOT) 23 U/L (15-37) Alanine Aminotransferase (ALT/SGPT) 26 U/L (16-63) Alkaline Phosphatase 138 U/L (46-116) Total Protein 5.7 g/dL (6.4-8.2) Albumin 2.8 g/dL (3.4-5.0) Albumin/Globulin Ratio 1.0 (1.0-1.7) Physical Exam HEENT: Neck Supple W Full Motion Chest: Symmetric LUNGS: Other (diminished bases) Heart: irregularly irregular (AFIB rate controlled) Abdomen: Soft N/T Extremities: Other (1-2+ bilateral LE pitting edema) Neurology: alert, oriented, follow commands Assessment Assessment 1. Acute on chronic systolic/diastolic HF 2. ICM; LVEF 30% 3. 3V CAD s/p atherectomy and PCI/SEd to the RCA and PTCA of LCx. 4. Chronic AFIB: rate controlled 5. Hypertension; controlled 6. Hyperlipidemia; statin 7. Diabetes, II 8. CKD; Cr stable 9. Thrombocytopenia: PLT 126 Recommendations Secondary prevention; Xarelto and Plavix due to AFIB. Rate control with metoprolol Lasix, spironolactone 2Gm Na dietary restriction and daily weights Will consider Entresto on an outpatient basis Okay to discharge from a CV standpoint and f/u with Dr. Butler as scheduled SEVERIANO BUTLER MD 06/28/19 0911: CARDIO Progress Notes Plan Plan Late entry for 06/27/2019. Pt. seen and examined. Agree with above PORTABLE IRRIGATION OPERATOR note. Ok to DC, labs in 1 week. ROBERT ARNOLD APRN Jun 27, 2019 14:02 SEVERIANO BUTLER MD Jun 28, 2019 09:11
[2019-06-27 15:30] VITALS: BP 109/70
--- NOTE | 2019-06-27 15:45 | NUR ---
SS following up with discharge planning. Discharge order on the chart. Pt reported that he receives oxygen through [employer], ; fax [phone]. SS contacted [employer] and verified. Pt provided with oxygen tank for home. Pt's RN notified.
[2019-06-27] MEDS: RIVAROXABAN 15 MG TABLET. PO SCH (16:17)
--- NOTE | 2019-06-27 17:30 | NUR ---
Discharge Note: CHAZ MCCLELLAND [address] Discharge instructions and discharge home medications reviewed with Patient and a copy given. All questions have been answered and understanding verbalized. The following instructions and handouts were given: CHF, cardiac diet, and post cath dc pack. Discontinued iv lines and catheter intact. Patient discharged to home with self-care via private vehicle.
--- NOTE | 2019-07-20 09:18 | PDOC ---
Provider Note Provider Note [id number] RHODA CURIEL MD Jul 20, 2019 09:18
--- NOTE | 2019-07-20 10:48 | DS ---
DATE OF DISCHARGE: 06/27/2019 HOSPITAL SUMMARY: A 78-year-old white male with history of systolic cardiomyopathy, came in with increasing shortness of breath and decreased platelet count. CBC showed chronic anemia, hemoglobin around 9, platelet count was low at 78,000 and then came up to 126,000 prior to dismissal. He has CKD 3 with a consistent GFR about 36. Digoxin levels were normal. D-dimer was elevated, but V/Q scan showed no probability of pulmonary emboli. The MPI was unremarkable and he had a cardiac catheterization, which revealed 3-vessel disease and obstruction in the RCA, which was treated with atherectomy and angioplasty and stent placement and ____ angioplasty of the circumflex as well. At the time of discharge, he was comfortable with his current medications to be followed as an outpatient. FINAL DIAGNOSES: 1. Coronary artery disease. 2. Systolic congestive heart failure. 3. Chronic kidney disease 3, stable. 4. Thrombocytopenia, etiology undetermined. OPERATIONS AND PROCEDURES: Cardiac catheterization, angioplasty of two vessels and single stent placement. COMPLICATIONS: None. CONSULTATIONS: Dr. Butler. DISPOSITION: All home meds were continued same as per his admission. He will follow up with Dr. Butler in 1-2 weeks, Dr. Ambrose as scheduled. PROGNOSIS: Guarded given his advanced cardiac disease and age. RHODA CURIEL MD DR: AMANDA/jewels JOB#: [id number] / [id number]
== END 2019-06-27 17:29 | disposition home or self-care (01) | DRG 246 ==
LOC: ER 14:16 → 2 SOUTH 15:27
PROVIDERS: ADMIT Family Medicine; ATTEND Family Medicine
PROC: B2111ZZ Fluoroscopy of Multiple Coronary Arteries using Low Osmolar Contrast (ICD-10-PCS; 2019-06-16)
PROC: B3101ZZ Fluoroscopy of Thoracic Aorta using Low Osmolar Contrast (ICD-10-PCS; 2019-06-16)
PROC: 4A023N8 Measurement of Cardiac Sampling and Pressure, Bilateral, Percutaneous Approach (ICD-10-PCS; 2019-06-16)
PROC: 027035Z Dilation of Coronary Artery, One Artery with Two Drug-eluting Intraluminal Devices, Percutaneous Approach (ICD-10-PCS; principal; 2019-06-23)
PROC: 02C03ZZ Extirpation of Matter from Coronary Artery, One Artery, Percutaneous Approach (ICD-10-PCS; 2019-06-23)
PROC: 02703Z6 Dilation of Coronary Artery, One Artery, Bifurcation, Percutaneous Approach (ICD-10-PCS; 2019-06-23)
DX: I13.0 Hypertensive heart and chronic kidney disease with heart failure and stage 1 through stage 4 chronic kidney disease, or unspecified chronic kidney disease (principal); I50.43 Acute on chronic combined systolic (congestive) and diastolic (congestive) heart failure; J96.20 Acute and chronic respiratory failure, unspecified whether with hypoxia or hypercapnia; J44.1 Chronic obstructive pulmonary disease with (acute) exacerbation; I48.21 Permanent atrial fibrillation; J98.11 Atelectasis; D63.8 Anemia in other chronic diseases classified elsewhere; D69.6 Thrombocytopenia, unspecified; E11.22 Type 2 diabetes mellitus with diabetic chronic kidney disease; G47.00 Insomnia, unspecified; E78.5 Hyperlipidemia, unspecified; G47.33 Obstructive sleep apnea (adult) (pediatric); I25.10 Atherosclerotic heart disease of native coronary artery without angina pectoris; I25.5 Ischemic cardiomyopathy; N18.3 Chronic kidney disease, stage 3 (moderate); Z98.61 Coronary angioplasty status; Z99.81 Dependence on supplemental oxygen
CPT/HCPCS: 36415; 71045; 75625; 78452; 78582; 80048; 80053; 80061; 80162; 82550; 82607; 82728; 83036; 83540; 83550; 83605; 83735; 83880; 84443; 84484; 85007; 85025; 85027; 85049; 85347; 85379; 85610; 90471; 90686; 92920; 92933; 93005; 93460; 93923; 94640; 94760; 96374; 96376; 99152; 99153; A9505; A9540; A9558; C1713; C1725; C1769; C1773; C1874; C1887; C1892; C1898; J1265; J1644; J1940; J2060; J2250; J2930; J3010; J3490; J7613; J7620; J7626; Q9967; 99285-25; G0378

== ENCOUNTER 2019-07-02 17:41 | Inpatient (IN) | payer BC, MEDICARE ==
[~2019-07-02] VITALS: Ht 160 cm; Wt 75.8 kg
[~2019-07-02 17:41] MED LIST changes: +ARFO15VI NEB; +CLOP75TA PO; +FERR325T14 PO; +NYST100054 PO; +SPIR25TA PO; +[UNRECOGNIZED DRUG - OTHER]
[2019-07-02] MEDS ORDERED: IPRATRPIUM/ALBUTEROL 0.5/2.5MG 3 ML NEBU. NEB ONE (18:45)
[2019-07-02 18:49] LABS: BASO % 1 % (0-3); EOS # 0.1 x10^3/uL (0.0-0.7); EOS % 2 % (0-3); HEMATOCRIT 29.1 % (39.0-53.0); HEMOGLOBIN 9.3 g/dL (13.0-17.5); LYMPH # 0.6 x10^3/uL (1.0-4.8); LYMPH % 10 % (24-48); MEAN CORPUSCULAR HEMOGLOBIN 27 pg (25-35); MEAN CORPUSCULAR HGB CONC 32 g/dL (31-37); MEAN CORPUSCULAR VOLUME 84 fL (79-100); MONO # 0.5 x10^3/uL (0.0-1.1); MONO % 9 % (0-9); NEUT # 4.7 x10^3/uL (1.8-7.7); NEUT % 78 % (31-73); PLATELET COUNT 227 x10^3/uL (140-400); RED BLOOD COUNT 3.47 x10^6/uL (4.30-5.70)
[2019-07-02 18:58] LABS: PROTHROMBIN TIME PATIENT 22.3 SEC (11.7-14.0)
[2019-07-02 19:03] LABS: CALCIUM 8.7 mg/dL (8.5-10.1); CREATININE 1.6 mg/dL (0.7-1.3); GFR 41.9; POTASSIUM 4.6 mmol/L (3.5-5.1)
[2019-07-02 19:16] LABS: D-DIMER 5.33 ug/mlFEU (0.00-0.50)
[2019-07-02 19:18] LABS: ALBUMIN 2.8 g/dL (3.4-5.0); ALBUMIN/GLOBULIN RATIO 0.9 (1.0-1.7); MAGNESIUM 1.8 mg/dL (1.8-2.4); TOTAL BILIRUBIN 0.8 mg/dL (0.2-1.0); TOTAL PROTEIN 5.9 g/dL (6.4-8.2)
--- NOTE | 2019-07-02 19:51 | RAD ---
Exam performed: CT scan of the abdomen and pelvis with contrast Exam performed: CT scan of the abdomen and pelvis without contrast. Clinical Indication: Abdomial distention. Date of Service: 07/02/19 . Comparison: None available Technique: Contiguous helical acquisitions are obtained through the abdomen and pelvis without IV contrast. Sagittal and coronal reformatted images are obtained and reviewed. CT abdomen and pelvis findings: Small right and tiny left pleural effusion. Visualized heart is normal. Cacified coronary arteries. Lack of IV contrast limits evaluation of abdominal viscera, however the liver and pancreas are normal. Cholelithiasis. Mild splenomegaly Both adrenal glands and bilateral kidneys are normal in size without hydronephrosis or nephrolithiasis. Aorta is normal in caliber without aneurysm demonstrating diffuse atheromatous calcification. The small and large bowel loops are nondilated and unremarkable. Small umbilical hernia containing omental fat. Small ascites. The visualized portion of the appendix is unremarkable. Distal ureters are nondilated. Urinary bladder is decompressed and thick walled. [Prostate gland, seminal vesicles and the rectum appear normal.] No free or focal fluid collections are identified. Generalized anasarca. Impression: Small right and tiny left pleural effusion. Cholelithiasis. Ascites and generalized anasarca. PQRS Compliance Statement: One or more of the following individualized dose reduction techniques were utilized for this examination: 1. Automated exposure control 2. Adjustment of the mA and/or kV according to patient size 3. Use of iterative reconstruction technique Electronically signed by: Vianey Perez MD (07/02/2019 7:48 PM) [facility]
[2019-07-02] MEDS ORDERED: FUROSEMIDE 20 MG/2 ML VIAL. IVP ONE (20:00)
[2019-07-02 21:20] VITALS: BP 105/51
--- NOTE | 2019-07-02 21:29 | PHYS DOC ---
Past Medical History Past Medical History: A-Fib, Asthma, CHF, Diabetes-Type II, Pneumonia, Other Additional Past Medical Histor: HOME O2 @ NIGHT Past Surgical History: Other Additional Past Surgical Histo: hydrocele surgery, cardiac stent Alcohol Use: None Drug Use: None Adult General Chief Complaint Chief Complaint: WEAKNESS/GENERALIZED HPI HPI Patient is a 78 year old male with history of stent placement who discharge 1 week ago who presents with complaining of shortness of breath. Patient states since he was discharged home one week ago he has had shortness of breath that getting worse with supine position and mild activity associated with generalized weakness and not having energy that gradually getting worse. Patient denies fever and chills, chest pain, vomiting and diarrhea, urinary symptoms. Review of Systems Review of Systems Constitutional: Denies fever or chills [] Eyes: Denies change in visual acuity, redness, or eye pain [] HENT: Denies nasal congestion or sore throat [] Respiratory: Denies cough, reports shortness of breath [] Cardiovascular: No additional information not addressed in HPI [] GI: Denies abdominal pain, nausea, vomiting, bloody stools or diarrhea [] : Denies dysuria or hematuria [] Musculoskeletal: Denies back pain or joint pain [] Integument: Denies rash or skin lesions [] Neurologic: Denies headache, focal weakness or sensory changes [] Endocrine: Denies polyuria or polydipsia [] All other systems were reviewed and found to be within normal limits, except as documented in this note. Current Medications Current Medications Current Medications Medications (Trade) Dose Ordered Sig/Lety Start Time Stop Time Status Last Admin Dose Admin Albuterol/ Ipratropium (Duoneb) 3 ml 1X ONCE 07/02/19 18:45 07/02/19 18:48 DC 07/02/19 18:44 3 ML Allergies Allergies Allergies Coded Allergies Type Severity Reaction Last Updated Verified No Known Drug Allergies 10/17/15 No Physical Exam Physical Exam Constitutional: Mild distress, ill looking, pale, non-toxic appearance. [] HENT: Normocephalic, atraumatic Eyes: PERRLA, EOMI, conjunctiva normal, no discharge, pallor. [] Neck: Normal range of motion, no tenderness, supple, no stridor. [] Cardiovascular:Heart rate regular rhythm, no murmur [] Lungs & Thorax: Bibasilar rales without respiratory distress Abdomen: Bowel sounds normal, soft, no tenderness, no masses, no pulsatile mass es. [] Skin: Warm, dry, no erythema, no rash. [] Back: No tenderness, no CVA tenderness. [] Extremities: No tenderness, no cyanosis, no clubbing, ROM intact, bilateral lower extremity edema. [] Neurologic: Alert and oriented X 3, normal motor function, normal sensory function, no focal deficits noted. [] Psychologic: Affect normal, judgement normal, mood normal. [] Current Patient Data Vital Signs Vital Signs Date Time Temp Pulse Resp B/P (MAP) Pulse Ox O2 Delivery O2 Flow Rate FiO2 07/02/19 19:30 80 20 99 07/02/19 18:46 Nasal Cannula 4.0 07/02/19 17:45 97.5 118/56 (76) 97.5 Lab Values Laboratory Tests Test 07/02/19 17:40 White Blood Count 6.0 x10^3/uL (4.0-11.0) Red Blood Count 3.47 x10^6/uL (4.30-5.70) L Hemoglobin 9.3 g/dL (13.0-17.5) L Hematocrit 29.1 % (39.0-53.0) L Mean Corpuscular Volume 84 fL (79-100) Mean Corpuscular Hemoglobin 27 pg (25-35) Mean Corpuscular Hemoglobin Concent 32 g/dL (31-37) Red Cell Distribution Width 19.0 % (11.5-14.5) H Platelet Count 227 x10^3/uL (140-400) Neutrophils (%) (Auto) 78 % (31-73) H Lymphocytes (%) (Auto) 10 % (24-48) L Monocytes (%) (Auto) 9 % (0-9) Eosinophils (%) (Auto) 2 % (0-3) Basophils (%) (Auto) 1 % (0-3) Neutrophils # (Auto) 4.7 x10^3/uL (1.8-7.7) Lymphocytes # (Auto) 0.6 x10^3/uL (1.0-4.8) L Monocytes # (Auto) 0.5 x10^3/uL (0.0-1.1) Eosinophils # (Auto) 0.1 x10^3/uL (0.0-0.7) Basophils # (Auto) 0.0 x10^3/uL (0.0-0.2) Prothrombin Time 22.3 SEC (11.7-14.0) H Prothrombin Time INR 2.0 (0.8-1.1) H D-Dimer (Holly) 5.33 ug/mlFEU (0.00-0.50) H Sodium Level 138 mmol/L (136-145) Potassium Level 4.6 mmol/L (3.5-5.1) Chloride Level 104 mmol/L (98-107) Carbon Dioxide Level 31 mmol/L (21-32) Anion Gap 3 (6-14) L Blood Urea Nitrogen 23 mg/dL (8-26) Creatinine 1.6 mg/dL (0.7-1.3) H Estimated GFR (Cockcroft-Gault) 41.9 BUN/Creatinine Ratio 14 (6-20) Glucose Level 102 mg/dL (70-99) H Lactic Acid Level 1.9 mmol/L (0.4-2.0) Calcium Level 8.7 mg/dL (8.5-10.1) Magnesium Level 1.8 mg/dL (1.8-2.4) Total Bilirubin 0.8 mg/dL (0.2-1.0) Aspartate Amino Transferase (AST) 20 U/L (15-37) Alanine Aminotransferase (ALT) 22 U/L (16-63) Alkaline Phosphatase 113 U/L (46-116) Creatine Kinase 72 U/L (39-308) Troponin I Quantitative 0.100 ng/mL (0.000-0.055) LR-Nds-E-Type Natriuretic Peptide 72398 pg/mL (0-449) H Total Protein 5.9 g/dL (6.4-8.2) L Albumin 2.8 g/dL (3.4-5.0) L Albumin/Globulin Ratio 0.9 (1.0-1.7) L Lipase 89 U/L (73-393) Laboratory Tests 07/02/19 17:40 Laboratory Tests 07/02/19 17:40 EKG EKG EKG at 1751 showed atrial fibrillation at rate of 80, abnormal superior axis deviation, low voltage QRS, RVH, Q wave in inferior and anteroseptal leads, no acute ST and T-wave elevation. Radiology/Procedures Radiology/Procedures [][facility] [address] [place] [address] IMAGING REPORT Signed PATIENT: CHAZ MCCLELLAND ACCOUNT: [id number] : 1940 LOCATION: ER AGE: 78 SEX: M EXAM STATUS: REG ER ORD. PHYSICIAN: SIMBA THURSTON MD REASON: sob PROCEDURE: PORTABLE CHEST 1V Exam performed: CT scan of the abdomen and pelvis with contrast Exam performed: CT scan of the abdomen and pelvis without contrast. Clinical Indication: Abdomial distention. Date of Service: 07/02/19 . Comparison: None available Technique: Contiguous helical acquisitions are obtained through the abdomen and pelvis without IV contrast. Sagittal and coronal reformatted images are obtained and reviewed. CT abdomen and pelvis findings: Small right and tiny left pleural effusion. Visualized heart is normal. Cacified coronary arteries. Lack of IV contrast limits evaluation of abdominal viscera, however the liver and pancreas are normal. Cholelithiasis. Mild splenomegaly Both adrenal glands and bilateral kidneys are normal in size without hydronephrosis or nephrolithiasis. Aorta is normal in caliber without aneurysm demonstrating diffuse atheromatous calcification. The small and large bowel loops are nondilated and unremarkable. Small umbilical hernia containing omental fat. Small ascites. The visualized portion of the appendix is unremarkable. Distal ureters are nondilated. Urinary bladder is decompressed and thick walled. [Prostate gland, seminal vesicles and the rectum appear normal.] No free or focal fluid collections are identified. Generalized anasarca. Impression: Small right and tiny left pleural effusion. Cholelithiasis. Ascites and generalized anasarca. PQRS Compliance Statement: One or more of the following individualized dose reduction techniques were utilized for this examination: 1. Automated exposure control 2. Adjustment of the mA and/or kV according to patient size 3. Use of iterative reconstruction technique Electronically signed by: Vianey Perez MD (07/02/2019 7:48 PM) [facility] DICTATED and SIGNED BY: VIANEY PEREZ MD DATE: 07/02/191947 Course & Med Decision Making Course & Med Decision Making Pertinent Labs and Imaging studies reviewed. (See chart for details) Evaluation of patient in ER showed 78-year-old male patient with history of recent stent placement and complaining of increasing shortness of breath and generalized weakness. Patient had a BNP of more than 00946 with previous BNP of 19,000. Patient treated with Lasix 20 mg IV and plan to admit diagnosis of CHF exacerbation. Dragon Disclaimer Dragon Disclaimer This electronic medical record was generated, in whole or in part, using a voice recognition dictation system. Departure Departure Impression: Primary Impression: CHF exacerbation Additional Impressions: Elevated troponin CKD (chronic kidney disease) Generalized weakness Shortness of breath Anemia Hypoalbuminemia Chronic atrial fibrillation Ascites Cholelithiasis Disposition: ADMITTED INPATIENT (at 2102) Admitting Physician: Gabriela Ambrose (accepted admission at 2101) Condition: IMPROVED Referrals: GABRIELA AMBROSE MD (PCP) Problem Qualifiers Primary Impression: CHF exacerbation Heart failure type: unspecified Qualified Codes: I50.9 - Heart failure, unspecified Additional Impressions: CKD (chronic kidney disease) Chronic kidney disease stage: unspecified stage Qualified Codes: N18.9 - Chronic kidney disease, unspecified Anemia Anemia type: unspecified type Qualified Codes: D64.9 - Anemia, unspecified Ascites Ascites type: other type Qualified Codes: R18.8 - Other ascites Cholelithiasis Cholelithiasis location: gallbladder Cholecystitis presence: without cholecystitis Biliary obstruction: without biliary obstruction Qualified Codes: K80.20 - Calculus of gallbladder without cholecystitis without obstruction SIMBA THURSTON MD Jul 02, 2019 21:29
[2019-07-02] MEDS ORDERED: FERR325T14 PO (22:37)
[2019-07-02 23:10] VITALS: BP 108/60
[2019-07-03] VITALS (16 sets, daily range): BP systolic 86–121; BP diastolic 43–65
[2019-07-03] MEDS ORDERED: FUROSEMIDE 40 MG/4 ML VIAL. IVP ONE (09:30)
[2019-07-03] MEDS ORDERED: ALBUMIN HUMAN 25% 100 ML IV ONE (09:30)
[2019-07-03] MEDS ORDERED: FUROSEMIDE INJ 100 MG in IV NORMAL SALINE 100ML 100 ML IV PRN (09:30)
--- NOTE | 2019-07-03 09:34 | PDOC ---
CARDIOLOGY PROGRESS NOTE SUBJECTIVE: Mr. Lundy is well known to me. He returns with decompensated HF. He has had exertional dyspnea. No chest pain. OBJECTIVE: Vital Signs/I&O: Vital Signs Date Time Temp Pulse Resp B/P (MAP) Pulse Ox O2 Delivery O2 Flow Rate FiO2 07/03/19 07:00 98.0 79 24 105/51 (69) 98 Nasal Cannula 4.0 98.0 I & O 07/02/19 07/02/19 07/03/19 15:00 23:00 07:00 Intake Total 340 ml Output Total 750 ml Balance -410 ml Objective: +3 edema. Irregular heart tones. Bibasilar rales obese abd, mild distention. CURRENT MEDICATIONS: Current Medications Medications (Trade) Dose Ordered Sig/Lety Route PRN Reason Start Time Stop Time Status Last Admin Dose Admin Albuterol/ Ipratropium (Duoneb) 3 ml 1X ONCE NEB 07/02/19 18:45 07/02/19 18:48 DC 07/02/19 18:44 Furosemide (Lasix) 20 mg 1X ONCE IVP 07/02/19 20:00 07/02/19 20:01 DC 07/02/19 19:55 DIAGNOSTIC TESTING: labs reviewed, cr 1.[address] abd/pel reviewed ASSESSMENT: 1. Acute on chronic decompensated ischemic diastolic and systolic HF 2. \cad s/p PCI 3. Chronic atrial fibrillation PLAN: 1. Start milrinone 2. Start lasix gtt 3. Give albumen and IVP lasix x1 4. Will plan for aggressive diuresis. If no improvement over next 48 hours, plan for transfer to [facility] on thursday. Thanks SEVERIANO MATTHEWS MD Jul 03, 2019 09:34
[2019-07-03] MEDS ORDERED: ALBUTEROL SULFATE 2.5 MG/3 ML NEBU. INH PRN (10:00)
[2019-07-03] MEDS ORDERED: ANTI-COAG MONITOR BY PHARMACY. MC PRN (10:00)
[2019-07-03] MEDS: NYSTATIN 100,000 UNITS/ML 5 ML ORAL.SUSP. PO SCH ×4 (10:30→20:55)
--- NOTE | 2019-07-03 10:33 | HP ---
ADMIT DATE: 07/03/2019 CHIEF COMPLAINT AND HISTORY OF PRESENT ILLNESS: This 78-year-old white male is well known to me in followup in the office. The patient was recently discharged after stenting of coronary artery disease with heart failure at that point in time of his presentation and cardiomyopathy. He has been at home. He has gotten progressively more short of breath over the last several days, presented back to the Emergency Room in [place] heart failure and admitted for the same. PAST MEDICAL HISTORY: Remarkable for asthma, AFib, congestive heart failure, cardiomyopathy, diabetes, pneumonia; he uses home O2 at night. PRIOR SURGICAL HISTORY: Remarkable for hydrocele surgery and cardiac stenting. MEDICATIONS: Brought with the patient, listed on computer, have been addressed. ALLERGIES: He has no known drug allergies. SOCIAL HISTORY: He is retired. Lives at home with his . Nonsmoker. History of alcohol in the past, but none for many years. Does not use drugs. FAMILY HISTORY: Noncontributory. REVIEW OF SYSTEMS: Remarkable for shortness of breath with exertion, a little bit of cough, orthopnea, pedal edema. PHYSICAL EXAMINATION: GENERAL: He is well-developed, well-nourished white male, sitting on the edge of the bed, leaning forward. VITAL SIGNS: Stable. He is afebrile. Blood pressure is on the low side. HEAD, EYES, EARS, NOSE AND THROAT: Unremarkable. NECK: Supple without bruit or thyromegaly. HEART: Irregularly irregular without S3, S4, murmur. CHEST: Bibasilar rales. ABDOMEN: Soft, slightly distended without hepatosplenomegaly or mass. EXTREMITIES: Without cyanosis, clubbing, edema. He does have 2+ lower extremity edema. NEUROLOGIC: He is intact. Initial chest x-ray shows a small right and tiny left pleural effusion. On the CAT scan of the abdomen with cholelithiasis and some ascites and generalized anasarca. Laboratory reveals an INR of 2. He does take Xarelto. Chemistry panel with creatinine of 1.6. BNP of 32,018. Troponin slightly increased to 0.1. Hemoglobin is 9.3. IMPRESSION: 1. Congestive heart failure with cardiomyopathy, ischemic at least partly in nature and probably not made any better with atrial fibrillation. 2. Shortness of breath. 3. Anemia. 4. Diabetes. 5. Ascites. 6. Chronic kidney disease. PLAN: The patient has been admitted. Cardiology has been consulted. Aggressive diuresis will be undertaken with milrinone. If the patient is not responding to the same, the patient will be going to [facility] for evaluation there. GABRIELA VALERA MD DR: LEONARD/jewels JOB#: [id number] / [id number]
[2019-07-03] MEDS: IPRATRPIUM/ALBUTEROL 0.5/2.5MG 3 ML NEBU. NEB SCH ×3 (10:44→19:50)
[2019-07-03] MEDS: MILRINONE 20MG/100ML PREMIX 100 ML IV PRN (11:22)
[2019-07-03] MEDS: ASPIRIN ENTERIC COATED 81 MG TABLET.DR. PO SCH (11:44)
[2019-07-03] MEDS: FERROUS SULFATE 325 MG TABLET. PO SCH (11:44)
[2019-07-03] MEDS: CLOPIDOGREL BISULFATE 75 MG TABLET PO SCH (11:45)
[2019-07-03] MEDS: ALLOPURINOL 300 MG TABLET. PO SCH (11:45)
[2019-07-03] MEDS: POTASSIUM CHLORIDE 10 MEQ TABLET.ER. PO SCH (11:45)
[2019-07-03] MEDS: PANTOPRAZOLE 40 MG TABLET.DR. PO SCH (11:45)
[2019-07-03] MEDS: DIGOXIN 125 MCG TABLET. PO SCH (11:45)
[2019-07-03] MEDS: SPIRONOLACTONE 25 MG TABLET PO SCH (11:45)
[2019-07-03] MEDS: METOPROLOL SUCC 24HR ER 25 MG TAB.ER.24H. PO SCH (11:46)
[2019-07-03] MEDS ORDERED: RIVAROXABAN 15 MG TABLET. PO SCH (17:00)
[2019-07-03] MEDS ORDERED: ACETAMINOPHEN 325 MG TABLET. PO PRN (17:45)
[2019-07-03] MEDS ORDERED: ATORVASTATIN CALCIUM 40 MG TABLET. PO SCH (21:00)
[2019-07-04 00:48] VITALS: BP 88/40
[2019-07-04 01:48] VITALS: BP 109/47
[2019-07-04 03:48] VITALS: BP 109/43
[2019-07-04] MEDS: IPRATRPIUM/ALBUTEROL 0.5/2.5MG 3 ML NEBU. NEB SCH ×4 (04:00→11:46)
[2019-07-04 07:17] VITALS: BP 97/39
--- NOTE | 2019-07-04 08:10 | EKG ---
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
[2019-07-04] MEDS: CLOPIDOGREL BISULFATE 75 MG TABLET PO SCH (08:42)
[2019-07-04] MEDS: SPIRONOLACTONE 25 MG TABLET PO SCH (08:42)
[2019-07-04] MEDS: PANTOPRAZOLE 40 MG TABLET.DR. PO SCH (08:42)
[2019-07-04] MEDS: DIGOXIN 125 MCG TABLET. PO SCH (08:42)
[2019-07-04] MEDS: ALLOPURINOL 300 MG TABLET. PO SCH (08:43)
[2019-07-04] MEDS: FERROUS SULFATE 325 MG TABLET. PO SCH (08:43)
[2019-07-04] MEDS: NYSTATIN 100,000 UNITS/ML 5 ML ORAL.SUSP. PO SCH ×2 (08:43→14:18)
[2019-07-04] MEDS: METOPROLOL SUCC 24HR ER 25 MG TAB.ER.24H. PO SCH (08:43)
[2019-07-04] MEDS: POTASSIUM CHLORIDE 10 MEQ TABLET.ER. PO SCH (08:43)
[2019-07-04] MEDS: ASPIRIN ENTERIC COATED 81 MG TABLET.DR. PO SCH (08:43)
[2019-07-04] MEDS: MILRINONE 20MG/100ML PREMIX 100 ML IV PRN (08:48)
[2019-07-04 09:08] LABS: CALCIUM 8.5 mg/dL (8.5-10.1); CREATININE 1.6 mg/dL (0.7-1.3); GFR 41.9
[2019-07-04 10:24] LABS: DIG 1.1 ng/mL (0.9-2.0)
[2019-07-04 10:30] VITALS: BP 100/49
--- NOTE | 2019-07-04 12:03 | PDOC ---
ROBERT ARNOLD JANA 07/04/19 1203: CARDIO Progress Notes Date and Time Date of Service 07/04/19 Time of Evaluation 1205 Subjective Subjective: Other (still SOA, not feeling much better) Vitals Vitals Vital Signs Date Time Temp Pulse Resp B/P (MAP) Pulse Ox O2 Delivery O2 Flow Rate FiO2 07/04/19 11:46 96 Nasal Cannula 2.0 07/04/19 10:30 98.3 106 18 100/49 (66) 98.3 Weight Weight [ ] Input and Output Intake and Output Intake and Output 07/04/19 07:00 Intake Total 1065 ml Output Total 1000 ml Balance 65 ml IV Total 100 ml Blood Product IV Normal Saline Flush 165 ml Other 800 ml Output Urine Total 1000 ml Laboratory Labs Laboratory Tests Test 07/04/19 07:20 Sodium Level 144 mmol/L (136-145) Potassium Level 4.0 mmol/L (3.5-5.1) Chloride Level 104 mmol/L (98-107) Carbon Dioxide Level 32 mmol/L (21-32) Anion Gap 8 (6-14) Blood Urea Nitrogen 19 mg/dL (8-26) Creatinine 1.6 mg/dL (0.7-1.3) Estimated GFR (Cockcroft-Gault) 41.9 Glucose Level 124 mg/dL (70-99) Calcium Level 8.5 mg/dL (8.5-10.1) Digoxin Level 1.1 ng/mL (0.9-2.0) Digoxin Last Dose Date 07/04/19 Digoxin Last Dose Time 0840 Physical Exam HEENT: Neck Supple W Full Motion Chest: Symmetric LUNGS: Other (bibasilar crackles ) Heart: S1S2, irregularly irregular Abdomen: Soft N/T Extremities: Other (2-3+ bilateral LE edema ) Neurology: alert, oriented, follow commands Assessment Assessment 1. Acute on chronic systolic, diastolic HF; UOP marginal 2. ICM; LVEF 30% 3. CAD s/p recent PCI/ABDELRAHMAN to the RCA and PTCA of the LCx. 4. Chronic AFIB. intermittent RVR; blood pressure marginal, limiting aggressive rate control. on Dig, metoprolol. Xarelto for stroke prevention 5. Mild troponin elevation; highest 0.1. Most probably type II, demand ischemia 6. Hypertension; low normotensive 7 . Hyperlipidemia 8. Diabetes, II 9. CKD; Cr stable. Recommendations Continue milrinone, lasix therapy Unfortunately, patient has not had any significant improvement despite aggressive medical therapy Will arrange transfer to tertiary center with advanced therapies. Secondary prevention Metoprolol IV PRN for tachycardia as BP allows. SEVERIANO MATTHEWS MD 07/04/19 2152: CARDIO Progress Notes Plan Plan Pt. seen and examined. Agree with above [employer]ATION MANAGER note. I discussed case with Dr. Murphy at [facility] He needs advanced HF therapies. Plan for transfer today ROBERT ARNOLD APRN Jul 04, 2019 12:03 SEVERIANO MATTHEWS MD Jul 04, 2019 21:52
--- NOTE | 2019-07-04 12:09 | NUR ---
SS following for discharge planning. SS reviewed pt chart. Pt was [facility]. Pt is from home with spouse and is currently requiring oxygen. Pt has home oxygen services through [employer], ; fax [phone]. SS will continue to follow for discharge planning.
--- NOTE | 2019-07-04 14:06 | NUR ---
SS following up with discharge planning. SS received request for [facility] transfer. SS was notified that Dr. Butler spoke with Dr. Murphy at . SS contacted transfer team at [phone] and spoke with Melissa, . SS faxed clinical per request to fax [phone]. SS contacted Radiology, [phone], and requested that images from this stay and last stay be clouded to . SS currently awaiting acceptance decision at this time. Packet, transfer form, and ambulance form on the chart.
[2019-07-04 14:18] VITALS: BP 97/45
--- NOTE | 2019-07-04 14:58 | NUR ---
SS following up with discharge planning. SS received phone contact from Melissa at transfer team, , reporting that pt will go to ICU Bed #[id number]. She requested report be called into [phone]. Pt's RN notified. SS contacted [facility] ambulance, , and requested first available transport. Pt's RN notified. Packet, ambulance form, and transfer form on the chart.
--- NOTE | 2019-07-04 16:01 | NUR ---
Discharge Note: CHAZ MCCLELLAND [address] transfer instructions and medications reviewed with Other facility and a copy given. All questions have been answered and understanding verbalized. Nurse exchange Report given to Yvonne RN lines and drains intact with milrinone and lasix gtts running. Patient discharged to [facility] Heart failure rm HC 918
--- NOTE | 2019-07-04 22:49 | PN ---
DATE: 07/04/2019 LOCATION: He is in room 203. SUBJECTIVE: The patient is awake, alert, sitting in a chair, feels significantly better this morning than he has. He is breathing much easier and feels like he did lots of urination throughout the day yesterday. No INR was calculated. OBJECTIVE: VITAL SIGNS: Stable. He is afebrile. CHEST: Reveals mild bilateral crackles. HEART: Irregularly irregular. ABDOMEN: Benign. EXTREMITIES: Edema is at least 2-3+. NEUROLOGIC: He is intact. He does have a Lasix drip and milrinone drip running. ASSESSMENT: 1. Congestive heart failure. 2. Cardiomyopathy with ejection fraction around 15%. 3. Reactive airways disease. 4. Diabetes. 5. Anemia. 6. Ascites. 7. Chronic kidney disease. PLAN: Continue present. We will check electrolytes and kidney function tomorrow. Help of Cardiology appreciated. GABRIELA VALERA MD DR: LEONARD/jewels JOB#: [id number] / [id number]
--- NOTE | 2019-07-05 08:11 | DS ---
DATE OF DISCHARGE: 07/04/2019 PRIMARY DIAGNOSIS: Acute on chronic systolic and diastolic congestive heart failure. ADDITIONAL DIAGNOSES: 1. Ischemic cardiomyopathy with ejection fraction anywhere from 15% to 30%. 2. Coronary artery disease with recent stenting of the right coronary artery and percutaneous transluminal coronary angioplasty of the left circumflex. 3. Chronic atrial fibrillation with intermittent rapid ventricular response. 4. Hypertension. 5. Hyperlipidemia. 6. Diabetes. 7. Stable chronic kidney disease. CHIEF COMPLAINT AND HISTORY OF PRESENT ILLNESS: This 78-year-old white male is well known to me from followup in the office, was admitted through the Emergency Room with increasing shortness of breath once again and for congestive heart failure. SUMMARY OF STAY: The patient was admitted. Cardiology followed along. He was placed on IV Lasix drip as well as milrinone with minimal improvement with the same. Cardiology felt he needed more advanced congestive heart failure intervention and discussed with Dr. Murphy at , the congestive heart failure doctor there, and transfer was accomplished on 07/04 later to hopefully get him improved. DISPOSITION: The patient is transferred to . Lists of his meds were sent with him. We will follow up with him after discharge from the same. GABRIELA VALERA MD DR: LEONARD/jewels JOB#: [id number] / [id number]
== END 2019-07-04 15:45 | disposition short-term general hospital (02) | DRG 291 ==
LOC: ER 17:41 → 2 NORTH 19:45
PROVIDERS: ADMIT Family Medicine; ATTEND Family Medicine
DX: I13.0 Hypertensive heart and chronic kidney disease with heart failure and stage 1 through stage 4 chronic kidney disease, or unspecified chronic kidney disease (principal); I50.43 Acute on chronic combined systolic (congestive) and diastolic (congestive) heart failure; I48.20 Chronic atrial fibrillation, unspecified; R18.8 Other ascites; D64.9 Anemia, unspecified; E11.22 Type 2 diabetes mellitus with diabetic chronic kidney disease; E88.09 Other disorders of plasma-protein metabolism, not elsewhere classified; I25.10 Atherosclerotic heart disease of native coronary artery without angina pectoris; I25.5 Ischemic cardiomyopathy; J45.909 Unspecified asthma, uncomplicated; K42.9 Umbilical hernia without obstruction or gangrene; K80.20 Calculus of gallbladder without cholecystitis without obstruction; N18.9 Chronic kidney disease, unspecified; Z95.5 Presence of coronary angioplasty implant and graft; Z99.81 Dependence on supplemental oxygen
CPT/HCPCS: 36415; 71045; 74176; 80048; 80053; 80162; 82550; 83605; 83690; 83735; 83880; 84484; 85025; 85379; 85610; 93005; 94640; 94760; 96374; J1940; J2260; J7620; P9046; 99285-25; G0378